=== PATIENT | male | born 1945 | race Caucasian/White ===

== ENCOUNTER → 2017-02-18 | Outpatient (CLI) | payer MEDICARE, OTHER ==
[~2017-02-18] MED LIST: ASPI-933 PO; CARV3.122 PO; ENLP2.5T PO; HYDR-2856 PO; MELO-195 PO; MULT-963 PO; OMEG1CAP51 PO; ROSU10TA12 PO
== END ==
LOC: CARD 09:35
PROVIDERS: ATTEND Internal Medicine Cardiovascular Disease
DX: I25.10 Atherosclerotic heart disease of native coronary artery without angina pectoris (principal); R01.1 Cardiac murmur, unspecified; I10 Essential (primary) hypertension; E78.2 Mixed hyperlipidemia; E66.9 Obesity, unspecified
CPT/HCPCS: 93306

== ENCOUNTER → 2017-09-08 | Outpatient (CLI) | payer MEDICARE, OTHER | LOC: CARD 13:37 | PROVIDERS: ATTEND Physician Assistant | DX: Q25.3 Supravalvular aortic stenosis (principal); I25.10 Atherosclerotic heart disease of native coronary artery without angina pectoris; I10 Essential (primary) hypertension; E78.2 Mixed hyperlipidemia | CPT/HCPCS: 93306 ==

== ENCOUNTER 2017-11-28 15:15 | Emergency (ER) | payer MEDICARE, OTHER ==
[~2017-11-28] VITALS: Ht 165.1 cm; Wt 102.1 kg
--- OUTSIDE RECORDS SUMMARY | 2017-11-28 15:21 | XMS REPORT | Clinical Summary ---
Author Author [facility] Organization [facility] Address Unknown Phone Unavailable Care Team Providers Care Houseman Name Role Phone Jose De Jesus Rocha MD PCP Dario Pandya MD 21 Source Comments Some departments are not documenting in the electronic medical record. If you do not see the information that you expected, contact Release of Information in the Health Information Management department at [phone] for further assistance in locating additional records.[facility] Allergies No Known Allergies Current Medications Prescription Sig. Disp. Refills Start End Date Status Date rosuvastatin (CRESTOR) 10 Take 10 mg by mouth at Active mg tablet bedtime daily. Fish Oil-DHA-EPA Take 1 capsule by mouth Active 1,200-144-216 mg cap twice daily. MULTIVIT-MINERALS/FERROUS Take 1 tablet by mouth Active FUM (MULTI VITAMIN PO) every morning. aspirin EC 81 mg tablet Take 81 mg by mouth at Active bedtime daily. Take with food. enalapril (VASOTEC) 2.5 Take 2.5 mg by mouth Active mg tablet twice daily. baclofen (LIORESAL) 10 mg Take 10 mg by mouth daily Active tablet as needed for Muscle Cramps. hydrOXYzine pamoate Take 25 mg by mouth daily Active (VISTARIL) 25 mg capsule as needed for Itching. loratadine (CLARITIN) 10 Take 10 mg by mouth daily Active mg tablet as needed (allergy symptoms). senna/docusate Take 2 tablets by mouth 60 tablet 0 03/10/20 Active (SENOKOT-S) 8.6/50 mg twice daily. 18 tablet oxyCODONE/acetaminophen Take 1 tablet by mouth 30 tablet 0 11/27/19 Active (ENDOCET) 5/325 mg tablet every 4 hours as needed 18 for Pain Earliest Fill Date: 11/26/17 carvedilol (COREG) 3.125 Take 3.125 mg by mouth 11/27/19 Discontin mg tablet twice daily. Take with 18 ued food. meloxicam (MOBIC) 15 mg Take 15 mg by mouth daily 11/27/19 Discontin tablet as needed for Pain. 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 Severe aortic stenosis 11/07/2017 Aortic stenosis 09/30/2017 NURIA (obstructive sleep apnea) Morbid obesity (HCC) NSTEMI (non-ST elevated myocardial infarction) (HCC) Mixed hyperlipidemia 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HCC) HTN (hypertension) Cardiac murmur CAD (coronary artery disease) Bruit of left carotid artery Encounters Date Type Specialty Care Team Description 11/28/2017 Telephone Cardiothoracic Surgery Jessica Vernon RN Post- hospital Follow Up 11/26/2017 Pharmacy Visit 11/25/2017 Pharmacy Visit 11/25/2017 Orders Only Cardiology Giovani Pratt APRN-[place] Nonrheumatic aortic valve stenosis (Primary Dx); Essential hypertension 11/24/2017 Hospital Galindo Cuenca MD S/P TAVR (transcatheter - Encounter Stephen Sewell MD aortic valve replacement) 11/26/2017 11/24/2017 Procedure Pass 11/24/2017 Surgery Galindo Cuenca MD REPLACEMENT TRANSCATHETER AORTIC VALVE-evolut, left common femoral artery approach, 29 pro valve 11/23/2017 PAC Office Anesthesiology Galindo Cuenca MD 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, Visit etiology of cardiac valve disease unspecified 11/23/2017 Anesthesia Sean Martínez MD Event 11/21/2017 Pre-Admit Cardiothoracic Surgery Galindo Cuenca MD 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, Orders Only etiology of cardiac valve disease unspecified (Primary Dx) 11/21/2017 Prep for Case Cardiothoracic Surgery Shani Madrid APRN 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, etiology of cardiac valve disease unspecified (Primary Dx) 11/18/2017 Documentation Cardiology Giovani Pratt APRN-C Provider Discussion About Patient (TAVR eval) 11/07/2017 Hospital Cardiology Ambrosio Nguyen MD Severe aortic stenosis - Encounter 11/08/2017 11/07/2017 Procedure Pass Cardiology 11/07/2017 Procedure Pass Cardiology 11/07/2017 Procedure Pass Cardiology 11/07/2017 Surgery Cardiology Ambrosio Nguyen MD ANGIOGRAPHY CORONARY ARTERY POSSIBLE WITH RIGHT AND LEFT HEART CATHETERIZATION WITH VENTRICULOGRAPHY 10/26/2017 Telephone Cardiothoracic Surgery Lulu Kamara RN General Question 10/26/2017 Documentation Cardiology Rakesh Patton RN Precertification (Medicare) 10/25/2017 [facility] Cardiology Chase Neri MD Encounter 10/25/2017 [facility] Giovani Pratt APRN-C Encounter 10/25/2017 Office Visit Cardiothoracic Surgery Galindo Cuenca MD Nonrheumatic aortic valve stenosis (Primary Dx) 10/25/2017 Office Visit Cardiology Chase Neri MD New Patient ( - TAVR ) 10/25/2017 [facility] Cardiology Giovani Pratt APRN-C Encounter 09/30/2017 Telephone Cardiology Marixa Acharya RN Navigation Assessment (/ AVR vs TAVR eval) from Last 3 Months Family History Medical History Relation Name Comments Cancer Brother Hypertension Father Cancer Paternal Aunt Heart Disease Paternal Uncle Relation Name Status Comments Brother Father Paternal Aunt Paternal Uncle Social History Tobacco Use Types Packs/Day Years Used Date Former Smoker Cigarettes 1 25 Quit: 2002 Smokeless Tobacco: Never Used Alcohol Use Drinks/Week oz/Week Comments Yes occasional Sex Assigned at Date Recorded Not on file Last Filed Vital Signs Vital Sign Reading Time Taken Blood Pressure 124/87 11/26/2017 8:00 AM SOCIOLOGY INSTRUCTOR Pulse 66 11/26/2017 8:00 AM SOCIOLOGY INSTRUCTOR Temperature 36.7 C (98.1 F) 11/26/2017 8:00 AM SOCIOLOGY INSTRUCTOR Respiratory Rate - - Oxygen Saturation 96% 11/26/2017 8:00 AM SOCIOLOGY INSTRUCTOR Inhaled Oxygen - - Concentration Weight 115.2 kg (254 lb) 11/26/2017 4:00 AM SOCIOLOGY INSTRUCTOR Height 167.6 cm (5' 5.98") 11/25/2017 9:01 AM SOCIOLOGY INSTRUCTOR Body Mass Index 41.02 11/26/2017 4:00 AM SOCIOLOGY INSTRUCTOR Plan of Treatment Health Maintenance Due Date Last Done Comments HEPATITIS C SCREENING 1945 PHYSICAL (COMPREHENSIVE) 1954 EXAM PERTUSSIS VACCINE 1958 TETANUS VACCINE 1964 COLORECTAL CANCER 1997 SCREENING SHINGLES VACCINE 2007 ABDOMINAL AORTIC ANEURYSM 2012 SCREENING PREVNAR/PNEUMOVAX (#1) 2012 INFLUENZA VACCINE 06/19/2018 Implants Implanted Type Area Plane Tender Device Expiration Model / Identifier Date Serial / Lot Evolutpro Core Valve 29mm - Heart N/A: Heart [employer] 01/10/2019 EVOLUTPRO- [id number] Valve 29-US / Implanted: Qty: 1 on 11/24/2017 by [id number] / Galindo Cuenca MD EVOLUTPRO- 29-US Procedures Procedure Name Priority Date/Time Associated Diagnosis Comments ANESTHESIA Routine 11/24/2017 TRANSEESOPHAGEAL 10:23 AM SOCIOLOGY INSTRUCTOR ECHOCARDIOGRAM Procedure Note - Flash Pino MD - 11/24/2017 10:23 AM SOCIOLOGY INSTRUCTOR Anesthesi a Procedure: Transesoph ageal Echocardio gram MONTSE Date/Time: 11/24/2017 9:24 AM Associate d procedure: Other Preprocedu re checklist performed: 2 patient identifier s, risks & benefits discussed, patient evaluated, timeout performed, consent obtained and patient being monitored Staff Anesthesio logist: FLASH PINO Performed personally (Cards fellow present.) Indicatio n for MONTSE: assessment of ascending aorta, defect repair evaluation and valvular assessment Physician requesting echo: GALINDO CUENCA CPT codes: 89822 - Guidance of a transcathe ter interventi on(s) Patient location: OR Intubated: yes Bite block: yes Heart visualized : yes Insertion: easy Probe type: multiplane Modalities : 2D, color flow mapping, continuous wave Doppler and 3D Echocardio graphic and Doppler Measuremen ts Ventricul ar Findings Right Ventricle RV cavity size: normal RV hypertroph y: no RV thrombus: no RV global function: normal Left Ventricle LV cavity size: normal LV hypertroph y: yes LV thrombus: no LV global function: normal LV ejection fraction: 55% Ventricula r Wall Motion Four Chamber View Basal anterolate ral: normal Basal inferosept al: normal Mid anterolate ral: normal Mid inferosept al: normal Apical lateral: normal Apical septal: normal Two Chamber View Basal anterior: normal Basal inferior: normal Mid anterior: normal Mid inferior: normal Apical anterior: normal Apical inferior: normal [place] View Basal anterosept al: normal Basal inferolate ral: normal Mid anterosept al: normal Mid inferolate ral: normal Apical lateral: normal Apical septal: normal [place]: normal Mid [place] View Mid anterosept al: normal Mid anterior: normal Mid anterolate ral: normal Mid inferolate ral: normal Mid inferior: normal Mid inferosept al: normal Valves Aortic Valve Annulus: calcified Stenosis: severe Regurgitat ion severity: mild Leaflet morphology : calcified, bicuspid and thickened Leaflet motion: restricted Mitral Valve Annulus: normal Stenosis: none Regurgitat ion severity: trace Leaflet morphology : normal Leaflet motion: normal Tricuspid Valve Annulus: normal Stenosis: none Regurgitat ion severity: trace Leaflet morphology : normal Leaflet motion: normal Aorta Ascending Aorta Size: normal Dissection : no Plaque thickness: 0-3 mm Plaque mobile: no Sinotubul ar Junction Size: normal Dissection : no Plaque thickness: >3 mm Plaque mobile: no Sinus of Valsalva Size: normal Dissection : no Plaque thickness: 0-3 mm Plaque mobile: no Descendin g Thoracic Aorta Size: normal Dissection : no Plaque thickness: 0-3 mm Plaque mobile: no Atria Right Atrium Size: normal SEC (smoke): no Thrombus: no Tumor: no Device: no Left Atrium Size: normal SEC (smoke): no Thrombus: no Tumor: no Device: no Left atrial appendage size: normal Septa Intra-atri al septal morphology : normal Intra-autumn tricular septal morphology : hypertroph y Other Findings Pericardiu m: normal Pleural effusion: none Pulmonary arteries: normal Pulmonary venous flow: normal Post Procedure Aortic valve replacemen t Perivalvul ar leak: no Mean gradient (mmHg): Post-proce dure comments: Successful TAVR. 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 No PVL. Performed by: FLASH PINO Authorized by: FLASH PINO ANESTHESIA CENTRAL LINE Routine 11/24/2017 Results for this INSERTION 8:42 AM SOCIOLOGY INSTRUCTOR procedure are in the results section. ANESTHESIA ARTERIAL LINE Routine 11/24/2017 Results for this INSERTION 8:31 AM SOCIOLOGY INSTRUCTOR procedure are in the results section. PROCEDURE RECORD-SCAN 11/14/2017 Results for this 11:52 AM SOCIOLOGY INSTRUCTOR procedure are in the results section. ECG-SCAN 11/14/2017 Results for this 11:28 AM SOCIOLOGY INSTRUCTOR procedure are in the results section. TELEMETRY STRIPS-SCAN 11/14/2017 Results for this 11:28 AM SOCIOLOGY INSTRUCTOR procedure are in the results section. from Last 3 Months Results * POC GLUCOSE (11/26/2017 8:06 AM) Only the most recent of 11 results within the time period is included. Component Value Ref Range Glucose, POC 126 (H) 70 - 100 MG/DL Specimen Performing Laboratory [facility] [address] [place] [address] * CHEST SINGLE VIEW (11/26/2017 6:23 AM) Only the most recent of 2 results within the time period is included. Specimen Performing Laboratory [facility] RESULTS Impressions Almost complete resolution of pulmonary vascular congestion Finalized by Indra Hernandez M.D. on 11/26/2017 12:55 PM. Dictated by Indra Hernandez M.D. on 11/26/2017 12:53 PM. Narrative Single view chest Clinical indications: Transcatheter aortic valve repair. FINDINGS: Perivascular congestion has almost completely resolved since the previous days examination. The heart remains mildly prominent. No pulmonary infiltrates are identified. There is no evidence of pneumothorax or pleural fluid. Procedure Note Interface, Radiant Results - 11/26/2017 12:58 PM SOCIOLOGY INSTRUCTOR Single view chest Clinical indications: Transcatheter aortic valve repair. FINDINGS: Perivascular congestion has almost completely resolved since the previous days examination. The heart remains mildly prominent. No pulmonary infiltrates are identified. There is no evidence of pneumothorax or pleural fluid. IMPRESSION Almost complete resolution of pulmonary vascular congestion Finalized by Indra Hernandez M.D. on 11/26/2017 12:55 PM. Dictated by Indra Hernandez M.D. on 11/26/2017 12:53 PM. * CBC (11/26/2017 3:46 AM) Only the most recent of 6 results within the time period is included. Component Value Ref Range White Blood Cells 11.2 (H) 4.5 - 11.0 K/UL RBC 4.05 (L) 4.4 - 5.5 M/UL Hemoglobin 12.8 (L) 13.5 - 16.5 GM/DL Hematocrit 39.7 (L) 40 - 50 % MCV 98.1 80 - 100 FL MCH 31.6 26 - 34 PG MCHC 32.3 32.0 - 36.0 G/DL RDW 14.8 11 - 15 % Platelet Count 152 150 - 400 K/UL MPV 9.2 7 - 11 FL Specimen Performing Laboratory [facility] [address] [place] [address] * BASIC METABOLIC PANEL (11/26/2017 3:46 AM) Only the most recent of 4 results within the time period is included. Component Value Ref Range Sodium 136 (L) 137 - 147 MMOL/L Potassium 4.3 3.5 - 5.1 MMOL/L Chloride 103 98 - 110 MMOL/L CO2 26 21 - 30 MMOL/L Anion Gap 7 3 - 12 Glucose 111 (H) 70 - 100 MG/DL Blood Urea Nitrogen 15 7 - 25 MG/DL Creatinine 0.85 0.4 - 1.24 MG/DL Calcium 9.6 8.5 - 10.6 MG/DL eGFR Non >60 >60 mL/min Comment: The eGFR is not validated for use in drug dosing adjustments. Continue to use estimated creatinine clearance per dosing reference text. Please contact the Clinical Pharmacist for questions. eGFR >60 >60 mL/min Comment: The eGFR is not validated for use in drug dosing adjustments. Continue to use estimated creatinine clearance per dosing reference text. Please contact the Clinical Pharmacist for questions. Specimen Performing Laboratory [facility] [address] [place] [address] * 2-D + DOPPLER ECHOCARDIOGRAM (11/25/2017 9:01 AM) Only the most recent of 2 results within the time period is included. Component Value Ref Range LVOT diameter 2.21 cm IVS 1.36 0.6 - 1.0 cm LVIDD 5.39 4.2 - 5.9 cm LVIDS 3.53 cm PW 1.36 0.6 - 1.0 cm LVOT peak jorge 1.06 m/s LVOT peak VTI 23.0 meter TDI e' 0.08 m/s LA size 4.72 3.0 - 4.0 cm LA volume 71.57 18 - 58 mL , with a mean gradient of 12.49 mmHg and a peak gradient of 23.82 mmHg AV peak velocity 2.44 m/s Ao VTI 47.0 meter MV Peak A Jorge 0.99 m/s MV Peak E Jorge PW 0.74 m/s Right Heart Systolic 2.65 cm Mmode TAPSE Sinus 4.12 2.1 - 3.5 cm BSA 2.31 m2 FS 34.51 28 - 44 % EF 58.67 % Left Atrium Index 30.98 10 - 32 AV index (hoopa) 0.43 LVOT area 3.83 cm2 LVOT stroke volume 88.09 cm3 E/A ratio 0.75 E/E' ratio 9.25 CV ECHO PV CEO ZIFF DAVIS B[facility] Ultrasound Siemens LC1371 Machine Aortic valve area= 1.87 cm2 TV rest pulmonary artery n/a mmHg pressure Right Atrial Major 6.6 <=5.3 cm Dimension ECHO EF 55 % Specimen Performing Laboratory OTHER OUTSIDE LAB Narrative Very poor image quality Mild right atrial dilation Mild left ventricular hypertrophy Left ventricular ejection fraction=55% Bioprosthetic aortic valve, appears well seated, leaflets not well visualized, appears new since the study of 10/25/17 Unable to calculate pulmonary artery pressure No significant pericardial effusion Vidal Javier MD, MSc * POTASSIUM (11/24/2017 6:46 PM) Component Value Ref Range Potassium 4.0 3.5 - 5.1 MMOL/L Specimen Performing Laboratory [facility] [address] [place] [id number] * MAGNESIUM (11/24/2017 6:46 PM) Only the most recent of 2 results within the time period is included. Component Value Ref Range Magnesium 1.9 1.6 - 2.6 mg/dL Specimen Performing Laboratory [facility] [address] [place] [id number] * PTT (APTT) (11/24/2017 10:39 AM) Only the most recent of 2 results within the time period is included. Component Value Ref Range APTT 28.7 21.0 - 39.0 SEC Specimen Performing Laboratory [facility] [address] [place] [id number] * PROTIME INR (PT) (11/24/2017 10:39 AM) Only the most recent of 2 results within the time period is included. Component Value Ref Range INR 1.0 0.8 - 1.2 Specimen Performing Laboratory [facility] [address] [place] [id number] * LINE PLCMT 1V CXR (11/24/2017 10:38 AM) Specimen Performing Laboratory [facility] RESULTS Impressions 1.Mild cardiomegaly with pulmonary vascular congestion which could reflect mild CHF/volume overload. 2.Prominence of the interstitium throughout the lungs which could be related to fibrosis. Approved by Hawk Moe M.D. on 11/24/2017 10:58 AM By my electronic signature, I attest that I have personally reviewed the images for this examination and formulated the interpretations and opinions expressed in this report Finalized by Kirk Garcia M.D. on 11/24/2017 12:33 PM. Dictated by Hawk Moe M.D. on 11/24/2017 10:46 AM. Narrative LINE PLCMT 1V CXR Clinical Indication: Male, 72 years old. Temporary pacer lead placement. Comparison: CTA chest November 08, 2017. Findings: Right IJ transvenous pacing lead overlies the right ventricle. Cardiac silhouette is mildly enlarged with pulmonary vascular congestion. There is prominence of the interstitium throughout the lungs. No lobar consolidation or pleural effusion. No pneumothorax. Procedure Note Interface, Radiant Results - 11/24/2017 12:37 PM SOCIOLOGY INSTRUCTOR LINE PLCMT 1V CXR Clinical Indication: Male, 72 years old. Temporary pacer lead placement. Comparison: CTA chest November 08, 2017. Findings: Right IJ transvenous pacing lead overlies the right ventricle. Cardiac silhouette is mildly enlarged with pulmonary vascular congestion. There is prominence of the interstitium throughout the lungs. No lobar consolidation or pleural effusion. No pneumothorax. IMPRESSION 1. Mild cardiomegaly with pulmonary vascular congestion which could reflect mild CHF/volume overload. 2. Prominence of the interstitium throughout the lungs which could be related to fibrosis. Approved by Hawk Moe M.D. on 11/24/2017 10:58 AM By my electronic signature, I attest that I have personally reviewed the images for this examination and formulated the interpretations and opinions expressed in this report Finalized by Kirk Garcia M.D. on 11/24/2017 12:33 PM. Dictated by Hawk Moe M.D. on 11/24/2017 10:46 AM. * POC BLOOD GAS ARTERIAL (11/24/2017 9:52 AM) Only the most recent of 2 results within the time period is included. Component Value Ref Range PH-ART-POC 7.30 (L) 7.35 - 7.45 LPC4-LXS-YFC 43 35 - 45 MMHG PO2-ART-POC 70 (L) 80 - 100 MMHG Base Def-ART-POC 6.0 MMOL/L O2 Sat-ART-POC 92.0 (L) 95 - 99 % Swiqukuxotd-LVC-OAP 20.7 (L) 21 - 28 MMOL/L Specimen Performing Laboratory [facility] [address] [place] [address] * POC SODIUM (11/24/2017 9:52 AM) Only the most recent of 2 results within the time period is included. Component Value Ref Range Sodium-POC 140 137 - 147 MMOL/L Specimen Performing Laboratory [facility] [address] [place] [address] * POC POTASSIUM (11/24/2017 9:52 AM) Only the most recent of 2 results within the time period is included. Component Value Ref Range Potassium-POC 3.5 3.5 - 5.1 MMOL/L Specimen Performing Laboratory [facility] [address] [place] [address] * POC IONIZED CALCIUM (11/24/2017 9:52 AM) Only the most recent of 2 results within the time period is included. Component Value Ref Range Ionized Calcium-POC 1.11 1.0 - 1.3 MMOL/L Specimen Performing Laboratory [facility] [address] [place], [place] [id number] * POC HEMATOCRIT (11/24/2017 9:52 AM) Only the most recent of 2 results within the time period is included. Component Value Ref Range Hemoglobin POC 12.6 (L) 13.5 - 16.5 GM/DL Hematocrit POC 37.0 (L) 40 - 50 % Specimen Performing Laboratory [facility] [address] [place], [place] [id number] * POC ACTIVATED CLOTTING TIME (11/24/2017 9:49 AM) Only the most recent of 2 results within the time period is included. Component Value Ref Range Activated Clotting Time 162 s Specimen Performing Laboratory [facility] [address] [place] [address] * ANESTHESIA CENTRAL LINE INSERTION (11/24/2017 8:42 AM) Flash Keenan MD 11/24/2017 10:23 AM Anesthesia Procedure: Central Venous Catheter Line CENTRAL LINE INSERTION Date/Time: 11/24/2017 8:07 AM Patient location: OR Indications: vascular access and medications requiring CV access (transvenous pacing wires) Preprocedure checklist performed: 2 patient identifiers, risks & benefits discussed, patient evaluated, timeout performed, consent obtained, patient being monitored and CVC bundle followed (proper hand washing, maximal sterile barrier technique with cap, sterile gown, sterile glove, sterile drape, and skin prep for antisepsis) CVC Line Insertion Procedure Skin prepped with chlorhexidine; skin prep agent completely dried prior to procedure. Patient Position: supine Location: internal jugular vein Laterality: right Vein identification: ultrasound guided Confirmation of venous placement prior to dilation of vein by: ultrasound Number of attempts: 1 Successful placement: yes Patient sedated: yes Sedation given: general Catheter: Catheter type: introducer placed using standard wire through needle technique Catheter size: 6 Fr. Procedure Outcome Post procedure: dressing applied, line sutured and securement device; Dressing: chlorhexidine impregnated sponge Placement verification: x-ray verification pending Events: none Observations: patient tolerated well Additional notes: I was physically present and participated in the placement. US guidance and confirmation. No complications. JTM Performed by: NIA MCCLAIN Authorized by: FLASH PINO Procedure Note Flash Pino MD - 11/24/2017 8:42 AM SOCIOLOGY INSTRUCTOR Anesthesia Procedure: Central Venous Catheter Line CENTRAL LINE INSERTION Date/Time: 11/24/2017 8:07 AM Patient location: OR Indications: vascular access and medications requiring CV access (transvenous pacing wires) Preprocedure checklist performed: 2 patient identifiers, risks & benefits discussed, patient evaluated, timeout performed, consent obtained, patient being monitored and CVC bundle followed (proper hand washing, maximal sterile barrier technique with cap, sterile gown, sterile glove, sterile drape, and skin prep for antisepsis) CVC Line Insertion Procedure Skin prepped with chlorhexidine; skin prep agent completely dried prior to procedure. Patient Position: supine Location: internal jugular vein Laterality: right Vein identification: ultrasound guided Confirmation of venous placement prior to dilation of vein by: ultrasound Number of attempts: 1 Successful placement: yes Patient sedated: yes Sedation given: general Catheter: Catheter type: introducer placed using standard wire through needle technique Catheter size: 6 Fr. Procedure Outcome Post procedure: dressing applied, line sutured and securement device; Dressing: chlorhexidine impregnated sponge Placement verification: x-ray verification pending Events: none Observations: patient tolerated well Additional notes: I was physically present and participated in the placement. US guidance and confirmation. No complications. JTM Performed by: NIA MCCLAIN Authorized by: FLASH PINO * ANESTHESIA ARTERIAL LINE INSERTION (11/24/2017 8:31 AM) Narrative Flash Pino MD 11/24/2017 10:22 AM Anesthesia Procedure: Arterial Line Placement A-LINE INSERTION Date/Time: 11/24/2017 8:08 AM Patient location: OR Indications: hemodynamic monitoring Preprocedure checklist performed: 2 patient identifiers, risks & benefits discussed, patient evaluated, timeout performed, consent obtained and patient being monitored Sterile technique: - Proper hand washing - Cap, mask - Sterile gloves - Skin prep for antisepsis Arterial Line Procedure Patient sedated: yes (see MAR) Sedation type: general; Artery prepped with chlorhexidine; skin prep agent completely dried prior to procedure. Location: radial artery Laterality: right Technique: palpation Needle gauge: 20 G Number of attempts: 3 and 2 (x1 resident) Procedure Outcome Catheter secured with adhesive dressing applied Events: no complications noted during insertion and skin intact, warm, and dry Observation: pt tolerated well Additional notes: This was a difficult arterial access. The first attempt the wire would not pass. Same with the second attempt. The third attempt I used US guidance to place. JTM Performed by: FLASH PINO Authorized by: FLASH PINO Procedure Note Flash Pino MD - 11/24/2017 8:31 AM SOCIOLOGY INSTRUCTOR Anesthesia Procedure: Arterial Line Placement A-LINE INSERTION Date/Time: 11/24/2017 8:08 AM Patient location: OR Indications: hemodynamic monitoring Preprocedure checklist performed: 2 patient identifiers, risks & benefits discussed, patient evaluated, timeout performed, consent obtained and patient being monitored Sterile technique: - Proper hand washing - Cap, mask - Sterile gloves - Skin prep for antisepsis Arterial Line Procedure Patient sedated: yes (see MAR) Sedation type: general; Artery prepped with chlorhexidine; skin prep agent completely dried prior to procedure. Location: radial artery Laterality: right Technique: palpation Needle gauge: 20 G Number of attempts: 3 and 2 (x1 resident) Procedure Outcome Catheter secured with adhesive dressing applied Events: no complications noted during insertion and skin intact, warm, and dry Observation: pt tolerated well Additional notes: This was a difficult arterial access. The first attempt the wire would not pass. Same with the second attempt. The third attempt I used US guidance to place. JTM Performed by: FLASH PINO Authorized by: FLASH PINO * BLOOD TYPE CONFIRMATION - ORDER ONLY IF REQUESTED BY LAB (11/24/2017 6:20 AM) Component Value Ref Range ABO/RH(D) O POS Specimen Performing Laboratory MAIN LAB [address] [place] [address] * URINALYSIS MICROSCOPIC REFLEX TO CULTURE (11/23/2017 1:23 PM) Component Value Ref Range WBCs,UA 0-2 0 - 2 /HPF RBCs,UA 0-2 0 - 3 /HPF Comment,UA Urine submitted for reflex culture if criteria are met:WBC>10, positive nitrite and/or >=1+ leukocyte esterase. If quantity is not sufficient, an addendum will follow. Specimen Performing Laboratory Urine MAIN LAB [address] [place] [address] * URINALYSIS DIPSTICK REFLEX TO CULTURE (11/23/2017 1:23 PM) Component Value Ref Range Color,UA STRAW Turbidity,UA CLEAR CLEAR-CLEAR Specific [place]-Urine 1.004 1.003 - 1.035 pH,UA 8.0 5.0 - 8.0 Protein,UA NEG NEG-NEG Glucose,UA NEG NEG-NEG Ketones,UA NEG NEG-NEG Bilirubin,UA NEG NEG-NEG Blood,UA NEG NEG-NEG Urobilinogen,UA NORMAL NORM-NORMAL Nitrite,UA NEG NEG-NEG Leukocytes,UA NEG NEG-NEG Urine Ascorbic Acid, UA NEG NEG-NEG Specimen Performing Laboratory Urine MAIN LAB [address] [place] [address] * TYPE & CROSSMATCH (11/23/2017 12:19 PM) Component Value Ref Range Units Ordered 2 Crossmatch Expires 11/26/2017 Record Check 2ND TYPE REQUIRED ABO/RH(D) O POS Antibody Screen NEG Electronic Crossmatch YES Unit Number [id number] Blood Component Type RBC,ADSOL,LEUKO REDUCED Unit Division 0 Status OF Unit REL FROM ALLOC Transfusion Status OK TO TRANSFUSE Crossmatch Result COMPATIBLE,ELECTRONIC Unit Number [id number] Blood Component Type RBC,ADSOL,LEUKO REDUCED Unit Division 0 Status OF Unit REL FROM ALLOC Transfusion Status OK TO TRANSFUSE Crossmatch Result COMPATIBLE,ELECTRONIC Specimen Performing Laboratory Blood MAIN LAB [address] [place] [address] * BNP (B-TYPE NATRIURETIC PEPTI) (11/23/2017 12:19 PM) Component Value Ref Range B Type Natriuretic 202.0 (H) 0 - 100 PG/ML Peptide Specimen Performing Laboratory Blood MAIN LAB [address] [place] [address] * HEMOGLOBIN A1C (11/23/2017 12:19 PM) Component Value Ref Range Hemoglobin A1C 5.9 4.0 - 6.0 % Comment: The ADA recommends that most patients with type 1 and type 2 diabetes maintain an A1c level <7%. Specimen Performing Laboratory Blood MAIN LAB [address] [place] [address] * COMPREHENSIVE METABOLIC PANEL (11/23/2017 12:19 PM) Only the most recent of 2 results within the time period is included. Component Value Ref Range Sodium 138 137 - 147 MMOL/L Potassium 3.8 3.5 - 5.1 MMOL/L Chloride 105 98 - 110 MMOL/L Glucose 114 (H) 70 - 100 MG/DL Blood Urea Nitrogen 13 7 - 25 MG/DL Creatinine 0.78 0.4 - 1.24 MG/DL Calcium 9.5 8.5 - 10.6 MG/DL Total Protein 7.6 6.0 - 8.0 G/DL Total Bilirubin 0.6 0.3 - 1.2 MG/DL Albumin 4.0 3.5 - 5.0 G/DL Alk Phosphatase 84 25 - 110 U/L AST (SGOT) 24 7 - 40 U/L CO2 26 21 - 30 MMOL/L ALT (SGPT) 19 7 - 56 U/L Anion Gap 7 3 - 12 eGFR Non >60 >60 mL/min Comment: The eGFR is not validated for use in drug dosing adjustments. Continue to use estimated creatinine clearance per dosing reference text. Please contact the Clinical Pharmacist for questions. eGFR >60 >60 mL/min Comment: The eGFR is not validated for use in drug dosing adjustments. Continue to use estimated creatinine clearance per dosing reference text. Please contact the Clinical Pharmacist for questions. Specimen Performing Laboratory Blood MAIN LAB [address] [place] [address] * PROCEDURE RECORD-SCAN (11/14/2017 11:52 AM) Narrative Ordered by an unspecified provider. * TELEMETRY STRIPS-SCAN (11/14/2017 11:28 AM) Narrative Ordered by an unspecified provider. * ECG-SCAN (11/14/2017 11:28 AM) Narrative Ordered by an unspecified provider. * CTA ABD/PELVIS (11/08/2017 5:58 AM) Specimen Performing Laboratory [facility] RAD RESULTS Impressions CTA Impression: Chest: 1.Moderate to severe aortic valve calcification consistent with degenerative aortic valve disease. 2.Normal caliber aortic root and ascending aorta with mild scattered aortic plaque. 3.Moderate pulmonary fibrosis without pneumonia or pleural effusion. Abdomen and pelvis: 1.Mild aortoiliac atherosclerosis without aortic aneurysm or obstructive iliac artery plaque. 2.No significant stenosis of the major visceral arteries. 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 Finalized by David Christianson M.D. on 11/08/2017 12:03 PM. Dictated by David Christianson M.D. on 11/08/2017 11:55 AM. Narrative CTA chest, CTA abdomen and pelvis Indication:72 year-old gentleman undergoing evaluation for aortic valve repair Technique: Thin dynamic IV contrast-enhanced images were obtained through the chest abdomen and pelvis. Delayed scans were obtained through the abdomen and pelvis. Post processing coronal and sagittal reconstruction images were made from the axial images.Image post-processing was obtained.Isovue-370 was administered intravenously. Comparison examination: None CTA Chest findings: 1. Heart, aorta, and great vessels: Heart size is upper limits of normal. Mild calcified coronary artery plaque is noted.There is no pericardial effusion. There is moderate to severe aortic valve calcification.The aortic root is normal in caliber measuring 3.9 cm on coronal reformations.The ascending aorta measures 3.6 cm.There is mild scattered aortic plaque without dissection or aneurysm. 2. Mediastinum and pulmonary tanya:Several normal size mediastinal lymph nodes.No adenopathy or mass. 3. Lungs and pleura:Moderate pulmonary fibrosis.Calcified granuloma left upper lobe.No pneumonia or pleural effusion. Mild thoracic spondylosis. CTA Abdomen findings: 1. Abdominal aorta:Normal caliber with mild scattered calcified plaque. No dissection. 2. Major abdominal visceral arteries:Mild plaque, but no significant stenosis of the major visceral arteries. 3. 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 4. Abdominal and pelvic viscera:Liver, spleen, adrenals, kidneys, and pancreas unremarkable.No abdominal or pelvic adenopathy.Bladder and prostate are unremarkable.Bowel loops normal caliber.Moderate colonic diverticulosis.No ascites.Moderate lumbar spondylosis. Procedure Note Interface, Radiant Results - 11/08/2017 12:07 PM SOCIOLOGY INSTRUCTOR CTA chest, CTA abdomen and pelvis Indication: 72 year-old gentleman undergoing evaluation for aortic valve repair Technique: Thin dynamic IV contrast-enhanced images were obtained through the chest abdomen and pelvis. Delayed scans were obtained through the abdomen and pelvis. Post processing coronal and sagittal reconstruction images were made from the axial images. Image post-processing was obtained. Isovue-370 was administered intravenously. Comparison examination: None CTA Chest findings: 1. Heart, aorta, and great vessels: Heart size is upper limits of normal. Mild calcified coronary artery plaque is noted. There is no pericardial effusion. There is moderate to severe aortic valve calcification. The aortic root is normal in caliber measuring 3.9 cm on coronal reformations. The ascending aorta measures 3.6 cm. There is mild scattered aortic plaque without dissection or aneurysm. 2. Mediastinum and pulmonary tanya: Several normal size mediastinal lymph nodes. No adenopathy or mass. 3. Lungs and pleura: Moderate pulmonary fibrosis. Calcified granuloma left upper lobe. No pneumonia or pleural effusion. Mild thoracic spondylosis. CTA Abdomen findings: 1. Abdominal aorta: Normal caliber with mild scattered calcified plaque. No dissection. 2. Major abdominal visceral arteries: Mild plaque, but no significant stenosis of the major visceral arteries. 3. Iliac and common femoral arteries: Mild eccentric calcified plaque without dissection or high-grade stenosis. 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 4. Abdominal and pelvic viscera: Liver, spleen, adrenals, kidneys, and pancreas unremarkable. No abdominal or pelvic adenopathy. Bladder and prostate are unremarkable. Bowel loops normal caliber. Moderate colonic diverticulosis. No ascites. Moderate lumbar spondylosis. IMPRESSION CTA Impression: Chest: 1. Moderate to severe aortic valve calcification consistent with degenerative aortic valve disease. 2. Normal caliber aortic root and ascending aorta with mild scattered aortic plaque. 3. Moderate pulmonary fibrosis without pneumonia or pleural effusion. Abdomen and pelvis: 1. Mild aortoiliac atherosclerosis without aortic aneurysm or obstructive iliac artery plaque. 2. No significant stenosis of the major visceral arteries. 3. 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 Finalized by David Christianson M.D. on 11/08/2017 12:03 PM. Dictated by David Christianson M.D. on 11/08/2017 11:55 AM. * CTA CHEST WO/W CONTRAST+POST IMPRESSION (11/08/2017 5:58 AM) Specimen Performing Laboratory [facility] RAD RESULTS Impressions CTA Impression: Chest: 1.Moderate to severe aortic valve calcification consistent with degenerative aortic valve disease. 2.Normal caliber aortic root and ascending aorta with mild scattered aortic plaque. 3.Moderate pulmonary fibrosis without pneumonia or pleural effusion. Abdomen and pelvis: 1.Mild aortoiliac atherosclerosis without aortic aneurysm or obstructive iliac artery plaque. 2.No significant stenosis of the major visceral arteries. 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 Finalized by David Christianson M.D. on 11/08/2017 12:03 PM. Dictated by David Christianson M.D. on 11/08/2017 11:55 AM. Narrative CTA chest, CTA abdomen and pelvis Indication:72 year-old gentleman undergoing evaluation for aortic valve repair Technique: Thin dynamic IV contrast-enhanced images were obtained through the chest abdomen and pelvis. Delayed scans were obtained through the abdomen and pelvis. Post processing coronal and sagittal reconstruction images were made from the axial images.Image post-processing was obtained.Isovue-370 was administered intravenously. Comparison examination: None CTA Chest findings: 1. Heart, aorta, and great vessels: Heart size is upper limits of normal. Mild calcified coronary artery plaque is noted.There is no pericardial effusion. There is moderate to severe aortic valve calcification.The aortic root is normal in caliber measuring 3.9 cm on coronal reformations.The ascending aorta measures 3.6 cm.There is mild scattered aortic plaque without dissection or aneurysm. 2. Mediastinum and pulmonary tanya:Several normal size mediastinal lymph nodes.No adenopathy or mass. 3. Lungs and pleura:Moderate pulmonary fibrosis.Calcified granuloma left upper lobe.No pneumonia or pleural effusion. Mild thoracic spondylosis. CTA Abdomen findings: 1. Abdominal aorta:Normal caliber with mild scattered calcified plaque. No dissection. 2. Major abdominal visceral arteries:Mild plaque, but no significant stenosis of the major visceral arteries. 3. 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 4. Abdominal and pelvic viscera:Liver, spleen, adrenals, kidneys, and pancreas unremarkable.No abdominal or pelvic adenopathy.Bladder and prostate are unremarkable.Bowel loops normal caliber.Moderate colonic diverticulosis.No ascites.Moderate lumbar spondylosis. Procedure Note Interface, Radiant Results - 11/08/2017 12:07 PM SOCIOLOGY INSTRUCTOR CTA chest, CTA abdomen and pelvis Indication: 72 year-old gentleman undergoing evaluation for aortic valve repair Technique: Thin dynamic IV contrast-enhanced images were obtained through the chest abdomen and pelvis. Delayed scans were obtained through the abdomen and pelvis. Post processing coronal and sagittal reconstruction images were made from the axial images. Image post-processing was obtained. Isovue-370 was administered intravenously. Comparison examination: None CTA Chest findings: 1. Heart, aorta, and great vessels: Heart size is upper limits of normal. Mild calcified coronary artery plaque is noted. There is no pericardial effusion. There is moderate to severe aortic valve calcification. The aortic root is normal in caliber measuring 3.9 cm on coronal reformations. The ascending aorta measures 3.6 cm. There is mild scattered aortic plaque without dissection or aneurysm. 2. Mediastinum and pulmonary tanya: Several normal size mediastinal lymph nodes. No adenopathy or mass. 3. Lungs and pleura: Moderate pulmonary fibrosis. Calcified granuloma left upper lobe. No pneumonia or pleural effusion. Mild thoracic spondylosis. CTA Abdomen findings: 1. Abdominal aorta: Normal caliber with mild scattered calcified plaque. No dissection. 2. Major abdominal visceral arteries: Mild plaque, but no significant stenosis of the major visceral arteries. 3. Iliac and common femoral arteries: Mild eccentric calcified plaque without dissection or high-grade stenosis. 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 4. Abdominal and pelvic viscera: Liver, spleen, adrenals, kidneys, and pancreas unremarkable. No abdominal or pelvic adenopathy. Bladder and prostate are unremarkable. Bowel loops normal caliber. Moderate colonic diverticulosis. No ascites. Moderate lumbar spondylosis. IMPRESSION CTA Impression: Chest: 1. Moderate to severe aortic valve calcification consistent with degenerative aortic valve disease. 2. Normal caliber aortic root and ascending aorta with mild scattered aortic plaque. 3. Moderate pulmonary fibrosis without pneumonia or pleural effusion. Abdomen and pelvis: 1. Mild aortoiliac atherosclerosis without aortic aneurysm or obstructive iliac artery plaque. 2. No significant stenosis of the major visceral arteries. 3. 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 Finalized by David Christianson M.D. on 11/08/2017 12:03 PM. Dictated by David Christianson M.D. on 11/08/2017 11:55 AM. * CARDIAC CATH REPORT (11/07/2017 11:18 AM) Specimen Performing Laboratory OTHER OUTSIDE LAB Procedure Note Ambrosio Nguyen MD - 11/07/2017 11:18 AM SOCIOLOGY INSTRUCTOR Formatting of this note may be different from the original. [facility] CARDIAC CATHETERIZATION REPORT Page 2 JADEN Rowland : 1945 KU#: [id number] MR #/Billing ID #: [id number] / [id number] DATE: 11/07/2017 ELECTRONIC WARFARE TECHNICIAN: Ambrosio Nguyen MD DICTATING PROVIDER: Ambrosio Nguyen MD REFERRING PHYSICIAN: GIOVANI PRATT PROCEDURE PERFORMED: Coronary angiography. INDICATION: Severe aortic valve stenosis. Plan for possible TAVR. CONSENT: The patient was consented in the holding area prior to being brought to the cardiac labor relations consultant. Risks of the procedure, including the potential risk of stroke, myocardial infarction and were discussed. He understood and agreed to proceed. PROCEDURE DETAILS: The patient was brought to the cardiac catheterization laboratory in a fasting, nonsedated state. After confirming a normal Barbeau test, the right wrist was prepped and draped in usual fashion. Access was obtained in the radial artery without difficulty. A 6-[place] Slender sheath was placed. The patient was given heparin intravenously along with nitroglycerin and verapamil through the sheath. A Antonio catheter was advanced in the aorta and then directed into the left main for coronary angiography in multiple views of the left coronary artery. It was then directed into the right coronary for multiple views of the right coronary artery. Then the JR4 was removed over a wire and a TR band was used hemostasis; 10 mL of air was used for the TR band for hemostasis. FINDINGS: HEMODYNAMICS: Aortic pressure 91/69, mean 73 mmHg. ANATOMY: 1. Left main arose from the left coronary cusp. It was normal. It bifurcated into the LAD and circumflex. 2. LAD: This is a type 3 LAD. It is normal supplying 1 significant diagonal which is also normal. 3. Circumflex is large but not dominant. There is a 30% stenosis just before the takeoff of the 1st bifurcating obtuse marginal. The obtuse marginal was normal. The rest of the circumflex was unremarkable terminating in a bifurcating large obtuse marginal, which was normal as well. 4. The right coronary is dominant arising from the right coronary cusp. It had 20% plaque in the midportion. It supplied the posterior descending and posterolateral arteries, which were normal. CONTRAST: Isovue 370 at 50 mL. RADIATION EXPOSURE: Fluoroscopy time 2-1/2 minutes with air kerma total of 622 mGy. MEDICATIONS: Lidocaine 2 mL, fentanyl 75 mcg in divided doses, heparin 4000 units intravenously, nitroglycerin 100 mcg through the sheath, verapamil 2.5 mg through the sheath, Versed 2.5 mg in divided doses. CONCLUSIONS: 1. Mild coronary plaque. 2. Severe aortic valve stenosis. Ambrosio Nguyen MD [facility]/MedQ //[id number] cc: - MD Galindo Sauceda MD Dr. Segli * LIPID PROFILE (11/07/2017 9:11 AM) Component Value Ref Range Cholesterol 171 <200 MG/DL Triglycerides 144 <150 MG/DL HDL 47 >40 MG/DL LDL 102 (H) <100 MG/DL VLDL 29 MG/DL Non HDL Cholesterol 124 MG/DL Comment: Calculated non-HDL Cholesterol (non-HDL-C) indirectly measures LDL-C, Lp(a), IDL-C, and VLDL-C. It is a surrogate marker for Apoprotein B. Goal should be less than 130 mg/dL. Specimen Performing Laboratory Blood MAIN LAB [address] [place] [address] * POC PT/INR (11/07/2017 9:10 AM) Component Value Ref Range INR POC 1.0 0.8 - 1.2 Specimen Performing Laboratory MAIN LAB [address] [place] [address] * PFT COMPLETE PULM FUNCTION (10/25/2017 11:35 AM) Component Value Ref Range FVC-Pre 3.08 L FVC-%Pred-pre 89 % FEV1-Pre 2.45 L FEV1-%Pred-Pre 97 % [id number]-Fbi 2.18 L/sec [id number]-%Pred-Pre 112 % VCSVC-Pre 3.09 L ICSVC-Pre 2.47 L ERVSVC-Pre 0.62 L PEF-Pre 456.7 L/min TGVPleth-Pre 2.64 L RVPleth-Pre 2.21 L RVPleth-%Pred-Pre 103 % TLCPleth-Pre 5.21 L TLCPleth-%Pred-Pre 89 % DLCOunc-Pred 23.58 ml/min/mmHg DLCOunc-Pre 16.15 ml/min/mmHg DLCOunc-%Pred-Pre 68 % DLCOunc-SD 6.04 ml/min/mmHg DLCOunc-LLN 11.50 ml/min/mmHg DLCOunc-ULN 35.66 ml/min/mmHg DLCOunc-#SD -1.231 ml/min/mmHg DLVA-Pred 4.27 ml/min/mmHg/L DLVA-Pre 4.03 ml/min/mmHg/L DLVA-%Pred-Pre 94 % DLVA-SD 0.73 ml/min/mmHg/L DLVA-LLN 2.81 ml/min/mmHg/L DLVA-ULN 5.73 ml/min/mmHg/L DLVA-#SD -0.327 ml/min/mmHg/L Specimen Performing Laboratory [facility] PFT MAIN [address] [place] [address] from Last 3 Months
--- OUTSIDE RECORDS SUMMARY | 2017-11-28 15:22 | XMS REPORT | Encounter Summary ---
Author Author [facility] Organization [facility] Address Unknown Phone Unavailable Care Team Providers Care Geochemical Manager Name Role Phone Jose De Jesus Rocha MD PCP Dario Pandya MD 21 Encounter Details Date Type Department Care Team Description 11/26/2017 Pharmacy Visit [facility] [address] [place] [address] [phone] Social History Tobacco Use Types Packs/Day Years Used Date Former Smoker Cigarettes 1 25 Quit: 2002 Smokeless Tobacco: Never Used Alcohol Use Drinks/Week oz/Week Comments Yes occasional Sex Assigned at Date Recorded Not on file as of this encounter Functional Status Functional Status Response Date of Assessment Does the patient have a hearing impairment: Yes 11/25/2017 as of this encounter Plan of Treatment Not on fileas of this encounter Visit Diagnoses Not on filein this encounter
--- OUTSIDE RECORDS SUMMARY | 2017-11-28 15:22 | XMS REPORT | Encounter Summary ---
Author Author [facility] Organization [facility] Address Unknown Phone Unavailable Care Team Providers Care Funeral Car Chauffeur Name Role Phone Jose De Jesus Rocha MD PCP Dario Pandya MD 21 Encounter Details Date Type Department Care Team Description 11/25/2017 Pharmacy Visit [facility] [address] [place] [address] [id number] Social History Tobacco Use Types Packs/Day Years [...]
--- OUTSIDE RECORDS SUMMARY | 2017-11-28 15:22 | XMS REPORT | Encounter Summary ---
Author Author [facility] Organization [facility] Address Unknown Phone Unavailable Care Team Providers Care Paper Coater Name Role Phone Jose De Jesus Rocha MD PCP Dario Pandya MD 21 Reason for Visit * Auth/Cert Status Reason Specialty Diagnoses / Referred By Referred To Procedures Contact Contact Diagnoses 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, etiology of cardiac valve disease unspecified 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, etiology of cardiac valve disease unspecified [I35.0] P rocedures REPLACEMENT TRANSCATHETER AORTIC VALVE-evolut, left common femoral artery approach, 29 pro valve Encounter Details Date Type Department Care Team Description 11/24/2017 [facility] Galindo Thakkar MD S/ P TAVR (transcatheter - Encounter [address] aortic valve replacement) 11/26/2017 [place] [address] [address] [place] [address] [phone] Stephen Ruiz MD [address] [place] [address] [phone] Social History Tobacco Use Types Packs/Day Years Used Date Former Smoker Cigarettes 10 13 Quit: 2002 Smokeless Tobacco: Never Used Alcohol Use Drinks/Week oz/Week Comments Yes occasional Sex Assigned at Date Recorded Not on file as of this encounter Last Filed Vital Signs Vital Sign Reading Time Taken Blood Pressure 124/87 11/26/2017 8:00 AM MEDICAL DERMATOLOGIST Pulse 66 11/26/2017 8:00 AM MEDICAL DERMATOLOGIST Temperature 36.7 C (98.1 F) 11/26/2017 8:00 AM MEDICAL DERMATOLOGIST Respiratory Rate - - Oxygen Saturation 96% 11/26/2017 8:00 AM MEDICAL DERMATOLOGIST Inhaled Oxygen - - Concentration Weight 115.2 kg (254 lb) 11/26/2017 4:00 AM MEDICAL DERMATOLOGIST Height 167.6 cm (5' 5.98") 11/25/2017 9:01 AM MEDICAL DERMATOLOGIST Body Mass Index 41.02 11/26/2017 4:00 AM MEDICAL DERMATOLOGIST in this encounter Functional Status Functional Status Response Date of Assessment Does the patient have a hearing impairment: Yes 11/25/2017 as of this encounter Discharge Summaries * Rosana Barakat PA-C - 11/26/2017 8:23 AM MEDICAL DERMATOLOGIST Formatting of this note may be different from the original. Physician Discharge Summary Name: Jaden Rios Date Of : 1945 Age: 72 years Admit date: 11/24/2017 Discharge date: 11/26/2017 Attending Physician: Dr. Cuenca Service: Cardiothor Surg Physician Summary completed by: Lucero Strange PA-C Reason for hospitalization: Aortic Stenosis Significant PMH: Past Medical History: Diagnosis Date Aortic stenosis Bruit of left carotid artery CAD (coronary artery disease) Cardiac murmur HTN (hypertension) on medication 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HCC) Mixed hyperlipidemia on medication NSTEMI (non-ST elevated myocardial infarction) (HCC) Obesity NURIA (obstructive sleep apnea) Seasonal allergies Allergies: Patient has no known allergies. Admission Physical Exam notable for: Aortic Stenosis Brief Hospital Course: The patient was admitted on 11/24/17 and underwent elective transcatheter aortic valve replacemen with Dr. Cuenca. The procedure was completed without complications and he was monitored on the cardiothoracic progressive care unit following surgery. He transferred to the telemetry floor on POD1. He was noted to have a new LBBB post-op and he was not restarted on his GLASS MELT OPERATOR beta-kitty. He increased his activity and oral intake. The patient had normal bowel and bladder function and was stable to be discharged home on POD#*2. Condition at Discharge: Stable Discharge Diagnoses: Hospital Problems Active Problems * (Principal)Aortic stenosis Morbid obesity (HCC) Mixed hyperlipidemia HTN (hypertension) S/P TAVR (transcatheter aortic valve replacement) Surgical Procedures: 1. Transvenous pacemaker through right IJ access. 2. Left heart cardiac catheterization with simultaneous pressure assessment of the LV and aorta both pre and post TAVR. 3. Ascending aortography. 4. Descending aortography/aortoiliac angiography 5. Transcatheter valve replacement utilizing a number 29 Medtronic Corevalve. 6. Pre-BAV with a 20 True 7. Post TAVR expansion with a 24 True balloon Consults: None Patient Disposition: Home Patient instructions/medications: Other Activity Restrictions -You should and need to walk daily. Your goal is to walk 30 minutes at at time without stopping for breaks. This is a daily exercise routine that you should start as soon as you arrive home. Your basic daily activities do not count toward your 30 minute minimum, e.g. housework, toileting, fixing meals. Do not exercise outside in extremely hot or cold temperatures. -Bathing: NO tub baths, hot tubs, or swimming for 6 weeks. You may shower at any time. -Driving: NO driving for 2 weeks or while taking narcotics -Lifting: NO lifting more than 10 pounds (gallon of milk) for 6 weeks. -Monitoring: If you have access to a home blood pressure cuff, record your blood pressure and heart rate daily. Please call if your systolic blood pressure is <90 or >160, OR if your heart rate is <50 or >120 at rest Report These Signs and Symptoms Please contact your doctor for the following symptoms: *Temperature over 100 degrees F *Uncontrolled pain *Drainage with a foul odor *Shortness of breath *Racing or skipping heart beats *Swelling or tenderness in your groin *Painful/Cold/Discolored legs or toes *Suture material sticking up through your incisions *Change in coordination of ability to talk *If you gain more than 2 pounds in 24 hours, or 5 pounds in one week. Questions About Your Stay For questions or concerns regarding your hospital stay. Call [phone] Discharging attending physician: GALINDO CUENCA [[id number]] Cardiac Diet Limiting unhealthy fats and cholesterol is the most important step you can take in reducing your risk for cardiovascular disease. Unhealthy fats include saturated and trans fats. Monitor your sodium and cholesterol intake. Restrict your sodium to 2g (grams) or 2000mg (milligrams) daily, and your cholesterol to 200mg daily. If you have questions regarding your diet at home, you may contact a dietitian at . Return Appointment Arrive at 10:30 for an echo, appt at 11:30 Provider JOBY GIOVANI [[id number]] Location Cardiology Clinic Appointment date: 12/30/2017 Appointment time: 10:30 AM Return Appointment Call to schedule an appointment with your primary care doctor in 1-2 weeks for a check up and medication review. Outside Provider Dr. Rocha Cardiac Rehab Your physician has referred you to outpatient cardiac rehab. Contact [facility] Cardiac Rehab Department at [phone] to schedule an appointment. Current Discharge Medication List START taking these medications Details oxyCODONE/acetaminophen (ENDOCET) 5/325 mg tablet Take 1 tablet by mouth every 4 hours as needed for Pain Earliest Fill Date: 11/26/17 Qty: 30 tablet, Refills: 0 PRESCRIPTION TYPE: Print senna/docusate (SENOKOT-S) 8.6/50 mg tablet Take 2 tablets by mouth twice daily. Qty: 60 tablet, Refills: 0 PRESCRIPTION TYPE: Normal CONTINUE these medications which have NOT CHANGED Details aspirin EC 81 mg tablet Take 81 mg by mouth at bedtime daily. Take with food. PRESCRIPTION TYPE: Historical Med baclofen (LIORESAL) 10 mg tablet Take 10 mg by mouth daily as needed for Muscle Cramps. PRESCRIPTION TYPE: Historical Med enalapril (VASOTEC) 2.5 mg tablet Take 2.5 mg by mouth twice daily. PRESCRIPTION TYPE: Historical Med Fish Oil-DHA-EPA 1,200-144-216 mg cap Take 1 capsule by mouth twice daily. PRESCRIPTION TYPE: Historical Med hydrOXYzine pamoate (VISTARIL) 25 mg capsule Take 25 mg by mouth daily as needed for Itching. PRESCRIPTION TYPE: Historical Med loratadine (CLARITIN) 10 mg tablet Take 10 mg by mouth daily as needed (allergy symptoms). PRESCRIPTION TYPE: Historical Med MULTIVIT-MINERALS/FERROUS FUM (MULTI VITAMIN PO) Take 1 tablet by mouth every morning. PRESCRIPTION TYPE: Historical Med rosuvastatin (CRESTOR) 10 mg tablet Take 10 mg by mouth at bedtime daily. PRESCRIPTION TYPE: Historical Med The following medications were removed from your list. This list includes medications discontinued this stay and those removed from your prior med list in our system carvedilol (COREG) 3.125 mg tablet meloxicam (MOBIC) 15 mg tablet Signed: Lucero Strange PA-C 11/24/2017 cc: Primary Care Physician: Jose De Jesus Rocha Verified Referring physicians: Giovani Pratt APRN-C Additional provider(s): in this encounter Medications at Time of Discharge Medication Sig. Disp. Refills Start Date End Date aspirin EC 81 mg tablet Take 81 mg by mouth at bedtime daily. Take with food. baclofen (LIORESAL) 10 mg Take 10 mg by mouth daily tablet as needed for Muscle Cramps. enalapril (VASOTEC) 2.5 Take 2.5 mg by mouth mg tablet twice daily. Fish Oil-DHA-EPA Take 1 capsule by mouth 1,200-144-216 mg cap twice daily. hydrOXYzine pamoate Take 25 mg by mouth daily (VISTARIL) 25 mg capsule as needed for Itching. loratadine (CLARITIN) 10 Take 10 mg by mouth daily mg tablet as needed (allergy symptoms). MULTIVIT-MINERALS/FERROUS Take 1 tablet by mouth FUM (MULTI VITAMIN PO) every morning. oxyCODONE/acetaminophen Take 1 tablet by mouth 30 tablet 0 11/26/2017 (ENDOCET) 5/325 mg tablet every 4 hours as needed for Pain Earliest Fill Date: 11/26/17 rosuvastatin (CRESTOR) 10 Take 10 mg by mouth at mg tablet bedtime daily. senna/docusate Take 2 tablets by mouth 60 tablet 0 11/26/2017 (SENOKOT-S) 8.6/50 mg twice daily. tablet as of this encounter Progress Notes * Shell Fields, CELIA - 11/26/2017 10:30 AM MEDICAL DERMATOLOGIST Assessments complete and documented per flowsheet, no acute changes noted. Tele on, SR c BBB. Pt denied pain. Groin incisions clean, dry, approximated, and open to air. Pt ambulating laps in hallways independently and without difficulty. UOA, last BM GLASS MELT OPERATOR on 11/24. No complaints voiced. Discharge instructions reviewed with pt and . Pt and asked appropriate questions, verbalized understanding of all instructions, and denied further questions/concerns. Pt declined oxycodone prescription, paper script placed in shred bin. IV and tele removed. Pt left unit via wheelchair with discharge instructions and all personal belongings. * Chuy Vega MD - 11/26/2017 5:44 AM MEDICAL DERMATOLOGIST Formatting of this note may be different from the original. CARDIOTHORACIC SURGERY DAILY PROGRESS NOTE PROCEDURE: 1. Temporary balloon-tipped pacemaker. 2. Ascending aortography. 3. Descending aortography. 4. Transcatheter aortic valve replacement with 29 Medtronic Evolut Pro POD #: 2 SUBJECTIVE: Overnight events: transferred from [facility] yesterday. No problems last night ASSESSMENT: Principal Problem: S/P TAVR (transcatheter aortic valve replacement) Active Problems: Morbid obesity (HCC) Mixed hyperlipidemia HTN (hypertension) Aortic stenosis PLAN: Neuro Pain controlled on APAP. Continue PRN oxycodone, Tylenol, GLASS MELT OPERATOR Baclofen. CV SR w/ new LBBB post-TAVR, rates 70. BP 100-120s. Cont ASA 81 mg and statin and enalapril. Hold BB due new BBB. Intra op MONTSE LVEF 60%. Resp SpO2 95% on RA this am, continue home CPAP while asleep. Cont IS, aggressive pulm toilet. CXR pending. Renal Monitor BMP, assess for PHILIP. Cr 0.73-->0.85.good uop GI - ADAT, continue post op bowel regimen. ID WBC 12.2-->11.2, afebrile. Heme Hgb 12.2-->12.8, continue to monitor acute blood loss anemia. Hold DVT prophylaxis until cleared by CTS, continue mechanical prophylaxis. FEN FSBS 122-155, A1c 5.9. No h/o DM, continue MDCF. Activity walked 720 feet yesterday Disp- home today No acute issues. Home today. JBK OBJECTIVE: Vitals: 11/26/17 0000 11/26/17 0051 11/26/17 0326 11/26/17 0400 BP: 113/58 104/55 Pulse: 65 69 65 Temp: 36.9 C (98.5 F) 37 C (98.6 F) SpO2: 96% 97% Weight: 115.2 kg (254 lb) Height: Physical Exam: General: A&O x 3 Cardiovascular: RRR no rub or murmur Respiratory: LS CTA justin GI: obese soft, NT, +BS Extremities: No Edema Incisions: clean, dry, intact Prophylaxis Review: Lines: No Antibiotic Usage: No VTE: Mechanical prophylaxis; CONNOR hose Urinary Catheter: No Pertinent Meds: Taking Reason for Not Taking 1. Aspirin yes 2. B-Kitty no Russel, BBB 3. Statin yes 4. JANES/ARB yes LABS: Lab Results Component Value Date/Time WBC 11.2 (H) 11/26/2017 03:46 AM HGB 12.8 (L) 11/26/2017 03:46 AM HCT 39.7 (L) 11/26/2017 03:46 AM PLTCT 152 11/26/2017 03:46 AM Lab Results Component Value Date/Time NA 136 (L) 11/26/2017 03:46 AM K 4.3 11/26/2017 03:46 AM CL 103 11/26/2017 03:46 AM CO2 26 11/26/2017 03:46 AM BUN 15 11/26/2017 03:46 AM CR 0.85 11/26/2017 03:46 AM GLU 111 (H) 11/26/2017 03:46 AM Lab Results Component Value Date MG 1.9 11/24/2017 No results found for: PO4 Lab Results Component Value Date GLUPOC 114 (H) 11/26/2017 GLUPOC 146 (H) 11/25/2017 GLUPOC 103 (H) 11/25/2017 GLUPOC 124 (H) 11/25/2017 GLUPOC 109 (H) 11/25/2017 GLUPOC 122 (H) 11/24/2017 GLUPOC 155 (H) 11/24/2017 GLUPOC 129 (H) 11/24/2017 Rosana Barakat PA-C * Shell Fields RN - 11/25/2017 7:00 PM MEDICAL DERMATOLOGIST Assessments complete and documented per flowsheet, no acute changes noted. Tele on, SR c BBB. Pt reported mild pain that was adequately managed with PRN tylenol. Groin dressings CDI with surrounding area soft to palpation. Pt ambulating in hallways independently and without difficulty. UOA, last BM GLASS MELT OPERATOR on 11/24. No complaints voiced. Call light within reach, will continue to monitor until transferring care to table games shift manager RN. * Randy Carr MD - 11/25/2017 2:40 PM MEDICAL DERMATOLOGIST Formatting of this note may be different from the original. Critical Care Progress Note Today's Date: 11/25/2017 Name: Jaden Rios Admission Date: 11/24/2017 LOS: 1 day Assessment/Plan: Principal Problem: S/P TAVR (transcatheter aortic valve replacement) Active Problems: Morbid obesity (HCC) Mixed hyperlipidemia HTN (hypertension) Aortic stenosis ATTESTATION This note is associated with the [facility] ICU team note dated today. Date of Service: 11/25/2017 I have seen, personally fully evaluated, and discussed patient with the [facility] ICU team. The patient is critically ill s/p TAVR. I spent 35 minutes (excluding time spent performing or supervising any procedures) providing and personally directing critical care services including respiratory care, pain mgt, hemodynamic monitoring and management, lab and radiology review, medication review and management, fluid and electrolyte management and coordination of care. Neurologically intact. Denies pain. Monitor. BP good. New LBBB remains. Hold AV selene blockers for now. Will restart home enalapril. Oxygenation much better today with aggressive diuresis yesterday. Cont home nocturnal CPAP. Creat near baseline. D/c correa. No lasix today as he continues to diurese after single dose yesterday. H/H good. No bleeding. ASA. Monitor. Insulin per SSI. Tolerating diet. GI prophylaxis. No infectious concerns. This patient is critically ill with dysfunction of multiple organ systems and is at risk for additional life threatening deterioration. Recovering well. Okay for telemetry. Staff name: Randy Carr MD Date: 11/25/2017 __ Subjective: Jaden Rios is a 72 y.o. male. Pt with symptomatic aortic dissection. Now s/p TAVR. Stable night. Objective: Medications: Scheduled Meds: aspirin EC tablet 81 mg 81 mg Oral QHS enalapril (VASOTEC) tablet 2.5 mg 2.5 mg Oral BID insulin aspart U-100 (NOVOLOG FLEXPEN) injection PEN 0-14 Units 0-14 Units Subcutaneous ACHS rosuvastatin (CRESTOR) tablet 10 mg 10 mg Oral QHS senna/docusate (SENOKOT-S) tablet 2 tablet 2 tablet Oral BID Continuous Infusions: PRN and Respiratory Meds:acetaminophen Q6H PRN, baclofen QDAY PRN, [START ON 06/2018] bisacodyl QDAY PRN, hydrALAZINE Q6H PRN, hydrOXYzine TID PRN, loratadine QDAY PRN, milk of magnesia (CONC) QDAY PRN, ondansetron (ZOFRAN) IV Q6H PRN, oxyCODONE Q4H PRN, potassium chloride SR PRN OR potassium chloride PRN, prochlorperazine Q6H PRN Vital Signs: Last Filed Vital Signs: 24 Hour Range BP: 129/64 (11/25 1145) ABP: 141/62 (11/25 899) Temp: 36.9 C (98.5 F) (11/25 1145) Pulse: 61 (11/25 1145) Respirations: 24 PER MINUTE (11/25 1145) SpO2: 95 % (11/25 1145) O2 Delivery: None (Room Air) (11/25 1145) Height: 167.6 cm (65.98") (11/25 900) Weight: 115 kg (253 lb 8.5 oz) (11/25 900) BP: (114-135)/(57-68) ABP: (124-172)/(49-83) Temp: [36.5 C (97.7 F)-37.6 C (99.7 F)] Pulse: [51-70] Respirations: [15 PER MINUTE-42 PER MINUTE] SpO2: [93 %-99 %] O2 Delivery: None (Room Air) Intensity Pain Scale 0-10 (Pain 1): (not recorded) Vitals: 11/24/1760611/25/17900 Weight: 115 kg (253 lb 8.5 oz) 115 kg (253 lb 8.5 oz) Critical Care Vitals: ICP Monitoring: PA Catheter: Hemodynamics/Oxycalcs: Intake/Output Summary: (Last 24 hours) Intake/Output Summary (Last 24 hours) at 11/25/17 1440 Last data filed at 11/25/17 1200 Gross per 24 hour Intake 2550.12 ml Output 3860 ml Net -1309.88 ml Physical Exam: General: Alert, cooperative, no distress, appears stated age Lungs: Clear to auscultation bilaterally Heart: Regular rate and rhythm, S1, S2 normal, no murmur, click rub or gallop Extremities: Extremities normal, atraumatic, no cyanosis or edema Peripheral pulses: 2+ and symmetric, all extremities Artificial airway: None Ventilator/ Respiratory Therapy: No Vent weaning trial: Not applicable Drains: None Prophylaxis Review: Lines: Yes; Arterial Line; Indication: Continuous BP monitoring; Location: Radial Central Line; Indication: Hemodynamic monitoring; Type: Internal jugular Urinary Catheter: Yes; Retain correa due to: Need for accurate Intake and Output Antibiotic Usage: Yes; Infection present or suspected: Lillie-op VTE: Mechanical prophylaxis; Sequential compression device Lab Review: Pertinent labs reviewed Point of Care Testing: (Last 24 hours): Glucose: (!) 125 (11/25/17 0352) POC Glucose (Download): (!) 124 (11/25/17 1146) Radiology and Other Diagnostic Procedures Review: Pertinent radiology reviewed. Randy Carr MD Pager [phone] * Awais Austin, RT - 11/25/2017 10:31 AM MEDICAL DERMATOLOGIST Formatting of this note may be different from the original. RESPIRATORY THERAPY ADULT PROTOCOL EVALUATION RESPIRATORY PROTOCOL PLAN Medications Note: If indicated by protocol, medication orders will be placed by therapist. Procedures PEP Therapy: Place a nursing order for "IS Q1h While Awake" for any of Lung Expansion indicators Oxygen/Humidity: O2 to keep SpO2 > 92% Monitoring: Pulse oximetry continuous (document SpO2 results Q4h) (NURIA) Comment: IS with nursing PATIENT EVALUATION RESULTS Chart Review * Pulmonary Hx: No pulmonary diagnosis OR no smoking hx * Surgical Hx: General surgery (cough & sigh not affected) * Chest X-Ray: Chronic, stable radiographic changes OR abnormal (Fibrosis) * PFT/Oxygenation: FEV1, PEFR > 80% predicted OR physically unable to perform OR Pa02 >80 RA OR Sp02 >95% RA Patient Assessment * Respiratory Pattern: Regular pattern and rate OR good chest excursion with deep breathing * Breath Sounds: Clear apically, but diminished in bases (LE) OR CHF related crackles (02) (oximetry) * Cough / Sputum: Strong, effective cough OR nonproductive * Mental Status: Alert, oriented, cooperative * Activity Level: Ambulatory with assistance Priority Index Total Points: 4 Points * Priority Index: 1 PRIORITY INDEX GUIDELINES* Priority Points 1 0-9 points 2 9-18 points 3 > 18 points + Pulm Dx or Home Rx *Higher points indicate higher acuity. Therapist: Awais Austin, RT Date: 11/25/2017 Zamorano AC=Airway clearance AM=Aerosolized medication BA=Jackson aerosol DB&C=Deep breathe & cough FEV1=Forced expiratory volume in first second) IC=Inspiratory capacity LE=Lung expansion MDI=Metered dose inhaler Neb=Nebulizer O2=Oxygen Oxim=Oximetry PEFR=Peak expiratory flow rate SALES PROMOTION OFFICER=Rapid Response Team * Anatoliy Alonso RN - 11/25/2017 9:36 AM MEDICAL DERMATOLOGIST Pt transferred to [facility] via wheelchair accompanied by staff in stable condition. Report given to Shell YANG, see transfer flowsheet for details. * Anatoliy Alonso RN - 11/25/2017 8:30 AM MEDICAL DERMATOLOGIST Pt assessment completed per flowsheet. Lines and drains reviewed. Pt is a/o x 4, denies pain and SOA at this time. TVP @ 40cm on backup of 40bpm. ABD is soft, non-tended w/ active BS. UOP is adequate. Wounds per flowsheet. Pt doing well this a.m plan to transfer to floor today. CTS team rounding at this time and ECHO is in progress. Call light in pt's reach, ICU care cont. * Yanira Marcano APRN - 11/25/2017 7:55 AM MEDICAL DERMATOLOGIST Formatting of this note may be different from the original. Cardiothoracic Surgery Critical Care Progress Note Jaden Rios Today's Date: 11/25/2017 Admission Date: 11/24/2017 LOS: 1 day Procedure: REPLACEMENT TRANSCATHETER AORTIC VALVE-evolut, left common femoral artery approach, 29 pro valve: POD#: 1 Principal Problem: S/P TAVR (transcatheter aortic valve replacement) Active Problems: Morbid obesity (HCC) Mixed hyperlipidemia HTN (hypertension) Aortic stenosis Assessment/Plan: Neuro Pain controlled on APAP. Continue PRN oxycodone, Tylenol, GLASS MELT OPERATOR Baclofen. CV SB/SR w/ new LBBB post-TAVR, rates 50s-60s. BP 120s-140s/50s-70s. Continue to monitor hemodynamic stability, rhythm changes. Cont ASA 81 mg (hold for plts <80k) and statin. Hold BB due to bradycardia, new BBB, hold ACEI in post op phase. Intra op MONTSE LVEF 60%. Resp Daily CXR bedside interpretation: lungs expanded, atelectasis, improvement in volume overload, will review radiology report. SpO2 95% on RA this am, continue home CPAP while asleep. Cont IS, aggressive pulm toilet. Renal Monitor BMP, assess for PHILIP. Cr 0.73. Voiding, UOP 5.4 L/24hr, net - 1.3 L/24hr. GI - ADAT, continue post op bowel regimen. ID Continue standard post op antibiotic for prophylaxis, per CTS protocol. WBC 12.2, afebrile. Heme Hgb 12.2, continue to monitor acute blood loss anemia. Hold DVT prophylaxis until cleared by CTS, continue mechanical prophylaxis. FEN FSBS 122-155, A1c 5.9. No h/o DM, continue MDCF. Activity OOBTC this am, has ambulated in halls, continue to ambulate in halls with nursing and cardiac rehab. Early cardiac PT/OT. Prophylaxis Review: Lines: Yes; Arterial Line; Indication: Continuous BP monitoring; Location: Radial Central Line; Indication: Hemodynamic monitoring; Type: Internal jugular d/c this am Antibiotic Usage: No VTE: Mechanical prophylaxis; Foot pump Urinary Catheter: No Disposition: Plan as above, This patient is post-cardiac surgery and at risk for life threatening deterioration. Recovering as expected. Anticipate transfer to the floor later today. I have seen, personally fully evaluated, and discussed patient with the critical care attending and cardiothoracic surgeon. The patient is critically ill s/p TAVR with new LBBB. I spent 60 minutes (excluding time spent performing or supervising any procedures) providing and personally directing critical care services including hemodynamic monitoring and management, lab and radiology review, medication review and management, fluid and electrolyte management and coordination of care. Yanira Marcano APRN CTS Intensive Care Pager [phone] 11/25/2017 Subjective: HPI: Jaden Rios is a 72 y.o. male with a pmhx of obesity, NURIA, non- obstructive CAD, and HTN who has been followed for several years for aortic stenosis. He has experienced symptoms of chest discomfort and RUSSO after walking a block. He denies near syncope, LE edema, or palpitations. He quit smoking 20 years ago but continues to consume approx 5 alcoholic drinks per day. He underwent TAVR (Evolut) on 11/24. Echo obtained POD1 [facility] REVIEW OF SYSTEMS: Constitutional: negative for fevers, chills and fatigue Respiratory: negative for cough, increased work of breathing or wheezing Cardiovascular: negative for chest pain, chest pressure/discomfort, palpitations Gastrointestinal: negative for nausea, vomiting and abdominal pain Genitourinary:negative for dysuria and hesitancy Apartment Rental Clerk Goal: Increased activity level & tolerance Objective: Medications: Scheduled Meds: aspirin EC tablet 81 mg 81 mg Oral QHS ceFAZolin (ANCEF) IVP 2 g 2 g Intravenous Q8H* insulin aspart U-100 (NOVOLOG FLEXPEN) injection PEN 0-14 Units 0-14 Units Subcutaneous ACHS perflutren lipid microspheres (DEFINITY) injection 1-20 Diluted mL 1-20 Diluted mL Intravenous ONCE rosuvastatin (CRESTOR) tablet 10 mg 10 mg Oral QHS senna/docusate (SENOKOT-S) tablet 2 tablet 2 tablet Oral BID Continuous Infusions: sodium chloride 0.9 % infusion 30 mL/hr at 11/24/17 1120 PRN and Respiratory Meds:acetaminophen Q6H PRN, baclofen QDAY PRN, [START ON 06/2018] bisacodyl QDAY PRN, fentaNYL citrate PF Q5 MIN PRN, fentaNYL citrate PF Q1H PRN, hydrALAZINE Q6H PRN, hydrOXYzine TID PRN, loratadine QDAY PRN, milk of magnesia (CONC) QDAY PRN, ondansetron (ZOFRAN) IV Q6H PRN, oxyCODONE Q4H PRN , potassium chloride SR PRN OR potassium chloride PRN, prochlorperazine Q6H PRN Vital Signs: Last Filed Vital Signs: 24 Hour Range BP: 110/62 (11/24 1200) Temp: 37.6 C (99.7 F) (11/25 0400) Pulse: 55 (11/25 599) Respirations: 21 PER MINUTE (11/25 599) SpO2: 94 % (11/25 599) O2 Delivery: CPAP/BiPAP (Pt Owned) (11/25 599) SpO2 Pulse: 55 (11/25 599) BP: (104-131)/(62-78) ABP: (116-164)/(56-75) Temp: [36.5 C (97.7 F)-37.6 C (99.7 F)] Pulse: [51-70] Respirations: [13 PER MINUTE-42 PER MINUTE] SpO2: [93 %-100 %] O2 Delivery: CPAP/BiPAP (Pt Owned) Intensity Pain Scale 0-10 (Pain 1): Asleep (11/25/17 06) Vitals: 11/24/17 0607 Weight: 115 kg (253 lb 8.5 oz) Intake/Output Summary: (Last 24 hours) Intake/Output Summary (Last 24 hours) at 11/25/17 0755 Last data filed at 11/25/17 0600 Gross per 24 hour Intake 4090.12 ml Output 5435 ml Net -1344.88 ml Physical Exam: Neuro: A&O x 4, YOUNG= Cardiovascular: RRR no rub or murmur Respiratory: LS CTA justin - diminished in the bases GI: soft, NT, hypoactive BS Extremities: No Edema Incisions: groin incision dressings C/D/I, without hematomas Pertinent Meds: Taking Reason for Not Taking 1. Aspirin yes 2. B-Kitty no bradycardia 3. Statin yes 4. JANES/ARB Beta kitty held due to bradycardia, new BBB. Artificial airway: None Vent weaning trial: Not applicable Laboratory: LABS: Recent Labs 11/23/17 1219 11/24/17 1039 11/24/17 1846 11/25/17 0352 NA 138 136* -- 135* K 3.8 3.8 4.0 3.9 CL 105 106 -- 106 CO2 26 22 -- 24 GAP 7 8 -- 5 BUN 13 12 -- 10 CR 0.78 0.80 -- 0.73 GLU 114* 157* -- 125* CA 9.5 8.6 -- 9.0 ALBUMIN 4.0 -- -- -- MG -- -- 1.9 -- HGBA1C 5.9 -- -- -- Recent Labs 11/23/17 1219 11/24/17 1039 11/25/17 0352 WBC 9.6 11.6* 12.2* HGB 13.7 13.6 12.4* HCT 41.0 41.1 36.9* PLTCT 179 152 155 INR 1.0 1.0 -- PTT 31.4 28.7 -- AST 24 -- -- ALT 19 -- -- ALKPHOS 84 -- -- Estimated Creatinine Clearance: 112.3 mL/min (based on SCr of 0.73 mg/dL). Vitals: 11/24/17 0607 Weight: 115 kg (253 lb 8.5 oz) No results for input(s): PHART, PO2ART in the last 72 hours. Invalid input(s): PC02A Radiology and Other Diagnostic Procedures Review: Reviewed * Galindo Cuenca MD - 11/25/2017 7:43 AM MEDICAL DERMATOLOGIST Doing well, SR, good valve tones, incisions ok, to floor, home in another day. 20 minutes spent reviewing labs, echo and seeing pt. DEE DEE * Marisa Hester, PT - 11/25/2017 2:38 AM MEDICAL DERMATOLOGIST PHYSICAL THERAPY ASSESSMENT/DISCHARGE MOBILITY: Mobility Progressive Mobility Level: Walk laps Distance Walked (feet): 730 ft Level of Assistance: Independent Assistive Device: None Time Tolerated: 0-10 minutes Activity Limited By: No limitations SUBJECTIVE: Subjective Mental / Cognitive Status: Alert;Oriented;Cooperative Persons Present: Family Pain: Patient has no complaint of pain Ambulation Assist: Independent Mobility in Community without Device Home Situation: Lives with Family Type of Home: House Entry Stairs: 1-2 Stairs In-Home Stairs: 1-2 Flights of Stairs (to bedroom) ROM: ROM LE ROM WFL: Yes STRENGTH: Strength R LE WNL: Yes L LE WNL: Yes BED MOBILITY/TRANSFERS: Bed Mobility/Transfers Comments: Patient up in chair upon arrival Transfer Type: Sit to Stand Transfer: Assistance Level: To/From;Bed Side Chair;Independent Transfer: Assistive Device: None End Of Activity Status: Up in Chair;Nursing Notified GAIT: Gait Gait Distance: 730 feet Gait: Assistance Level: Independent Gait: Assistive Device: None Gait: Descriptors: Pace: Normal;Swing-Through Gait;No balance loss Stairs: Number Climbed: 3 Stairs: Descriptors: Ascend;Reciprocal;Descend;Non-Reciprocal Stairs: Assistance Level: Independent Stairs: Assistive Device: One Rail EDUCATION: Education Persons Educated: Patient Patient Barriers To Learning: None Noted Teaching Methods: Verbal Instruction Patient Response: Verbalized Understanding Topics: Continue Ambulation on Own ASSESSMENT/PROGRESS: Assessment/Progress Assessment/Progress: Patient level of independence and safety is consistent with prior level of function and does not require physical therapy intervention AM-PAC 6 Clicks Basic Mobility Inpatient Turning from your back to your side while in a flat bed without using bed rails : None Moving from lying on your back to sitting on the side of a flatbed without using bedrails : None Moving to and from a bed to a chair (including a wheelchair): None Standing up from a chair using your arms (e.g. wheelchair, or bedside chair): None To walk in hospital room: None Climbing 3-5 steps with a railing: None Raw Score: 24 Standardized (T-scale) Score: 57.68 Basic Mobility [facility] 0-100%: 0 CMS G Code Modifier for Basic Mobility: CH G-Codes: Mobility G8978 Current Status: 0% Impairment G8979 Goal Status: 0% Impairment G8980 Discharge Status: 0% Impairment Based on above evaluation and clinical judgment. PLAN: Plan Plan Frequency: No Further Treatment RECOMMENDATIONS: PT Discharge Recommendations PT Discharge Recommendations: Home Equipment Recommendations: None Therapist: Marisa Hester, PT Date: 11/25/2017 * Laura Howell, RN - 11/25/2017 12:05 AM MEDICAL DERMATOLOGIST Assessment completed/ Pt resting quietly with eyes closed/ No new needs, complaints or request expressed/ Will cont to monitor. * Laura Howell RN - 11/24/2017 8:00 PM MEDICAL DERMATOLOGIST Assessment completed/ POC reviewed and updated after discussion with pt/ Pt calm and cooperative/ Voiced no needs, complaints, or request at this time/ Enc pt to call for assistance with needs/ Pt able to demonstrate use of call system without difficultly/ Will cont to monitor pt for needs or changes overnight. * Andrew Celis, RN - 11/24/2017 7:13 PM MEDICAL DERMATOLOGIST I have reviewed the notes, assessment, and/or procedures performed by Kitty ALMARAZ and concur with her documentation unless otherwise noted. * Kitty Farris - 11/24/2017 4:36 PM MEDICAL DERMATOLOGIST Pt up to chair, no hematoma or new bleeding present at incision sites. * Kitty Farris - 11/24/2017 2:34 PM MEDICAL DERMATOLOGIST Pt has no new hematoma development, no new drainage at bilateral groin sites. Pt HOB raised to 30 degrees. Pt is tolerating change well. Pt is on RA stating at 98% * Kitty Farris - 11/24/2017 1:30 PM MEDICAL DERMATOLOGIST Pt arrived to unit at 1245. Pt is A&Ox4, PERRLA, normal sensation in all extremities, afebrile. Pt moves all extremities equally and spontaneously. Pt is HR 60s SR with L BBB and systolic BP in 120s. Patient has transvenous ventricular wires set at a backup rate of 40, ventricular output of 5, ventricular sensitivity of 2, sensitivity threashold of 4, and stimulation threshold of 3. Pt skin is warm and pulses are present in all extremities. Pt on BiPap with PEEP of 14 and O2 @ 2L stating 98%, C?D bilaterally with NPC. 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 Pt has a correa with light yellow clear output ~450/hr after diuresis. Pt has R groin site with Mynx, soft, no drainage, no hematoma. L groin cutdown site with dermabond, no drainage, no hematoma. Pt hemostasis time 0954. Pt has R cortis IJ at 40 with NS @30mL/hr. R radial art. Line. 16guage in R hand saline locked. Pt has chronic back pain, and has fentanyl and tylenol PRN for pain control. * Awais Austin, - 11/24/2017 1:07 PM MEDICAL DERMATOLOGIST Formatting of this note may be different from the original. RESPIRATORY THERAPY ADULT PROTOCOL EVALUATION RESPIRATORY PROTOCOL PLAN Medications Note: If indicated by protocol, medication orders will be placed by therapist. Procedures PEP Therapy: Q4h PEP While Awake Oxygen/Humidity: O2 to keep SpO2 > 92% Monitoring: Pulse oximetry continuous (document SpO2 results Q4h) (NURIA) Comment: IS with nursing PATIENT EVALUATION RESULTS Chart Review * Pulmonary Hx: No pulmonary diagnosis OR no smoking hx * Surgical Hx: General surgery (cough & sigh not affected) * Chest X-Ray: Clear OR not available (NO cxr available) * PFT/Oxygenation: FEV1, PEFR < 70% OR Pa02 < 70 RA OR Sp02 <92% RA OR Fi02 > 0.21 to keep Sp02 > 92% OR < 24 hours post-op (02 & oxim) OR chronic C02 retention (C02) Patient Assessment * Respiratory Pattern: Regular pattern and rate OR good chest excursion with deep breathing * Breath Sounds: Clear apically, but diminished in bases (LE) OR CHF related crackles (02) (oximetry) * Cough / Sputum: Strong, effective cough OR nonproductive * Mental Status: Alert, oriented, cooperative * Activity Level: Ambulatory with assistance Priority Index Total Points: 5 Points * Priority Index: 1 PRIORITY INDEX GUIDELINES* Priority Points 1 0-9 points 2 9-18 points 3 > 18 points + Pulm Dx or Home Rx *Higher points indicate higher acuity. Therapist: Awais Austin, RT Date: 11/24/2017 [place] AC=Airway clearance AM=Aerosolized medication BA=Jackson aerosol DB&C=Deep breathe & cough FEV1=Forced expiratory volume in first second) IC=Inspiratory capacity LE=Lung expansion MDI=Metered dose inhaler Neb=Nebulizer O2=Oxygen Oxim=Oximetry PEFR=Peak expiratory flow rate SALES PROMOTION OFFICER=Rapid Response Team * Karlene Joiner PA-C - 11/24/2017 12:50 PM MEDICAL DERMATOLOGIST Formatting of this note may be different from the original. Cardiothoracic Surgery Critical Care Progress Note Jaden Rios Today's Date: 11/24/2017 Admission Date: 11/24/2017 LOS: 0 days POD: 0 Procedure: REPLACEMENT TRANSCATHETER AORTIC VALVE-evolut, left common femoral artery approach, 29 pro valve: Principal Problem: S/P TAVR (transcatheter aortic valve replacement) Active Problems: Morbid obesity (HCC) Mixed hyperlipidemia HTN (hypertension) Aortic stenosis Assessment/Plan: Neuro Pt denies groin pain. Has not required pain medication. CV SR with new L BBB. BP 110/62. Cont ASA 81 mg and statin. Holding BB d/t new BBB and labile BP. LVEF 60%. Resp Daily CXR bedside interpretation: pulm congection with slight atelectasis. IV lasix given, pt's home CPAP in place. Will await radiology report. ABG 7.3/43/70/20.7 prior to intervention.Initiate IS and aggressive pulm toilet once extubated. . Renal Baseline Scr 0.80. Monitor BMP, assess for PHILIP. Correa placed, 1675cc output with IV lasix. GI - ADAT, GI prophylaxis while intubated, start post op bowel regimen on POD 1. ID Continue standard post op antibiotic for prophylaxis, per CTS protocol. Heme Check post op CBC/coags, assess for coagulopathy. Hold DVT prophylaxis until cleared by CTS, continue mechanical prophylaxis. FEN If creatinine < 2.0, replace Mg and K per CTS post op protocol. Hgb A1c 5.9 %. SSI prn. Activity up to chair after bedrest complete for hemostasis, pt to ambulate in halls today. Early cardiac PT/OT. Prophylaxis Review: Lines: Yes; Arterial Line; Indication: Frequent blood draws and Continuous BP monitoring; Location: Radial Central Line; Indication: Frequent blood draws and Hemodynamic monitoring; Type : Internal jugular Antibiotic Usage: No VTE: Mechanical prophylaxis; Sequential compression device and Foot pump Urinary Catheter: Yes; Retain correa due to: Patient on diuretics and Need for accurate Intake and Output Disposition: The patient is post-cardiac surgery at at risk for life threatening deterioration. Patient is critically ill s/p TAVR with labile blood pressure and a new left bundle branch block. I have seen, personally fully evaluated, and discussed patient with the critical care attending and cardiothoracic surgeon. The patient is critically ill s/p TAVR. I spent 30 minutes (excluding time spent performing procedures) providing and personally directing critical care services including direct OR recovery, ventilator management, hemodynamic monitoring and management, lab and radiology review, medication review and management, fluid and electrolyte management and coordination of care. Karlene Joiner PA-C CTS Intensive Care Pager [phone] 11/24/2017 Subjective: HPI: Jaden Rios is a 72 y.o. male with a pmhx of obesity, NURIA, non- obstructive CAD, and HTN who has been followed for several years for aortic stenosis. Pt presented today for TAVR. He has experienced symptoms of chest discomfort and RUSSO after walking a block. He denies near syncope, LE edema, or palpitations. He quit smoking 20 years ago but continues to consume approx 5 alcoholic drinks per day. Objective: Medications: Scheduled Meds: aspirin EC tablet 81 mg 81 mg Oral QHS ceFAZolin (ANCEF) IVP 2 g 2 g Intravenous Q8H* insulin aspart U-100 (NOVOLOG FLEXPEN) injection PEN 0-14 Units 0-14 Units Subcutaneous ACHS rosuvastatin (CRESTOR) tablet 10 mg 10 mg Oral QHS senna/docusate (SENOKOT-S) tablet 2 tablet 2 tablet Oral BID Continuous Infusions: nitroGLYCERIN 50 mg/D5W 250 mL infusion Stopped (11/24/17 1233) sodium chloride 0.9 % infusion 30 mL/hr at 11/24/17 1120 PRN and Respiratory Meds:acetaminophen Q6H PRN, [START ON 11/25/2017] baclofen QDAY PRN, [START ON 11/26/2017] bisacodyl QDAY PRN, fentaNYL citrate PF Q5 MIN PRN, fentaNYL citrate PF Q1H PRN, hydrALAZINE Q6H PRN, [START ON 11/25/2017] hydrOXYzine TID PRN, [START ON 11/25/2017] loratadine QDAY PRN, [START ON 11/25/2017 ] meloxicam QDAY PRN, metoclopramide (REGLAN) IV Once PRN, milk of magnesia ( CONC) QDAY PRN, ondansetron (ZOFRAN) IV Q6H PRN, ondansetron (ZOFRAN) IV Once PRN, oxyCODONE Q4H PRN, potassium chloride SR PRN OR potassium chloride PRN , prochlorperazine Q6H PRN, promethazine Q10 MIN PRN Vital Signs: Last Filed Vital Signs: 24 Hour Range BP: 110/62 (11/24 1200) Temp: 36.7 C (98.1 F) (11/24 1204) Pulse: 63 (11/24 1200) Respirations: 16 PER MINUTE (11/25 1199) SpO2: 96 % (11/25 1199) O2 Delivery: CPAP/BiPAP (Pt Owned) (11/24 120) SpO2 Pulse: 61 (11/24 1200) Height: 167.6 cm (65.98") (11/24 06) BP: (104-131)/(62-81) ABP: (116-150)/(60-70) Temp: [36.6 C (97.9 F)-36.8 C (98.2 F)] Pulse: [62-68] Respirations: [13 PER MINUTE-20 PER MINUTE] SpO2: [94 %-100 %] O2 Delivery: CPAP/BiPAP (Pt Owned) Intensity Pain Scale 0-10 (Pain 1): 4 (11/24/17 120) Vitals: 11/24/17 0607 Weight: 115 kg (253 lb 8.5 oz) Intake/Output Summary: (Last 24 hours) Intake/Output Summary (Last 24 hours) at 11/24/17 1251 Last data filed at 11/24/17 1145 Gross per 24 hour Intake 1550 ml Output 1875 ml Net -325 ml Physical Exam: Neuro: AAO x 4, YOUNG= Cardiovascular: RRR no rub or murmur Respiratory: LS CTA justin GI: soft, NT, active BS Extremities: trace pedal edema Incisions: clean and dry, no hematoma Artificial airway: Endotracheal Tube Vent weaning trial: Per protocol Laboratory: LABS: Recent Labs 11/23/17 1219 11/24/17 1039 NA 138 136* K 3.8 3.8 CL 105 106 CO2 26 22 GAP 7 8 BUN 13 12 CR 0.78 0.80 GLU 114* 157* CA 9.5 8.6 ALBUMIN 4.0 -- HGBA1C 5.9 -- Recent Labs 11/23/17 1219 11/24/17 1039 WBC 9.6 11.6* HGB 13.7 13.6 HCT 41.0 41.1 PLTCT 179 152 INR 1.0 1.0 PTT 31.4 28.7 AST 24 -- ALT 19 -- ALKPHOS 84 -- Estimated Creatinine Clearance: 102.4 mL/min (based on SCr of 0.8 mg/dL). Vitals: 11/24/17 0607 Weight: 115 kg (253 lb 8.5 oz) No results for input(s): PHART, PO2ART in the last 72 hours. Invalid input(s): PC02A Radiology and Other Diagnostic Procedures Review: Reviewed * Deana Floyd, RN - 11/24/2017 11:40 AM MEDICAL DERMATOLOGIST Portable chest x-ray done. Read by Dr. Carr. No orders at this time. * Esthela Lulu - 11/24/2017 10:37 AM MEDICAL DERMATOLOGIST Formatting of this note may be different from the original. 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 Labs Cholesterol Date Value Ref Range Status 11/07/2017 171 <200 MG/DL Final Triglycerides Date Value Ref Range Status 11/07/2017 144 <150 MG/DL Final HDL Date Value Ref Range Status 11/07/2017 47 >40 MG/DL Final LDL Date Value Ref Range Status 11/07/2017 102 (H) <100 MG/DL Final Hemoglobin A1C Date Value Ref Range Status 11/23/2017 5.9 4.0 - 6.0 % Final Comment: The ADA recommends that most patients with type 1 and type 2 diabetes maintain an A1c level <7%. Heart Resource Manual Given: Teaching Completed: Outpatient Cardiopulmonary Rehabilitation OPCR: Referral Faxed to: Date Faxed: Location: If [facility], Sent to Staff: 11/24/2017 * Mariama Carrillo RN - 11/23/2017 4:06 PM MEDICAL DERMATOLOGIST Patient aware he is first case tomorrow now 11/24 with an arrival time 0545 and NPO at 2300. in this encounter H&P Notes * Barbara Hickey PA-C - 11/24/2017 7:01 AM MEDICAL DERMATOLOGIST Formatting of this note may be different from the original. Admission History and Physical Examination Name: Jaden Rios Admission Date: 11/24/2017 Assessment/Plan: Principal Problem: Aortic stenosis The patient has been NPO since midnight. He took coreg this morning and ASA last night. His consent for TAVR with Dr. Cuenca is signed and on the chart. He has no further questions and is eager to proceed with surgery today. __ Primary Care Physician: Jose De Jesus Rocha Verified Chief Complaint: Severe Aortic Stenosis History of Present Illness: Jaden Rios is a 72 y.o. male with a pmhx of obesity, NURIA, non-obstructive CAD, and HTN who has been followed for several years for aortic stenosis. This has progressed to severe on his most recent echo. His NEHEMIAH was 0.71cm2, mean gradient 29 mmHg. His cardiac cath was negative for obstructive coronary disease. He does report some chest discomfort /RUSSO after walking a block. He denies near syncope, LE edema, or palpitations. He quit smoking 20 years ago but continues to consume approx 5 alcoholic drinks per day. Past Medical History: Diagnosis Date Aortic stenosis Bruit of left carotid artery CAD (coronary artery disease) Cardiac murmur HTN (hypertension) on medication 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HCC) Mixed hyperlipidemia on medication NSTEMI (non-ST elevated myocardial infarction) (HCC) Obesity NURIA (obstructive sleep apnea) Seasonal allergies Past Surgical History: Procedure Laterality Date COLONOSCOPY 3 years ago HEART CATHETERIZATION 2011, 11/07/2017 PULMONARY FUNCTION REPORT TONSILLECTOMY as a child TRANSTHORACIC ECHOCARDIOGRAM Family history reviewed; non-contributory Social History Social History Marital status: Spouse name: N/A Number of children: N/A Years of education: N/A Social History Main Topics Smoking status: Former Smoker Packs/day: 1.00 Years: 25.00 Types: Cigarettes Quit date: 2002 Smokeless tobacco: Never Used Alcohol use Yes Comment: occasional Drug use: No Sexual activity: Not on file Other Topics Concern Not on file Social History Narrative No narrative on file Immunizations (includes history and patient reported): There is no immunization history on file for this patient. Allergies: Patient has no known allergies. Medications: Current Facility-Administered Medications Medication lidocaine PF 1% (10 mg/mL) injection 0.1-2 mL sodium chloride 0.9 % infusion Review of Systems: Constitutional: negative Ears, nose, mouth, throat, and face: negative Respiratory: negative Cardiovascular: positive for chest pressure/discomfort, murmur Gastrointestinal: negative Integument/breast: negative Musculoskeletal:positive for back pain Neurological: negative Behavioral/Psych: negative Physical Exam: Vital Signs: Last Filed In 24 Hours Vital Signs: 24 Hour Range BP: 131/81 (11/24 612) Temp: 36.8 C (98.2 F) (11/24 606) Pulse: 63 (11/24 644) Respirations: 17 PER MINUTE (11/24 644) SpO2: 96 % (11/24 644) O2 Delivery: None (Room Air) (11/24 609) SpO2 Pulse: 64 (11/24 644) Height: 167.6 cm (65.98") (11/24 606) BP: (104-131)/(49-81) Temp: [36.8 C (98.2 F)-37 C (98.6 F)] Pulse: [63-68] Respirations: [16 PER MINUTE-20 PER MINUTE] SpO2: [95 %-97 %] O2 Delivery: None (Room Air) Intensity Pain Scale 0-10 (Pain 1): 2 (11/24/17 0632) General appearance: alert, cooperative, no distress and moderately obese Neck: supple, symmetrical, trachea midline and no JVD Lungs: clear to auscultation bilaterally Heart: regular rate and rhythm, systolic murmur: systolic ejection 3/6, crescendo throughout the precordium Abdomen: soft, non-tender. Bowel sounds normal. No masses, no organomegaly Extremities: extremities normal, atraumatic, no cyanosis or edema Neurologic: Grossly normal Peripheral pulses: 2+ and symmetric Skin: Skin color, texture, turgor normal. No rashes or lesions Musculoskeletal: Normal / Negative Psych: Normal Lab/Radiology/Other Diagnostic Tests: Hematology: Lab Results Component Value Date HGB 13.7 11/23/2017 HCT 41.0 11/23/2017 PLTCT 179 11/23/2017 WBC 9.6 11/23/2017 MCV 95.8 11/23/2017 MCHC 33.3 11/23/2017 MPV 8.6 11/23/2017 RDW 14.3 11/23/2017 , Coagulation: Lab Results Component Value Date PTT 31.4 11/23/2017 INR 1.0 11/23/2017 , General Chemistry: Lab Results Component Value Date NA 138 11/23/2017 K 3.8 11/23/2017 CL 105 11/23/2017 GAP 7 11/23/2017 BUN 13 11/23/2017 CR 0.78 11/23/2017 GLU 114 11/23/2017 CA 9.5 11/23/2017 ALBUMIN 4.0 11/23/2017 MG 2.2 11/08/2017 TOTBILI 0.6 11/23/2017 , Enzymes: Lab Results Component Value Date AST 24 11/23/2017 ALT 19 11/23/2017 ALKPHOS 84 11/23/2017 , Mg and PO4: Lab Results Component Value Date MG 2.2 11/08/2017 , HgbA1C: Lab Results Component Value Date HGBA1C 5.9 11/23/2017 , Lipid Profile: Lab Results Component Value Date CHOL 171 11/07/2017 TRIG 144 11/07/2017 HDL 47 11/07/2017 LDL 102 11/07/2017 VLDL 29 11/07/2017 and UA Results for JADEN RIOS ( ) as of 11/24/2017 07:14 Ref. Range 11/23/2017 13:23 Color,UA Unknown STRAW Turbidity,UA Latest Ref Range: CLEAR-CLEAR CLEAR Specific [place]-Urine Latest Ref Range: 1.003 - 1.035 1.004 pH,UA Latest Ref Range: 5.0 - 8.0 8.0 Glucose,UA Latest Ref Range: NEG-NEG NEG Ketones,UA Latest Ref Range: NEG-NEG NEG Bilirubin,UA Latest Ref Range: NEG-NEG NEG Protein,UA Latest Ref Range: NEG-NEG NEG Urobilinogen,UA Latest Ref Range: NORM-NORMAL NORMAL Blood,UA Latest Ref Range: NEG-NEG NEG Nitrite,UA Latest Ref Range: NEG-NEG NEG Leukocytes,UA Latest Ref Range: NEG-NEG NEG Urine Ascorbic Acid, UA Latest Ref Range: NEG-NEG NEG WBCs,UA Latest Ref Range: 0 - 2 /HPF 0-2 RBCs,UA Latest Ref Range: 0 - 3 /HPF 0-2 Comment,UA Unknown Urine submitted f... Blood Bank Results for JADEN RIOS ( ) as of 11/24/2017 07:14 Ref. Range 11/23/2017 12:19 Record Check Unknown 2ND TYPE REQUIRED ABO/RH(D) Unknown O POS Antibody Screen Unknown NEG Crossmatch Expires Unknown 11/26/2017 Units Ordered Unknown 2 Pertinent radiology reviewed. Barbara Hickey PA-C Pager [phone] in this encounter Consult Notes * Randy Carr MD - 11/24/2017 9:55 PM MEDICAL DERMATOLOGIST Associated Order(s): CONSULT ANESTHESIOLOGY CRITICAL CARE PHYSICIAN Formatting of this note may be different from the original. Critical Care Progress Note Today's Date: 11/24/2017 Name: Jaden Rios Admission Date: 11/24/2017 LOS: 0 days Assessment/Plan: Principal Problem: S/P TAVR (transcatheter aortic valve replacement) Active Problems: Morbid obesity (HCC) Mixed hyperlipidemia HTN (hypertension) Aortic stenosis ATTESTATION This note is associated with the [facility] ICU team note dated today. Date of Service: 11/24/2017 I have seen, personally fully evaluated, and discussed patient with the [facility] ICU team. The patient is critically ill s/p TAVR. I spent 35 minutes (excluding time spent performing or supervising any procedures) providing and personally directing critical care services including respiratory care, pain mgt, hemodynamic monitoring and management, lab and radiology review, medication review and management, fluid and electrolyte management and coordination of care. Neurologically intact. Denies pain. Monitor. BP good. New LBBB. Hold AV selene blockers for now. High LVEDP intra-op. Received lasix in PACU. Monitor. Oxygenation worse after rapid-pacing in procedure. Somewhat improved. On home CPAP in PACU. Lasix for pulm edema. Pulm hygiene. Creat near baseline. Lasix in favor of lungs. Watch electrolytes. H/H good. No bleeding. ASA. Monitor. Insulin per SSI. NPO until able to sit upright. Then can advance quickly. GI prophylaxis. Lillie-op abx. No other infectious concerns. This patient is critically ill with dysfunction of multiple organ systems and is at risk for additional life threatening deterioration. Cont ICU care. Staff name: Randy Carr MD Date: 11/24/2017 __ Subjective: Jaden Rios is a 72 y.o. male. Pt with symptomatic aortic dissection. Now s/p TAVR. Objective: Medications: Scheduled Meds: aspirin EC tablet 81 mg 81 mg Oral QHS ceFAZolin (ANCEF) IVP 2 g 2 g Intravenous Q8H* insulin aspart U-100 (NOVOLOG FLEXPEN) injection PEN 0-14 Units 0-14 Units Subcutaneous ACHS rosuvastatin (CRESTOR) tablet 10 mg 10 mg Oral QHS senna/docusate (SENOKOT-S) tablet 2 tablet 2 tablet Oral BID Continuous Infusions: nitroGLYCERIN 50 mg/D5W 250 mL infusion Stopped (11/24/17 1233) sodium chloride 0.9 % infusion 30 mL/hr at 11/24/17 1120 PRN and Respiratory Meds:acetaminophen Q6H PRN, [START ON 11/25/2017] baclofen QDAY PRN, [START ON 11/26/2017] bisacodyl QDAY PRN, fentaNYL citrate PF Q5 MIN PRN, fentaNYL citrate PF Q1H PRN, hydrALAZINE Q6H PRN, [START ON 11/25/2017] hydrOXYzine TID PRN, [START ON 11/25/2017] loratadine QDAY PRN, metoclopramide ( REGLAN) IV Once PRN, milk of magnesia (CONC) QDAY PRN, ondansetron (ZOFRAN) IV Q6H PRN, ondansetron (ZOFRAN) IV Once PRN, oxyCODONE Q4H PRN, potassium chloride SR PRN OR potassium chloride PRN, prochlorperazine Q6H PRN, promethazine Q10 MIN PRN Vital Signs: Last Filed Vital Signs: 24 Hour Range BP: 110/62 (11/24 1200) ABP: 134/65 (11/240) Temp: 36.5 C (97.7 F) (11/24 1600) Pulse: 66 (11/24 1899) Respirations: 31 PER MINUTE (11/24 1899) SpO2: 95 % (11/24 1899) O2 Delivery: Nasal Cannula (11/24 1899) Height: 167.6 cm (65.98") (11/24 606) Weight: 115 kg (253 lb 8.5 oz) (11/24 606) Dosing / Dry Weight: 115 kg (253 lb 8.5 oz) (11/24 606) BP: (104-131)/(62-81) ABP: (116-150)/(60-74) Temp: [36.5 C (97.7 F)-36.8 C (98.2 F)] Pulse: [57-68] Respirations: [13 PER MINUTE-34 PER MINUTE] SpO2: [94 %-100 %] O2 Delivery: Nasal Cannula Intensity Pain Scale 0-10 (Pain 1): (not recorded) Vitals: 11/24/17606 Weight: 115 kg (253 lb 8.5 oz) Critical Care Vitals: ICP Monitoring: PA Catheter: Hemodynamics/Oxycalcs: Intake/Output Summary: (Last 24 hours) Intake/Output Summary (Last 24 hours) at 11/24/17 2155 Last data filed at 11/24/17 1900 Gross per 24 hour Intake 1960 ml Output 3590 ml Net -1630 ml Physical Exam: General: Alert, cooperative, no distress, appears stated age Lungs: Clear to auscultation bilaterally Heart: Regular rate and rhythm, S1, S2 normal, no murmur, click rub or gallop Extremities: Extremities normal, atraumatic, no cyanosis or edema Peripheral pulses: 2+ and symmetric, all extremities Artificial airway: None Ventilator/ Respiratory Therapy: No Vent weaning trial: Not applicable Drains: None Prophylaxis Review: Lines: Yes; Arterial Line; Indication: Continuous BP monitoring; Location: Radial Central Line; Indication: Hemodynamic monitoring; Type: Internal jugular Urinary Catheter: Yes; Retain correa due to: Need for accurate Intake and Output Antibiotic Usage: Yes; Infection present or suspected: Lillie-op VTE: Mechanical prophylaxis; Sequential compression device Lab Review: Pertinent labs reviewed Point of Care Testing: (Last 24 hours): Glucose: (!) 157 (11/24/17 1039) POC Glucose (Download): (!) 122 (11/24/17 2114) Radiology and Other Diagnostic Procedures Review: Pertinent radiology reviewed. Randy Carr MD Pager [phone] in this encounter Miscellaneous Notes * Care Plan - Shell Fields RN - 11/26/2017 9:44 AM MEDICAL DERMATOLOGIST Problem: Infection, Risk of, Central Venous Catheter-Associated Bloodstream Infection Goal: Absence of CVC Associated Bloodstream infection Outcome: Goal Achieved Date Met: 11/26/[address] Problem: Discharge Planning Goal: Participation in plan of care Outcome: Goal Achieved Date Met: 11/26/17 Pt asks appropriate questions and participates in plan of care. Goal: Knowledge regarding plan of care Outcome: Goal Achieved Date Met: 11/26/17 Pt asks appropriate questions and verbalizes understanding of plan of care. Goal: Prepared for discharge Outcome: Goal Achieved Date Met: 11/26/17 Pt asks appropriate questions and participates in discharge planning. * Case Mgmt DC Plan - Shell Salgado - 11/25/2017 3:42 PM MEDICAL DERMATOLOGIST Case Management Admission Assessment NAME:Jaden Rios : 1945 AGE: 72 y.o. ADMISSION DATE: 11/24/2017 DAYS ADMITTED: LOS: 1 day Todays Date: 11/25/2017 Source of Information: [place] Plan Plan: CM Assessment, Assist PRN with SW/NCM Services, Discharge Planning for Home Anticipated NCM met with pt in continuation of care and dc planning. NCM introduced self and NCM/SW roles. Provided contact information and encouraged pt to reach out to CM team with questions or concerns. Pt admitted for TAVR and is now POD 1- anticipate pt will dc home tomorrow w family assistance. Retail Visual Merchandiser is Dr. Dario Pandya No current CM needs identified at this time. Patient Address/Phone [address] [place] [address] (home) Emergency Contact Extended Emergency Contact Information Primary Emergency Contact: Jay[facility]ohanna[facility]erkley [facility] Relation: Spouse Secondary Emergency Contact: Domenico Rios [facility] Relation: Son Healthcare Directive Healthcare Directive: Yes, patient has a healthcare directive Type of Healthcare Directive: Durable power of collections attorney for healthcare, Healthcare directive Location of Healthcare Directive: Current and verified in document scanning system Would patient like to fill out a (a new) Healthcare Directive?: No, patient declined Psych Advance Directive (Psych unit only): No, patient does not have a Psych Advance Directive Transportation Does the patient need discharge transport arranged?: No Transportation Name, Phone and Availability #1: Spouse and Dgt Does the patient use Medicaid Transportation?: No Expected Discharge Date Expected Discharge Date: 11/26/17 Living Situation Prior to Admission ? Living Arrangements Type of Residence: Home, independent Bathroom Shower / Tub: Tub/Shower Unit How many levels in the residence?: 1 Can patient live on one level if needed?: Yes Does residence have entry and/or side stairs?: Yes (2) Assistance needed prior to admit or anticipated on discharge: No Can support system provide 24/7 care if needed?: No ? Level of Function Prior level of function: Independent ? Cognitive Abilities Cognitive Abilities: Alert and Oriented, Engages in problem solving and planning , Participates in decision making Financial Resources ? Coverage Primary Insurance: Medicare (A/B) Secondary Insurance: Commercial insurance ([employer]) Additional Coverage: RX ([employer] ) ? Source of Income Source Of Income: Other [place] [facility] income ? Financial Assistance Needed? NA Psychosocial Needs ? Mental Health Mental Health History: No ? Substance Use History Substance Use History Screen: No ? Other NA Current/Previous Services ? PCP Jose De Jesus Rocha, , ? Pharmacy [facility] - [place], [place] - [address] [place] [id number] ? Durable Medical Equipment Durable Medical Equipment at home: Roller Walker, Single Point Cane (Pt states that he uses his cane at times due to his back pain. ) ? Home Health Receiving home health: No ? Hemodialysis or Peritoneal Dialysis Undergoing hemodialysis or peritoneal dialysis: No ? Tube/Enteral Feeds Receive tube/enteral feeds: No ? Infusion Receive infusions: No ? Private Duty Private duty help used: No ? Home and Community Based Services Home and community based services: No ? Chase Zhao: N/A ? Hospice Hospice: No ? Outpatient Therapy PT: In the past When did patient receive care?: 2009 Name of rehab location/group: [facility] Would patient return for future services?: Yes OT: No CHIP TESTER: No ? Fdc Facility/Correction SNF: No NH: No ? Inpatient Rehab IPR: No ? Long-Term Acute Care Hospital LTACH: No ? Acute Hospital Stay Acute Hospital Stay: Yes Was patient's stay within the last 30 days?: Yes When did patient receive care?: 11/07/17 Name of hospital: [facility] Readmission Code Group: 8. Scheduled Readmission 8. Scheduled Readmission: 8b. Cardiac Related or Unrelated?: Unrelated Shell ESCAMILLAN, provisioning specialist Registered Nurse Tipple Boss Inpatient Cardiothoracic Surgery O: [phone] P: [phone] C: [phone] * Operative Report (DICTATED ONLY) - Galindo Cuenca MD - 11/25/2017 7: 58 AM MEDICAL DERMATOLOGIST THE [address] [address] PATIENT NAME: JADEN RISO MR#/PT#: [id number] OPERATIVE REPORT : 1945 DATE OF OPERATION: 11/25/2017 ROOM #: HC303 OPERATIVE REPORT SURGEON: Galindo Cuenca MD TRAY ROOM WORKER SURGEON(S): Stephen Sewell MD DICTATING PROVIDER: Galindo Cuenca MD PREOPERATIVE DIAGNOSIS: Aortic stenosis. POSTOPERATIVE DIAGNOSIS: Aortic stenosis. OPERATIVE PROCEDURE: 1. Temporary balloon-tipped pacemaker. 2. Ascending aortography. 3. Descending aortography. 4. Transcatheter aortic valve replacement with 29 Medtronic Evolut Pro, serial number [id number]. DESCRIPTION AND FINDINGS OF OPERATIVE PROCEDURE: Patient presents with severe symptomatic aortic stenosis. He is deemed a moderate surgical risk by 2 surgeons. Intraoperatively, he is noted to have a bicuspid valve. After deployment of the valve, it did require balloon valvuloplasty. He tolerated the procedure well. After informed consent was obtained from the patient, the patient was taken to the operating room and placed in supine position. Chest, legs, and arms were prepped with DuraPrep, sterile drapes applied. Cut down access was obtained in the left femoral artery. Percutaneous access was obtained in the right femoral artery. The patient was heparinized, and a needle was placed in the left femoral artery, and a wire guide was passed. This was exchanged for a 20- Indonesian [place] DrySeal sheath. Wire access was obtained across the aortic valve, and a stiff wire was placed into the ventricle. Hemodynamics were measured. Because of the severity of stenosis, we elected to do pre placement balloon valvuloplasty. A 22 True balloon was placed over the stiff wire, and under rapid ventricular pacing valvuloplasty was performed. Next, the in-line sheath valve was then placed over the stiff wire across the aortic valve. The valve was deployed under fluoro guidance. After deployment of the valve, it was apparent there was constraint of the valve. A 24 True balloon was then brought to the field, and this was placed across the aortic valve. Again, under rapid ventricular pacing, balloon valvuloplasty was performed. He tolerated the procedure well and had excellent valve function. The sheaths were removed from the left groin, and this was repaired primarily. Ascending and descending aortography was performed. The right groin was closed with a closure device. Dressings were placed. Patient tolerated the procedure well, returned to the ICU in stable condition. MD DEE DEE Rubio/MedCarmen Cuenca MD / RichardQ [id number] cc: - Galindo Cuenca MD * Care Plan - Laura Howell RN - 11/25/2017 6:06 AM MEDICAL DERMATOLOGIST Problem: Infection, Risk of, Central Venous Catheter-Associated Bloodstream Infection Goal: Absence of CVC Associated Bloodstream infection Outcome: Goal Ongoing Implement measures to prevent device associated and surgical site infections per standard of practice Problem: Discharge Planning Goal: Participation in plan of care Outcome: Goal Ongoing Patient continues to ask questions and provide input for expectations for the plan of care Goal: Knowledge regarding plan of care Outcome: Goal Ongoing Pt able to discuss previous, home, and current POC with commercial insurance underwriter Goal: Prepared for discharge Outcome: Goal Ongoing Cardiac Rehab upon discharge Possible some PT/OT - pt with weakness and some SOB at this time Will cont to evaluate up to discharge for new needs and changes Problem: Infection, Risk of Goal: Absence of infection Outcome: Goal Ongoing Implement measures to prevent device associated and surgical site infections per standard of practice Problem: Glucose Management Goal: Absence of hyperglycemia Outcome: Goal Ongoing FSBS Goal 100 -140 mg/dl Continue to do FSBS 5 times a day and cover FSBS > 140 mg/dl during day time and meal time hours Will only treat FSBS > 180 mg/dl between 2200- 0600 Use of sliding scale SQ insulin Goal: Glucose level within specified parameters Outcome: Goal Ongoing FSBS Goal 100 -140 mg/dl * Operative Report (Direct Entry) - Stephen Sewell MD - 11/24/2017 10:28 AM MEDICAL DERMATOLOGIST TAVR (Transcatheter Aortic Valve Replacement) Date of procedure: 11/24/2017 Jaden Rios, : 1945 INDICATIONS FOR PROCEDURE: Jaden Rios is a 72 y.o. who has severe symptomatic aortic valve stenosis. In view of significant co-morbidities, He is felt to be at high risk to undergo standard open surgical AVR as evaluated by the combined heart team. After a discussion with the combined heart team of the risks and benefits and alternative of proceeding with surgical versus transcatheter AVR, Jaden Rios has elected to proceed with TAVR. OPERATORS: 1. Stephen Sewell MD, Interventional Cardiology. 2. Kevin Cuenca MD, Cardiothoracic Surgery. PROCEDURES PERFORMED: 1. Transvenous pacemaker through right IJ access. 2. Left heart cardiac catheterization with simultaneous pressure assessment of the LV and aorta both pre and post TAVR. 3. Ascending aortography. 4. Descending aortography/aortoiliac angiography 5. Transcatheter valve replacement utilizing a number 29 Medtronic Corevalve. 6. Pre-BAV with a 20 True 7. Post TAVR expansion with a 24 True balloon PROCEDURE: 1. Patient was informed and consented to risks, benefits, and alternatives. Patient verbalized understanding and wished to proceed. 2. General ansesthesia was performed under the care cardiac anesthesia service. The anesthesia team monitored the patient's hemodynamics, airway, and sedation throughout the case. 3. Access was obtained in the right common femoral artery with placement of 5- Indonesian sheath. Surgical cutdown ccess also obtained in the left common femoral artery with 20F [place] Dryseal. 4. Utilizing an JR4 catheter and Glidewire, access was obtained into the left ventricle. 5. Initial hemodynamics were performed utilizing simultaneous pigtail catheter assessments in both the aortic root and left ventricle. Hemodynamics revealed an LV pressure of 185/16 LVEDP and a mean aortic gradient of 72 mmHg. 6. Utilizing an amplatz superstiff wire in the left ventricle, the valve was deployed under fluoroscopic guidance. The valve was well seated and had an average annular depth of 3mm. 7. Predilatation BAV 20 True balloon 8. Postdilatation was then performed under rapid ventricular pacing under 180 beats per minute with a 24 True balloon. 9. MONTSE revealed a well seated TAVR valve with no significant paravalvular regurgitation and no evidence of central valve regurgitation. 10. Ascending aortography revealed no significant aortic valve regurgitation. Excellent flow was noted within the coronary arteries as well as in the ascending aorta. There was no evidence of dissection, perforation, intramural hematoma, plaque disruption or thrombus. 11. Post hemodynamic measurements had been obtained which revealed an LV pressure 115/24 LVEDP with a mean gradient of 8.5 mmHg. 12. The left common femoral sheath was removed and surgical closure was completed. A descending aortography was performed with no evidence of dissection, perforation, intramural hematoma, and there was excellent brisk flow in the iliofemoral system. The right common femoral artery sheath was removed and the arteriotomy was closed with a 5F Mynx device. 13. Patient was extubated in the hybrid room at the conclusion of the case and transported to CTI in stable condition. 14. The patient's transvenous pacemaker which had been placed in the right IJ access was sutured in place. This had a threshold of 0.4 milliamps. It was left in a VVI mode with a rate of 40 beats per minute and an output of 10 milliamps. 15. A total of 140 mL of Visipaque 320 was utilized for the procedure. 16. Air Kerma was 1963 mGy. IMPRESSION: 1. Severe symptomatic aortic valve stenosis. 2. Successful transcatheter valve replacement utilizing a number 29 Medtronic Corevalve. -Postdilatation had been performed utilizing a 24 True balloon. -Residual transaortic mean gradient of 8.5 mmHg. -no significant paravalvular regurgitation. No central valve regurgitation was noted. RECOMMENDATIONS: 1. SBE prophylaxis indefinitely. 2. Aspirin 81 mg indefinitely 3. Echo Doppler in the morning. 4. Early ambulation. Stephen Sewell MD * Procedures (Immed Post or Bedside) - Galindo Cuenca MD - 11/24/2017 9 :59 AM MEDICAL DERMATOLOGIST Brief Operative Note Name: Jaden Rios is a 72 y.o. male : 1945 MRN# : [id number] DATE OF OPERATION: 11/24/2017 Date: 11/24/2017 Preoperative Dx: 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, etiology of cardiac valve disease unspecified [I35.0] Post-op Diagnosis * 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, etiology of cardiac valve disease unspecified [I35.0 ] Procedure(s): REPLACEMENT TRANSCATHETER AORTIC VALVE-evolut, left common femoral artery approach, 29 pro valve Anesthesia Type: Defer to Anesthesia Surgeon(s) and Role: * Galindo Cuenca MD - Primary * Stephen Sewell MD - Co-Surgeon Findings: Gradient 72 mmHg Antibiotics: Ancef 2 gms @ 0816 Estimated Blood Loss: No blood loss documented. Specimen(s) Removed/Disposition: * No specimens in log * Complications: None Implants: 29 Evolut Pro Drains: None Disposition: ICU - stable Galindo Cuenca MD Pager [phone] in this encounter Plan of Treatment Not on fileas of this encounter Results * POC GLUCOSE (11/26/2017 8:06 AM) Component Value Ref Range Glucose, POC 126 (H) 70 - 100 MG/DL Specimen Performing Laboratory [facility] [address] [place] [address] * CHEST SINGLE VIEW (11/26/2017 6:23 AM) Specimen Performing Laboratory [facility] RESULTS [...] Interface, Radiant Results - 11/26/2017 12:58 PM MEDICAL DERMATOLOGIST Single view chest Clinical indications: Transcatheter aortic [...] Hernandez M.D. on 11/26/2017 12:53 PM. * BASIC METABOLIC PANEL (11/26/2017 3:46 AM) Component Value Ref Range Sodium 136 (L) [...] Pharmacist for questions. Specimen Performing Laboratory Blood [facility] [address] [place] [address] * CBC (11/26/2017 3:46 AM) Component Value Ref Range White Blood Cells [...] - 11 FL Specimen Performing Laboratory Blood [facility] [address] [place], [place] [id number] * POC GLUCOSE (11/26/2017 3:26 AM) Component Value Ref Range Glucose, POC 114 (H) 70 - 100 MG/DL Specimen Performing Laboratory [facility] [address] [place] [address] * POC GLUCOSE (11/25/2017 8:39 PM) Component Value Ref Range Glucose, POC 146 (H) 70 - 100 MG/DL Specimen Performing Laboratory [facility] [address] [place], [place] [id number] * POC GLUCOSE (11/25/2017 5:23 PM) Component Value Ref Range Glucose, POC 103 (H) 70 - 100 MG/DL Specimen Performing Laboratory [facility] [address] [place], [place] [id number] * POC GLUCOSE (11/25/2017 11:46 AM) Component Value Ref Range Glucose, POC 124 (H) 70 - 100 MG/DL Specimen Performing Laboratory [facility] [address] [place] [address] * 2-D + DOPPLER ECHOCARDIOGRAM (11/25/2017 9:01 AM) Component Value Ref Range LVOT diameter 2.21 [...] Index 30.98 10 - 32 AV index (seminole) 0.43 LVOT area 3.83 cm2 LVOT stroke volume 88.09 cm3 E/A ratio 0.75 E/E' ratio 9.25 CV ECHO PV LIVESTOCK YARD SUPERVISOR BIBIANA Jeffers Cardiology Ultrasound Siemens [id number] Machine Aortic valve area= 1.87 cm2 TV [...] pericardial effusion Vidal Javier MD, MSc * POC GLUCOSE (11/25/2017 7:57 AM) Component Value Ref Range Glucose, POC 109 (H) 70 - 100 MG/DL Specimen Performing Laboratory [facility] [address] [place] [address] * CHEST SINGLE VIEW (11/25/2017 4:18 AM) Specimen Performing Laboratory [facility] RESULTS Impressions 1.Mild cardiomegaly with improved pulmonary vascular congestion. 2.Prominence of the interstitium throughout the lungs which could be related to fibrosis. Approved by Hawk Moe M.D. on 11/25/2017 9:24 AM By my electronic signature, I attest that I have personally reviewed the images for this examination and formulated the interpretations and opinions expressed in this report Finalized by Mitzi Lopez M.D. on 11/25/2017 10:54 AM. Dictated by Hawk Moe M.D. on 11/25/2017 7:59 AM. Narrative CHEST SINGLE VIEW Clinical Indication: Male, 72 years old. Status post TAVR. Comparison: Chest x-ray November 24, 2017. Findings: Right IJ transvenous pacing lead in similar position. Cardiac silhouette is mildly enlarged with slightly improved pulmonary vascular congestion. Unchanged prominence of the interstitium throughout the lungs. No lobar consolidation, pleural effusion, or pneumothorax. Procedure Note Interface, Radiant Results - 11/25/2017 10:57 AM MEDICAL DERMATOLOGIST CHEST SINGLE VIEW Clinical Indication: Male, 72 years old. Status post TAVR. Comparison: Chest x-ray November 24, 2017. Findings: Right IJ transvenous pacing lead in similar position. Cardiac silhouette is mildly enlarged with slightly improved pulmonary vascular congestion. Unchanged prominence of the interstitium throughout the lungs. No lobar consolidation, pleural effusion, or pneumothorax. IMPRESSION 1. Mild cardiomegaly with improved pulmonary vascular congestion. 2. Prominence of the interstitium throughout the lungs which could be related to fibrosis. Approved by Hawk Moe M.D. on 11/25/2017 9:24 AM By my electronic signature, I attest that I have personally reviewed the images for this examination and formulated the interpretations and opinions expressed in this report Finalized by Mitzi Lopez M.D. on 11/25/2017 10:54 AM. Dictated by Hawk Moe M.D. on 11/25/2017 7:59 AM. * BASIC METABOLIC PANEL (11/25/2017 3:52 AM) Component Value Ref Range Sodium 135 (L) 137 - 147 MMOL/L Potassium 3.9 3.5 - 5.1 MMOL/L Chloride 106 98 - 110 MMOL/L CO2 24 21 - 30 MMOL/L Anion Gap 5 3 - 12 Glucose 125 (H) 70 - 100 MG/DL Blood Urea Nitrogen 10 7 - 25 MG/DL Creatinine 0.73 0.4 - 1.24 MG/DL Calcium 9.0 8.5 - 10.6 MG/DL eGFR Non >60 [...] Pharmacist for questions. Specimen Performing Laboratory Blood [facility] [address] [place] [address] * CBC (11/25/2017 3:52 AM) Component Value Ref Range White Blood Cells 12.2 (H) 4.5 - 11.0 K/UL RBC 3.86 (L) 4.4 - 5.5 M/UL Hemoglobin 12.4 (L) 13.5 - 16.5 GM/DL Hematocrit 36.9 (L) 40 - 50 % MCV 95.5 80 - 100 FL MCH 32.0 26 - 34 PG MCHC 33.5 32.0 - 36.0 G/DL RDW 14.7 11 - 15 % Platelet Count 155 150 - 400 K/UL MPV 8.8 7 - 11 FL Specimen Performing Laboratory Blood [facility] [address] [place] [id number] * POC GLUCOSE (11/24/2017 9:14 PM) Component Value Ref Range Glucose, POC 122 (H) 70 - 100 MG/DL Specimen Performing Laboratory [facility] [address] [place], [place] [id number] * POTASSIUM (11/24/2017 6:46 PM) Component Value Ref Range Potassium 4.0 3.5 - 5.1 MMOL/L Specimen Performing Laboratory Blood [place] [id number] * MAGNESIUM (11/24/2017 6:46 PM) Component Value Ref Range Magnesium 1.9 1.6 - 2.6 mg/dL Specimen Performing Laboratory Blood [address] [address] * POC GLUCOSE (11/24/2017 5:01 PM) Component Value Ref Range Glucose, POC 155 (H) 70 - 100 MG/DL Specimen Performing Laboratory [address] [address] * POC GLUCOSE (11/24/2017 12:36 PM) Component Value Ref Range Glucose, POC 129 (H) 70 - 100 MG/DL Specimen Performing Laboratory [facility] [address] [place] [address] * PTT (APTT) (11/24/2017 10:39 AM) Component Value Ref Range APTT 28.7 21.0 - 39.0 SEC Specimen Performing Laboratory Blood [place] [id number] * PROTIME INR (PT) (11/24/2017 10:39 AM) Component Value Ref Range INR 1.0 0.8 - 1.2 Specimen Performing Laboratory Blood [facility] [address] [place] [address] [place] [address] * BASIC METABOLIC PANEL (11/24/2017 10:39 AM) Component Value Ref Range Sodium 136 (L) 137 - 147 MMOL/L Potassium 3.8 3.5 - 5.1 MMOL/L Chloride 106 98 - 110 MMOL/L CO2 22 21 - 30 MMOL/L Anion Gap 8 3 - 12 Glucose 157 (H) 70 - 100 MG/DL Blood Urea Nitrogen 12 7 - 25 MG/DL Creatinine 0.80 0.4 - 1.24 MG/DL Calcium 8.6 8.5 - 10.6 MG/DL eGFR Non >60 [...] Pharmacist for questions. Specimen Performing Laboratory Blood [facility] [address] [place] [address] * CBC (11/24/2017 10:39 AM) Component Value Ref Range White Blood Cells 11.6 (H) 4.5 - 11.0 K/UL RBC 4.27 (L) 4.4 - 5.5 M/UL Hemoglobin 13.6 13.5 - 16.5 GM/DL Hematocrit 41.1 40 - 50 % MCV 96.2 80 - 100 FL MCH 31.9 26 - 34 PG MCHC 33.2 32.0 - 36.0 G/DL RDW 14.5 11 - 15 % Platelet Count 152 150 - 400 K/UL MPV 8.4 7 - 11 FL Specimen Performing Laboratory Blood [facility] [address] [place] [address] * LINE PLCMT 1V CXR (11/24/2017 10:38 [...] Interface, Radiant Results - 11/24/2017 12:37 PM MEDICAL DERMATOLOGIST LINE PLCMT 1V CXR Clinical Indication: Male, [...] M.D. on 11/24/2017 10:46 AM. * POC IONIZED CALCIUM (11/24/2017 9:52 AM) Component Value Ref Range Ionized Calcium-POC 1.11 1.0 - 1.3 MMOL/L Specimen Performing Laboratory [facility] [address] [place] [address] * POC SODIUM (11/24/2017 9:52 AM) Component Value Ref Range Sodium-POC 140 137 - 147 MMOL/L Specimen Performing Laboratory [facility] [address] [place] [address] * POC POTASSIUM (11/24/2017 9:52 AM) Component Value Ref Range Potassium-POC 3.5 3.5 - 5.1 MMOL/L Specimen Performing Laboratory [facility] [address] [place] [address] * POC HEMATOCRIT (11/24/2017 9:52 AM) Component Value Ref Range Hemoglobin POC 12.6 (L) 13.5 - 16.5 GM/DL Hematocrit POC 37.0 (L) 40 - 50 % Specimen Performing Laboratory [facility] [address] [place] [address] * POC BLOOD GAS ARTERIAL (11/24/2017 9:52 AM) Component Value Ref Range PH-ART-POC 7.30 (L) 7.35 - 7.45 [id number] 43 35 - 45 MMHG PO2-ART-POC 70 (L) 80 - 100 MMHG Base Def-ART-POC 6.0 MMOL/L O2 Sat-ART-POC 92.0 (L) 95 - 99 % [id number] 20.7 (L) 21 - 28 MMOL/L Specimen Performing Laboratory [facility] [address] [place] [address] * POC GLUCOSE (11/24/2017 9:50 AM) Component Value Ref Range Glucose, POC 138 (H) 70 - 100 MG/DL Specimen Performing Laboratory [facility] [address] [place], [place] [id number] * POC ACTIVATED CLOTTING TIME (11/24/2017 9:49 AM) Component Value Ref Range Activated Clotting Time 162 s Specimen Performing Laboratory [facility] [address] [place], [place] [id number] * POC IONIZED CALCIUM (11/24/2017 8:51 AM) Component Value Ref Range Ionized Calcium-POC 1.14 1.0 - 1.3 MMOL/L Specimen Performing Laboratory [facility] [address] [place] [address] * POC SODIUM (11/24/2017 8:51 AM) Component Value Ref Range Sodium-POC 140 137 - 147 MMOL/L Specimen Performing Laboratory [facility] [address] [place] [address] * POC POTASSIUM (11/24/2017 8:51 AM) Component Value Ref Range Potassium-POC 3.7 3.5 - 5.1 MMOL/L Specimen Performing Laboratory [facility] [address] [place] [address] * POC HEMATOCRIT (11/24/2017 8:51 AM) Component Value Ref Range Hemoglobin POC 13.3 (L) 13.5 - 16.5 GM/DL Hematocrit POC 39.0 (L) 40 - 50 % Specimen Performing Laboratory [facility] [address] [place] [address] * POC BLOOD GAS ARTERIAL (11/24/2017 8:51 AM) Component Value Ref Range PH-ART-POC 7.27 (L) 7.35 - 7.45 [id number]-[id number]-AFS 50 (H) 35 - 45 MMHG PO2-ART-POC 157 (H) 80 - 100 MMHG Base Def-ART-POC 4.0 MMOL/L O2 Sat-ART-POC 99.0 95 - 99 % Cubbwxdazdc-ZNF-WQG 22.9 21 - 28 MMOL/L Specimen Performing Laboratory [facility] [address] [place] [address] * POC ACTIVATED CLOTTING TIME (11/24/2017 8:49 AM) Component Value Ref Range Activated Clotting Time 292 s Specimen Performing Laboratory [facility] [address] [place] [address] * POC GLUCOSE (11/24/2017 8:49 AM) Component Value Ref Range Glucose, POC 108 (H) 70 - 100 MG/DL Specimen Performing Laboratory [facility] [address] [place] [address] * BLOOD TYPE CONFIRMATION - ORDER ONLY IF REQUESTED BY LAB (11/24/2017 6:20 AM) Component Value Ref Range ABO/RH(D) O POS Specimen Performing Laboratory [facility] [address] [place] [address] in this encounter Visit Diagnoses Diagnosis S/P TAVR (transcatheter aortic valve replacement) - Primary Heart valve replaced by other means 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, etiology of cardiac valve disease unspecified Nonrheumatic aortic valve stenosis Aortic valve disorders Essential hypertension Unspecified essential hypertension Mixed hyperlipidemia Morbid obesity (HCC) Morbid obesity NURIA (obstructive sleep apnea) Obstructive sleep apnea (adult) (pediatric) Left bundle branch block Other left bundle branch block HTN (hypertension) Unspecified essential hypertension Admitting Diagnoses Diagnosis 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, etiology of cardiac valve disease unspecified - 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, etiology of cardiac valve disease unspecified [I35.0] Aortic stenosis Administered Medications Medication Order MAR Action Action Date Dose Rate Site acetaminophen (TYLENOL) tablet 650 mg Given 11/24/2017 650 mg 650 mg, Oral, EVERY 6 HOURS PRN, 14:19 MEDICAL DERMATOLOGIST Starting Kalie 11/24/17 at 1231, Until 11/26/17 at 1239, Pain non-opioid: may be used alone or in combination with opioid analgesia, Temp > 38.5 C, TOTAL ACETAMINOPHEN DOSE NOT TO EXCEED 4GM DAILY. Given 11/25/2017 325 mg 17:43 MEDICAL DERMATOLOGIST aspirin EC tablet 81 mg Given 11/24/2017 81 mg 81 mg, Oral, AT BEDTIME DAILY, First 21:11 MEDICAL DERMATOLOGIST dose on Kalie 11/24/17 at 2100, Until Discontinued Given 11/25/2017 81 mg 21:03 MEDICAL DERMATOLOGIST ceFAZolin (ANCEF) IVP 2 g Given 11/24/2017 2 g 2 g, Intravenous, EVERY 8 HOURS, 3 16:22 MEDICAL DERMATOLOGIST doses, First dose on Kalie 11/24/17 at 1600, Last dose on Tue11/25/17 at 0800, IV PUSH -- RECONSTITUTE each 1 g vial by adding 10 mL 0.9% NACL Given 11/25/2017 2 g 01:11 MEDICAL DERMATOLOGIST Given 11/25/2017 2 g 09:17 MEDICAL DERMATOLOGIST enalapril (VASOTEC) tablet 2.5 mg Given 11/25/2017 2.5 mg 2.5 mg, Oral, TWICE DAILY, First dose on 09:18 MEDICAL DERMATOLOGIST 11/25/17 at 0945, Until Discontinued Given 11/25/2017 2.5 mg 21:03 MEDICAL DERMATOLOGIST Given 11/26/2017 2.5 mg 08:12 MEDICAL DERMATOLOGIST FENTANYL CITRATE (PF) 50 MCG/ML IJ SOLN (Cabinet Override) NOW, 1 dose, Kalie 11/24/17 at 1130, Created by cabinet override fentaNYL citrate PF (SUBLIMAZE) Given 11/24/2017 50 mcg injection 25-50 mcg 11:20 MEDICAL DERMATOLOGIST 25-50 mcg, Intravenous, EVERY 1 HOUR PRN, Starting Kalie 11/24/17 at 1159, Until 11/25/17 at 0810, Pain Injectable, Give if not tolerating PO, NPO, or vomiting Given 11/24/2017 50 mcg 12:01 MEDICAL DERMATOLOGIST furosemide (LASIX) tablet 40 mg Given 11/26/2017 40 mg 40 mg, Oral, ONCE, 1 dose, 11/26/17 08:11 MEDICAL DERMATOLOGIST at 0745 insulin aspart U-100 (NOVOLOG FLEXPEN) Given 11/24/2017 2 Units Arm, Left injection PEN 0-14 Units 17:03 MEDICAL DERMATOLOGIST 0-14 Units, Subcutaneous, BEFORE MEALS AND AT BEDTIME, First dose on Kalie 11/24/17 at 1245, Until Discontinued, -POC glucose 140-180mg/dL at , , administer 2 units insulin, at , 03* administer 0 units. -POC glucose 181-220mg/dL at , , administer 4 units insulin, at , * administer 2 units. -POC glucose 221-260mg/dL at , , administer 6 units insulin, at , * administer 4 units. -POC glucose 261-300mg/dL at , , administer 8 units insulin, at , * administer 6 units. -POC glucose 301-350mg/dL at , , administer 10 units insulin, at , * administer 8 units. -POC glucose 351-400mg/dL at , , administer 12 units insulin, at , * administer 10 units. -POC glucose >400mg/dL at , , administer 14 units insulin, at , * administer 12 units. *only if ordered 5x's daily For POCT glucose >350mg/dL give correction bolus and recheck POCT glucose in 2 hours. If POCT glucose at 2 hours >300mg/dL call physician for further orders. For patients who are not eating meals, continue to administer the appropriate correction factor. NOTE: This is a HIGH ALERT Medication. LIDOCAINE (PF) 10 MG/ML (1 %) IJ SOLBashir (Cabinet Override) NOW, 1 dose, Kalie 11/24/17 at 0600, Created by cabinet override lidocaine PF 1% (10 mg/mL) injection Given 11/24/2017 2 mL 0.1-2 mL 06:16 MEDICAL DERMATOLOGIST 0.1-2 mL, Injection, NEEDED, Starting Kalie 11/24/17 at 0603, Until Kalie 11/24/17 at 1223, Other..., for IV insertion, Pre-Op perflutren lipid microspheres (DEFINITY) Given 11/25/2017 3 Diluted mL injection 1-20 Diluted mL 09:07 MEDICAL DERMATOLOGIST 1-20 Diluted mL, Intravenous, ONCE, 1 dose, Tue11/25/17 at 0745, NOTE: This is a HIGH ALERT Medication. potassium chloride SR (K-DUR) tablet 20 Given 11/26/2017 20 mEq mEq 08:11 MEDICAL DERMATOLOGIST 20 mEq, Oral, ONCE, 1 dose, 11/26/17 at 0745, Do NOT break or crush tablet potassium chloride SR (K-DUR) tablet Given 11/24/2017 40 mEq 20-40 mEq 15:10 MEDICAL DERMATOLOGIST 20-40 mEq, Oral, NEEDED, Starting Kalie 11/24/17 at 1231, Until 11/26/17 at 1239, Other..., See admin instructions, If urine output <30 mL/hr or SCr >2 mg/dL, check with physician prior to giving K+ replacement. - For K+ 4.0-4.3, give potassium chloride 20 mEq PO/NG x 1 dose - For K+ 3.5-3.9, give potassium chloride 40 mEq PO/NG x 1 dose - For K+ <3.5, give potassium chloride 40 mEq PO/NG every 4 hours x 2 doses - Check K+ in the AM if potassium >=3.5 and replacement given - Check K+ 4 hours after last replacement dose given if K+ <3.5, then repeat replacement orders if needed. Given 11/25/2017 40 mEq 09:17 MEDICAL DERMATOLOGIST Given 11/26/2017 20 mEq 06:47 MEDICAL DERMATOLOGIST rosuvastatin (CRESTOR) tablet 10 mg Given 11/24/2017 10 mg 10 mg, Oral, AT BEDTIME DAILY, First 21:11 MEDICAL DERMATOLOGIST dose on Kalie 11/24/17 at 2100, Until Discontinued Given 11/25/2017 10 mg 21:03 MEDICAL DERMATOLOGIST senna/docusate (SENOKOT-S) tablet 2 Given 11/25/2017 2 tablets tablet 09:17 MEDICAL DERMATOLOGIST 2 tablet, Oral, TWICE DAILY, First dose on Kalie 11/24/17 at 1245, Until Discontinued, Hold for loose stools Given 11/25/2017 2 tablets 21:03 MEDICAL DERMATOLOGIST Given 11/26/2017 2 tablets 08:12 MEDICAL DERMATOLOGIST sodium chloride 0.9 % infusion Given - New 11/24/2017 20 mL/hr 1,000 mL, Intravenous, at 20 mL/hr, Bag 06:16 MEDICAL DERMATOLOGIST CONTINUOUS, Starting Kalie 11/24/17 at 0615, Until Kalie 11/24/17 at 1231, Pre-Op Given - New Bag 11/24/2017 09:21 MEDICAL DERMATOLOGIST sodium chloride 0.9 % infusion Given - New 11/24/2017 30 mL/hr 1,000 mL, Intravenous, at 30 mL/hr, Bag 11:20 MEDICAL DERMATOLOGIST CONTINUOUS, Starting Kalie 11/24/17 at 1015, Until Tue11/25/17 at 0810 SODIUM CHLORIDE 0.9 % IV SOLP (Cabinet Override) NOW, 1 dose, Kalie 11/24/17 at 0600, Created by cabinet override
--- OUTSIDE RECORDS SUMMARY | 2017-11-28 15:22 | XMS REPORT | Encounter Summary ---
Author Author [facility] Organization [facility] Address Unknown Phone Unavailable Care Team Providers Care English Teacher Name Role Phone Jose De Jesus Rocha MD PCP Dario Pandya MD 21 Reason for Referral * Test Status Reason Specialty Diagnoses / Referred By Referred To Procedures Contact Contact New Request Diagnoses Janneth Pratt, Nonrheumatic [employer] MEMBER-C aortic valve [address] [place] [address] rocedures Phone: 2-D + DOPPLER [phone] ECHOCARDIOGRAM Encounter Details Date Type Department Care Team Description 11/25/2017 Orders Only [facility] Cardiology Janneth Pratt APRN-[place] Nonrheumatic aortic valve [address] [place] [address] stenosis (Primary Dx); Eduardo [address] [place] [address] [place] [address] [phone] Social History Tobacco Use Types Packs/Day Years Used Date Former Smoker Cigarettes 10 13 Quit: 2002 Smokeless Tobacco: Never Used Alcohol Use Drinks/Week oz/Week Comments Yes occasional Sex Assigned at Date Recorded Not on file as of this encounter Functional Status Functional Status Response Date of Assessment Does the patient have a hearing impairment: Yes 11/25/2017 as of this encounter Plan of Treatment Name Priority Associated Diagnoses Order Schedule 2-D + DOPPLER ECHOCARDIOGRAM Routine Nonrheumatic aortic valve Expected : 12/30/2017 stenosis (Approximate), Expires: Essential hypertension 11/25/2018 CBC Routine Nonrheumatic aortic valve Expected: 11/25/2017 stenosis (Approximate), Expires: Essential hypertension 11/25/2018 BASIC METABOLIC PANEL Routine Nonrheumatic aortic valve Expected: 2017 stenosis (Approximate), Expires: Essential hypertension 11/25/2018 BNP (B-TYPE NATRIURETIC PEPTI) Routine Nonrheumatic aortic valve Expected: 12/30/2017 stenosis (Approximate), Expires: Essential hypertension 11/25/2018 as of this encounter Visit Diagnoses Diagnosis Nonrheumatic aortic valve stenosis - Primary Aortic valve disorders Essential hypertension Unspecified essential hypertension
--- OUTSIDE RECORDS SUMMARY | 2017-11-28 15:22 | XMS REPORT | Encounter Summary ---
Author Author [facility] Organization [facility] Address Unknown Phone Unavailable Care Team Providers Care Nurse Technician Name Role Phone Jose De Jesus Rocha MD PCP Dario Pandya MD 21 Reason for Visit * Reason Comments Post-hospital Follow Up Encounter Details Date Type Department Care Team Description 11/28/2017 Telephone [facility] Thoracic & Jessica Vernon RN Post- hospital Follow Up Cardiovascular Surgeons [address] [place] [address] Social History Tobacco Use Types Packs/Day Years Used Date Former Smoker Cigarettes 10 13 Quit: 2002 Smokeless Tobacco: Never Used Alcohol Use Drinks/Week oz/Week Comments Yes occasional Sex Assigned at Date Recorded Not on file as of this encounter Functional Status Functional Status Response Date of Assessment Does the patient have a hearing impairment: Yes 11/25/2017 as of this encounter Miscellaneous Notes * Telephone Encounter - Jessica Vernon, CELIA - 11/28/2017 1:21 PM CDT Called Mr. Rios to follow up on recent surgery/hospitalization. States he is doing great and notes much improvement in breathing since surgery. States mild positional discomfort in bilateral groins, but not a concern. Has not been weighing - explained importance of daily weights to monitor for fluid retention. BP this am 103/56, pulse 64. Only c/o is "a rodriguez, football-shaped shadow in right eye." Pt is seeing PCP today at 1545, instructed pt to be sure to discuss with PCP. Also states that he did not get valve card. Informed pt I would check on this for him. Pt verbalizes understanding of all. in this encounter Plan of Treatment Not on fileas of this encounter Visit Diagnoses Not on filein this encounter
--- OUTSIDE RECORDS SUMMARY | 2017-11-28 15:23 | XMS REPORT | Encounter Summary ---
Author Author [facility] Organization [facility] Address Unknown Phone Unavailable Care Team Providers Care Clay Processing Labourer Name Role Phone Jose De Jesus Rocha [...] Date Type Department Care Team Description 11/24/2017 Surgery Cardiovascular Operating Galindo Cuenca MD REPLACEMENT TRANSCATHETER Room [address] AORTIC VALVE-evolut, left [address] [place] [address] [place] [address] [place] [address] approach, 29 pro valve [phone] Social History Tobacco Use Types Packs/Day Years Used Date Former Smoker Cigarettes 1 25 Quit: 2002 Smokeless Tobacco: Never Used Alcohol Use Drinks/Week oz/Week Comments Yes occasional Sex Assigned at Date Recorded Not on file as of this encounter Last Filed Vital Signs Vital Sign Reading Time Taken Blood Pressure 124/87 11/26/2017 8:00 AM TEACHING MANAGER Pulse 66 11/26/2017 8:00 AM TEACHING MANAGER Temperature 36.7 C (98.1 F) 11/26/2017 8:00 AM TEACHING MANAGER Respiratory Rate - - Oxygen Saturation 96% 11/26/2017 8:00 AM TEACHING MANAGER Inhaled Oxygen - - Concentration Weight 115.2 kg (254 lb) 11/26/2017 4:00 AM TEACHING MANAGER Height 167.6 cm (5' 5.98") 11/25/2017 9:01 AM TEACHING MANAGER Body Mass Index 41.02 11/26/2017 4:00 AM TEACHING MANAGER in this encounter Functional Status Functional Status Response Date of Assessment Does the patient have a hearing impairment: Yes 11/25/2017 as of this encounter Discharge Summaries * Rosana Barakat PA-C - 11/26/2017 8:23 AM TEACHING MANAGER Formatting of this note may be different [...] and he was not restarted on his AQUATICS LIFEGUARD beta-kitty. He increased his activity and oral [...] or concerns regarding your hospital stay. Call [phone] Discharging attending physician: GALINDO CUENCA [[id number]] Cardiac Diet Limiting unhealthy fats and cholesterol [...] for an echo, appt at 11:30 Provider GIOVANI PRATT [[id number]] Location Cardiology Clinic Appointment date: 12/30/2017 Appointment time: 10:30 AM Return Appointment Call to schedule an appointment with your primary care doctor in 1-2 weeks for a check up and medication review. Outside Provider Dr. Rocha Cardiac Rehab Your physician has referred you to outpatient cardiac rehab. Contact [facility] Cardiac Rehab Department at [phone] to schedule an appointment. Current Discharge Medication [...] of this encounter Progress Notes * Shell Fields RN - 11/26/2017 10:30 AM TEACHING MANAGER Assessments complete and documented per flowsheet, no acute changes noted. Tele on, SR c BBB. Pt denied pain. Groin incisions clean, dry, approximated, and open to air. Pt ambulating laps in hallways independently and without difficulty. UOA, last BM AQUATICS LIFEGUARD on 11/24. No complaints voiced. Discharge instructions reviewed with pt and . Pt and asked appropriate questions, verbalized understanding of all instructions, and denied further questions/concerns. Pt declined oxycodone prescription, paper script placed in shred bin. IV and tele removed. Pt left unit via wheelchair with discharge instructions and all personal belongings. * Chuy Vega MD - 11/26/2017 5:44 AM TEACHING MANAGER Formatting of this note may be different from the original. CARDIOTHORACIC SURGERY DAILY PROGRESS NOTE PROCEDURE: 1. Temporary balloon-tipped pacemaker. 2. Ascending aortography. 3. Descending aortography. 4. Transcatheter aortic valve replacement with 29 Medtronic Evolut Pro POD #: 2 SUBJECTIVE: Overnight events: transferred from [facility] yesterday. No problems last night ASSESSMENT: Principal Problem: S/P TAVR (transcatheter aortic valve replacement) Active Problems: Morbid obesity (HCC) Mixed hyperlipidemia HTN (hypertension) Aortic stenosis PLAN: Neuro Pain controlled on APAP. Continue PRN oxycodone, Tylenol, AQUATICS LIFEGUARD Baclofen. CV SR w/ new LBBB post-TAVR, [...] home today No acute issues. Home today. [facility] OBJECTIVE: Vitals: 11/26/17 0000 11/26/17 0051 11/26/17 [...] Shell Fields RN - 11/25/2017 7:00 PM TEACHING MANAGER Assessments complete and documented per flowsheet, no acute changes noted. Tele on, SR c BBB. Pt reported mild pain that was adequately managed with PRN tylenol. Groin dressings CDI with surrounding area soft to palpation. Pt ambulating in hallways independently and without difficulty. UOA, last BM AQUATICS LIFEGUARD on 11/24. No complaints voiced. Call light within reach, will continue to monitor until transferring care to shift supervisor RN. * Randy Carr MD - 11/25/2017 2:40 PM TEACHING MANAGER Formatting of this note may be different from the original. Critical Care Progress Note Today's Date: 11/25/2017 Name: Jaden Rios Admission Date: 11/24/2017 LOS: 1 day Assessment/Plan: Principal Problem: S/P TAVR (transcatheter aortic valve replacement) Active Problems: Morbid obesity (HCC) Mixed hyperlipidemia HTN (hypertension) Aortic stenosis ATTESTATION This note is associated with the [facility] ICU team note dated today. Date of Service: 11/25/2017 I have seen, personally fully evaluated, and discussed patient with the [facility] ICU team. The patient is critically [...] Scale 0-10 (Pain 1): (not recorded) Vitals: 11/24/17 0607 11/25/17 0901 Weight: 115 kg (253 lb 8.5 oz) [...] Pertinent radiology reviewed. Randy Carr MD Pager [phone] * Awais Austin, RT - 11/25/2017 10:31 AM TEACHING MANAGER Formatting of this note may be different [...] Date: 11/25/2017 Zamorano AC=Airway clearance AM=Aerosolized medication BA=[place] aerosol DB&C=Deep breathe & cough FEV1=Forced expiratory volume in first second) IC=Inspiratory capacity LE=Lung expansion MDI=Metered dose inhaler Neb=Nebulizer O2=Oxygen Oxim=Oximetry PEFR=Peak expiratory flow rate TICKET DISPATCHER=Rapid Response Team * Anatoliy Alonso RN - 11/25/2017 9:36 AM TEACHING MANAGER Pt transferred to [facility] via wheelchair accompanied by staff in stable condition. Report given to Shell YANG, see transfer flowsheet for details. * Anatoliy Alonso RN - 11/25/2017 8:30 AM TEACHING MANAGER Pt assessment completed per flowsheet. Lines and [...] Yanira Marcano APRN - 11/25/2017 7:55 AM TEACHING MANAGER Formatting of this note may be different [...] controlled on APAP. Continue PRN oxycodone, Tylenol, AQUATICS LIFEGUARD Baclofen. CV SB/SR w/ new LBBB post-TAVR, [...] Yanira Marcano APRN CTS Intensive Care Pager [phone] 11/25/2017 Subjective: HPI: Jaden Rios is a [...] obtained POD1 with plans to transfer to [facility]. REVIEW OF SYSTEMS: Constitutional: negative for fevers, chills and fatigue Respiratory: negative for cough, increased work of breathing or wheezing Cardiovascular: negative for chest pain, chest pressure/discomfort, palpitations Gastrointestinal: negative for nausea, vomiting and abdominal pain Genitourinary:negative for dysuria and hesitancy [facility] Goal: Increased activity level & tolerance Objective: [...] Intensity Pain Scale 0-10 (Pain 1): Asleep (11/25/17599) Vitals: 11/24/17606 Weight: 115 kg (253 lb 8.5 oz) Intake/Output Summary: (Last 24 hours) Intake/Output Summary (Last 24 hours) at 11/25/17 0755 Last data filed at 11/25/17 06 Gross per 24 hour Intake 4090.12 ml Output 5435 ml Net -1344.88 ml Physical Exam: Neuro: A&O x 4, OYUNG= Cardiovascular: RRR no rub or murmur Respiratory: [...] Galindo Cuenca MD - 11/25/2017 7:43 AM TEACHING MANAGER Doing well, SR, good valve tones, incisions ok, to floor, home in another day. 20 minutes spent reviewing labs, echo and seeing pt. BERNARDOM * Marisa Hester, PT - 11/25/2017 2:38 AM TEACHING MANAGER PHYSICAL THERAPY ASSESSMENT/DISCHARGE MOBILITY: Mobility Progressive Mobility [...] 24 Standardized (T-scale) Score: 57.68 Basic Mobility CMS 0-100%: 0 CMS G Code Modifier for Basic Mobility: CH G-Codes: Mobility G8978 Current Status: 0% Impairment G8979 Goal Status: 0% Impairment G8980 Discharge Status: 0% Impairment Based on above evaluation and clinical judgment. PLAN: Plan Plan Frequency: No Further Treatment RECOMMENDATIONS: PT Discharge Recommendations PT Discharge Recommendations: Home Equipment Recommendations: None Therapist: Marisa Hester, PT Date: 11/25/2017 * Laura Howell RN - 11/25/2017 12:05 AM TEACHING MANAGER Assessment completed/ Pt resting quietly with eyes closed/ No new needs, complaints or request expressed/ Will cont to monitor. * Laura Howell RN - 11/24/2017 8:00 PM TEACHING MANAGER Assessment completed/ POC reviewed and updated after discussion with pt/ Pt calm and cooperative/ Voiced no needs, complaints, or request at this time/ Enc pt to call for assistance with needs/ Pt able to demonstrate use of call system without difficultly/ Will cont to monitor pt for needs or changes overnight. * Andrew Celis RN - 11/24/2017 7:13 PM TEACHING MANAGER I have reviewed the notes, assessment, and/or procedures performed by Kitty Farris NS and concur with her documentation unless otherwise noted. * Sav Farrisn - 11/24/2017 4:36 PM TEACHING MANAGER Pt up to chair, no hematoma or new bleeding present at incision sites. * Sav Farrisn - 11/24/2017 2:34 PM TEACHING MANAGER Pt has no new hematoma development, no new drainage at bilateral groin sites. Pt HOB raised to 30 degrees. Pt is tolerating change well. Pt is on RA stating at 98% * Brenton Kitty - 11/24/2017 1:30 PM TEACHING MANAGER Pt arrived to unit at 1245. Pt [...] sounds, abdomen is soft, non-distended, non-tender, BM AQU[employer]ICS LIFEGUARD. Pt has a correa with light yellow [...] PRN for pain control. * Awais Austin, RT - 11/24/2017 1:07 PM TEACHING MANAGER Formatting of this note may be different [...] Date: 11/24/2017 Zamorano AC=Airway clearance AM=Aerosolized medication BA=[place] aerosol DB&C=Deep breathe & cough FEV1=Forced expiratory volume in first second) IC=Inspiratory capacity LE=Lung expansion MDI=Metered dose inhaler Neb=Nebulizer O2=Oxygen Oxim=Oximetry PEFR=Peak expiratory flow rate TICKET DISPATCHER=Rapid Response Team * Karlene Joiner PA-C - 11/24/2017 12:50 PM TEACHING MANAGER Formatting of this note may be different [...] and coordination of care. Karlene Joiner PA-C [facility] Intensive Care Pager [phone] 11/24/2017 Subjective: HPI: Jaden Rios is a [...] Vital Signs: 24 Hour Range BP: 110/62 (11/25 1199) Temp: 36.7 C (98.1 F) (11/24 1204) Pulse: 63 (11/24 1200) Respirations: 16 PER MINUTE (11/24 1200) SpO2: 96 % (11/24 1200) O2 Delivery: CPAP/BiPAP (Pt Owned) (11/24 1201) SpO2 Pulse: 61 (11/24 1200) Height: 167.6 cm (65.98") (11/24 606) BP: (104-131)/(62-81) ABP: (116-150)/(60-70) Temp: [36.6 C (97.9 F)-36.8 C (98.2 F)] Pulse: [62-68] Respirations: [13 PER MINUTE-20 PER MINUTE] SpO2: [94 %-100 %] O2 Delivery: CPAP/BiPAP (Pt Owned) Intensity Pain Scale 0-10 (Pain 1): 4 (11/24/17 1204) Vitals: 11/24/17 06 Weight: 115 kg (253 lb 8.5 oz) [...] on SCr of 0.8 mg/dL). Vitals: 11/24/17 06 Weight: 115 kg (253 lb 8.5 oz) No results for input(s): PHART, PO2ART in the last 72 hours. Invalid input(s): PC02A Radiology and Other Diagnostic Procedures Review: Reviewed * Deana Floyd, RN - 11/24/2017 11:40 AM TEACHING MANAGER Portable chest x-ray done. Read by Dr. Carr. No orders at this time. * Lulu Proctor - 11/24/2017 10:37 AM TEACHING MANAGER Formatting of this note may be different from the original. CARDIOPULMONARY REHABILITATION INPATIENT ASSESSMENT Cardiac Rehabilitation Staff: Lulu Proctor Discharge Date: Demographics Pre-admit Dx: Aortic Stenosis Date of Admission: 11/24/2017 Room: HC3 CV OR RM/HC3 CV OR BD : 1945 Insurance: Primary: Medicare Secondary: Unknown Address: [address] [place] [address] [place] [address] Patient (home) Marital Status: Occupation: Unknown ED Contact: Berkley Dialjonjohanna (spouse) ED Phone #: [phone] CTS: [place] Certified Wellness Program Coordinator: Halle Cardiac Procedures and Events Valve: 11/24/17 [...] Mariama Carrillo RN - 11/23/2017 4:06 PM TEACHING MANAGER Patient aware he is first case tomorrow now 11/24 with an arrival time 0545 and NPO at 2300. in this encounter H&P Notes * Barbara Hickey PA-C - 11/24/2017 7:01 AM TEACHING MANAGER Formatting of this note may be different [...] Turbidity,UA Latest Ref Range: CLEAR-CLEAR CLEAR Specific [place]-Urine Latest Ref Range: 1.003 - 1.035 1.004 [...] Pertinent radiology reviewed. Barbara Hickey PA-C Pager [phone] in this encounter Consult Notes * Randy Carr MD - 11/24/2017 9:55 PM TEACHING MANAGER Associated Order(s): CONSULT ANESTHESIOLOGY CRITICAL CARE PHYSICIAN Formatting of this note may be different from the original. Critical Care Progress Note Today's Date: 11/24/2017 Name: Jaden Rios Admission Date: 11/24/2017 LOS: 0 days Assessment/Plan: Principal Problem: S/P TAVR (transcatheter aortic valve replacement) Active Problems: Morbid obesity (HCC) Mixed hyperlipidemia HTN (hypertension) Aortic stenosis ATTESTATION This note is associated with the [facility] ICU team note dated today. Date of Service: 11/24/2017 I have seen, personally fully evaluated, and discussed patient with the [facility] ICU team. The patient is critically [...] Range BP: 110/62 (11/24 1200) ABP: 134/65 (11/24 1899) Temp: 36.5 C (97.7 F) (11/24 1600) [...] hours) Intake/Output Summary (Last 24 hours) at 11/24/172154 Last data filed at 11/24/17 190 Gross per 24 hour Intake 1960 ml [...] (11/24/17 1039) POC Glucose (Download): (!) 122 (11/24/174) Radiology and Other Diagnostic Procedures Review: Pertinent radiology reviewed. Randy Carr MD Pager [phone] in this encounter Miscellaneous Notes * Care Plan - Shell Fields RN - 11/26/2017 9:44 AM TEACHING MANAGER Problem: Infection, Risk of, Central Venous Catheter-Associated [...] - Shell Salgado - 11/25/2017 3:42 PM TEACHING MANAGER Case Management Admission Assessment NAME:Jaden Rios : [...] will dc home tomorrow w family assistance. Certified Wellness Program Coordinator is Dr. Dario Pandya No current CM needs identified at this time. Patient Address/Phone [address] [place] [address] (home) Emergency Contact Extended Emergency Contact Information Primary Emergency Contact: Berkley Rios [facility] Relation: Spouse Secondary Emergency Contact: Domenico Rios [facility] Relation: Son Healthcare Directive Healthcare Directive: Yes, patient has a healthcare directive Type of Healthcare Directive: Durable power of insurance attorney for healthcare, Healthcare directive Location of [...] Insurance: Medicare (A/B) Secondary Insurance: Commercial insurance ([place]) Additional Coverage: RX ([employer] ) ? Source of Income Source Of Income: Other snf income ? Financial Assistance Needed? NA Psychosocial Needs ? Mental Health Mental Health History: No ? Substance Use History Substance Use History Screen: No ? Other NA Current/Previous Services ? PCP Jose De Jesus Rocha, , ? Pharmacy [facility], [place] - [address] [place] [place] [id number] ? Durable Medical Equipment Durable Medical Equipment [...] and community based services: No ? Chase White Chase White: N/A ? Hospice Hospice: No ? Outpatient Therapy PT: In the past When did patient receive care?: 2009 Name of rehab location/group: [facility] Would patient return for future services?: Yes OT: No HYDROTECHNICAL SPECIALIST: No ? Senior Care Facility/[facility] SNF: No NH: No ? Inpatient Rehab IPR: No ? [facility] LTACH: No ? Acute Hospital Stay Acute Hospital Stay: Yes Was patient's stay within the last 30 days?: Yes When did patient receive care?: 11/07/17 Name of hospital: [facility] Readmission Code Group: 8. Scheduled Readmission 8. Scheduled Readmission: 8b. Cardiac Related or Unrelated?: Unrelated Shell COPELAND, emu farmer Registered Nurse Radiopharmacist Inpatient Cardiothoracic Surgery O: [phone] P: [phone] C: [phone] * Operative Report (DICTATED ONLY) - Galindo Cuenca MD - 11/25/2017 7: 58 AM TEACHING MANAGER THE [address] [address] PATIENT NAME: JADEN RIOS MR#/PT#: [id number] OPERATIVE REPORT : 1945 DATE OF OPERATION: 11/25/2017 ROOM #: HC303 OPERATIVE REPORT SURGEON: Galindo Cuenca MD CHIEF DEPUTY CLERK/BAILIFF SURGEON(S): Stephen Sewell MD DICTATING PROVIDER: Galindo Cuenca MD PREOPERATIVE DIAGNOSIS: Aortic stenosis. POSTOPERATIVE DIAGNOSIS: Aortic stenosis. OPERATIVE PROCEDURE: 1. Temporary balloon-tipped pacemaker. 2. Ascending aortography. 3. Descending aortography. 4. Transcatheter aortic valve replacement with 29 Medtronic Evolut Pro, serial number [id number]. DESCRIPTION AND FINDINGS OF OPERATIVE PROCEDURE: Patient [...] passed. This was exchanged for a 20- British [place] DrySeal sheath. Wire access was obtained across [...] ICU in stable condition. MD DEE DEE Rubio/Rolando Cuenca MD / Rolando [id number] cc: - Galindo Cuenca MD * Care Plan - Laura Howell RN - 11/25/2017 6:06 AM TEACHING MANAGER Problem: Infection, Risk of, Central Venous Catheter-Associated [...] discuss previous, home, and current POC with science writer Goal: Prepared for discharge Outcome: Goal Ongoing [...] Stephen Sewell MD - 11/24/2017 10:28 AM TEACHING MANAGER TAVR (Transcatheter Aortic Valve Replacement) Date of [...] common femoral artery with placement of 5- British sheath. Surgical cutdown ccess also obtained in the left common femoral artery with 20F [place] Dryseal. 4. Utilizing an JR4 catheter and [...] conclusion of the case and transported to [facility] in stable condition. 14. The patient's transvenous [...] Cuenca MD - 11/24/2017 9 :59 AM TEACHING MANAGER Brief Operative Note Name: Jaden Rios is a 72 y.o. male : 1945 MRN# : [id number] DATE OF OPERATION: 11/24/2017 Date: 11/24/2017 Preoperative [...] ICU - stable Galindo Cuenca MD Pager [phone] in this encounter Plan of Treatment Not on fileas of this encounter Results * POC GLUCOSE (11/26/2017 8:06 AM) Component Value Ref Range Glucose, POC 126 (H) 70 - 100 MG/DL Specimen Performing Laboratory [facility] [address] [place] [address] * CHEST SINGLE VIEW (11/26/2017 6:23 AM) [...] Interface, Radiant Results - 11/26/2017 12:58 PM TEACHING MANAGER Single view chest Clinical indications: Transcatheter aortic [...] Performing Laboratory Blood [facility] [address] [place] [address] * CBC (11/26/2017 3:46 AM) Component Value [...] - 11 FL Specimen Performing Laboratory Blood [facility] [address] [place], [place] [id number] * POC GLUCOSE (11/26/2017 3:26 AM) Component Value Ref Range Glucose, POC 114 (H) 70 - 100 MG/DL Specimen Performing Laboratory [facility] [address] [place] [address] * POC GLUCOSE (11/25/2017 8:39 PM) Component Value Ref Range Glucose, POC 146 (H) 70 - 100 MG/DL Specimen Performing Laboratory [facility] [address] [place], [place] [id number] * POC GLUCOSE (11/25/2017 5:23 PM) Component Value Ref Range Glucose, POC 103 (H) 70 - 100 MG/DL Specimen Performing Laboratory [facility] [address] [place], [place] [id number] * POC GLUCOSE (11/25/2017 11:46 AM) Component Value Ref Range Glucose, POC 124 (H) 70 - 100 MG/DL Specimen Performing Laboratory [facility] [address] [place], [place] [id number] * 2-D + DOPPLER ECHOCARDIOGRAM (11/25/2017 9:01 [...] Index 30.98 10 - 32 AV index (tunica-biloxi) 0.43 LVOT area 3.83 cm2 LVOT stroke volume 88.09 cm3 E/A ratio 0.75 E/E' ratio 9.25 CV ECHO PV NURSE ANESTHESIA PROGRAM DIRECTOR BIBIANA Jeffers Cardiology Ultrasound Siemens [id number] Machine Aortic valve area= 1.87 cm2 TV [...] Specimen Performing Laboratory [facility] [address] [place] [address] * CHEST SINGLE VIEW (11/25/2017 4:18 AM) [...] Interface, Radiant Results - 11/25/2017 10:57 AM TEACHING MANAGER CHEST SINGLE VIEW Clinical Indication: Male, 72 [...] Performing Laboratory Blood [facility] [address] [place] [address] * CBC (11/25/2017 3:52 AM) Component Value [...] - 11 FL Specimen Performing Laboratory Blood [facility] [address] [place], [place] [id number] * POC GLUCOSE (11/24/2017 9:14 PM) Component Value Ref Range Glucose, POC 122 (H) 70 - 100 MG/DL Specimen Performing Laboratory [facility] [address] [place], [place] [id number] * POTASSIUM (11/24/2017 6:46 PM) Component Value Ref Range Potassium 4.0 3.5 - 5.1 MMOL/L Specimen Performing Laboratory Blood [facility] [address] [place], [place] [id number] * MAGNESIUM (11/24/2017 6:46 PM) Component Value Ref Range Magnesium 1.9 1.6 - 2.6 mg/dL Specimen Performing Laboratory Blood [facility] [address] [place], [place] [id number] * POC GLUCOSE (11/24/2017 5:01 PM) Component Value Ref Range Glucose, POC 155 (H) 70 - 100 MG/DL Specimen Performing Laboratory [facility] [address] [place], [place] [id number] * POC GLUCOSE (11/24/2017 12:36 PM) Component Value Ref Range Glucose, POC 129 (H) 70 - 100 MG/DL Specimen Performing Laboratory [facility] [address] [place], [place] [id number] * PTT (APTT) (11/24/2017 10:39 AM) Component Value Ref Range APTT 28.7 21.0 - 39.0 SEC Specimen Performing Laboratory Blood [facility] [address] [place], [place] [id number] * PROTIME INR (PT) (11/24/2017 10:39 AM) Component Value Ref Range INR 1.0 0.8 - 1.2 Specimen Performing Laboratory Blood [facility] [address] [place], [place] [id number] * BASIC METABOLIC PANEL (11/24/2017 10:39 AM) [...] Performing Laboratory [facility] [address] [place] [address] * CBC (11/24/2017 10:39 AM) Component Value [...] Performing Laboratory [facility] [address] [place] [address] * LINE PLCMT 1V CXR (11/24/2017 10:38 [...] Interface, Radiant Results - 11/24/2017 12:37 PM TEACHING MANAGER LINE PLCMT 1V CXR Clinical Indication: Male, [...] 1.3 MMOL/L Specimen Performing Laboratory [facility] [address] [place] [address] * POC SODIUM (11/24/2017 9:52 AM) Component Value Ref Range Sodium-POC 140 137 - 147 MMOL/L Specimen Performing Laboratory [facility] [address] [place] [address] * POC POTASSIUM (11/24/2017 9:52 AM) Component Value Ref Range Potassium-POC 3.5 3.5 - 5.1 MMOL/L Specimen Performing Laboratory [facility] [address] [place] [address] * POC HEMATOCRIT (11/24/2017 9:52 AM) Component Value Ref Range Hemoglobin POC 12.6 (L) 13.5 - 16.5 GM/DL Hematocrit POC 37.0 (L) 40 - 50 % Specimen Performing Laboratory [facility] [address] [place] [address] * POC BLOOD GAS ARTERIAL (11/24/2017 9:52 AM) Component Value Ref Range PH-ART-POC 7.30 (L) 7.35 - 7.45 OMF1-RON-EAI 43 35 - 45 MMHG PO2-ART-POC 70 (L) 80 - 100 MMHG Base Def-ART-POC 6.0 MMOL/L O2 Sat-ART-POC 92.0 (L) 95 - 99 % Ajpnwmzrmxq-TQZ-ATY 20.7 (L) 21 - 28 MMOL/L Specimen Performing Laboratory [facility] [address] [place] [address] * POC GLUCOSE (11/24/2017 9:50 AM) Component Value Ref Range Glucose, POC 138 (H) 70 - 100 MG/DL Specimen Performing Laboratory [facility] [address] [place] [address] * POC ACTIVATED CLOTTING TIME (11/24/2017 9:49 AM) Component Value Ref Range Activated Clotting Time 162 s Specimen Performing Laboratory [facility] [address] [place] [address] * POC IONIZED CALCIUM (11/24/2017 8:51 AM) Component Value Ref Range Ionized Calcium-POC 1.14 1.0 - 1.3 MMOL/L Specimen Performing Laboratory [facility] [address] [place] [address] * POC SODIUM (11/24/2017 8:51 AM) Component Value Ref Range Sodium-POC 140 137 - 147 MMOL/L Specimen Performing Laboratory [facility] [address] [place] [address] * POC POTASSIUM (11/24/2017 8:51 AM) Component Value Ref Range Potassium-POC 3.7 3.5 - 5.1 MMOL/L Specimen Performing Laboratory [facility] [address] [place] [address] * POC HEMATOCRIT (11/24/2017 8:51 AM) Component Value Ref Range Hemoglobin POC 13.3 (L) 13.5 - 16.5 GM/DL Hematocrit POC 39.0 (L) 40 - 50 % Specimen Performing Laboratory MAIN LAB [address] [place] [id number] * POC BLOOD GAS ARTERIAL (11/24/2017 8:51 AM) Component Value Ref Range PH-ART-POC 7.27 (L) 7.35 - 7.45 BIC6-OSY-GPE 50 (H) 35 - 45 MMHG PO2-ART-POC 157 (H) 80 - 100 MMHG Base Def-ART-POC 4.0 MMOL/L O2 Sat-ART-POC 99.0 95 - 99 % Itvppcrkwji-OPT-ZFX 22.9 21 - 28 MMOL/L Specimen Performing Laboratory MAIN LAB [address] [place] [id number] * POC ACTIVATED CLOTTING TIME (11/24/2017 8:49 AM) Component Value Ref Range Activated Clotting Time 292 s Specimen Performing Laboratory MAIN LAB [address] [place] [address] * POC GLUCOSE (11/24/2017 8:49 AM) Component Value Ref Range Glucose, POC 108 (H) 70 - 100 MG/DL Specimen Performing Laboratory MAIN LAB [address] [place] [address] * BLOOD TYPE CONFIRMATION - ORDER ONLY IF REQUESTED BY LAB (11/24/2017 6:20 AM) Component Value Ref Range ABO/RH(D) O POS Specimen Performing Laboratory MAIN LAB [address] [place] [address] in this encounter Visit Diagnoses Diagnosis 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, etiology of cardiac valve disease unspecified Admitting Diagnoses Diagnosis 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, etiology of cardiac valve disease unspecified - 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, etiology of cardiac valve disease unspecified [I35.0] Aortic stenosis Administered Medications Medication Order MAR Action Action Date Dose Rate Site sodium chloride 0.9 % infusion Given - New 11/24/2017 3,000 mL INTRA-PROCEDURE MED(CONT), Starting Kalie Bag 08:00 TEACHING MANAGER 11/24/17 at 0800, Until Kalie 11/24/17 at 1223, Intra-op in this encounter
--- OUTSIDE RECORDS SUMMARY | 2017-11-28 15:23 | XMS REPORT | Encounter Summary ---
Author Author [facility] Organization [facility] Address Unknown Phone Unavailable Care Team Providers Care Veneer Measurer Name Role Phone Jose De Jesus Rocha [...] Date Type Department Care Team Description 11/24/2017 Anesthesia Cardiovascular Operating Angela Sales MD [facility] [address] [facility] [address] [facility] [address] [place] [address] [place] [address] [phone] Anesthesia Record Procedure Name Responsible Anesthesia Start Time Anesthesia Stop Time Anesthesiologist REPLACEMENT TRANSCATHETER Flash Pino MD 11/24/17 0722 11/24/17 1023 AORTIC VALVE-evolut, left common femoral artery approach, 29 pro valve (N/A ) Date Time Event Comment 547 AN Equip Check 2017 721 Anes Start 0727 An Start Data 0741 An Induction The patient was reevaluated immediately before moderate or deep sedation use and before anesthesia induction. 0749 An Intubation 0807 CVC 0808 Art Line 0815 Anesthesia Ready 0816 AN MONTSE 0816 Antibiotic Given 0915 Quick Note BP difficult to resuscitate related to frequent non- perfusing PVCs, and device stenting across [place] valve. Discussed with interventionalist and agreed to proceed in deployment. 0920 Valve Deployed 0931 Quick Note Balloon with rapid pacing 1009 An Extubation 1015 Transport 1015 an stop data 1023 Handoff to RN I completed my SBAR handoff to the receiving nurse. 1023 An Stop 1030 Quick Note SpO2 falling after rapid pacing; LVEDP climbing. Likely pulmonary edema/congestion developing. Meds Name Total midazolam (VERSED) 1 mg/mL injection 2 mg fentaNYL PF (SUBLIMAZE) injection 100 mcg lidocaine (2%) 200 mg/10mL Injection 80 mg syringe propofol (DIPRIVAN) 200 mg/ 20 mL 200 mg injection (VIAL) rocuronium (ZEMURON) injection 70 mg heparin (porcine) 1,000 units/mL 8,000 Units injection protamine injection 50 mg phenylephrine (MONICA-SYNEPHRINE) 10 mg in 4.31 mg sodium chloride 0.9% (NS) 250 mL IV drip (std conc) norepinephrine (LEVOPHED) 4 mg in 0.2 mg dextrose 5% (D5W) 250 mL IV drip (std conc) ceFAZolin (ANCEF) injection 2 g furosemide (LASIX) injection 20 mg sugammadex (BRIDION) 100 mg/mL iv soln 230 mg sodium chloride 0.9 % infusion 1,200 mL sodium chloride 0.9 % infusion (1000 350 mL mL bag) * Name O2 N2O Inspired N2O Air Sevoflurane Desflurane Inspired Desflurane Inspired Sevoflurane * No blood administrations on file. Type Details Placement Removal Puncture 11/24/17; Right; Femoral 11/24/17 0000 by Everett, Wound CELIA Leblanc (Sheath) Wounds 11/24/17; 1016; Left; Groin; Surgical 11/24/17 1016 by Everett, (NOT for Incision; (cut down site for TAVR.) CELIA Leblanc Pressure Injuries) Transvenou 11/24/17; (in OR.); OR; Internal 11/24/17 0000 by Everett, 06/06 0915 by lisbeth Alonso Jugular, Right; 6 FR; Sutured; X-ray; CELIA Leblanc RN Pacemaker 11/25/17; 0915 Peripheral 11/24/17; 0620; RN; R; Anterior; Hand; 11/24/17 0620 by Everett, 11/26/17 1000 by IV 16 G; 1; 11/26/17; 1000 CELIA Leblanc Brianna, RN Indwelling 11/24/17; 0744; 16 FR; Regular 11/24/17 0744 by Willie, 06/06 0210 by Carmel Howell (Two-way); 11/25/17; 0210 (patient c/o CELIA Lawson, CELIA Catheter unrelieved pain in groin) ETT 11/24/17; 0748; Ventilated by mask (1) 11/24/17 0748 by 11/24/17 1009 by (Two hand); Video laryngoscopy, Stylet; Nia Mancia MD Harrison, Sean, MD Single-Lumen, Cuffed; 7.5mm; GlideScope; 3; Oral; 1-Full view of the glottis; 1 insertion attempt; Auscultation, ETCO2 Detector; 23 centimeters; 11/24/17; 1009 Introducer 11/24/17; 0807 (created via procedure 11/24/17 0807 by 09 by Wattier, / Cordis documentation); OR; Yes; (6 Fr); Nia Mancia MD Clinton, RN Chlorhexadine (CHG) impregnated sponge; 11/25/17; 0915 Arterial 11/24/17; 0808 (created via procedure 11/24/17807 by Mens, 11/25/17919 by Watcharley, Line documentation); R; Radial; 20 G; MD Anatoliy Vidales, CELIA 11/25/17; 09 in this encounter Social History Tobacco Use Types Packs/Day Years Used Date Former Smoker Cigarettes 10 13 Quit: 2002 Smokeless Tobacco: Never Used Alcohol Use Drinks/Week oz/Week Comments Yes occasional Sex Assigned at Date Recorded Not on file as of this encounter OR Notes * Anesthesia Postprocedure Evaluation - Flash Pino MD - 11/24/2017 11:42 AM POLISHER HAND Post-Anesthesia Evaluation Name: Jaden Rios : 1945 Age: 72 y.o. Sex: male Procedure Date: 11/24/2017 Procedure: Procedure(s) with comments: REPLACEMENT TRANSCATHETER AORTIC VALVE-evolut, left common femoral artery approach, 29 pro valve - Stepdown Surgeon: Surgeon(s): Galindo Cuenca MD Wiley, Mark A, MD Post-Anesthesia Vitals BP: 119/69 (11/24 1130) Temp: 36.6 C (97.9 F) (11/24 1030) Pulse: 64 (11/24 1130) Respirations: 17 PER MINUTE (11/24 113) SpO2: 97 % (11/24 1130) O2 Delivery: CPAP/BiPAP (Pt Owned) (11/24 1120) SpO2 Pulse: 63 (11/24 1130) Height: 167.6 cm (65.98") (11/24 06) Post Anesthesia Evaluation Note Evaluation location: Pre/Post Patient participation: recovered; patient participated in evaluation Level of consciousness: alert Pain management: adequate Hydration: normovolemia Temperature: 36.0C - 38.4C Airway patency: adequate Perioperative Events Perioperative events: no Post-op nausea and vomiting: no PONV Postoperative Status Cardiovascular status: hemodynamically stable Respiratory status: spontaneous ventilation Additional comments: Likely mild pulmonary edema related to rapid ventricular pacing as part of the procedure as evidenced by intra-procedural oxygenation values and LVEDPs. Effectively remedied with CPAP and lasix. Perioperative Events Perioperative Event: No Emergency Case Activation: No * Anesthesia Procedure Notes - Flash Pino MD - 11/24/2017 10:23 AM POLISHER HAND Associated Order(s): ANESTHESIA TRANSEESOPHAGEAL ECHOCARDIOGRAM Anesthesia Procedure: Transesophageal Echocardiogram MONTSE Date/Time: 11/24/2017 9:24 AM Associated procedure: Other Preprocedure checklist performed: 2 patient identifiers, risks & benefits discussed, patient evaluated, timeout performed, consent obtained and patient being monitored Staff Anesthesiologist: FLASH PINO Performed personally (Cards fellow present.) Indication for MONTSE: assessment of ascending aorta, defect repair evaluation and valvular assessment Physician requesting echo: GALINDO CUENCA CPT codes: 00246 - Guidance of a transcatheter intervention(s) Patient location: OR Intubated: yes Bite block: yes Heart visualized: yes Insertion: easy Probe type: multiplane Modalities: 2D, color flow mapping, continuous wave Doppler and 3D Echocardiographic and Doppler Measurements Ventricular Findings Right Ventricle RV cavity size: normal RV hypertrophy: no RV thrombus: no RV global function: normal Left Ventricle LV cavity size: normal LV hypertrophy: yes LV thrombus: no LV global function: normal LV ejection fraction: 55% Ventricular Wall Motion Four Chamber View Basal anterolateral: normal Basal inferoseptal: normal Mid anterolateral: normal Mid inferoseptal: normal Apical lateral: normal Apical septal: normal Two Chamber View Basal anterior: normal Basal inferior: normal Mid anterior: normal Mid inferior: normal Apical anterior: normal Apical inferior: normal Long Brady View Basal anteroseptal: normal Basal inferolateral: normal Mid anteroseptal: normal Mid inferolateral: normal Apical lateral: normal Apical septal: normal Catarina: normal Mid Short Brady View Mid anteroseptal: normal Mid anterior: normal Mid anterolateral: normal Mid inferolateral: normal Mid inferior: normal Mid inferoseptal: normal Valves Aortic Valve Annulus: calcified Stenosis: severe Regurgitation severity: mild Leaflet morphology: calcified, bicuspid and thickened Leaflet motion: restricted Mitral Valve Annulus: normal Stenosis: none Regurgitation severity: trace Leaflet morphology: normal Leaflet motion: normal Tricuspid Valve Annulus: normal Stenosis: none Regurgitation severity: trace Leaflet morphology: normal Leaflet motion: normal Aorta Ascending Aorta Size: normal Dissection: no Plaque thickness: 0-3 mm Plaque mobile: no Sinotubular Junction Size: normal Dissection: no Plaque thickness: >3 mm Plaque mobile: no Sinus of Valsalva Size: normal Dissection: no Plaque thickness: 0-3 mm Plaque mobile: no Descending Thoracic Aorta Size: normal Dissection: no Plaque thickness: 0-3 mm Plaque mobile: no Atria Right Atrium Size: normal SEC (smoke): no Thrombus: no Tumor: no Device: no Left Atrium Size: normal SEC (smoke): no Thrombus: no Tumor: no Device: no Left atrial appendage size: normal Septa Intra-atrial septal morphology: normal Intra-ventricular septal morphology: hypertrophy Other Findings Pericardium: normal Pleural effusion: none Pulmonary arteries: normal Pulmonary venous flow: normal Post Procedure Aortic valve replacement Perivalvular leak: no Mean gradient (mmHg): Post-procedure comments: Successful TAVR. Initially constrained deployment related to RCC; this was treated with balloon valvuloplasty x 1 with resultant good expansion. No PVL. Performed by: FLASH PINO Authorized by: FLASH PINO * Anesthesia Procedure Notes - Flash Pino MD - 11/24/2017 8:42 AM POLISHER HAND Associated Order(s): ANESTHESIA CENTRAL LINE INSERTION Anesthesia Procedure: Central Venous Catheter Line CENTRAL [...] confirmation. No complications. JTM Performed by: NIA MANCIA Authorized by: FLASH PINO * Anesthesia Procedure Notes - Flash Pino MD - 11/24/2017 8:31 AM POLISHER HAND Associated Order(s): ANESTHESIA ARTERIAL LINE INSERTION Anesthesia Procedure: Arterial Line Placement A-LINE INSERTION [...] FLASH PINO Authorized by: FLASH PINO * Anesthesia Preprocedure Evaluation - Sean Martínez MD - 11/23/2017 10:18 AM POLISHER HAND Formatting of this note may be different from the original. Anesthesia Pre-Procedure Evaluation Name: Jaden Rios : 1945 Age: 72 y.o. Sex: male Procedure Date: 11/24/2017 Procedure: Procedure(s) with comments: REPLACEMENT TRANSCATHETER AORTIC VALVE-evolut, left common femoral artery approach, 29 pro valve - Stepdown Physical Assessment Vital Signs (last filed in past 24 hours): BP: 104/49 (11/23 1214) Temp: 37 C (98.6 F) (11/23 1210) Pulse: 68 (11/23 1210) Respirations: 16 PER MINUTE (11/23 1210) SpO2: 95 % (11/23 1210) O2 Delivery: None (Room Air) (11/23 1210) Height: 167.6 cm (66") (11/23 1210) Weight: 113.4 kg (250 lb) (11/23 1210) Dosing / Dry Weight: 113.4 kg (250 lb) (11/23 1210) Patient History No Known Allergies Current Medications Medication Directions aspirin EC 81 mg tablet Take 81 mg by mouth daily. Take with food. carvedilol (COREG) 3.125 mg tablet Take 3.125 mg by mouth twice daily. Take with food. enalapril (VASOTEC) 2.5 mg tablet Take 2.5 mg by mouth twice daily. Fish Oil-DHA-EPA 1,200-144-216 mg cap Take 1 capsule by mouth twice daily. MULTIVIT-MINERALS/FERROUS FUM (MULTI VITAMIN PO) Take 1 tablet by mouth daily. rosuvastatin (CRESTOR) 10 mg tablet Take 10 mg by mouth at bedtime daily. Review of Systems/Medical History Patient summary reviewed Nursing notes reviewed Pertinent labs reviewed Pulmonary Sleep apnea Interventions: BiPAP Cardiovascular Recent diagnostic studies: ECG, echocardiogram and stress test See results below Exercise tolerance: <4 METS Beta Kitty therapy: Yes Hypertension, Valvular problems/murmurs (EKG: Normal sinus rhythm with a nonspecific intraventricular conduction delay and nonspecific T-wave flattening in leads V4 through V6.): Past NC (NSTEMI - Elevated troponin; negative cath), > 6 months Coronary artery disease No dysrhythmias No indications/hx of CHF Hyperlipidemia No orthopnea No indications/hx of PND No syncope Musculoskeletal Scoliosis Endocrine/Other Obesity Physical Exam Airway Findings Mallampati: III TM distance: >3 FB Neck ROM: full Mouth opening: good Airway patency: adequate Dental Findings: Negative Cardiovascular Findings: Negative Rhythm: regular Rate: normal Other findings: murmur Pulmonary Findings: Negative Breath sounds clear to auscultation. Abdominal Findings: Obese Neurological Findings: Negative Diagnostic Tests Hematology: Lab Results Component Value Date HGB 13.7 11/23/2017 HCT 41.0 11/23/2017 PLTCT 179 11/23/2017 WBC 9.6 11/23/2017 MCV 95.8 11/23/2017 MCH 31.9 11/23/2017 MCHC 33.3 11/23/2017 MPV 8.6 11/23/2017 RDW 14.3 11/23/2017 General Chemistry: Lab Results Component Value Date NA 138 11/23/2017 K 3.8 11/23/2017 CL 105 11/23/2017 CO2 26 11/23/2017 GAP 7 11/23/2017 BUN 13 11/23/2017 CR 0.78 11/23/2017 GLU 114 11/23/2017 CA 9.5 11/23/2017 ALBUMIN 4.0 11/23/2017 MG 2.2 11/08/2017 TOTBILI 0.6 11/23/2017 Coagulation: Lab Results Component Value Date PTT 31.4 11/23/2017 INR 1.0 11/23/2017 EKG: Normal sinus rhythm with a nonspecific intraventricular conduction delay and nonspecific T-wave flattening in leads V4 through V6. Echo: Normal left ventricular systolic function, estimated ejection fraction is 60%. Grade I (mild) left ventricular diastolic dysfunction. Severely sclerotic aortic valve, severe stenosis (MG=53 mmHg, peak velocity=5.1 m/sec, MT=101 , NEHEMIAH=0.61 cm), no regurgitation. The pulmonary artery pressure could not be obtained. Cath (11/07): Left main arose from the left coronary cusp. It was normal. It bifurcated into the LAD and circumflex. *LAD: This is a type 3 LAD. It is normal supplying 1 significant diagonal which is also normal. *Circumflex is large but not dominant. There is a 30% stenosis just before the takeoff of the 1st bifurcating obtuse marginal. The obtuse marginal was normal. The rest of the circumflex was unremarkable terminating in a bifurcating large obtuse marginal, which was normal as well. The right coronary is dominant arising from the right coronary cusp. It had 20 % plaque in the midportion. It supplied the posterior descending and posterolateral arteries, which were normal. Carotid duplex: Bilateral carotid arteries: mild-nonobstrutive disease PFTs: Normal ventilatory studies with a mild defect in diffusion. FEV1:2.45 (97%) DLCO: 16.15 (68%) CTA report (11/08): Chest: 1. Moderate to severe aortic valve calcification consistent with degenerative aortic valve disease. 2. Normal caliber aortic root and ascending aorta with mild scattered aortic plaque. 3. Moderate pulmonary fibrosis without pneumonia or pleural effusion. Anesthesia Plan ASA score: 4 Plan: general and invasive monitoring Special equipment/procedures: MONTSE Induction method: intravenous Informed Consent Anesthetic plan and risks discussed with patient. Use of blood products discussed with patient; consented to blood products. Plan discussed with: anesthesiologist. in this encounter Plan of Treatment Name Priority Associated Diagnoses Date/Time ANESTHESIA TRANSEESOPHAGEAL Routine 11/24/2017 10:23 AM POLISHER HAND ECHOCARDIOGRAM as of this encounter Results * ANESTHESIA CENTRAL LINE INSERTION (11/24/2017 8:42 [...] confirmation. No complications. JTM Performed by: NIA MANCIA Authorized by: FLASH PINO * ANESTHESIA ARTERIAL [...] by: FLASH PINO Authorized by: FLASH PINO in this encounter Visit Diagnoses Not on filein this encounter Administered Medications Medication Order MAR Action Action Date Dose Rate Site ceFAZolin (ANCEF) injection Given 11/24/2017 2 g INTRA-PROCEDURE MED, Starting Kalie 11/24/17 08:16 POLISHER HAND at 0816, Until Kalie 11/24/17 at 1041, Anesthesia Intra-op fentaNYL citrate PF (SUBLIMAZE) Given 11/24/2017 100 mcg injection 07:41 POLISHER HAND INTRA-PROCEDURE MED, Starting Kalie 11/24/17 at 0741, Until Kalie 11/24/17 at 1041, Pain Injectable, Anesthesia Intra-op furosemide (LASIX) injection Given 11/24/2017 20 mg INTRA-PROCEDURE MED, Starting Kalie 11/24/17 10:01 POLISHER HAND at 1001, Until Kalie 11/24/17 at 1041, Fluid Retention, Anesthesia Intra-op heparin (porcine) injection Given 11/24/2017 7,000 Units Intravenous, INTRA-PROCEDURE MED, 08:44 POLISHER HAND Starting Kalie 11/24/17 at 0844, Until Kalie 11/24/17 at 1041, Anesthesia Intra-op Given 11/24/2017 1,000 Units 08:51 POLISHER HAND lidocaine (PF) injection Given 11/24/2017 80 mg INTRA-PROCEDURE MED, Starting Kalie 11/24/17 07:42 POLISHER HAND at 0742, Until Kalie 11/24/17 at 1041, Anesthesia Intra-op midazolam (VERSED) injection Given 11/24/2017 1 mg Intravenous, INTRA-PROCEDURE MED, 07:21 POLISHER HAND Starting Kalie 11/24/17 at 0721, Until Kalie 11/24/17 at 1041, Agitation Injectable, Anxiety Injectable, Anesthesia Intra-op Given 11/24/2017 1 mg 07:27 POLISHER HAND norepinephrine (LEVOPHED) 4 mg in Bolus 11/24/2017 12 mcg dextrose 5% (D5W) 250 mL IV drip (std 09:11 POLISHER HAND conc) 250 mL, Intravenous, INTRA-PROCEDURE MED(CONT), Starting Kalie 11/24/17 at 0845, Until Discontinued, Anesthesia Intra-op Dose/Rate Change 11/24/2017 0.08 34.5 mL/hr 09:18 POLISHER HAND mcg/kg/min Infusion Restarted 11/24/2017 0.08 34.5 mL/hr 09:30 POLISHER HAND mcg/kg/min phenylephrine (MONICA-SYNEPHRINE) 10 mg in Given - New 11/24/2017 0.5 86.3 mL/hr sodium chloride 0.9% (NS) 250 mL IV drip Bag 07:28 POLISHER HAND mcg/kg/min (std conc) 250 mL, Intravenous, INTRA-PROCEDURE MED(CONT), Starting Kalie 11/24/17 at 0728, Until Discontinued, Anesthesia Intra-op Dose/Rate Change 11/24/2017 0.4 69 mL/hr 08:35 POLISHER HAND mcg/kg/min propofol (DIPRIVAN) injection Given 11/24/2017 120 mg INTRA-PROCEDURE MED, Starting Kalie 11/24/17 07:42 POLISHER HAND at 0742, Until Kalie 11/24/17 at 1041, Anesthesia Intra-op Given 11/24/2017 80 mg 09:54 POLISHER HAND protamine injection Given 11/24/2017 20 mg INTRA-PROCEDURE MED, Starting Kalie 11/24/17 09:44 POLISHER HAND at 0944, Until Kalie 11/24/17 at 1041, Anesthesia Intra-op Given 11/24/2017 30 mg 09:46 POLISHER HAND rocuronium (ZEMURON) injection Given 11/24/2017 50 mg Intravenous, INTRA-PROCEDURE MED, 07:45 POLISHER HAND Starting Kalie 11/24/17 at 0827, Until Kalie 11/24/17 at 1041, Anesthesia Intra-op Given 11/24/2017 20 mg 08:27 POLISHER HAND sodium chloride 0.9 % infusion Given - New 11/24/2017 20 mL/hr 1,000 mL, Intravenous, at 20 mL/hr, Bag 06:16 POLISHER HAND CONTINUOUS, Starting Kalie 11/24/17 at 0615, Until Kalie 11/24/17 at 1231, Pre-Op Given - New Bag 11/24/2017 09:21 POLISHER HAND sodium chloride 0.9 % infusion Given - New 11/24/2017 INTRA-PROCEDURE MED(CONT), Starting Kalie Bag 08:37 POLISHER HAND 11/24/17 at 0837, Until Discontinued, Anesthesia Intra-op sugammadex (BRIDION) injection Given 11/24/2017 230 mg INTRA-PROCEDURE MED, Starting Kalie 11/24/17 09:59 POLISHER HAND at 0959, Until Kalie 11/24/17 at 1041, Anesthesia Intra-op in this encounter
--- OUTSIDE RECORDS SUMMARY | 2017-11-28 15:23 | XMS REPORT | Encounter Summary ---
Author Author [facility] Organization [facility] Address Unknown Phone Unavailable Care Team Providers Care Experimental Machinist Name Role Phone Jose De Jesus Rocha MD PCP Dario Pandya MD 21 Encounter Details Date Type Department Care Team Description 11/24/2017 Procedure Pass Cardiovascular Operating Room [address] [place], [place] [id number] Social History Tobacco Use Types Packs/Day Years Used Date Former Smoker Cigarettes 1 25 Quit: 2002 Smokeless Tobacco: Never Used Alcohol Use Drinks/Week oz/Week Comments Yes occasional Sex Assigned at Date Recorded Not on file as of this encounter Plan of Treatment Not on fileas of this encounter Visit Diagnoses Not on filein this encounter
--- OUTSIDE RECORDS SUMMARY | 2017-11-28 15:24 | XMS REPORT | Encounter Summary ---
Author Author [facility] Organization [facility] Address Unknown Phone Unavailable Care Team Providers Care Court Administrator Name Role Phone Jose De Jesus Rocha MD PCP Dario Pandya MD 21 Encounter Details Date Type Department Care Team Description 11/07/2017 Procedure Pass Cardiac Catheterization Laboratory [address] [place] [address] Social History Tobacco Use Types Packs/Day Years Used Date Former Smoker Cigarettes Quit: 2002 Alcohol Use Drinks/Week oz/Week Comments Yes occasional Sex Assigned at Date Recorded Not on file as of this encounter Plan of Treatment Not on fileas of this encounter Visit Diagnoses Not on filein this encounter
--- OUTSIDE RECORDS SUMMARY | 2017-11-28 15:24 | XMS REPORT | Encounter Summary ---
Author Author [facility] Organization [facility] Address Unknown Phone Unavailable Care Team Providers Care Scoreboard Operator Name Role Phone Jose De Jesus Rocha MD PCP Dario Pandya MD 21 Encounter Details Date Type Department Care Team Description 11/21/2017 Prep for Case [facility] APRN 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, [facility] [address] etiology of cardiac valve [address] [place] [address] [place] [address] [place] [address] (Primary Dx) [phone] Social History Tobacco Use Types Packs/Day Years Used Date Former Smoker Cigarettes Quit: 2002 Alcohol Use Drinks/Week oz/Week Comments Yes occasional Sex Assigned at Date Recorded Not on file as of this encounter Plan of Treatment Not on fileas of this encounter Visit Diagnoses Diagnosis 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, etiology of cardiac valve disease unspecified - Primary
--- OUTSIDE RECORDS SUMMARY | 2017-11-28 15:24 | XMS REPORT | Encounter Summary ---
Author Author [facility] Organization [facility] Address Unknown Phone Unavailable Care Team Providers Care Supervisor Beater Room Name Role Phone Jose De Jesus Rocha MD PCP Dario Pandya MD 21 Encounter Details Date Type Department Care Team Description 11/21/2017 Pre-Admit [facility] Galindo Cuenca MD 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, Orders Only [facility] [address] etiology of cardiac valve [address] [place] [address] [place] [address] (Primary Dx) [phone] Social History Tobacco Use Types Packs/Day Years Used Date Former Smoker Cigarettes Quit: 2002 Alcohol Use Drinks/Week oz/Week Comments Yes occasional Sex Assigned at Date Recorded Not on file as of this encounter Plan of Treatment Name Priority Associated Diagnoses Date/Time UA REFLEX CULTURE LABEL STAT 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, 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 Name Priority Associated Diagnoses Order Schedule HOLD RBC'S FOR SURGERY/PROCEDURE STAT 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, Expected: 11/23/2017, etiology of cardiac valve Expires: 11/21/2018 disease unspecified ECG 12-LEAD Routine 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, Expected: 11/23/2017, etiology of cardiac valve Expires: 11/21/2018 disease unspecified UA REFLEX CULTURE LABEL STAT 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, Expected: 11/23/2017 etiology of cardiac valve (Approximate), Expires: disease unspecified 11/21/2018 as of this encounter Results * URINALYSIS MICROSCOPIC REFLEX TO CULTURE (11/23/2017 1:23 PM) Component Value Ref Range WBCs,UA 0-2 0 - 2 /HPF RBCs,UA 0-2 0 - 3 /HPF Comment,UA Urine submitted for reflex culture if criteria are met:WBC>10, positive nitrite and/or >=1+ leukocyte esterase. If quantity is not sufficient, an addendum will follow. Specimen Performing Laboratory Urine MAIN LAB [address] [place] [id number] * URINALYSIS DIPSTICK REFLEX TO CULTURE (11/23/2017 1:23 PM) Component Value Ref Range Color,UA STRAW Turbidity,UA CLEAR CLEAR-CLEAR Specific [place]-Urine 1.004 1.003 - 1.035 pH,UA 8.0 5.0 - 8.0 Protein,UA NEG NEG-NEG Glucose,UA NEG NEG-NEG Ketones,UA NEG NEG-NEG Bilirubin,UA NEG NEG-NEG Blood,UA NEG NEG-NEG Urobilinogen,UA NORMAL NORM-NORMAL Nitrite,UA NEG NEG-NEG Leukocytes,UA NEG NEG-NEG Urine Ascorbic Acid, UA NEG NEG-NEG Specimen Performing Laboratory [facility] [address] [place] [id number] * TYPE & CROSSMATCH (11/23/2017 12:19 PM) Component Value Ref Range Units Ordered 2 Crossmatch Expires 11/26/2017 Record Check 2ND TYPE REQUIRED ABO/RH(D) O POS Antibody Screen NEG Electronic Crossmatch YES Unit Number [id number] Blood Component Type RBC,ADSOL,LEUKO REDUCED Unit Division 0 Status OF Unit REL FROM ALLOC Transfusion Status OK TO TRANSFUSE Crossmatch Result COMPATIBLE,ELECTRONIC Unit Number [id number] Blood Component Type RBC,ADSOL,LEUKO REDUCED Unit Division 0 Status OF Unit REL FROM ALLOC Transfusion Status OK TO TRANSFUSE Crossmatch Result COMPATIBLE,ELECTRONIC Specimen Performing Laboratory Blood MAIN LAB [address] [place] [id number] * BNP (B-TYPE NATRIURETIC PEPTI) (11/23/2017 12:19 PM) Component Value Ref Range B Type Natriuretic 202.0 (H) 0 - 100 PG/ML Peptide Specimen Performing Laboratory Blood MAIN LAB [address] [place] [id number] * HEMOGLOBIN A1C (11/23/2017 12:19 PM) Component Value Ref Range Hemoglobin A1C 5.9 4.0 - 6.0 % Comment: The ADA recommends that most patients with type 1 and type 2 diabetes maintain an A1c level <7%. Specimen Performing Laboratory Blood MAIN LAB [address] [place] [address] * PTT (APTT) (11/23/2017 12:19 PM) Component Value Ref Range APTT 31.4 21.0 - 39.0 SEC Specimen Performing Laboratory Blood MAIN [facility] [address] [place] [id number] * PROTIME INR (PT) (11/23/2017 12:19 PM) Component Value Ref Range INR 1.0 0.8 - 1.2 Specimen Performing Laboratory Blood MAIN LAB [address] [place] [phone] * COMPREHENSIVE METABOLIC PANEL (11/23/2017 12:19 PM) Component Value Ref Range Sodium 138 137 [...] questions. Specimen Performing Laboratory Blood MAIN [facility] [address] [place] [id number] * CBC (11/23/2017 12:19 PM) Component Value Ref Range White Blood Cells 9.6 4.5 - 11.0 K/UL RBC 4.28 (L) 4.4 - 5.5 M/UL Hemoglobin 13.7 13.5 - 16.5 GM/DL Hematocrit 41.0 40 - 50 % MCV 95.8 80 - 100 FL MCH 31.9 26 - 34 PG MCHC 33.3 32.0 - 36.0 G/DL RDW 14.3 11 - 15 % Platelet Count 179 150 - 400 K/UL MPV 8.6 7 - 11 FL Specimen Performing Laboratory Blood [facility] [address] [place] [address] in this encounter Visit Diagnoses Diagnosis 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, etiology of cardiac valve disease unspecified - Primary
--- OUTSIDE RECORDS SUMMARY | 2017-11-28 15:24 | XMS REPORT | Encounter Summary ---
Author Author [facility] Organization [facility] Address Unknown Phone Unavailable Care Team Providers Care Security Compliance Engineer Name Role Phone Jose De Jesus Rocha MD PCP Dario Pandya MD 21 Reason for Visit * Reason Comments Provider Discussion About TAVR eval Patient Encounter Details Date Type Department Care Team Description 11/18/2017 Documentation [facility] Janneth Pratt APRN-C Provider Discussion About [address] [place] [address] Patient (TAVR eval) [address] [place] [address] [place] [address] [phone] Social History Tobacco Use Types Packs/Day Years Used Date Former Smoker Cigarettes Quit: 2002 Alcohol Use Drinks/Week oz/Week Comments Yes occasional Sex Assigned at Date Recorded Not on file as of this encounter Progress Notes * Janneth Pratt APRN-C - 11/18/2017 2:50 PM INFORMATION SECURITY ANALYST Formatting of this note may be different from the original. TAVR Evaluation Date of initial eval: 10/25/17 Name: Jaden Rios : 1945 Primary provider: Jose De Jesus Rocha Referring lard maker: Dario Pandya MD Initial TAVR eval by: CHENG/REINIER Second surgeon: JK-11/23 Assessment & Plan: Severe symptomatic aortic stenosis. Due to obesity and scoliosis, his rehab ability is limited therefore, TAVR is preferred. TAVR w/u complete and results reviewed. TAVR scheduled 11/[address] Cuenca and Dr. Sewell. Patient to go to Stepdown? Yes Step-down Exclusion criteria Frail/limited mobility No LVEF < 40% No PASP > 50 mm Hg No Mitral Valve Regurgitation > 2+ No Severe Lung Disease No Creatinine clearance <20mL/min No Uncontrolled Hypertension No BMI <20 or >50 No STS risk score > 10 No Pertinent Medical History: obesity, NURIA, non-obstructive CAD, and HTN BMI: 42.27 kg/m Allergies: No Known Allergies STS: 1.001% Frailty: Guest Services Representative Strength Right (kg) 33.1 kg Guest Services Representative Strength Left (kg) 34.6 kg Gait test 1st trail (seconds) 5.45 seconds Gait test 2nd trial (seconds) 5.08 seconds Gait test 3rd trial (seconds) 5.58 seconds Wheelchair dependence No Varela ADL Scale Total Score 6 MMSE-2 Composite Score 28 Creat cl: 141.142 EKG: Normal sinus rhythm with a nonspecific intraventricular conduction delay and nonspecific T-wave flattening in leads V4 through V6. Echo: Technically difficult study; i.v. transpulmonary contrast was used to define the endocardial borders. Normal left ventricular systolic function, estimated ejection fraction is 60% . Grade I (mild) left ventricular diastolic dysfunction. Severely sclerotic aortic valve, severe stenosis (MG=53 mmHg, peak velocity= 5.1 m/sec, ZV=768 , NEHEMIAH=0.61 cm), no regurgitation. The pulmonary artery pressure could not be obtained. The sinuses of Valsalva are mildly dilated. Cath: 1. Left main arose from the left [...] diffusion. FEV1:2.45 (97%) DLCO: 16.15 (68%) CTA report: Chest: 1. Moderate to severe aortic valve [...] of the right internal iliac artery origin. 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
--- OUTSIDE RECORDS SUMMARY | 2017-11-28 15:24 | XMS REPORT | Encounter Summary ---
Author Author [facility] Organization [facility] Address Unknown Phone Unavailable Care Team Providers Care Soda Column Operator Name Role Phone Jose De Jesus Rocha MD PCP Dario Pandya MD 21 Reason for Visit * Auth/Cert Status Reason Specialty Diagnoses / Referred By Referred To Procedures Contact Contact Diagnoses AORTIC STENOSIS P rocedures DE R & L HRT CATH WINJX HRT ART& L VENTR IMG ANGIOGRAPHY CORONARY ARTERY WITH RIGHT AND LEFT HEART CATHETERIZATION WITH VENTRICULOGRAPHY Encounter Details Date Type Department Care Team Description 11/07/2017 Hospital Cardiac Catheterization Eugene Nguyen MD Severe aortic stenosis - Encounter Laboratory [address] 11/08/[address] [place] [address] [place] [address] [phone] Social History Tobacco Use Types Packs/Day Years Used Date Former Smoker Cigarettes Quit: 2002 Alcohol Use Drinks/Week oz/Week Comments Yes occasional Sex Assigned at Date Recorded Not on file as of this encounter Last Filed Vital Signs Vital Sign Reading Time Taken Blood Pressure 98/53 11/08/2017 7:00 AM REFERENCE ASSISTANT Pulse 60 11/08/2017 7:00 AM REFERENCE ASSISTANT Temperature 36.7 C (98 F) 11/08/2017 7:00 AM REFERENCE ASSISTANT Respiratory Rate - - Oxygen Saturation 98% 11/08/2017 7:00 AM REFERENCE ASSISTANT Inhaled Oxygen - - Concentration Weight 113 kg (249 lb 1.9 oz) 11/07/2017 9:04 AM REFERENCE ASSISTANT Height 165.1 cm (5' 5") 11/07/2017 9:04 AM REFERENCE ASSISTANT Body Mass Index 41.46 11/07/2017 9:04 AM REFERENCE ASSISTANT in this encounter Discharge Summaries * Megan Stallings PA-C - 11/07/2017 3:59 PM REFERENCE ASSISTANT Formatting of this note may be different from the original. Physician Discharge Summary Name: Jaden Rios Date Of : 1945 Age: 72 years Admit date: 11/07/2017 Discharge date: 11/08/2017 Attending Physician: Dr. Nguyen Service: Cardiology- Interventional Physician Summary completed by: Megan Stallings PA-C Reason for hospitalization: severe aortic stenosis, cardiac catheterization, TAVR workup Significant PMH: Past Medical History: Diagnosis Date Aortic stenosis Bruit of left carotid artery CAD (coronary artery disease) Cardiac murmur HTN (hypertension) 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HCC) Mixed hyperlipidemia NSTEMI (non-ST elevated myocardial infarction) (HCC) Obesity NURIA (obstructive sleep apnea) Allergies: Patient has no known allergies. Admission Lab/Radiology studies notable for: Hematology: Lab Results Component Value Date HGB 13.8 11/08/2017 HCT 41.5 11/08/2017 PLTCT 160 11/08/2017 WBC 7.0 11/08/2017 MCV 95.9 11/08/2017 MCHC 33.1 11/08/2017 MPV 8.8 11/08/2017 RDW 14.0 11/08/2017 , Coagulation: Lab Results Component Value Date INR 1.0 11/07/2017 , General Chemistry: Lab Results Component Value Date NA 136 11/08/2017 K 4.1 11/08/2017 CL 104 11/08/2017 GAP 5 11/08/2017 BUN 13 11/08/2017 CR 0.79 11/08/2017 GLU 119 11/08/2017 CA 9.3 11/08/2017 ALBUMIN 4.3 10/25/2017 MG 2.2 11/08/2017 TOTBILI 0.6 10/25/2017 and Lipid Profile: Lab Results Component Value Date CHOL 171 11/07/2017 TRIG 144 11/07/2017 HDL 47 11/07/2017 LDL 102 11/07/2017 VLDL 29 11/07/2017 Brief Hospital Course: Mr. Jaden Rios is a 72 year old male with history of severe aortic stenosis, nonobstructive CAD status post a left heart catheterization 2011 which was notable for a 40% left circumflex stenoses with elevated LVEDP of 26 mmHg, dyslipidemia, hypertension, remote smoking history, morbid obesity, lymphoid papulosis, and obstructive sleep apnea on BiPAP therapy. Patient presents 11/07/2017 for cardiac catheterization for TAVR workup. This was performed by Dr. Nguyen which revealed mild coronary plaque, severe aortic valve stenosis with findings listed in detail below. Patient already completed PFTs which appear to be WNL, and carotid artery duplex which was negative for significant vascular disease. Patient had TAVR work up including and CTA of chest/abdomen and pelvis prior to discharge. The patient was monitored overnight with stable radial site, vital signs and telemetry. Upon discharge the patient and family were given post procedure instructions/ restrictions as well as written instructions ( see Discharge instructions). Follow up with the Heart Valve clinic for further instructions. Condition at Discharge: Stable Discharge Diagnoses: Hospital Problems Active Problems * (Principal)Severe aortic stenosis NURIA (obstructive sleep apnea) Morbid obesity (HCC) NSTEMI (non-ST elevated myocardial infarction) (HCC) Mixed hyperlipidemia 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HCC) HTN (hypertension) Cardiac murmur CAD (coronary artery disease) Bruit of left carotid artery Surgical Procedures: None Significant Diagnostic Studies and Procedures: 11/07/2017 Coronary angiography CONCLUSIONS: 1. Mild coronary plaque, including 30% Circumflex stenosis before the takeoff of the 1st bifurcating obtuse marginal, 20% mid RCA plaque. 2. Severe aortic valve stenosis. 11/08/2017 CTA of chest/abdomen and pelvis: final results pending Consults: CTS Patient Disposition: Home Patient instructions/medications: Procedure Specific Activity *May return to work/school in 2 days. *May shower after discharge. *NO lifting, pushing or pulling more than 5 pounds for one week to affected hand. You may use your wrist splint for a reminder! *NO strenuous activity for 1 week. *NO driving for 2 days. *NO baths or swimming for 1 week. *NO sexual activity for 1 week. Report These Signs and Symptoms Please contact your doctor if you have any of the following symptoms: Chest pain , shortness of breath, lightheadedness, dizziness, near fainting, palpitations, abd pain, back pain, or bleeding. Questions About Your Stay For questions or concerns regarding your hospital stay: - DURING BUSINESS HOURS (8:00 AM - 4:30 PM): Call [phone] and asked to be transferred to your discharge attending physician. - AFTER BUSINESS HOURS (4:30 PM - 8:00 AM, on weekends, or holidays): Call [phone] and ask the chain hoist operator to page the on-call doctor for the discharge attending physician. Discharging attending physician: EUGENE NGUYEN [[id number]] Low Fat / Low Cholesterol Diet Your goal is to limit the amount of saturated and trans fats in your diet. Keep track of how much cholesterol you eat and limit the total amount to 200mg ( milligrams) a day. If you have questions about your diet after you go home, you can call a dietitian at [phone]. Incision Care *Call if there is an increase in pain, swelling, or redness. *DO NOT soak incision in water. *NO tub baths, hot tubs, or swimming. *You may shower after discharge. Return Appointment Heart Valve clinic staff will contact the patient for further instructions. [facility] Provider GIOVANI PRATT [[id number]] Current Discharge Medication List CONTINUE these medications which have NOT CHANGED Details aspirin EC 81 mg tablet Take 81 mg by mouth daily. Take with food. PRESCRIPTION TYPE: Historical Med carvedilol (COREG) 3.125 mg tablet Take 3.125 mg by mouth twice daily. Take with food. PRESCRIPTION TYPE: Historical Med enalapril (VASOTEC) 2.5 mg tablet Take 2.5 mg by mouth twice daily. PRESCRIPTION TYPE: Historical Med Fish Oil-DHA-EPA 1,200-144-216 mg cap Take 1 capsule by mouth twice daily. PRESCRIPTION TYPE: Historical Med MULTIVIT-MINERALS/FERROUS FUM (MULTI VITAMIN PO) Take 1 tablet by mouth daily. PRESCRIPTION TYPE: Historical Med rosuvastatin (CRESTOR) 10 mg tablet Take 10 mg by mouth at bedtime daily. PRESCRIPTION TYPE: Historical Med Pending items needing follow up: as above Signed: Megan Stallings PA-C 11/08/2017 cc: Primary Care Physician: Jose De Jesus Rocha Referring physicians: Giovani Pratt APRN-C Additional provider(s): in this encounter Discharge Instructions * Patient Instructions - Shell Ramos RN - 11/07/2017 12:39 PM REFERENCE ASSISTANT Manual Sheath Removal From A Large Vein Or Artery-RODRIGO When you go home: You may shower 24 hours after your procedure. Do not sit in water for one week. (No bath tub, swimming pool/hot tub, etc.) Keep the area clean and dry for one week (except for daily showers). Be sure your hands are clean when touching near the site. If a band-aid or dressing is still in place remove it before showering. Wash and dry thoroughly but gently. If needed, for your comfort, you may place a clean band-aid over the puncture site after you are clean and dry. It is best to leave it open to air as soon as it is comfortable to do so. Do not use ointments, creams, or powders on puncture site. Inspect site daily. Activity: (Unless otherwise instructed or unable to perform) Avoid any exertion for one week. Exertion is lifting over 15 lbs or pushing, pulling or straining. Avoid excessive bending, stooping, or stair climbing for 2 days. It is ok to go up stairs or bend over but take it slowly and keep it to a minimum. You may be up and about while relaxing at home as you recover. You may resume sexual activity in one week. You may begin driving 2 days after your procedure if you are otherwise able to drive. ---It is common to have mild soreness and/or a small, soft bruise around the site that can take up to two weeks to go away. A small (dime to quarter sized) lump is also normal. A small amount of blood (not more than a teaspoon) from the site is also common. WHEN TO CALL THE DOCTOR: Complications are rare but can happen. If you have significant bleeding (more than a teaspoon) or a lump underneath the skin (bigger than a golf ball) at the site lie down, apply firm pressure at the site and call 911. Bleeding from a large vessel needs professional help. If you have signs of infection at the site such as: redness, warm to touch, drainage, increasing soreness, a fever (100 degrees or more) and/or chills. Soreness that continues more than a week or unusual pain at the puncture site. Numbness, tingling, weakness in the affected leg. If your leg becomes cold and pale. If you have changes of vision, slurred speech or one-sided weakness. Who do I contact if I need to speak with someone? During Business Hours: [facility] Office at the [facility]: [phone] (Tuesday-Tuesday) [place]: [phone] (Tuesday-Tuesday) [place]: [phone] (Tuesday-Tuesday) [place]: [phone] (Tuesday and ) [place]: [phone] (Tuesday-Tuesday) [place]: [phone] (Tuesday-Tuesday) [place]: [phone] (Tuesday-) [facility]: [phone] (Tuesday, Tuesday and Tuesday) [place]: [phone] (Tuesday, Tuesday and Tuesday) [facility]): [phone] (Tuesday, Tuesday and Tuesday) Nights and Weekends [facility] Office at the [facility]: [phone] This education is meant to serve as a resource to you and your family. It is not meant to be all inclusive. The members of the [facility] at [facility], , will be glad to answer any questions you may have about this booklet or your procedure. in this encounter Medications at Time of Discharge Medication Sig. Disp. Refills Start Date End Date aspirin EC 81 mg tablet Take 81 mg by mouth at bedtime daily. Take with food. enalapril (VASOTEC) 2.5 Take 2.5 mg by mouth mg tablet twice daily. Fish Oil-DHA-EPA Take 1 capsule by mouth 1,200-144-216 mg cap twice daily. MULTIVIT-MINERALS/FERROUS Take 1 tablet by mouth FUM (MULTI VITAMIN PO) every morning. rosuvastatin (CRESTOR) 10 Take 10 mg by mouth at mg tablet bedtime daily. carvedilol (COREG) 3.125 Take 3.125 mg by mouth 11/26/2017 mg tablet twice daily. Take with food. as of this encounter Progress Notes * Jenny Nguyễn RN - 11/08/2017 8:50 AM REFERENCE ASSISTANT Patient discharged to home with all belongings. Discharge instructions, med reconciliation and home wound care instructions given and explained to patient and family both verbally and written. Accompanied by transport. No complaints of pain or discomfort. Right radial puncture site remains clean, dry, and intact with no evidence of a hematoma after ambulation. Patient [facility] via Transport. Patient to follow up with [facility] ([facility]) or on-call physician with any additional questions or concerns. All contact numbers provided. Patient and family acceptant of DC instuctions and report understanding to all information. in this encounter H&P Notes * Shani Palafox PA-C - 11/03/2017 2:45 PM REFERENCE ASSISTANT Formatting of this note may be different from the original. Patient presents for TAVR workup. Please see History and Physical copied below from date of service 10/25/17. Shani Palafox, MATILDE ([id number]) Progress Notes Chase Neri MD (Physician) Cardiology 10/25/17 1300 Signed Date of Service: 10/25/2017 Jaden Rios is a 72 y.o. male. HPI We had the pleasure of seeing Mr. Jaden Rios who is a pleasant 72-year- old male who has been referred to [facility] Valve clinic for evaluation of his severe aortic stenosis. The gentleman has a past medical history significant for nonobstructive coronary artery disease status post a left heart catheterization 2011 which was notable for a 40% left circumflex stenoses with elevated LVEDP of 26 mmHg, remote smoking history, history of dyslipidemia, history of hypertension, history of lymphoid papulosis, and history of obstructive sleep apnea on BiPAP therapy. The patient is joined by his and son at this particular clinic appointment. When discussing 's presence or absence of symptoms regarding his underlying valvular disease, the patient actively denies chest pressure, chest discomfort, orthopnea, paroxysmal nocturnal dyspnea, lower extremity edema, sense of tachypalpitations, syncope/presyncope, and dyspnea on exertion. However, this absence of symptoms with exertion is markedly limited by the patient's limitations from a respiratory standpoint. The patient does have a moderate to severe degree of scoliosis with both arthritic/ neuropathic pain that limits his ability to fully exert himself. When discussing with the patient's and son, they report that they have noticed a serial decline in the patient's ability to "keep up" but this was not readily perceived by the patient. On further discussion, when asked that the patient could walk several flights of stairs or walk up an incline he reports full confidence that he can do so however there would be a limitation at the level of exertion he could exert to perform the task. When asking further regarding the patient's symptoms, he denies having symptoms and that the observation for a severely stenotic aortic valve came from plan serial echocardiograms surveillance by his primary federal air marshal given knowledge of a mildly stenotic valve per invasive hemodynamics years prior on his [facility]. With regards to his previous valvular evaluations, the patient has been receipt of a transthoracic echocardiogram on September 08, 2017 by his primary federal air marshal Dr. Pinon where it was observed the patient had a preserved ejection fraction of 55-65% with no marked abnormalities of the chambers save for moderate dilatated left atrium. Of importance, the aortic valve appeared trileaflet however severely calcified. Per Doppler interrogation there was severe stenosis per calculated aortic valve area of 0.71 cm (not indexed the body surface area close (with aortic valve peak velocity of 3.9 m/s and a aortic valve mean gradient of 29 mmHg. The aortic root was measured at 4.1 cm additionally, there was mild mitral regurgitation noted on the study. Regarding the patient's previous ischemic evaluation, the patient underwent a left heart catheterization and 2012 wherein as mentioned previously he was found to have a 40% proximal left circumflex artery stenosis, elevated left ventricular end-diastolic pressure of 26 mmHg as well as mild aortic valve stenosis per gradient evaluation. Vitals: 10/25/17 1227 BP: 128/78 Pulse: 67 Weight: 115.2 kg (254 lb) Height: 1.651 m (5' 5") Body mass index is 42.27 kg/m. Past Medical History Patient Active Problem List Diagnosis Date Noted Aortic stenosis 09/30/2017 Past Surgical History: Procedure Laterality Date COLONOSCOPY TONSILLECTOMY Social History Social History Marital status: Spouse name: N/A Number of children: N/A Years of education: N/A Occupational History Not on file. Social History Main Topics Smoking status: Former Smoker Types: Cigarettes Quit date: 2002 Smokeless tobacco: Not on file Alcohol use Yes Comment: occasional Drug use: Unknown Sexual activity: Not on file Other Topics Concern Not on file Social History Narrative No narrative on file Family History Problem Relation Age of Onset Hypertension Father Cancer Brother Cancer Paternal Aunt Heart Disease Paternal Uncle Review of Systems Constitution: Negative. HENT: Positive for hearing loss and tinnitus. Eyes: Negative. Cardiovascular: Negative. Respiratory: Positive for cough. Endocrine: Negative. Hematologic/Lymphatic: Negative. Skin: Negative. Musculoskeletal: Positive for arthritis, back pain and joint pain. Gastrointestinal: Negative. Genitourinary: Negative. Neurological: Negative. Psychiatric/Behavioral: Negative. Allergic/Immunologic: Negative. Physical Exam GENERAL: The patient is moderately obese male. Resting comfortably and in no distress. HEENT: No abnormalities of the visible terrance-nasopharynx, conjunctiva or sclera are noted. + glasses NECK: There is no jugular venous distension the patient Is limits for evaluation. Carotids are palpable. There is positive bilateral referred aortic valve murmur appreciated. There is no thyroid enlargement. Chest: Lung guo are clear to auscultation. There are no wheezes or crackles. CV: There is a regular rhythm. The first and second heart sounds are normal. There is a 5 out of 6 systolic ejection murmur over the aortic position. There is concomitant radiation of this murmur to the subclavian and bilateral carotid arteries. There is no appreciation for any diastolic murmur. ABD: The abdomen is soft and supple with normal bowel sounds. There is no hepatosplenomegaly, ascites, tenderness, masses or bruits. Neuro: There are no focal motor defects. Ambulation is normal. Cognitive function appears normal. Ext: There is no edema or evidence of deep vein thrombosis. Peripheral pulses are satisfactory. SKIN: There are no rashes and no cellulitis PSYCH: The patient is calm, rationale and oriented. Cardiovascular Studies ECG October 25, 2017 Normal sinus rhythm with a nonspecific intraventricular conduction delay and nonspecific T-wave flattening in leads V4 through V6. Problems Addressed Today 1. very severe aortic stenosis, stage C 1 2. Nonobstructive CAD 3. Hyperlipidemia 4. Hypertension Assessment and Plan #1 Very Severe , STAGE C1 -Preliminary review of the patient's surface echocardiogram performed today as confirmatory of severe calcification with suspicion for a congenital bicuspid valve. The peak velocity observed is in excess of 5 m/s squared with a mean gradient in excess of 40 mmHg. Per the continuity equation, the patient's not indexed aortic valve area is 0.6. -patient denies symptoms that would be consistent with heart failure or classic anginal symptoms on exertion, the patient's degree of exertion is limited by his baseline moderate to severe scoliosis with neuropathic and osteoporotic pain. Nevertheless, the patient has a markedly calcified aortic valve that appears to possibly be congenital bicuspid on review of the surface echocardiograms in conjunction with the patient's premature onset of severe aortic disease that may rapidly accelerated over the last 5 years. -We will look to pursue transcatheter aortic valve replacement for the patient' s stage C 1 severe aortic stenosis -Historically, the patient has no history of CAD on a left heart catheterization 5 years prior. Will look to proceed with left heart catheterization to assess coronary disease status. -Patient is completed pulmonary function tests which appear to be within normal limits - Carotid artery ultrasound unrevealing for significant vascular disease - CTA post left heart catheterization to complete evaluation for proposed TAVR - We will continue patient's RESTORATIVE CARE TECHNICIAN baby aspirin 81, Coreg 3.25, enalapril 2.5, and Coreg 10 mg Enoch Dent II MD Fellow, Division of Cardiovascular Medicine [facility] Pager # [phone] Cardiology Staff Attestation I have personally seen, examined, and evaluated this patient. I concur with the above medical documentation including alves parts of the history & physical examination as outlined by the computer service technician and jointly formulated the treatment plan. Worsening dyspnea on exertion likely from aortic stenosis. Volume status currently stable. Updated echocardiogram from today with very severe aortic stenosis: Aortic valve area=0.61 cm2 Aortic valve mean gradient=53 mmHg Aortic valve peak [id number]=768 mmHg Aortic valve peak velocity=: 5.1 m/s Aortic valve velocity ratio=: 0.16 Will need updated cardiac catheterization and coronary angiography and dedicated CTA chest/abd/pelvis. Will be good candidate for Transcatheter Aortic Valve Replacement (TAVR). Chase Neri MD, FACC, FACP in this encounter Procedure Notes * Eugene Nguyen MD - 11/07/2017 11:18 AM REFERENCE ASSISTANT Associated Order(s): CARDIAC CATH REPORT Formatting of this note may be different from the original. [facility] at [facility] CARDIAC CATHETERIZATION REPORT Page 2 JADEN Rowland : 1945 #: [id number] MR #/Billing ID #: [id number] / [id number] DATE: 11/07/2017 ELECTRICAL CONTINUITY INSPECTOR: Eugene Nguyen MD DICTATING PROVIDER: Eugene Nguyen MD REFERRING PHYSICIAN: GIOVANI PRATT PROCEDURE PERFORMED: Coronary angiography. INDICATION: Severe aortic valve stenosis. Plan for possible TAVR. CONSENT: The patient was consented in the holding area prior to being brought to the cardiac labor relations teacher. Risks of the procedure, including the potential risk of stroke, myocardial infarction and were discussed. He understood and agreed to proceed. PROCEDURE DETAILS: The patient was brought to the cardiac catheterization laboratory in a fasting, nonsedated state. After confirming a normal Barbeau test, the right wrist was prepped and draped in usual fashion. Access was obtained in the radial artery without difficulty. A 6-Syrian Slender sheath was placed. The patient was [...] coronary plaque. 2. Severe aortic valve stenosis. MD JEREMI Ag/MedCarmen //[id number] cc: - MD Galindo Sauceda MD Dr. Segli in this encounter Consult Notes * Chase Gruber PA-C - 11/07/2017 8:54 AM REFERENCE ASSISTANT Formatting of this note may be different from the original. The original H&P below was performed and dictated by Dr. Oumar Hernandez and Dr. Cuenca. Patient presents for TAVR workup and second surgeon opinion. Chase Gruber PA-C Pager [phone] Date of Service: 10/25/2017 Subjective: Jaden Rios is a 72 y.o. male. History of Present Illness Jaden Rios is a 72 y.o. male with a pmhx of obesity, NURIA, non- obstructive CAD, and HTN who has been followed for several years for aortic stenosis. This has progressed to severe on his most recent echo from outside. Per Doppler interrogation there was severe stenosis per calculated aortic valve area of 0.71 cm aortic valve peak velocity of 3.9 m/s and a aortic valve mean gradient of 29 mmHg. He is relatively asymptomatic from this, and has noticed no functional limitation. He is primarily limited by back pain, which keeps him from being too active. He has no orthopnea or RUSSO. No TIA symptoms. He states he can walk about a block before having to stop. He drinks 5 drinks per day, former smoker quit 20 years ago. He had a cath in 2011 which was non-obstructive. He has no complaints today. Review of Systems Constitution: Negative. HENT: Positive for hearing loss and tinnitus. Eyes: Negative. Cardiovascular: Negative. Respiratory: Positive for cough. Endocrine: Negative. Hematologic/Lymphatic: Negative. Skin: Negative. Musculoskeletal: Positive for arthritis, back pain and joint pain. Gastrointestinal: Negative. Genitourinary: Negative. Neurological: Negative. Psychiatric/Behavioral: Negative. Allergic/Immunologic: Negative. Past Medical History: Diagnosis Date Aortic stenosis Bruit of left carotid artery CAD (coronary artery disease) Cardiac murmur HTN (hypertension) 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HCC) Mixed hyperlipidemia NSTEMI (non-ST elevated myocardial infarction) (HCC) Obesity NURIA (obstructive sleep apnea) Past Surgical History: Procedure Laterality Date COLONOSCOPY TONSILLECTOMY Social History Social History Marital status: Spouse name: N/A Number of children: N/A Years of education: N/A Occupational History Not on file. Social History Main Topics Smoking status: Former Smoker Types: Cigarettes Quit date: 2002 Smokeless tobacco: Not on file Alcohol use Yes Comment: occasional Drug use: Unknown Sexual activity: Not on file Other Topics Concern Not on file Social History Narrative No narrative on file Objective: aspirin EC 81 mg tablet Take 81 [...] 10 mg by mouth at bedtime daily. Vitals: 10/25/17 1309 BP: 128/78 Pulse: 67 SpO2: 92% Weight: 115.2 kg (254 lb) Height: 1.651 m (5' 5") Body mass index is 42.27 kg/m. Physical Exam Physical Exam BP 128/78 (BP Source: Arm, Left) | Pulse 67 | Ht 1.651 m (5' 5") | Wt 115.2 kg (254 lb) | SpO2 92% | BMI 42.27 kg/m General: No acute distress, awake alert and oriented HEENT: no obvious scalp lesions, eyes convergent, conjunctiva pink Resp: Clear to auscultation bilaterally, no wheezes or ronchi CV: regular rate and rhythm, harsh systolic murmur Abd: Soft, Non-tender, non-distended. Obese Normoactive bowel sounds Ext: Warm and well perfused, good capillary refill Neuro: No focal deficits, CN II-XII grossly intact Assessment and Plan: Jaden Rios is a 72 y.o. male with obesity, NURIA, and HTN with severe -On imaging today, the valve appears at least functionally bicuspid, excluding him from the low-risk TAVR trial -Will proceed with TAVR workup including CTA and repeat cath Oumar Hernandez MD Fellow, Cardiothoracic Surgery Pager [phone] I had the pleasure of seeing Mr. Jaden Rios with his and son in the office today concerning his aortic stenosis. As you know, this 72-year-old gentleman has been followed for several years with echoes because of his aortic stenosis. This has progressed, and on his most recent echoes was noted to be severe. I have reviewed the images. This demonstrates a valve area of 0.7. His mean gradient is only 30 mmHg. However, his peak velocity is almost 4 m/ sec. He states he remains relatively asymptomatic. His family thinks this is because of his limitations related to his back pain. He has scoliosis and has chronic back problems from this. He denies orthopnea, PND, or other heart failure symptoms. He has not undergone a cardiac cath, but had undergone one several years ago that had nonobstructive coronary disease. Given these findings, I agree that it would be reasonable to consider him for aortic valve replacement. Although he states he is asymptomatic, his family clearly thinks that he has had a decrease in his activity tolerance. We will complete his evaluation, including a CT scan of the chest. We will keep you apprised of the ongoing evaluation. If you have any further questions, please feel free to call. Associated attestation - Chuy Vega MD - 11/07/2017 10:59 AM REFERENCE ASSISTANT I reviewed clinical data and examined Mr. Chen. He is a 72 y/o gentleman with severe aortic stenosis (NEHEMIAH=0.7cm2). It is difficult to say if he is symptomatic, but the valve is heavily calcified and restricted. He is obese and has scoliosis. He has a distant h/o tobacco abuse. On exam, he has good peripheral pulses. There are no surgical scars in the chest, and the remainder of his examination is fairly unremarkable. I concur that AVR is advisable. He is at least at moderately high risk for open , surgical AVR and he in fact prefers the TAVR alternative. I believe this is appropriate. I answered questions posed by him and his family. We will proceed with cardiac catheterization and CTA to determine his candidacy for TAVR. Thank you. I personally performed the alves portions of the E/M visit, discussed case with the physician assistant kitchen manager and concur with the PA documentation of history, physical exam, assessment, and treatment plan unless otherwise noted. MARICRUZ Vega in this encounter Plan of Treatment Not on fileas of this encounter Procedures Procedure Name Priority Date/Time Associated Diagnosis Comments PROCEDURE RECORD-SCAN 11/14/2017 Results for this 11:52 AM REFERENCE ASSISTANT procedure are in the results section. TELEMETRY STRIPS-SCAN 11/14/2017 Results for this 11:28 AM REFERENCE ASSISTANT procedure are in the results section. ECG-SCAN 11/14/2017 Results for this 11:28 AM REFERENCE ASSISTANT procedure are in the results section. in this encounter Results * PROCEDURE RECORD-SCAN (11/14/2017 11:52 AM) Narrative Ordered by an unspecified provider. * ECG-SCAN (11/14/2017 11:28 AM) Narrative Ordered by an unspecified provider. * TELEMETRY STRIPS-SCAN (11/14/2017 11:28 AM) Narrative Ordered by an unspecified provider. * CTA CHEST WO/W CONTRAST+POST IMPRESSION (11/08/2017 [...] M.D. on 11/08/2017 12:03 PM. Dictated by Dvaid Christianson M.D. on 11/08/2017 11:55 AM. Narrative [...] Interface, Radiant Results - 11/08/2017 12:07 PM REFERENCE ASSISTANT CTA chest, CTA abdomen and pelvis Indication: [...] M.D. on 11/08/2017 11:55 AM. * CTA ABD/PELVIS (11/08/2017 5:58 AM) Specimen [...] Interface, Radiant Results - 11/08/2017 12:07 PM REFERENCE ASSISTANT CTA chest, CTA abdomen and pelvis Indication: [...] Christianson M.D. on 11/08/2017 11:55 AM. * MAGNESIUM (11/08/2017 5:20 AM) Component Value Ref Range Magnesium 2.2 1.6 - 2.6 mg/dL Specimen Performing Laboratory [facility] [address] [place] [id number] * CBC (11/08/2017 5:20 AM) Component Value Ref Range White Blood Cells 7.0 4.5 - 11.0 K/UL RBC 4.32 (L) 4.4 - 5.5 M/UL Hemoglobin 13.8 13.5 - 16.5 GM/DL Hematocrit 41.5 40 - 50 % MCV 95.9 80 - 100 FL MCH 31.8 26 - 34 PG MCHC 33.1 32.0 - 36.0 G/DL RDW 14.0 11 - 15 % Platelet Count 160 150 - 400 K/UL MPV 8.8 7 - 11 FL Specimen Performing Laboratory [facility] [address] [place] [address] * BASIC METABOLIC PANEL (11/08/2017 5:20 AM) Component Value Ref Range Sodium 136 (L) 137 - 147 MMOL/L Potassium 4.1 3.5 - 5.1 MMOL/L Chloride 104 98 - 110 MMOL/L CO2 27 21 - 30 MMOL/L Anion Gap 5 3 - 12 Glucose 119 (H) 70 - 100 MG/DL Blood Urea Nitrogen 13 7 - 25 MG/DL Creatinine 0.79 0.4 - 1.24 MG/DL Calcium 9.3 8.5 - 10.6 MG/DL eGFR Non >60 [...] Specimen Performing Laboratory [facility] [address] [place] [address] * CARDIAC CATH REPORT (11/07/2017 11:18 AM) Specimen Performing Laboratory OTHER OUTSIDE LAB Procedure Note Eugene Nguyen MD - 11/07/2017 11:18 AM REFERENCE ASSISTANT Formatting of this note may be different from the original. [facility] CARDIAC CATHETERIZATION REPORT Page 2 JADEN Rowland : 1945 #: [id number] MR #/Billing ID #: [id number] / [id number] DATE: 11/07/2017 ELECTRICAL CONTINUITY INSPECTOR: Eugene Nguyen MD DICTATING PROVIDER: Eugene Nguyen MD REFERRING PHYSICIAN: GIOVANI PRATT PROCEDURE PERFORMED: Coronary angiography. INDICATION: Severe aortic valve stenosis. Plan for possible TAVR. CONSENT: The patient was consented in the holding area prior to being brought to the cardiac labor relations teacher. Risks of the procedure, including the potential risk of stroke, myocardial infarction and were discussed. He understood and agreed to proceed. PROCEDURE DETAILS: The patient was brought to the cardiac catheterization laboratory in a fasting, nonsedated state. After confirming a normal Barbeau test, the right wrist was prepped and draped in usual fashion. Access was obtained in the radial artery without difficulty. A 6-Syrian Slender sheath was placed. The patient was [...] coronary plaque. 2. Severe aortic valve stenosis. Eugene Nguyen MD [facility]/MedQ //[id number] cc: - MD Galindo Sauceda MD Dr. [...] than 130 mg/dL. Specimen Performing Laboratory [facility] [address] [place] [address] * POC PT/INR (11/07/2017 9:10 AM) Component Value Ref Range INR POC 1.0 0.8 - 1.2 Specimen Performing Laboratory [facility] [address] [place] [address] in this encounter Visit Diagnoses Diagnosis Nonrheumatic aortic valve stenosis - Primary Aortic valve disorders Severe aortic stenosis Aortic valve disorders Cardiac murmur Undiagnosed cardiac murmurs Mixed hyperlipidemia Admitting Diagnoses Diagnosis AORTIC STENOSIS Severe aortic stenosis Administered Medications Medication Order MAR Action Action Date Dose Rate Site aspirin EC tablet 81 mg Given 11/08/2017 81 mg 81 mg, Oral, DAILY, First dose on Tue 07:24 REFERENCE ASSISTANT 11/08/17 at 0900, Until Discontinued, Admission/Obs/Extended Recovery carvedilol (COREG) tablet 3.125 mg Given 11/07/2017 3.125 mg 3.125 mg, Oral, TWICE DAILY, First dose 20:07 REFERENCE ASSISTANT on Tue11/07/17 at 2100, Until Discontinued, Hold for heart rate < 60 bpm or systolic BP < 90 Given 11/08/2017 3.125 mg 07:24 REFERENCE ASSISTANT enalapril (VASOTEC) tablet 2.5 mg Given 11/07/2017 2.5 mg 2.5 mg, Oral, TWICE DAILY, First dose on 20:06 REFERENCE ASSISTANT Tue11/07/17 at 2100, Until Discontinued, Admission/Obs/Extended Recovery iopamidol 370 (ISOVUE-370) injection 100 Given 11/08/2017 100 mL mL 06:00 REFERENCE ASSISTANT 100 mL, Intravenous, ONCE, 1 dose, Tue11/08/17 at 0600, NOTE: This is a HIGH ALERT Medication. rosuvastatin (CRESTOR) tablet 10 mg Given 11/07/2017 10 mg 10 mg, Oral, AT BEDTIME DAILY, First 20:07 REFERENCE ASSISTANT dose on Tue11/07/17 at 2100, Until Discontinued, Admission/Obs/Extended Recovery sodium chloride 0.9 % infusion Given - New 11/07/2017 100 mL/hr 1,000 mL, Intravenous, at 100 mL/hr, Bag 09:10 REFERENCE ASSISTANT CONTINUOUS, Starting 11/07/17 at 0900, Until 11/08/17 at 1050, If EF is <40%, contact CCL Charge Nurse [phone] before initiating fluid. sodium chloride PF 0.9% injection 50 mL Given 11/08/2017 50 mL 50 mL, Intravenous, ONCE, 1 dose, Tue 06:00 REFERENCE ASSISTANT 11/08/17 at 0600, Intra-procedure (IR) in this encounter
--- OUTSIDE RECORDS SUMMARY | 2017-11-28 15:24 | XMS REPORT | Encounter Summary ---
Author Author [facility] Organization [facility] Address Unknown Phone Unavailable Care Team Providers Care Management Analyst Name Role Phone Jose De Jesus Rocha MD PCP Dario Pandya MD 21 Encounter Details Date Type Department Care Team Description 11/07/2017 Procedure Pass Cardiac Catheterization Laboratory [address] [place] [address] Social History Tobacco Use Types Packs/Day Years Used Date Former Smoker Cigarettes Quit: 2002 Alcohol Use Drinks/Week oz/Week Comments Yes occasional Sex Assigned at Date Recorded Not on file as of this encounter Plan of Treatment Not on fileas of this encounter Visit Diagnoses Not on filein this encounter
--- OUTSIDE RECORDS SUMMARY | 2017-11-28 15:24 | XMS REPORT | Encounter Summary ---
Author Author [facility] Organization [facility] Address Unknown Phone Unavailable Care Team Providers Care Manhole Builder Name Role Phone Jose De Jesus Rocha MD PCP Dario Pandya MD 21 Encounter Details Date Type Department Care Team Description 11/07/2017 Procedure Pass Cardiac Catheterization Laboratory [address] [place] [address] Social History Tobacco Use Types Packs/Day Years Used Date Former Smoker Cigarettes Quit: 2002 Alcohol Use Drinks/Week oz/Week Comments Yes occasional Sex Assigned at Date Recorded Not on file as of this encounter Plan of Treatment Not on fileas of this encounter Visit Diagnoses Not on filein this encounter
--- OUTSIDE RECORDS SUMMARY | 2017-11-28 15:24 | XMS REPORT | Encounter Summary ---
Author Author [facility] Organization [facility] Address Unknown Phone Unavailable Care Team Providers Care Associate Trainer Name Role Phone Jose De Jesus Rocha [...] Details Date Type Department Care Team Description 11/23/2017 PAC Office Preoperative Assessment Galindo Cuenca MD 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, Visit Clinic [address] etiology of cardiac valve [address] [place] [address] [place] [address] [phone] Anesthesia Record Procedure Name Responsible Anesthesia Start Time Anesthesia Stop Time Anesthesiologist REPLACEMENT TRANSCATHETER Flash Pino MD 11/24/17 0722 11/24/17 1023 AORTIC VALVE-evolut, left common femoral artery approach, 29 pro valve (N/A ) Date Time Event Comment 547 AN Equip Check 2017 0722 Anes Start 0727 An Start Data 0741 An Induction The patient was reevaluated immediately before moderate or deep sedation use and before anesthesia induction. 0749 An Intubation 0807 CVC 0808 Art Line 0815 Anesthesia Ready 0816 AN MONTSE 0816 Antibiotic Given 0915 Quick Note BP difficult to resuscitate related to frequent non- perfusing PVCs, and device stenting across [place] valve. Discussed with interventionalist and agreed to proceed in deployment. 0920 Valve Deployed 0931 Quick Note Balloon with rapid pacing 1009 An Extubation 1015 Transport 1015 an stop data 1023 Handoff to RN I completed my SBAR handoff to the receiving nurse. 1023 An Stop 1030 Quick Note SpO2 falling after rapid pacing; LVEDP climbing. Likely pulmonary edema/congestion developing. Meds * No agents on file. * No blood administrations on file. Type Details Placement Removal Puncture 11/24/17; Right; Femoral 11/24/17 0000 by Everett Wound CELIA Leblanc (Sheath) Wounds 11/24/17; 1016; [...] 11/24/17 0744 by Willie, 06/06 0210 by Dante, Urinary (Two-way); 11/25/17; 0210 (patient c/o CELIA Lawson, CELIA Catheter unrelieved pain in groin) ETT 11/24/17; 0748; Ventilated by mask (1) 11/24/17 0748 by 11/24/17 1009 by (Two hand); Video laryngoscopy, Stylet; Abel Mancia MD Harrison, Sean, MD Single-Lumen, Cuffed; 7.5mm; GlideScope; 3; Oral; 1-Full view of the glottis; 1 insertion attempt; Auscultation, ETCO2 Detector; 23 centimeters; 11/24/17; 1009 Introducer 11/24/17; 0807 (created via procedure 11/24/17 08 by 914 by Wattier, / Cordis documentation); OR; Yes; (6 Fr); Abel Mancia MD Clinton, RN Chlorhexadine (CHG) impregnated sponge; 11/25/17; 0915 Arterial 11/24/17; 0808 (created via procedure 11/24/17 08 by Mensch, 11/25/17919 by Watcharley, Line documentation); R; Radial; 20 G; MD Anatoliy Vidales, RN 11/25/17; 919 in this encounter Social History Tobacco Use Types Packs/Day Years Used Date Former Smoker Cigarettes 10 13 Quit: 2002 Smokeless Tobacco: Never Used Alcohol Use Drinks/Week oz/Week Comments Yes occasional Sex Assigned at Date Recorded Not on file as of this encounter Last Filed Vital Signs Vital Sign Reading Time Taken Blood Pressure 104/49 11/23/2017 12:15 PM DEPUTY REGISTER OF DEEDS Pulse 68 11/23/2017 12:11 PM DEPUTY REGISTER OF DEEDS Temperature 37 C (98.6 F) 11/23/2017 12:11 PM DEPUTY REGISTER OF DEEDS Respiratory Rate - - Oxygen Saturation 95% 11/23/2017 12:11 PM DEPUTY REGISTER OF DEEDS Inhaled Oxygen - - Concentration Weight 113.4 kg (250 lb) 11/23/2017 12:11 PM DEPUTY REGISTER OF DEEDS Height 167.6 cm (5' 6") 11/23/2017 12:11 PM DEPUTY REGISTER OF DEEDS Body Mass Index 40.35 11/23/2017 12:11 PM DEPUTY REGISTER OF DEEDS in this encounter Instructions * Pre-Anesthesia Medication Instructions - Cole Angelo, PHARMD - 11/23/2017 12 :03 PM DEPUTY REGISTER OF DEEDS Formatting of this note may be different from the original. YOUR MEDICATIONS: aspirin EC 81 mg tablet Take 81 mg by mouth at bedtime daily. Take with food. baclofen (LIORESAL) 10 mg tablet Take 10 mg by mouth daily as needed for Muscle Cramps. carvedilol (COREG) 3.125 mg tablet Take 3.125 mg by mouth twice daily. Take with food. enalapril (VASOTEC) 2.5 mg tablet Take 2.5 mg by mouth twice daily. Fish Oil-DHA-EPA 1,200-144-216 mg cap Take 1 capsule by mouth twice daily. hydrOXYzine pamoate (VISTARIL) 25 mg capsule Take 25 mg by mouth daily as needed for Itching. loratadine (CLARITIN) 10 mg tablet Take 10 mg by mouth daily as needed ( allergy symptoms). meloxicam (MOBIC) 15 mg tablet Take 15 mg by mouth daily as needed for Pain. MULTIVIT-MINERALS/FERROUS FUM (MULTI VITAMIN PO) Take 1 tablet by mouth every morning. rosuvastatin (CRESTOR) 10 mg tablet Take 10 mg by mouth at bedtime daily. YOUR MEDICATION INSTRUCTIONS FOR SURGERY: Before surgery Stop the following medications NOW: Vitamins, supplements and herbal and natural products including: Fish Oil Multivitamin Stop the following medications NOW: Anti-inflammatory medications such as ibuprofen (Advil, Motrin), naproxen ( Aleve) and meloxicam (Mobic) You may use acetaminophen (Tylenol) Please follow these instructions regarding your blood thinner medications: Aspirin - continue as usual. Morning of surgery On the morning of surgery, do NOT take these medications: Remaining vitamins/supplements Ointments/creams/lotions Enalapril On the morning of surgery, take ONLY these medications with a sip (1-2 ounces) of water: Carvedilol Other information Before surgery, please contact the clinic pharmacist with any medicine updates or questions. E-mail: [email or web address] Before going home from the hospital, please ask your doctor when you should re- start your medicines that were stopped before surgery. in this encounter Progress Notes * Thi Skinner RN - 11/23/2017 12:00 PM DEPUTY REGISTER OF DEEDS Patient seen in PAC for preop evaluation. Denies rashes, wounds/skin breakdown and dental caries. Patient seen by Dr. Barbara Martínez. Medication reviewed and instructions given by pharmD. Labs and EKG obtained as ordered. Profile updated. Preop instructions given by CTS liaison. * Cole Angelo PHARMD - 11/23/2017 12:00 PM DEPUTY REGISTER OF DEEDS PAC Beta Kitty Instructions Note: Jaden Rios was seen in the PAC on 11/23/2017. As part of the visit, an accurate medication list was obtained and the patient was given pre-op medication instructions for upcoming surgery on 11/24/17. Jaden Rios is currently taking a beta kitty/carvedilol. The patient was instructed to continue their beta kitty as prescribed and to take it on the day of surgery. The patient verbalized understanding. MARTHA LiangD in this encounter Plan of Treatment Name Priority Associated Diagnoses Date/Time UA REFLEX CULTURE LABEL STAT 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, 11/23/2017 1:23 PM DEPUTY REGISTER OF DEEDS etiology of cardiac valve disease unspecified as of this encounter Results * URINALYSIS MICROSCOPIC REFLEX TO CULTURE (11/23/2017 1:23 PM) Component Value Ref Range WBCs,UA 0-2 0 - 2 /HPF RBCs,UA 0-2 0 - 3 /HPF Comment,UA Urine submitted for reflex culture if criteria are met:WBC>10, positive nitrite and/or >=1+ leukocyte esterase. If quantity is not sufficient, an addendum will follow. Specimen Performing Laboratory [facility] [address] [place] [address] * URINALYSIS DIPSTICK REFLEX TO CULTURE (11/23/2017 1:23 PM) Component Value Ref Range Color,UA STRAW Turbidity,UA CLEAR CLEAR-CLEAR Specific Dana-Urine 1.004 1.003 - 1.035 pH,UA 8.0 5.0 - 8.0 Protein,UA NEG NEG-NEG Glucose,UA NEG NEG-NEG Ketones,UA NEG NEG-NEG Bilirubin,UA NEG NEG-NEG Blood,UA NEG NEG-NEG Urobilinogen,UA NORMAL NORM-NORMAL Nitrite,UA NEG NEG-NEG Leukocytes,UA NEG NEG-NEG Urine Ascorbic Acid, UA NEG NEG-NEG Specimen Performing Laboratory [facility] [address] [place] [address] * TYPE & CROSSMATCH (11/23/2017 12:19 PM) Component Value Ref Range Units Ordered 2 Crossmatch Expires 11/26/2017 Record Check 2ND TYPE REQUIRED ABO/RH(D) O POS Antibody Screen NEG Electronic Crossmatch YES Unit Number [id number] Blood Component Type RBC,ADSOL,LEUKO REDUCED Unit Division 0 Status OF Unit REL FROM ALLOC Transfusion Status OK TO TRANSFUSE Crossmatch Result COMPATIBLE,ELECTRONIC Unit Number [id number] Blood Component Type RBC,ADSOL,LEUKO REDUCED Unit Division 0 Status OF Unit REL FROM ALLOC Transfusion Status OK TO TRANSFUSE Crossmatch Result COMPATIBLE,ELECTRONIC Specimen Performing Laboratory [facility] [address] [place] [address] * PTT (APTT) (11/23/2017 12:19 PM) Component Value Ref Range APTT 31.4 21.0 - 39.0 SEC Specimen Performing Laboratory [facility] [address] [place] [address] * PROTIME INR (PT) (11/23/2017 12:19 PM) Component Value Ref Range INR 1.0 0.8 - 1.2 Specimen Performing Laboratory [facility] [address] [place] [address] * HEMOGLOBIN A1C (11/23/2017 12:19 PM) Component Value Ref Range Hemoglobin A1C 5.9 4.0 - 6.0 % Comment: The ADA recommends that most patients with type 1 and type 2 diabetes maintain an A1c level <7%. Specimen Performing Laboratory [facility] [address] [place], [place] [id number] * COMPREHENSIVE METABOLIC PANEL (11/23/2017 12:19 PM) [...] Specimen Performing Laboratory [facility] [address] [place] [id number] * CBC (11/23/2017 12:19 PM) Component Value [...] Performing Laboratory [facility] [address] [place] [address] * BNP (B-TYPE NATRIURETIC PEPTI) (11/23/2017 12:19 PM) Component Value Ref Range B Type Natriuretic 202.0 (H) 0 - 100 PG/ML Peptide Specimen Performing Laboratory [facility] [address] [place] [address] in this encounter Visit Diagnoses Diagnosis 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, etiology of cardiac valve disease unspecified
--- OUTSIDE RECORDS SUMMARY | 2017-11-28 15:25 | XMS REPORT | Encounter Summary ---
Author Author [facility] Organization [facility] Address Unknown Phone Unavailable Care Team Providers Care Drafting Instructor Name Role Phone Jose De Jesus Rocha MD PCP Dario Pandya MD 21 Reason for Visit * Reason Comments General Question Encounter Details Date Type Department Care Team Description 10/26/2017 Telephone [facility] Thoracic & Lulu Kamara RN General Question Cardiovascular Surgeons [address] [place] [address] Social History Tobacco Use Types Packs/Day Years Used Date Former Smoker Cigarettes Quit: 2002 Alcohol Use Drinks/Week oz/Week Comments Yes occasional Sex Assigned at Date Recorded Not on file as of this encounter Miscellaneous Notes * Telephone Encounter - Lulu Kamara RN - 10/26/2017 11:30 AM PAPER MILL SUPERVISOR Pt was able to get in and see PCP. Was diagnosed with Bilateral Hydrocele. Instructed to continue with TAVR work up and get valve fixed before following up with hydrocele. Will put in notation. * Telephone Encounter - Lulu Kamara RN - 10/26/2017 9:47 AM PAPER MILL SUPERVISOR Pt seen yesterday, did not mention to Dr. De Jesus or Dr. Cuenca that he has a swollen scrotum and might have an inguinal hernia. Pt is afraid that it might interfere with groin access. Pt will get appt at PCP to have it evaluated and let us know if any further testing is planned prior to having Cath done on . Verified that pt has our # to report back any changes in status or plan. in this encounter Plan of Treatment Not on fileas of this encounter Visit Diagnoses Not on filein this encounter
--- OUTSIDE RECORDS SUMMARY | 2017-11-28 15:25 | XMS REPORT | Encounter Summary ---
Author Author [facility] Organization [facility] Address Unknown Phone Unavailable Care Team Providers Care Television Engineer Name Role Phone Jose De Jesus Rocha MD PCP Dario Pandya MD 21 Reason for Referral * Test Status Reason Specialty Diagnoses / Referred By Referred To Procedures Contact Contact No Auth Needed Cardiology Diagnoses Janneth Pratt Bhg Card Echopv Aortic valve FOUNTAIN DISPENSER-C [address] stenosis, [address] [place] etiology of [address] [place], [place] cardiac valve [place] [address] [address] disease [place], [place] Phone: unspecified [phone] P Phone: rocedures [phone] 2-D + DOPPLER Fax: ECHOCARDIOGRAM [phone] [place] ECHO TTHRC R-T 2D W/WOM-MODE COMPL SPEC&COLR D * Test Status Reason Specialty Diagnoses / Referred By Referred To Procedures Contact Contact No Auth Needed Cardiology Diagnoses Janneth Pratt Bhg Card Echopv Aortic valve FOUNTAIN DISPENSER-C [address] stenosis, [address] [place] etiology of [address] [place], [place] cardiac valve [place] [address] [address] disease [place], [place] Phone: unspecified [phone] P Phone: rocedures [phone] 2-D + DOPPLER Fax: ECHOCARDIOGRAM [phone] [place] ECHO TTHRC R-T 2D W/WOM-MODE COMPL SPEC&COLR D Reason for Visit * Test Status Reason Specialty Diagnoses / Referred By Referred To Procedures Contact Contact No Auth Needed Cardiology Diagnoses Janneth Pratt, [facility] Card Echopv Aortic valve FOUNTAIN DISPENSER-C [address] stenosis, [address] [place] etiology of [address] [place], [place] cardiac valve [place] [address] [address] disease [place], [place] Phone: unspecified [phone] P Phone: rocedures [phone] 2-D + DOPPLER Fax: ECHOCARDIOGRAM [phone] [place] ECHO TTHRC R-T 2D W/WOM-MODE COMPL SPEC&COLR D Encounter Details Date Type Department Care Team Description 10/25/[address] [facility] Cardiology Janneth Pratt, FOUNTAIN DISPENSER-C Encounter [address] [place] [address] [place] [address] [address] [place] [address] [phone] Social History Tobacco Use Types Packs/Day Years Used Date Former Smoker Cigarettes Quit: 2002 Alcohol Use Drinks/Week oz/Week Comments Yes occasional Sex Assigned at Date Recorded Not on file as of this encounter Medications at Time of Discharge [...] as of this encounter Progress Notes * Niall Alegre RN - 10/25/2017 12:51 PM SHEET ROCK LAYER Peripheral IV Insertion Note: Patient Side: left Line Orientation:Forearm IV Catheter Size: 22G Number of Attempts:1. IV capped and flushed with Normal Saline. IV site without redness, swelling, or pain. New dressing placed. IV will be removed after Definity is given by vacation planner. in this encounter Plan of Treatment Not on fileas of this encounter Results * 2-D + DOPPLER ECHOCARDIOGRAM (10/25/2017 1:09 PM) Component Value Ref Range LA volume 44.0 18 - 58 cm3 LA size 4.1 3.0 - 4.0 cm Sinus 4.1 2.1 - 3.5 cm IVS 1.0 0.6 - 1.0 cm LVIDD 5.4 4.2 - 5.9 cm LVIDS 3.6 cm PW 1.1 0.6 - 1.0 cm TDI e' 0.05 m/s MV Peak A Fabiano 1.100 m/s MV Peak E Fabiano PW 0.800 m/s Right Ventricular Mid 2.7 1.9 - 3.5 cm Diameter Right Ventricular Basal 3.7 2.5 - 4.1 cm Diameter Right Atrial Major 5.9 <=5.3 cm Dimension Right Atrial Area 17.3 <=18 cm2 Right Ventricular Long 7.2 5.9 - 8.3 cm Diameter FS 33.33 28 - 44 % EF 56.66 % E/A ratio 0.73 E/E' ratio 16.00 BSA 2.3 m2 Left Atrium Index 19.13 10 - 32 Referring Provider Bob Rocha ECHO PV BLASTING HELPER CELIA Tierney Ao root annulus 2.0 1.4 - 2.6 cm STJ 3.3 1.7 - 3.4 cm Ascending aorta 3.4 2.0 - 3.6 cm , with a mean gradient of 53 mmHg AV peak velocity 5.1 m/s LVOT diameter 2.2 cm LVOT peak fabiano 0.8 m/s LVOT peak VTI 20.0 cm Ao VTI 124.0 cm and a peak gradient of 105 mmHg AV index ([place]) 0.16 LVOT area 3.80 cm2 LVOT stroke volume 76.00 cm3 Aortic valve area= 0.61 cm2 TV rest pulmonary artery n/a mmHg pressure ECHO EF 60 % Specimen Performing Laboratory OTHER OUTSIDE LAB Narrative Technically difficult study; i.v. transpulmonary contrast was used to define the endocardial borders. Normal left ventricular systolic function, estimated ejection fraction is 60%. Grade I (mild) left ventricular diastolic dysfunction. Severely sclerotic aortic valve, severe stenosis (MG=53 mmHg, peak velocity=5.1 m/sec, HR=349 , NEHEMIAH=0.61 cm), no regurgitation. The pulmonary artery pressure could not be obtained. The sinuses of Valsalva are mildly dilated. in this encounter Visit Diagnoses Diagnosis 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, etiology of cardiac valve disease unspecified Administered Medications Medication Order MAR Action Action Date Dose Rate Site perflutren lipid microspheres (DEFINITY) Given 10/25/2017 2 Diluted mL injection 1-20 Diluted mL 13:09 SHEET ROCK LAYER 1-20 Diluted mL, Intravenous, ONCE, 1 dose, 10/25/17 at 1300, NOTE: This is a HIGH ALERT Medication. in this encounter
--- OUTSIDE RECORDS SUMMARY | 2017-11-28 15:25 | XMS REPORT | Encounter Summary ---
Author Author [facility] Organization [facility] Address Unknown Phone Unavailable Care Team Providers Care Cattle Manager Name Role Phone Jose De Jesus Rocha MD PCP Dario Pandya MD 21 Reason for Visit * Reason Comments Cardiac Eval /AVR vs TAVR, echo today New Patient ref Dr Pandya * Consult, Test & Treat Status Reason Specialty Diagnoses / Referred By Referred To Procedures Contact Contact New Request Specialty Cardiology Diagnoses Dario Pandya, Services Aortic valve Required stenosis, [address] [facility] [address] cardiac valve [place], [place] disease [address] unspecified Encounter Details Date Type Department Care Team Description 10/25/2017 Office Visit [facility] Galindo Cuenca MD Nonrheumatic aortic valve [facility] [address] stenosis (Primary Dx) [address] [place] [address] [place] [address] [phone] Social History Tobacco Use Types Packs/Day Years Used Date Former Smoker Cigarettes Quit: 2002 Alcohol Use Drinks/Week oz/Week Comments Yes occasional Sex Assigned at Date Recorded Not on file as of this encounter Last Filed Vital Signs Vital Sign Reading Time Taken Blood Pressure 128/78 10/25/2017 1:09 PM OWNER/PHOTOGRAPHER Pulse 67 10/25/2017 1:09 PM OWNER/PHOTOGRAPHER Temperature - - Respiratory Rate - - Oxygen Saturation 92% 10/25/2017 1:09 PM OWNER/PHOTOGRAPHER Inhaled Oxygen - - Concentration Weight 115.2 kg (254 lb) 10/25/2017 1:09 PM OWNER/PHOTOGRAPHER Height 165.1 cm (5' 5") 10/25/2017 1:09 PM OWNER/PHOTOGRAPHER Body Mass Index 42.27 10/25/2017 1:09 PM OWNER/PHOTOGRAPHER in this encounter Progress Notes * Galindo Cuenca MD - 10/25/2017 1:00 PM OWNER/PHOTOGRAPHER Formatting of this note may be different from the original. Date of Service: 10/25/2017 Subjective: Jaden Rios [...] Oumar Hernandez MD Fellow, Cardiothoracic Surgery Pager [phone] I had the pleasure of seeing Mr. [...] further questions, please feel free to call. (DOC:[id number]) in this encounter Plan of Treatment Not on fileas of this encounter Visit Diagnoses Diagnosis Nonrheumatic aortic valve stenosis - Primary Aortic valve disorders
--- OUTSIDE RECORDS SUMMARY | 2017-11-28 15:25 | XMS REPORT | Encounter Summary ---
Author Author [facility] Organization [facility] Address Unknown Phone Unavailable Care Team Providers Care Photovoltaic Subcontractor Name Role Phone Jose De Jesus Rocha MD PCP Dario Pandya MD 21 Reason for Visit * Auth/Cert Status Reason Specialty Diagnoses / Referred By Referred To Procedures Contact Contact Diagnoses AORTIC STENOSIS P rocedures VA R & L HRT CATH WINJX HRT ART& L VENTR IMG ANGIOGRAPHY CORONARY ARTERY WITH RIGHT AND LEFT HEART CATHETERIZATION WITH VENTRICULOGRAPHY Encounter Details Date Type Department Care Team Description 11/07/2017 Surgery Cardiac Catheterization Eugene Nguyen MD ANGIOGRAPHY CORONARY Laboratory [address] ARTERY POSSIBLE WITH [address] [place] [address] [place] [address] CATHETERIZATION WITH [phone] VENTRICULOGRAPHY Social History Tobacco Use Types Packs/Day Years Used Date Former Smoker Cigarettes Quit: 2002 Alcohol Use Drinks/Week oz/Week Comments Yes occasional Sex Assigned at Date Recorded Not on file as of this encounter Last Filed Vital Signs Vital Sign Reading Time Taken Blood Pressure 98/53 11/08/2017 7:00 AM APPLICATION DEFENSE MANAGER Pulse 60 11/08/2017 7:00 AM APPLICATION DEFENSE MANAGER Temperature 36.7 C (98 F) 11/08/2017 7:00 AM APPLICATION DEFENSE MANAGER Respiratory Rate - - Oxygen Saturation 98% 11/08/2017 7:00 AM APPLICATION DEFENSE MANAGER Inhaled Oxygen - - Concentration Weight 113 kg (249 lb 1.9 oz) 11/07/2017 9:04 AM APPLICATION DEFENSE MANAGER Height 165.1 cm (5' 5") 11/07/2017 9:04 AM APPLICATION DEFENSE MANAGER Body Mass Index 41.46 11/07/2017 9:04 AM APPLICATION DEFENSE MANAGER in this encounter Discharge Summaries * Megan Stallings PA-C - 11/07/2017 3:59 PM APPLICATION DEFENSE MANAGER Formatting of this note may be [...] HOURS (8:00 AM - 4:30 PM): Call [phone] and asked to be transferred to your discharge attending physician. - AFTER BUSINESS HOURS (4:30 PM - 8:00 AM, on weekends, or holidays): Call [phone] and ask the bus operator to page the on-call doctor for the discharge attending physician. Discharging attending physician: EUGENE NGUYEN [[id number]] Low Fat / Low Cholesterol Diet Your goal is to limit the amount of saturated and trans fats in your diet. Keep track of how much cholesterol you eat and limit the total amount to 200mg ( milligrams) a day. If you have questions about your diet after you go home, you can call a dietitian at [phone]. Incision Care *Call if there is an increase in pain, swelling, or redness. *DO NOT soak incision in water. *NO tub baths, hot tubs, or swimming. *You may shower after discharge. Return Appointment Heart Valve clinic staff will contact the patient for further instructions. [facility] Provider GIOVANI PRATT [[id number]] Current Discharge Medication List CONTINUE these medications [...] Shell Ramos RN - 11/07/2017 12:39 PM APPLICATION DEFENSE MANAGER Manual Sheath Removal From A Large Vein [...] to speak with someone? During Business Hours: [facility] Office at the [facility]: (Tuesday-Tuesday) [place]: [phone] (Tuesday-Tuesday) [place]: [phone] (Tuesday-Tuesday) [place]: [phone] (Tuesday and ) [place]: [phone] (Tuesday-Tuesday) [place]: [phone] (Tuesday-Tuesday) [place]: [phone] (Tuesday-) [facility]: [phone] (Tuesday, Tuesday and Tuesday) [place]: [phone] (Tuesday, Tuesday and Tuesday) [facility]): [phone] (Tuesday, Tuesday and Tuesday) Nights and Weekends [facility]iology Office at the [facility]: [phone] This education is meant to serve as a resource to you and your family. It is not meant to be all inclusive. The members of the [facility] at [facility], , will be glad to [...] Jenny Nguyễn RN - 11/08/2017 8:50 AM APPLICATION DEFENSE MANAGER Patient discharged to home with all belongings. Discharge instructions, med reconciliation and home wound care instructions given and explained to patient and family both verbally and written. Accompanied by transport. No complaints of pain or discomfort. Right radial puncture site remains clean, dry, and intact with no evidence of a hematoma after ambulation. Patient escorted to [facility] via Transport. Patient to follow up with [facility] ([facility]) or on-call physician with any additional questions or concerns. All contact numbers provided. Patient and family acceptant of DC instuctions and report understanding to all information. in this encounter H&P Notes * Shani Palafox PA-C - 11/03/2017 2:45 PM APPLICATION DEFENSE MANAGER Formatting of this note may be different from the original. Patient presents for TAVR workup. Please see History and Physical copied below from date of service 10/25/17. Shani Palafox, MATILDE ([id number]) Progress Notes Chase Neri MD (Physician) Cardiology 10/25/17 1300 Signed Date of Service: 10/25/2017 Jaden Rios is a 72 y.o. male. HPI We had the pleasure of seeing Mr. Jaden Rios who is a pleasant 72-year- old male who has been referred to [facility] Cardiology Valve clinic for evaluation of his [...] plan serial echocardiograms surveillance by his primary registered dental hygienist given knowledge of a mildly stenotic valve per invasive hemodynamics years prior on his [facility]. With regards to his previous valvular evaluations, the patient has been receipt of a transthoracic echocardiogram on September 08, 2017 by his primary registered dental hygienist Dr. Pinon where it was observed the [...] proposed TAVR - We will continue patient's MATTRESS FILLER baby aspirin 81, Coreg 3.25, enalapril 2.5, and Coreg 10 mg Enoch Dent II MD Fellow, Division of Cardiovascular Medicine [facility] Pager # [phone] Cardiology Staff Attestation I have personally seen, examined, and evaluated this patient. I concur with the above medical documentation including alves parts of the history & physical examination as outlined by the enrollment processor and jointly formulated the treatment plan. Worsening dyspnea on exertion likely from aortic stenosis. Volume status currently stable. Updated echocardiogram from today with very severe aortic stenosis: Aortic valve area=0.61 cm2 Aortic valve mean gradient=53 mmHg Aortic valve peak rseztjbm=436 mmHg Aortic valve peak velocity=: 5.1 m/s Aortic valve velocity ratio=: 0.16 Will need updated cardiac catheterization and coronary angiography and dedicated CTA chest/abd/pelvis. Will be good candidate for Transcatheter Aortic Valve Replacement (TAVR). Chase Neri MD, FACC, FACP in this encounter Procedure Notes * Eugene Nguyen MD - 11/07/2017 11:18 AM APPLICATION DEFENSE MANAGER Associated Order(s): CARDIAC CATH REPORT Formatting of this note may be different from the original. [facility]iology at [facility] CARDIAC CATHETERIZATION REPORT Page 2 JADEN Rowland : 1945 #: [id number] JOSE MR #/Billing ID #: [id number] / [id number] DATE: 11/07/2017 TRACTOR DRILL OPERATOR: Eugene Nguyen MD DICTATING PROVIDER: Eugene Nguyen MD REFERRING PHYSICIAN: GIOVANI PRATT PROCEDURE PERFORMED: Coronary angiography. INDICATION: Severe aortic valve stenosis. Plan for possible TAVR. CONSENT: The patient was consented in the holding area prior to being brought to the cardiac laboratory equipment cleaner. Risks of the procedure, including the potential risk of stroke, myocardial infarction and were discussed. He understood and agreed to proceed. PROCEDURE DETAILS: The patient was brought to the cardiac catheterization laboratory in a fasting, nonsedated state. After confirming a normal Barbeau test, the right wrist was prepped and draped in usual fashion. Access was obtained in the radial artery without difficulty. A 6-Salvadorean Slender sheath was placed. The patient was [...] Severe aortic valve stenosis. Eugene Nguyen MD ES/MedCarmen //[id number] cc: - MD Galindo Sauceda MD Dr. Segli in this encounter Consult Notes * Chase Gruber PA-C - 11/07/2017 8:54 AM APPLICATION DEFENSE MANAGER Formatting of this note may be different from the original. The original H&P below was performed and dictated by Dr. Oumar Hernandez and Dr. Cuenca. Patient presents for TAVR workup and second surgeon opinion. Chase Gruber PA-C Pager [phone] Date of Service: 10/25/2017 Subjective: Jaden Rios [...] Oumar Hernandez MD Fellow, Cardiothoracic Surgery Pager [phone] I had the pleasure of seeing Mr. [...] Chuy Vega MD - 11/07/2017 10:59 AM APPLICATION DEFENSE MANAGER I reviewed clinical data and examined Mr. [...] E/M visit, discussed case with the physician marketing administrative assistant and concur with the PA documentation of history, physical exam, assessment, and treatment plan unless otherwise noted. MARICRUZ Vega in this encounter Plan of Treatment Not on fileas of this encounter Procedures Procedure Name Priority Date/Time Associated Diagnosis Comments PROCEDURE RECORD-SCAN 11/14/2017 Results for this 11:52 AM APPLICATION DEFENSE MANAGER procedure are in the results section. TELEMETRY STRIPS-SCAN 11/14/2017 Results for this 11:28 AM APPLICATION DEFENSE MANAGER procedure are in the results section. ECG-SCAN 11/14/2017 Results for this 11:28 AM APPLICATION DEFENSE MANAGER procedure are in the results section. in [...] Interface, Radiant Results - 11/08/2017 12:07 PM APPLICATION DEFENSE MANAGER CTA chest, CTA abdomen and pelvis Indication: [...] Interface, Radiant Results - 11/08/2017 12:07 PM APPLICATION DEFENSE MANAGER CTA chest, CTA abdomen and pelvis Indication: [...] - 2.6 mg/dL Specimen Performing Laboratory Blood MAIN LAB [address] [place] [id number] * CBC (11/08/2017 5:20 AM) Component Value [...] Specimen Performing Laboratory Blood MAIN LAB [address] [place] [address] * BASIC METABOLIC PANEL (11/08/2017 5:20 AM) [...] Specimen Performing Laboratory Blood MAIN LAB [address] [place] [address] * CARDIAC CATH REPORT (11/07/2017 11:18 AM) Specimen Performing Laboratory OTHER OUTSIDE LAB Procedure Note Eugene Nguyen MD - 11/07/2017 11:18 AM APPLICATION DEFENSE MANAGER Formatting of this note may be different from the original. [facility] at [facility] CARDIAC CATHETERIZATION REPORT Page 2 JADEN Rowland : 1945 #: [id number] MR #/Billing ID #: [id number] / [id number] DATE: 11/07/2017 TRACTOR DRILL OPERATOR: Eugene Nguyen MD DICTATING PROVIDER: Eugene Nguyen MD REFERRING PHYSICIAN: GIOVANI PRATT PROCEDURE PERFORMED: Coronary angiography. INDICATION: Severe aortic valve stenosis. Plan for possible TAVR. CONSENT: The patient was consented in the holding area prior to being brought to the cardiac laboratory equipment cleaner. Risks of the procedure, including the potential risk of stroke, myocardial infarction and were discussed. He understood and agreed to proceed. PROCEDURE DETAILS: The patient was brought to the cardiac catheterization laboratory in a fasting, nonsedated state. After confirming a normal Barbeau test, the right wrist was prepped and draped in usual fashion. Access was obtained in the radial artery without difficulty. A 6-Salvadorean Slender sheath was placed. The patient was [...] plaque. 2. Severe aortic valve stenosis. MD GIANNI Ag/Rolando //[id number] cc: - MD Galindo Sauceda MD Dr. [...] Performing Laboratory Blood [facility] MAIN LAB [address] [place] [address] * POC PT/INR (11/07/2017 9:10 AM) Component Value Ref Range INR POC 1.0 0.8 - 1.2 Specimen Performing Laboratory MAIN LAB [address] [place] [address] in this encounter Visit Diagnoses Not on filein this encounter Admitting Diagnoses Diagnosis AORTIC STENOSIS Severe aortic stenosis Administered Medications Medication Order MAR Action Action Date Dose Rate Site aspirin EC tablet 81 mg Given 11/08/2017 81 mg 81 mg, Oral, DAILY, First dose on Tue 07:24 APPLICATION DEFENSE MANAGER 11/08/17 at 0900, Until Discontinued, Admission/Obs/Extended Recovery carvedilol (COREG) tablet 3.125 mg Given 11/07/2017 3.125 mg 3.125 mg, Oral, TWICE DAILY, First dose 20:07 APPLICATION DEFENSE MANAGER on Tue11/07/17 at 2100, Until Discontinued, Hold for heart rate < 60 bpm or systolic BP < 90 Given 11/08/2017 3.125 mg 07:24 APPLICATION DEFENSE MANAGER enalapril (VASOTEC) tablet 2.5 mg Given 11/07/2017 2.5 mg 2.5 mg, Oral, TWICE DAILY, First dose on 20:06 APPLICATION DEFENSE MANAGER Tue11/07/17 at 2100, Until Discontinued, Admission/Obs/Extended Recovery iopamidol 370 (ISOVUE-370) injection 100 Given 11/08/2017 100 mL mL 06:00 APPLICATION DEFENSE MANAGER 100 mL, Intravenous, ONCE, 1 dose, Tue11/08/17 at 0600, NOTE: This is a HIGH ALERT Medication. rosuvastatin (CRESTOR) tablet 10 mg Given 11/07/2017 10 mg 10 mg, Oral, AT BEDTIME DAILY, First 20:07 APPLICATION DEFENSE MANAGER dose on Tue11/07/17 at 2100, Until Discontinued, Admission/Obs/Extended Recovery sodium chloride 0.9 % infusion Given - New 11/07/2017 100 mL/hr 1,000 mL, Intravenous, at 100 mL/hr, Bag 09:10 APPLICATION DEFENSE MANAGER CONTINUOUS, Starting 11/07/17 at 0900, Until 11/08/17 at 1050, If EF is <40%, contact CCL Charge Nurse [phone] before initiating fluid. sodium chloride PF 0.9% injection 50 mL Given 11/08/2017 50 mL 50 mL, Intravenous, ONCE, 1 dose, Tue 06:00 APPLICATION DEFENSE MANAGER 11/08/17 at 0600, Intra-procedure (IR) in this encounter
--- OUTSIDE RECORDS SUMMARY | 2017-11-28 15:25 | XMS REPORT | Encounter Summary ---
Author Author [facility] Organization [facility] Address Unknown Phone Unavailable Care Team Providers Care Application Security Consultant Name Role Phone Jose De Jesus Rocha MD PCP Dario Pandya MD 21 Encounter Details Date Type Department Care Team Description 10/25/2017 Hospital [facility] Janneth Pratt APRN-C Encounter Hospital Pulmonary [address] [place] [address] [place] [address] [phone] Social History Tobacco Use Types Packs/Day Years [...] Take with food. as of this encounter Plan of Treatment Not on fileas of this encounter Results * PFT COMPLETE PULM FUNCTION (10/25/2017 11:35 AM) Component Value Ref Range FVC-Pre 3.08 L FVC-%Pred-pre 89 % FEV1-Pre 2.45 L FEV1-%Pred-Pre 97 % UNM3841-Das 2.18 L/sec DRL7555-%Pred-Pre 112 % VCSVC-Pre 3.09 L ICSVC-Pre 2.47 [...] Specimen Performing Laboratory [facility] PFT MAIN [address] [place] [address] in this encounter Visit Diagnoses Diagnosis 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, etiology of cardiac valve disease unspecified - Primary
--- OUTSIDE RECORDS SUMMARY | 2017-11-28 15:25 | XMS REPORT | Encounter Summary ---
Author Author [facility] Organization [facility] Address Unknown Phone Unavailable Care Team Providers Care Weigh Boss Name Role Phone Jose De Jesus Rocha MD PCP Dario Pandya MD 21 Reason for Visit * Reason Comments Precertification Medicare Encounter Details Date Type Department Care Team Description 10/26/2017 Documentation [facility] Rakesh Patton RN Precertification [address] [place] (Medicare) [facility] [address] [place] [address] Social History Tobacco Use Types Packs/Day Years Used Date Former Smoker Cigarettes Quit: 2002 Alcohol Use Drinks/Week oz/Week Comments Yes occasional Sex Assigned at Date Recorded Not on file as of this encounter Progress Notes * Rakesh Patton RN - 10/26/2017 9:35 AM SPEAR FISHER Medicare is listed as patient's primary insurance coverage. Pre-certification is not required for hospitalizations. in this encounter Plan of Treatment Not on fileas of this encounter Visit Diagnoses Not on filein this encounter
--- OUTSIDE RECORDS SUMMARY | 2017-11-28 15:25 | XMS REPORT | Encounter Summary ---
Author Author [facility] Organization [facility] Address Unknown Phone Unavailable Care Team Providers Care Broadcast Transmitter Operator Name Role Phone Jose De Jesus Rocha MD PCP Dario Pandya MD 21 Encounter Details Date Type Department Care Team Description 10/25/[address] [facility] Cardiology Chase Neri MD Encounter [address] [place] [place] [address] [address] [place] [address] [phone] Social History Tobacco Use Types Packs/Day Years [...] on fileas of this encounter Results * COMPREHENSIVE METABOLIC PANEL (10/25/2017 2:29 PM) Component Value Ref Range Sodium 136 (L) 137 - 147 MMOL/L Potassium 4.4 3.5 - 5.1 MMOL/L Chloride 102 98 - 110 MMOL/L Glucose 99 70 - 100 MG/DL Blood Urea Nitrogen 12 7 - 25 MG/DL Creatinine 0.83 0.4 - 1.24 MG/DL Calcium 9.6 8.5 - 10.6 MG/DL Total Protein 8.0 6.0 - 8.0 G/DL Total Bilirubin 0.6 0.3 - 1.2 MG/DL Albumin 4.3 3.5 - 5.0 G/DL Alk Phosphatase 104 25 - 110 U/L AST (SGOT) 39 7 - 40 U/L CO2 27 21 - 30 MMOL/L ALT (SGPT) 34 7 - 56 U/L Anion Gap 7 [...] Performing Laboratory [facility] [address] [place] [address] * CBC (10/25/2017 2:29 PM) Component Value Ref Range White Blood Cells 8.7 4.5 - 11.0 K/UL RBC 4.54 4.4 - 5.5 M/UL Hemoglobin 14.0 13.5 - 16.5 GM/DL Hematocrit 41.8 40 - 50 % MCV 92.1 80 - 100 FL MCH 30.8 26 - 34 PG MCHC 33.5 32.0 - 36.0 G/DL RDW 13.7 11 - 15 % Platelet Count 238 150 - 400 K/UL MPV 8.9 7 - 11 FL Specimen Performing Laboratory [facility] [address] [place] [address] in this encounter Visit Diagnoses Diagnosis 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, etiology of cardiac valve disease unspecified Pre-procedure lab exam Pre-procedural laboratory examination
--- OUTSIDE RECORDS SUMMARY | 2017-11-28 15:25 | XMS REPORT | Encounter Summary ---
Author Author [facility] Organization [facility] Address Unknown Phone Unavailable Care Team Providers Care Cotton Breeder Name Role Phone Jose De Jesus Rocha MD PCP Dario Pandya MD 21 Reason for Visit * Reason Comments New Patient - TAVR Encounter Details Date Type Department Care Team Description 10/25/2017 Office Visit [facility] Chase Neri MD New Patient (- TAVR ) [address] [place] [address] [place] [address] [place] [address] [phone] Social History Tobacco Use Types Packs/Day Years Used Date Former Smoker Cigarettes Quit: 2002 Alcohol Use Drinks/Week oz/Week Comments Yes occasional Sex Assigned at Date Recorded Not on file as of this encounter Last Filed Vital Signs Vital Sign Reading Time Taken Blood Pressure 128/78 10/25/2017 12:27 PM GAMING MANAGER Pulse 67 10/25/2017 12:27 PM GAMING MANAGER Temperature - - Respiratory Rate - - Oxygen Saturation - - Inhaled Oxygen - - Concentration Weight 115.2 kg (254 lb) 10/25/2017 12:27 PM GAMING MANAGER Height 165.1 cm (5' 5") 10/25/2017 12:27 PM GAMING MANAGER Body Mass Index 42.27 10/25/2017 12:27 PM GAMING MANAGER in this encounter Progress Notes * Chase Neri MD - 10/25/2017 1:00 PM GAMING MANAGER Formatting of this note may be different from the original. Date of Service: 10/25/2017 Jaden Rios is a 72 y.o. male. HPI We had the pleasure of seeing Mr. Jaden Rios who is a pleasant 72-year- old male who has been referred to [facility] Cardiology Valve clinic for evaluation [...] plan serial echocardiograms surveillance by his primary wood room supervisor given knowledge of a mildly stenotic valve per invasive hemodynamics years prior on his [facility]. With regards to his previous valvular evaluations, the patient has been receipt of a transthoracic echocardiogram on September 08, 2017 by his primary wood room supervisor Dr. Pinon where it was observed the [...] List Diagnosis Date Noted Aortic stenosis 09/30/2017 Review of Systems Constitution: Negative. 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 I concur with the above medical documentation including alves parts of the history & physical examination as outlined by the manager licensing and jointly formulated the treatment plan. Worsening dyspnea on exertion likely from aortic stenosis. Volume status currently stable. Updated echocardiogram from today with very severe aortic stenosis: Aortic valve area=0.61 cm2 Aortic valve mean gradient=53 mmHg Aortic valve peak hizrkxzh=105 mmHg Aortic valve peak velocity=: 5.1 m/s Aortic valve velocity ratio=: 0.16 Will need updated cardiac catheterization and coronary angiography and dedicated CTA chest/abd/pelvis. Will be good candidate for Transcatheter Aortic Valve Replacement (TAVR). Chase Neri MD, FACC, FACP Current Medications (including today's revisions) aspirin EC 81 mg tablet Take 81 [...] 10 mg by mouth at bedtime daily. in this encounter Plan of Treatment Name Priority Associated Diagnoses Order Schedule ECG 12-LEAD Routine 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, Ordered: 10/25/2017 etiology of cardiac valve disease unspecified Pre-procedure lab exam as of this encounter Results * CBC (10/25/2017 2:29 PM) Component Value [...] Performing Laboratory [facility] [address] [place] [address] * COMPREHENSIVE METABOLIC PANEL (10/25/2017 2:29 PM) [...] Performing Laboratory [facility] [address] [place] [address] in this encounter Visit Diagnoses Diagnosis 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, etiology of cardiac valve disease unspecified - Primary Pre-procedure lab exam Pre-procedural laboratory examination Class 2 obesity with alveolar hypoventilation, serious comorbidity, and body mass index (BMI) of 37.0 to 37.9 in adult (HCC) Dyslipidemia Other and unspecified hyperlipidemia Chronic respiratory failure with hypoxia and hypercapnia (HCC) Stage 3 chronic kidney disease Essential hypertension Unspecified essential hypertension Coronary artery disease due to calcified coronary lesion
--- OUTSIDE RECORDS SUMMARY | 2017-11-28 15:26 | XMS REPORT | Encounter Summary ---
Author Author [facility] Organization [facility] Address Unknown Phone Unavailable Care Team Providers Care Pipe Stripper Name Role Phone Jose De Jesus Rocha MD PCP Dario Pandya MD 21 Reason for Referral * Test Status Reason Specialty Diagnoses / Referred By Referred To Procedures Contact Contact No Auth Needed Cardiology Diagnoses Janneth Pratt, Marcy Card Echopv Aortic valve CAT HOOKER-C [address] stenosis, [address] [place] etiology of [address] [place], [place] cardiac valve [address] [address] disease [place], [place] Phone: unspecified [phone] P Phone: rocedures [phone] 2-D + DOPPLER Fax: ECHOCARDIOGRAM [phone] CT ECHO TTHRC R-T 2D W/WOM-MODE COMPL SPEC&COLR D * Consult, Test & Treat Status Reason Specialty Diagnoses / Referred By Referred To Procedures Contact Contact New Request Specialty Cardiology Diagnoses Dario Pandya, Services Aortic valve Required stenosis, [address] [place] disease [address] unspecified Reason for Visit * Reason Comments Navigation Assessment / AVR vs TAVR eval Encounter Details Date Type Department Care Team Description 09/30/2017 Telephone [facility] Cardiology Marixa Acharya, CELIA Navigation Assessment [address] [place] (/ AVR vs TAVR eval) [address] [place] [address] Social History Tobacco Use Types Packs/Day Years Used Date Former Smoker Cigarettes Quit: 2002 Alcohol Use Drinks/Week oz/Week Comments Yes occasional Sex Assigned at Date Recorded Not on file as of this encounter Miscellaneous Notes * Telephone Encounter - Marixa Acharya RN - 10/18/2017 1:37 PM SALESFORCE ADMINISTRATOR Formatting of this note may be different from the original. Cardiac Navigation Intake Assessment Document Patient Name: Jadiel Rios : 1945 Insurance: Payor: MEDICARE / Plan: MEDICARE PART A AND B / Product Type: Medicare / Appointment Info:Future Appointments Date Time Provider Department Center 10/25/2017 11:30 AM [facility] 10/25/2017 1:00 PM MD PETRE Rubio [facility] 10/25/2017 1:00 PM Chase Neri MD [facility] 10/25/2017 3:00 PM CTS/TAVR [id number] None Diagnosis & Reason for Visit: /TAVR eval Physician Info: Referring Physician(Washing Machine Loader And Puller): Dario Pandya MD Contact Name & Number: [phone] PCP: Jose De Jesus Rocha History of Present Illness: 09/08/17 Echo Aortic valve: Mean Gradiant: 29 mmHg Valve Area: 0.71 cm2 Peak Velocity: 3.9 m/s Mitral Valve: Mild calcified Tricuspid valve: Mild regurgitation EF: 55-65% Add'l results per report 09/29/[address] Pandya Plan: Referral to valve clinic Medical history(Pertinent to valve workup) : CAD, Carotid artery stenosis, NURIA (wears Bipap), Lymphometoid papulosis Surgery/Procedure history (Pertinent to valve workup) : Echo (results above), Carotid US (08/09/17) Reported heart failure symptoms: Dyspnea with exertion NEEDS Assessment: Social Work/Financial: No need identified Physical: Independent Communication: No needs identified Reviewed records with Janneth Pratt APRN Plan: Echo, Office visit, PFT Comments: Spoke to Mr. Piña. Updated with plan. Updated with all appointment information. in this encounter Plan of Treatment Name Priority Associated Diagnoses Order Schedule AMB REFERRAL TO CARDIOVASCULAR SURGERY Routine 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, Ordered: 09/30/2017 etiology of cardiac valve disease unspecified as of this encounter Results * 2-D + [...] TDI e' 0.05 m/s MV Peak A Jorge 1.100 m/s MV Peak E Jorge PW 0.800 m/s Right Ventricular Mid 2.7 [...] Index 19.13 10 - 32 [facility] ECHO PV SUPERVISING LAW ENFORCEMENT ANALYST CELIA Tierney Ao root annulus 2.0 1.4 - 2.6 cm STJ 3.3 1.7 - 3.4 cm Ascending aorta 3.4 2.0 - 3.6 cm , with a mean gradient of 53 mmHg AV peak velocity 5.1 m/s LVOT diameter 2.2 cm LVOT peak jorge 0.8 m/s LVOT peak VTI 20.0 cm Ao VTI 124.0 cm and a peak gradient of 105 mmHg AV index ([place]) 0.16 LVOT area 3.80 cm2 LVOT stroke [...] severe stenosis (MG=53 mmHg, peak velocity=5.1 m/sec, ZP=803 , NEHEMIAH=0.61 cm), no regurgitation. The pulmonary artery pressure could not be obtained. The sinuses of Valsalva are mildly dilated. in this encounter Visit Diagnoses Diagnosis 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, etiology of cardiac valve disease unspecified
[2017-11-28 15:35] LABS: BASOPHILS % (AUTO) 0 % (0-10); EOSINOPHILS # (AUTO) 0.3 10^3/uL (0.0-0.3); EOSINOPHILS % (AUTO) 3 % (0-10); HEMATOCRIT 41 % (40-54); HEMOGLOBIN 13.9 G/DL (13.3-17.7); LYMPHOCYTES # (AUTO) 1.8 X 10^3 (1.0-4.0); LYMPHOCYTES % (AUTO) 20 % (12-44); MEAN CORPUSCULAR HEMOGLOBIN 32 PG (25-34); MEAN CORPUSCULAR HGB CONC 34 G/DL (32-36); MEAN CORPUSCULAR VOLUME 96 FL (80-99); MEAN PLATELET VOLUME 10.9 FL (7.4-10.4); MONOCYTES # (AUTO) 0.8 X 10^3 (0.0-1.0); MONOCYTES % (AUTO) 9 % (0-12); NEUTROPHILS # (AUTO) 6.1 X 10^3 (1.8-7.8); NEUTROPHILS % (AUTO) 68 % (42-75); PLATELET COUNT 191 10^3/uL (130-400); RED BLOOD COUNT 4.31 10^6/uL (4.35-5.85); RED CELL DISTRIBUTION WIDTH 13.3 % (10.0-14.5)
[2017-11-28 15:49] LABS: INR 1.1 (0.8-1.4); PROTHROMBIN TIME PATIENT 13.8 SEC (12.2-14.7)
[2017-11-28 15:52] LABS: FIBRIN DEGRADATION PRODUCTS 1.21 UG/ML (0.00-0.49)
--- NOTE | 2017-11-28 15:56 | Diagnostic Imaging Report ---
EXAMINATION: CT of the head without contrast. INDICATION: Left visual field disturbance. TECHNIQUE: Contiguous axial sections were taken through the skull. COMPARISON: There are no prior studies available for comparison. FINDINGS: There is no mass, shift of the midline, or hemorrhage to suggest an acute intracranial abnormality. There is no sign of an asymmetric hyperdense vessel either. There is a vague area of slightly diminished density in the left occipital lobe. This finding is questionable for encephalomalacia from a prior infarct. The possibility that this is related to brain edema from acute or subacute non-hemorrhagic infarct should also be considered. There are other areas of low density in the periventricular white matter bilaterally. Those findings are nonspecific but may be related to encephalomalacia from microvascular ischemia. The ventricles are not abnormally dilated. There is cortical atrophy present. The degree of atrophy is consistent with the patient's age. The bone windows show no evidence for a fracture or for a destructive lesion. The orbits are symmetrical and within normal limits. There are retention cysts in the floor of each maxillary antrum. These measure approximately 1.5 cm in size. IMPRESSION: 1. The area of slightly diminished density in the left occipital lobe is of uncertain etiology. If further imaging is desired, then MRI would be recommended. 2. There is no acute intracranial abnormality noted otherwise. 3. These results will be discussed with Dr. To in the ER. Dictated by: Dictated on workstation # [id number]
[2017-11-28 15:57] LABS: ALANINE AMINOTRANSFERASE 29 U/L (0-55); ALBUMIN 4.2 GM/DL (3.2-4.5); ALKALINE PHOSPHATASE 126 U/L (40-136); BILIRUBIN,TOTAL 0.7 MG/DL (0.1-1.0); BUN/CREATININE RATIO 19; CALCIUM 9.8 MG/DL (8.5-10.1); CARBON DIOXIDE 26 MMOL/L (21-32); CHLORIDE 99 MMOL/L (98-107); GFR ESTIMATED > 60; GLUCOSE 95 MG/DL (70-105); POTASSIUM 4.7 MMOL/L (3.6-5.0); SODIUM 134 MMOL/L (135-145); TOTAL PROTEIN 8.4 GM/DL (6.4-8.2)
--- NOTE | 2017-11-28 15:57 | Diagnostic Imaging Report ---
INDICATION: Visual disturbance. COMPARISON: 06/04/2015. FINDINGS: Single upright portable view of the chest is obtained. Heart size is enlarged but unchanged. There is no central venous congestion. There is no pneumothorax, mediastinal widening or pleural fluid. The lungs are clear. IMPRESSION: No acute abnormality is seen. Cardiomegaly without evidence of failure is stable. Dictated by: Dictated on workstation # [id number]
--- NOTE | 2017-11-28 16:26 | ED Neurological Problem ---
General Chief Complaint: Neuro-Stroke Like Symptoms Stated Complaint: POSS STROKE Nursing Triage Note: AMBULATED TO ROOM 08 WITHOUT DIFFICULTY. STATES HE WOKE UP THIS AM WITH A SHADOW IN HIS RIGHT EYE ET LEFT LOWER CORNER. LAST WELL KNOWN TIME WAS 11/27. DENIES ANY OTHER SX. PT STATES HE WENT TO HIS EYE DR BEFORE COMING TO THE ER. PT HAD A VALVE REPLACEMENT WITH STENTS LAST TUESDAY. Nursing Sepsis Screen: No Definite Risk Source: patient, family, old records Exam Limitations: no limitations History of Present Illness Date Seen by Provider: Nov 28, 2017 Time Seen by Provider: 15:17 Initial Comments This 72-year-old gentleman presents to the emergency room with a visual field deficit in the left lower quadrant of the right eye. Symptoms were noticed this morning upon waking at approximately 06:30. Last known well time was 22: 30 yesterday. Patient has a history of recent TAVR aortic valve replacement performed intravascularly on November 24. He denies any other neurologic deficits or symptoms. He presents directly from Dr. Lebron's (senior electronics technician) office for further evaluation. Stroke activation was paged. NIH score was zero. Allergies and Home Medications Allergies Coded Allergies: No Known Drug Allergies (Unverified , 02/02/12) Home Medications Carvedilol 3.125 Mg Tablet, 1 EACH PO BID, (Reported) Clopidogrel Bisulfate 75 Mg Tablet, 75 MG PO DAILY Prescribed by: NIC LR on 11/28/171952 Enalapril Maleate 2.5 Mg Tablet, 1 TAB PO DAILY, (Reported) Hydroxyzine Hcl 25 Mg Tablet, 25 MG PO PRN, (Reported) Meloxicam 15 Mg Tablet, 15 MG PO DAILY, (Reported) Thompson-3 Fatty Acids/Fish Oil 1 Each Capsule, 1,000 MG PO DAILY, (Reported) Rosuvastatin Calcium 10 Mg Tablet, 10 MG PO DAILY, (Reported) Patient Home Medication List Home Medication List Reviewed: Yes Constitutional: no symptoms reported Eyes: See HPI Ears, Nose, Mouth, Throat: no symptoms reported Respiratory: no symptoms reported Cardiovascular: see HPI Gastrointestinal: no symptoms reported Genitourinary: no symptoms reported Musculoskeletal: no symptoms reported Skin: no symptoms reported Psychiatric/Neurological: No Symptoms Reported Endocrine: No Symptoms Reported Past Dzuhzfp-Kmrkxn-Gpxgbf Hx Patient Social History Smoking Status: Never a Smoker Recent Foreign Travel: No Contact w/Someone Who Travel: No Recent Infectious Disease Expo: No Immunizations Up To Date Date of Pneumonia Vaccine: May 20, 2012 Surgeries History of Surgeries: Yes Surgeries: Cardiac (cardiac catheter), Valve Replacement (TAVR [employer] Evolute Pro 22 mm valve, SN [id number]) Respiratory History of Respiratory Disorde: No Cardiovascular History of Cardiac Disorders: Yes Cardiac Disorders: Hypertension, Valvular Heart Disease Neurological History of Neurological Disord: Yes (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) Reproductive System Hx Reproductive Disorders: No Gastrointestinal History of Gastrointestinal Di: No Musculoskeletal History of Musculoskeletal Dis: Yes Musculoskeletal Disorders: Arthritis, Scoliosis Endocrine History of Endocrine Disorders: No HEENT History of HEENT Disorders: No Cancer History of Cancer: No Psychosocial History of Psychiatric Problem: No Integumentary History of Skin or Integumenta: No Physical Exam Vital Signs Vital Signs - First Documented 11/28/17 15:20 Temp 98.0 Pulse 78 Resp 16 B/P (MAP) 140/78 (98) Pulse Ox 98 Capillary Refill : Less Than 3 Seconds General Appearance: WD/WN, no apparent distress HEENT: pharynx normal, other (pupils dilated from eye exam) Neck: normal inspection Respiratory: lungs clear, normal breath sounds, no respiratory distress, no accessory muscle use Cardiovascular: regular rate, rhythm, no edema, systolic murmur Gastrointestinal: normal bowel sounds, non tender, soft Extremities: normal inspection, no pedal edema, other (bruising around the catheter site on right wrist) Neurologic/Psychiatric: no motor/sensory deficits, alert, normal mood/affect, oriented x 3, abnormal waybill clerk II-XII (right lower quadrant visual field deficit in the right eye) Crainal Nerves: normal hearing, normal speech, PERRL Coordination/Gait: normal gait Motor/Sensory: no motor deficit, no sensory deficit Skin: normal color, warm/dry Stroke NIH Stroke Scale Assessment Level of Consciousness: 0=Alert (0), Level of Consciousness-Questions: 0= Answers both month/age (0), LOC Commands: 0=Performs both tasks (0), Visual Olivo: 0=No visual loss (0), Facial Movement (Facial Paresis): 0=Normal symmetrical mnt (0), Motor Function-Arms Right: 0=No drift (0), Motor Function- Arms Left: 0=No drift (0), Motor Function-Legs Right: 0=No drift (0), Motor Function-Legs Left: 0=No drift (0), Limb Ataxia: 0=Absent (0), Sensory: 0=Normal :no loss (0), Best Language: 0=No aphasia (0), Dysarthria: 0=Normal (0), Extinction & Inattention: 0=No abnormality (0), Total: 0 Progress/Results/Core Measures Results/Orders Lab Results Laboratory Tests Test 11/28/17 15:25 11/28/17 15:54 11/28/17 16:20 Range/Units White Blood Count 9.0 4.3-11.0 10^3/uL Red Blood Count 4.31 L 4.35-5.85 10^6/uL Hemoglobin 13.9 13.3-17.7 G/DL Hematocrit 41 40-54 % Mean Corpuscular Volume 96 80-99 FL Mean Corpuscular Hemoglobin 32 25-34 PG Mean Corpuscular Hemoglobin Concent 34 32-36 G/DL Red Cell Distribution Width 13.3 10.0-14.5 % Platelet Count 191 130-400 10^3/uL Mean Platelet Volume 10.9 H 7.4-10.4 FL Neutrophils (%) (Auto) 68 42-75 % Lymphocytes (%) (Auto) 20 12-44 % Monocytes (%) (Auto) 9 0-12 % Eosinophils (%) (Auto) 3 0-10 % Basophils (%) (Auto) 0 0-10 % Neutrophils # (Auto) 6.1 1.8-7.8 X 10^3 Lymphocytes # (Auto) 1.8 1.0-4.0 X 10^3 Monocytes # (Auto) 0.8 0.0-1.0 X 10^3 Eosinophils # (Auto) 0.3 0.0-0.3 10^3/uL Basophils # (Auto) 0.0 0.0-0.1 10^3/uL Erythrocyte Sedimentation Rate 68 H 0-30 MM/HR Prothrombin Time 13.8 12.2-14.7 SEC INR Comment 1.1 0.8-1.4 Activated Partial Thromboplast Time 32 24-35 SEC D-Dimer 1.21 H 0.00-0.49 UG/ML Sodium Level 134 L 135-145 MMOL/L Potassium Level 4.7 3.6-5.0 MMOL/L Chloride Level 99 98-107 MMOL/L Carbon Dioxide Level 26 21-32 MMOL/L Anion Gap 9 5-14 MMOL/L Blood Urea Nitrogen 15 7-18 MG/DL Creatinine 0.80 0.60-1.30 MG/DL Estimat Glomerular Filtration Rate > 60 BUN/Creatinine Ratio 19 Glucose Level 95 70-105 MG/DL Calcium Level 9.8 8.5-10.1 MG/DL Total Bilirubin 0.7 0.1-1.0 MG/DL Aspartate Amino Transf (AST/SGOT) 37 H 5-34 U/L Alanine Aminotransferase (ALT/SGPT) 29 0-55 U/L Alkaline Phosphatase 126 40-136 U/L Troponin I < 0.30 <0.30 NG/ML C-Reactive Protein High Sensitivity 4.27 H 0.00-0.50 MG/DL Total Protein 8.4 H 6.4-8.2 GM/DL Albumin 4.2 3.2-4.5 GM/DL Glucometer 98 70-110 MG/DL Urine Color YELLOW Urine Clarity CLEAR Urine pH 5 5-9 Urine Specific [place] 1.015 L 1.016-1.022 Urine Protein NEGATIVE NEGATIVE Urine Glucose (UA) NEGATIVE NEGATIVE Urine Ketones NEGATIVE NEGATIVE Urine Nitrite NEGATIVE NEGATIVE Urine Bilirubin NEGATIVE NEGATIVE Urine Urobilinogen NORMAL NORMAL MG/DL Urine Leukocyte Esterase NEGATIVE NEGATIVE Urine RBC (Auto) 3+ H NEGATIVE Urine RBC 10-25 H /HPF Urine WBC NONE /HPF Urine Squamous Epithelial Cells NONE /HPF Urine Crystals NONE /LPF Urine Bacteria NEGATIVE /HPF Urine Casts NONE /LPF Urine Mucus NEGATIVE /LPF Urine Culture Indicated NO My Orders Orders - NIC TO MD Cbc With Automated Diff (11/28/17 15:17) Protime With Inr (11/28/17 15:17) Partial Thromboplastin Time (11/28/17 15:17) Comprehensive Metabolic Panel (11/28/17 15:17) Fibrin Degradation Products (11/28/17 15:17) Troponin I (11/28/17 15:17) Ua Culture If Indicated (11/28/17 15:17) Chest 1 View, Ap/Pa Only (11/28/17 15:17) Ekg Tracing (11/28/17 15:17) Nothing By Mouth (11/28/17 Dinner) Accucheck Stat ONCE (11/28/17 15:17) Saline Lock/Iv-Start (11/28/17 15:17) Saline Lock/Iv-Start (11/28/17 15:17) Vital Signs Stroke Patient Q15M (11/28/17 15:17) Ct Head Wo-R/O Stroke (11/28/17 15:17) O2 (11/28/17 15:17) Intake & Output 06,14,22 (11/28/17 15:17) Monitor-Rhythm Ecg Trace Only (11/28/17 15:17) Dysphagia Screening Tool (11/28/17 15:17) Us Carotid Dereck Complete 81009 (11/28/17 15:54) Erythrocyte Sedimentation Rate (11/28/17 16:32) Clopidogrel Tablet (Plavix Tablet) (11/28/17 18:00) Hs C Reactive Protein (11/28/17 19:06) Echo W Doppler/Color Flow (11/28/17 19:06) Medications Given in ED Vital Signs/I&O Vital Sign - Last 12Hours 11/28/17 11/28/17 15:20 20:30 Temp 98.0 98.0 Pulse 78 80 Resp 16 20 B/P (MAP) 140/78 (98) 121/77 Pulse Ox 98 95 Blood Pressure Mean: 98 Point of Care Testing Finger Stick Blood Glucose: 98 Progress Note #1: Time: 16:16 Progress Note Patient seen and examined. Stroke activation was paged and patient was taken to CT. CT scan was discussed with Dr. Potts and found to be negative for mass or hemorrhage. There was a subtle area of low density in the left occipital lobe. Case was reviewed with Dr. Pandya. He had discussed the case with Dr. Watkins at [facility]. Case was discussed with Dr. Bean, stroke neurologist at [facility], at 15:45. 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 He is not a candidate for thrombolytics due to extended last known well time and his lesions are not amenable to intravascular therapies. Dr. Bean did suggest further evaluation with MRI and carotid ultrasound. Adding Plavix to his antiplatelet therapy was also suggested. He also did not believe the possible left occipital lobe lesion would correlate with patient's visual deficits. Case was discussed with Dr. Lebron, local senior electronics technician who performed a dilated eye exam, at 16:00. He confirms that plaquing and thrombus was seen in a nasal branch of the right retinal artery. He agrees with assessment by Dr. Bean and recommends that the patient be evaluated by ophthalmology at [facility] within one week. Case was also discussed with Gagan of Dr. Cuenca's staff at 16:00 agreed with the addition of aspirin and Plavix. Progress Note #2: Time: 17:14 Progress Note Case was discussed with Dr. Pandya again at 16:29. He suggests Plavix 150 mg by mouth 1 now followed by 75 mg daily. He recommends keeping aspirin 81 mg. I also spoke with Gagan again at Dr. Cuenca's office at 16:35 to determine if MRI is safe with patient's valve as it has a wire cage. She provided the specks of the valve. MRI staff screened the valve and determined it was safe to perform MRI. Patient went to MRI and carotid ultrasound. Dr. Pandya presented to the emergency room at 16:46 and visited with family. Dr. Lebron also called back and recommended an ESR be checked as temporal arteritis may also be a cause of retinal artery thrombosis. Progress Note #3: Time: 18:00 Progress Note Carotid ultrasound demonstrated no high-grade stenosis. Patient could not tolerate the MRI. He was offered medications for anxiolysis but declined. Since MRI is not critical to treatment at this point, it was abandoned. Patient did not wish to proceed further. ESR was obtained as recommended by . ESR was elevated at 68 but patient has no other signs or symptoms of temporal arteritis. A consult with ophthalmology at is pending. Plavix 150 mg is being given as recommended by Dr. Pandya. Progress Note #4: Time: 20:15 Progress Note Ophthalmologic consultation was pursued via the [facility] transfer line. Received a call back from the pulp mixer on-call and was further referred to the retinal specialist. I spoke with Dr. Tyler Kilgore who specifically requested echocardiogram be performed prior to dismissal from the ER. A stat echocardiogram was performed and read by Dr. Pandya who again presented to the emergency room. There were no critical findings that required further treatment at this time. Dr. Kilgore also suggested adding a CRP which was not significantly elevated. He did not recommend treating for temporal arteritis as patient has no other signs or symptoms of temporal arteritis in CRP is not significantly elevated. A thrombus was also seen on exam at the senior electronics technician office and onset seems to be consistent with thrombosis as a cause of his vision change. Patient was instructed to see Dr. Kilgore at 13:00 tomorrow. Address and phone number were given. Care of this patient was complicated due to his cardiac history. This required an extended length of stay because of the communication required amongst all of the specialists involved. At least 60 minutes of time was spent on communication with consults. ECG Initial ECG Impression Date: Nov 28, 2017 Initial ECG Impression Time: 15:46 Initial ECG Rate: 69 Initial ECG Rhythm: Normal Sinus Comment Sinus rhythm with no ischemic changes. Left ventricular hypertrophy noted. Diagnostic Imaging Diagonstic Imaging: CT Plain Films/CT/US/NM/MRI: head Comments CT head viewed by me and report reviewed. Discussed with Dr. Potts. See report below: NAME: OREN TOLEDO [facility] REC#: [id number] PT STATUS: REG ER : 1945 PHYSICIAN: NIC TO MD ADMIT DATE: 11/28/17/ER Draft Date of Exam:11/28/17 CT HEAD WO-R/O STROKE EXAMINATION: CT of the head without contrast. INDICATION: Left visual field disturbance. TECHNIQUE: Contiguous axial sections were taken through the skull. COMPARISON: There are no prior studies available for comparison. FINDINGS: There is no mass, shift of the midline, or hemorrhage to suggest an acute intracranial abnormality. There is no sign of an asymmetric hyperdense vessel either. There is a vague area of slightly diminished density in the left occipital lobe. This finding is questionable for encephalomalacia from a prior infarct. The possibility that this is related to brain edema from acute or subacute non-hemorrhagic infarct should also be considered. There are other areas of low density in the periventricular white matter bilaterally. Those findings are nonspecific but may be related to encephalomalacia from microvascular ischemia. The ventricles are not abnormally dilated. There is cortical atrophy present. The degree of atrophy is consistent with the patient's age. The bone windows show no evidence for a fracture or for a destructive lesion. The orbits are symmetrical and within normal limits. There are retention cysts in the floor of each maxillary antrum. These measure approximately 1.5 cm in size. IMPRESSION: 1. The area of slightly diminished density in the left occipital lobe is of uncertain etiology. If further imaging is desired, then MRI would be recommended. 2. There is no acute intracranial abnormality noted otherwise. 3. These results will be discussed with Dr. To in the ER. Dictated on workstation # [id number] Dict: 11/28/17 1543 Trans: 11/28/17 1556 [id number] Interpreted by: CORINNE POTTS MD Diagonstic Imaging: Xray Plain Films/CT/US/NM/MRI: chest Comments Chest x-ray report reviewed. See report below: NAME: OREN TOLEDO [facility] REC#: [id number] PT STATUS: REG ER : 1945 PHYSICIAN: NIC TO MD ADMIT DATE: 11/28/17/ER Draft Date of Exam:11/28/17 CHEST 1 VIEW, AP/PA ONLY INDICATION: Visual disturbance. COMPARISON: 06/04/2015. FINDINGS: Single upright portable view of the chest is obtained. Heart size is enlarged but unchanged. There is no central venous congestion. There is no pneumothorax, mediastinal widening or pleural fluid. The lungs are clear. IMPRESSION: No acute abnormality is seen. Cardiomegaly without evidence of failure is stable. Dictated on workstation # [id number] Dict: 11/28/17 1551 Trans: 11/28/17 1557 [facility] [id number] Interpreted by: NILO WALLACE DO Departure Impression Impression: Primary Impression: Retinal artery thrombosis, right Disposition: 01 HOME, SELF-CARE Condition: Stable Departure-Patient Inst. Decision time for Depature: 20:15 Referrals: MAVIS POWER MD (PCP/Family) Primary Care Physician Patient Instructions: NO INSTRUCTIONS GIVEN Add. Discharge Instructions: Continue taking baby aspirin daily. Add Plavix as prescribed. Follow-up with your Dr. Pandya as soon as possible. Contact his office for an appointment Please see Dr [facility] at 1:00 pm. He is a retinal pulp mixer. [address] [place], [place] [address] Return to the ER if symptoms worsen or if you develop new neurologic symptoms such as facial drooping, difficulty speaking, confusion, numbness or weakness of the arms or legs, etc. With the addition of Plavix, please be careful to avoid things that irritate your stomach such as excessive caffeine, alcohol, spicy foods, etc. All discharge instructions reviewed with patient and/or family. Voiced understanding. Scripts Clopidogrel Bisulfate (Plavix) 75 Mg Tablet 75 MG PO DAILY, #30 TAB Prov: NIC TO MD 11/28/17 Copy Copies To 1: NAOMIE PANDYA MD Copies To 2: MAVIS POWER MD, JOSHUA T MD Nov 28, 2017 16:26
[2017-11-28 16:52] LABS: BILIRUBIN,URINE NEGATIVE (NEGATIVE); CLARITY,URINE CLEAR; COLOR,URINE YELLOW; GLUCOSE, URINE (UA) NEGATIVE (NEGATIVE); KETONES,URINE NEGATIVE (NEGATIVE); LEUKOCYTE ESTERASE ,URINE NEGATIVE (NEGATIVE); NITRITE,URINE NEGATIVE (NEGATIVE); PH,URINE 5 (5-9); PROTEIN,URINE NEGATIVE (NEGATIVE); UROBILINOGEN,URINE NORMAL (NORMAL)
[2017-11-28 16:58] LABS: BACTERIA,URINE NEGATIVE /HPF
--- NOTE | 2017-11-28 17:28 | Diagnostic Imaging Report ---
PROCEDURE: US carotid duplex, bilateral. TECHNIQUE: Multiple real-time grayscale images were obtained over the carotid arteries in various projections, bilaterally. Additional duplex Doppler and color Doppler images were also obtained. INDICATION: Parameters based on the consensus panel Caldera-Scale and Doppler ultrasound criteria published July 2003, Radiology, Volume 229. DOPPLER (peak systolic velocity M/S Right Left CCA .6 .78 ICA Proximal .47 .55 ICA Mid .5 .45 ICA Distal NOT VISUALIZED NOT VISUALIZED RATIO .8 .7 ECA .89 .87 VERT NOT VISUALIZED .45 INDICATION: Visual disturbance. COMPARISON: None. FINDINGS: Please note the examination is limited due to patient body habitus. There is some mild irregular plaque in the carotid bulbs bilaterally. Peak systolic velocities are within normal limits. There is no stenosis or occlusion. Please note the distal internal carotid arteries are not evaluated. The right vertebral artery could not be located. IMPRESSION: 1. Limited examination due to patient body habitus. 2. Mild bilateral carotid atherosclerosis without stenosis or occlusion. Dictated by: Dictated on workstation # [id number]
[2017-11-28] MEDS ORDERED: CLOPIDOGREL 75 MG (PLAVIX) TABLET PO ONE (18:00)
[2017-11-28] MEDS ORDERED: CLOP75TA69 PO (19:53)
[2017-11-28 20:30] VITALS: BP 121/77
== END 2017-11-28 20:30 | disposition home or self-care (01) ==
LOC: EDUNIT# 15:15 → ER 15:16
DX: H34.231 Retinal artery branch occlusion, right eye (principal); I10 Essential (primary) hypertension; Z95.4 Presence of other heart-valve replacement; Z86.79 Personal history of other diseases of the circulatory system
CPT/HCPCS: 36415; 70450; 71045; 80053; 81000; 82962; 84484; 85025; 85379; 85610; 85652; 85730; 86141; 93005; 93041; 93306; 93880

== ENCOUNTER 2017-12-07 21:05 | Observation (INO) | payer MEDICARE, OTHER ==
[~2017-12-07] VITALS: Ht 165.1 cm; Wt 113.6 kg
[~2017-12-07 21:05] MED LIST changes: +CLOP75TA69 PO
[2017-12-07] MEDS ORDERED: NS IV 500 ML 500 ML ONE (21:28)
--- NOTE | 2017-12-07 21:30 | ED Cardiac General ---
History of Present Illness General Chief Complaint: Cardiac/General Problems Stated Complaint: BP LOW Source: patient Exam Limitations: no limitations History of Present Illness Date Seen by Provider: Dec 07, 2017 Time Seen by Provider: 21:24 Initial Comments To ER per private vehicle from home with reports of low pulse. He had a transcatheter aortic valve replacement at the [facility] on . He was restarted on his carvedilol 3.125 mg tonight and has been on Plavix. He checked his pulse this evening and found it to be in the 30s though he was not having any symptoms. They called Dr. Burt who is a friend of theirs who came to their house to evaluate him and agree that the pulse was in the 30s. He denies chest pain or shortness of breath or fatigue. 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 Timing/Duration: 1-3 hours Severity: moderate Activities at Onset: none NTG SL MOBILE UI DEVELOPER: No ASA po MOBILE UI DEVELOPER: No Allergies and Home Medications Allergies Coded Allergies: No Known Drug Allergies (Unverified , 02/02/12) Home Medications Aspirin 81 Mg Tablet.dr, 81 MG PO HS, (Reported) Baclofen 10 Mg Tablet, 10 MG PO TID PRN for MUSCLE SPASMS, (Reported) Carvedilol 3.125 Mg Tablet, 3.125 MG PO BID, (Reported) Clopidogrel Bisulfate 75 Mg Tablet, 75 MG PO 1200, (Reported) Enalapril Maleate 2.5 Mg Tablet, 2.5 MG PO BID, (Reported) Fish Oil/Dha/Epa 1 Each Capsule, 1,200 MG PO BID, (Reported) Hydroxyzine HCl 25 Mg Tablet, 25 MG PO TID PRN for ITCHING, (Reported) Ketoconazole 15 Gm Cream..g., TOP BID, (Reported) APPLY TO GROIN RASH Meloxicam 15 Mg Tablet, 15 MG PO DAILY PRN for BACK PAIN, (Reported) Multivitamin 1 Each Tablet, 1 TAB PO DAILY, (Reported) Nitroglycerin 0.4 Mg Tab.subl, 0.4 MG SL UD PRN for CHEST PAIN, (Reported) Rosuvastatin Calcium 10 Mg Tablet, 10 MG PO HS, (Reported) Sennosides/Docusate Sodium 1 Each Tablet, 1 TAB PO DAILY, (Reported) Patient Home Medication List Home Medication List Reviewed: Yes Review of Systems Constitutional: see HPI EENTM: No Symptoms Reported, Other (loss of vision to the inferior medial aspect right eye field of vision) Respiratory: No Symptoms Reported Cardiovascular: No Symptoms Reported Gastrointestinal: No Symptoms Reported Genitourinary: No Symptoms Reported Musculoskeletal: no symptoms reported Skin: no symptoms reported Psychiatric/Neurological: No Symptoms Reported Endocrine: No Symptoms Reported Hematologic/Lymphatic: No Symptoms Reported Past Aievbxg-Vloxpf-Vyjetc Hx Immunizations Up To Date Date of Pneumonia Vaccine: May 20, 2012 Surgeries History of Surgeries: Yes Surgeries: Cardiac, Valve Replacement Respiratory History of Respiratory Disorde: No Cardiovascular History of Cardiac Disorders: Yes Cardiac Disorders: Hypertension, Valvular Heart Disease Neurological History of Neurological Disord: Yes Reproductive System Hx Reproductive Disorders: No Gastrointestinal History of Gastrointestinal Di: No Musculoskeletal History of Musculoskeletal Dis: Yes Musculoskeletal Disorders: Arthritis, Scoliosis Endocrine History of Endocrine Disorders: No HEENT History of HEENT Disorders: No Cancer History of Cancer: No Psychosocial History of Psychiatric Problem: No Integumentary History of Skin or Integumenta: No Physical Exam Vital Signs Vital Signs - First Documented 12/07/17 21:11 Temp 96.4 Pulse 151 Resp 18 B/P (MAP) 126/60 (82) Pulse Ox 97 O2 Delivery Room Air Capillary Refill : General Appearance: No Apparent Distress, WD/WN HEENT: PERRL/EOMI, TMs Normal Neck: Full Range of Motion, Normal Inspection Respiratory: Normal Breath Sounds, No Accessory Muscle Use, No Respiratory Distress Cardiovascular: No Edema, Irregularly Irregular (pulse in the 50s, heart rate on EKG 140 sinus with frequent PVCs) Extremity: Normal Capillary Refill, Normal Inspection Neurologic/Psychiatric: Alert, Oriented x3, No Motor/Sensory Deficits Skin: Normal Color, Warm/Dry Progress/Results/Core Measures Results/Orders Lab Results Laboratory Tests Test 12/07/17 21:20 Range/Units White Blood Count 8.9 4.3-11.0 10^3/uL Red Blood Count 4.32 L 4.35-5.85 10^6/uL Hemoglobin 14.1 13.3-17.7 G/DL Hematocrit 42 40-54 % Mean Corpuscular Volume 97 80-99 FL Mean Corpuscular Hemoglobin 33 25-34 PG Mean Corpuscular Hemoglobin Concent 34 32-36 G/DL Red Cell Distribution Width 13.2 10.0-14.5 % Platelet Count 237 130-400 10^3/uL Mean Platelet Volume 10.9 H 7.4-10.4 FL Neutrophils (%) (Auto) 67 42-75 % Lymphocytes (%) (Auto) 21 12-44 % Monocytes (%) (Auto) 10 0-12 % Eosinophils (%) (Auto) 3 0-10 % Basophils (%) (Auto) 0 0-10 % Neutrophils # (Auto) 5.9 1.8-7.8 X 10^3 Lymphocytes # (Auto) 1.9 1.0-4.0 X 10^3 Monocytes # (Auto) 0.8 0.0-1.0 X 10^3 Eosinophils # (Auto) 0.3 0.0-0.3 10^3/uL Basophils # (Auto) 0.0 0.0-0.1 10^3/uL Prothrombin Time 13.1 12.2-14.7 SEC INR Comment 1.0 0.8-1.4 Activated Partial Thromboplast Time 31 24-35 SEC Sodium Level 137 135-145 MMOL/L Potassium Level 4.4 3.6-5.0 MMOL/L Chloride Level 104 98-107 MMOL/L Carbon Dioxide Level 23 21-32 MMOL/L Anion Gap 10 5-14 MMOL/L Blood Urea Nitrogen 19 H 7-18 MG/DL Creatinine 1.09 0.60-1.30 MG/DL Estimat Glomerular Filtration Rate > 60 BUN/Creatinine Ratio 17 Glucose Level 123 H 70-105 MG/DL Calcium Level 9.5 8.5-10.1 MG/DL Magnesium Level 2.3 1.8-2.4 MG/DL Total Bilirubin 0.2 0.1-1.0 MG/DL Aspartate Amino Transf (AST/SGOT) 39 H 5-34 U/L Alanine Aminotransferase (ALT/SGPT) 33 0-55 U/L Alkaline Phosphatase 107 40-136 U/L Myoglobin 34.3 10.0-92.0 NG/ML Troponin I < 0.30 <0.30 NG/ML B-Type Natriuretic Peptide 216.0 H <100.0 PG/ML Total Protein 7.9 6.4-8.2 GM/DL Albumin 4.1 3.2-4.5 GM/DL My Orders Orders - EHSAN HUNT APRN Cbc With Automated Diff (12/07/17 21:20) Magnesium (12/07/17 21:20) Chest 1 View, Ap/Pa Only (12/07/17 21:20) Ekg Tracing (12/07/17:20) Cardiac Profile 1 (12/07/17:20) Comprehensive Metabolic Panel (12/07/17:20) Myoglobin Serum (12/07/17:20) Protime With Inr (12/07/17:20) Partial Thromboplastin Time (12/07/17:20) O2 (12/07/17:20) Monitor-Rhythm Ecg Trace Only (12/07/17:20) Saline Lock/Iv-Start (12/07/17:20) BNP (12/07/17:20) Ns Iv 500 Ml (Sodium Chloride 0.9%) (12/07/17 21:30) Ns Iv 500 Ml (Sodium Chloride 0.9%) (12/07/17 21:28) Vital Signs/I&O Vital Sign - Last 12Hours 12/07/17 21:11 Temp 96.4 Pulse 151 Resp 18 B/P (MAP) 126/60 (82) Pulse Ox 97 O2 Delivery Room Air Intake and Output 12/08/17 00:00 Intake Total 500 ml Balance 500 ml ECG Initial ECG Impression Date: Dec 07, 2017 Initial ECG Impression Time: 21:12 Initial ECG Rate: 141 Initial ECG Rhythm: Normal Sinus, PVC Initial ECG Intervals: QRS Initial ECG Intervals LBBB Comment Sinus with PVCs frequently. On 6 second EKG strip there are 6 sinus beats with 14 PVCs Diagnostic Imaging Comments NAME: OREN T[facility]EDO [facility] REC#: [id number] PT STATUS: REG ER : 1945 PHYSICIAN: EHSAN HUNT APRN ADMIT DATE: 12/07/17/ER Draft Date of Exam:12/07/17 CHEST 1 VIEW, AP/PA ONLY INDICATION: Chest pain. TECHNIQUE: Single frontal view of the chest. COMPARISON: 11/28/2017 FINDINGS: Lung volumes are normal. There is minimal atelectasis in right lung base. The cardiac silhouette is mildly large, but stable. No pneumothorax or pleural effusion is seen. IMPRESSION: 1. Stable mild cardiomegaly. Minimal right basilar atelectasis. Dictated on workstation # [id number] Dict: 12/07/172205 Trans: 12/07/172208 [id number] Interpreted by: ELIZABETH CABALLERO MD Electronically signed by: Departure Communication (Admissions) Time/Spoke to Admitting Phy: 23:[address] Rogers. He agrees to admit observation. We will consult cardiology. I also notified Dr. Garcia of consult. Recommends to hold the carvedilol for the time being Progress Notes 2127- I have reviewed the EKG with Dr. Garcia. He agrees that this is an underlying sinus rhythm with some of the wide-complex beats not being transmitted. Since the patient is asymptomatic there is no value in dysrhythmic or any treatment at this time. Blood pressure is 121/58 2317- discussed the case with the on-call insurance sales representative at Dr. Alvarez who feels the patient can be kept here on observation telemetry with the expectation that this ectopy will improve without intervention since the patient is asymptomatic. EKG and telemetry monitoring continues to show a pair of PVCs after each sinus beat. Impression Impression: Primary Impression: Status post transcatheter aortic valve replacement Additional Impression: Arrhythmia Disposition: ADMITTED INPATIENT Condition: Stable Admissions Decision to Admit Reason: Admit from ER (General) Decision to Admit/Date: Dec 07, 2017 Time/Decision to Admit Time: 23:22 Departure-Patient Inst. Referrals: MAVIS POWER MD (PCP/Family) Primary Care Physician EHSAN HUNT APRN Dec 07, 2017 21:29
[2017-12-07] MEDS: NS IV 500 ML 500 ML IV SCH (21:33)
[2017-12-07 21:34] LABS: BASOPHILS % (AUTO) 0 % (0-10); EOSINOPHILS # (AUTO) 0.3 10^3/uL (0.0-0.3); EOSINOPHILS % (AUTO) 3 % (0-10); HEMATOCRIT 42 % (40-54); HEMOGLOBIN 14.1 G/DL (13.3-17.7); LYMPHOCYTES # (AUTO) 1.9 X 10^3 (1.0-4.0); LYMPHOCYTES % (AUTO) 21 % (12-44); MEAN CORPUSCULAR HEMOGLOBIN 33 PG (25-34); MEAN CORPUSCULAR HGB CONC 34 G/DL (32-36); MEAN CORPUSCULAR VOLUME 97 FL (80-99); MEAN PLATELET VOLUME 10.9 FL (7.4-10.4); MONOCYTES # (AUTO) 0.8 X 10^3 (0.0-1.0); MONOCYTES % (AUTO) 10 % (0-12); NEUTROPHILS # (AUTO) 5.9 X 10^3 (1.8-7.8); NEUTROPHILS % (AUTO) 67 % (42-75); PLATELET COUNT 237 10^3/uL (130-400); RED BLOOD COUNT 4.32 10^6/uL (4.35-5.85); RED CELL DISTRIBUTION WIDTH 13.2 % (10.0-14.5); WHITE BLOOD COUNT 8.9 10^3/uL (4.3-11.0)
[2017-12-07 21:45] LABS: PROTHROMBIN TIME PATIENT 13.1 SEC (12.2-14.7)
[2017-12-07 21:55] LABS: ALANINE AMINOTRANSFERASE 33 U/L (0-55); ALBUMIN 4.1 GM/DL (3.2-4.5); ALKALINE PHOSPHATASE 107 U/L (40-136); BILIRUBIN,TOTAL 0.2 MG/DL (0.1-1.0); BUN/CREATININE RATIO 17; CALCIUM 9.5 MG/DL (8.5-10.1); CARBON DIOXIDE 23 MMOL/L (21-32); CHLORIDE 104 MMOL/L (98-107); CREATININE SERUM 1.09 MG/DL (0.60-1.30); GFR ESTIMATED > 60; GLUCOSE 123 MG/DL (70-105); MAGNESIUM 2.3 MG/DL (1.8-2.4); POTASSIUM 4.4 MMOL/L (3.6-5.0); SODIUM 137 MMOL/L (135-145); TOTAL PROTEIN 7.9 GM/DL (6.4-8.2)
[2017-12-07 22:02] LABS: MYOGLOBIN SERUM 34.3 NG/ML (10.0-92.0)
--- NOTE | 2017-12-07 22:09 | Diagnostic Imaging Report ---
INDICATION: Chest pain. TECHNIQUE: Single frontal view of the chest. COMPARISON: 11/28/2017 FINDINGS: Lung volumes are normal. There is minimal atelectasis in right lung base. The cardiac silhouette is mildly large, but stable. No pneumothorax or pleural effusion is seen. IMPRESSION: 1. Stable mild cardiomegaly. Minimal right basilar atelectasis. Dictated by: Dictated on workstation # [id number]
--- OUTSIDE RECORDS SUMMARY | 2017-12-07 23:48 | XMS REPORT | Clinical Summary ---
Author Author [facility] Organization [facility] Address Unknown Phone Unavailable Care Team Providers Care Drawing Operator Name Role Phone Jose De Jesus Rocha MD PCP Dario Pandya MD 21 Source Comments Some departments are not documenting in the electronic medical record. If you do not see the information that you expected, contact Release of Information in the Health Information Management department at [phone] for further assistance in locating additional records.[facility] Allergies No Known Allergies Current Medications Prescription [...] 18 for Pain Earliest Fill Date: 11/26/17 clopiDOGrel (PLAVIX) 75 Take 75 mg by mouth Active mg tablet daily. carvedilol (COREG) 3.125 Take 1 tablet by mouth 180 tablet 3 12/08/19 Active mg tablet twice daily with meals. 18 Take with food. ketoconazole (NIZORAL) 2 Apply to groin rash twice 60 g 0 12/08/19 Active % topical cream daily. 18 carvedilol (COREG) 3.125 Take 3.125 mg by mouth 11/27/19 Discontin mg tablet twice daily. Take with 18 ued food. meloxicam (MOBIC) 15 mg Take 15 mg by mouth daily 11/27/19 Discontin tablet as needed for Pain. 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 Discussed findings with patient No ocular treatment at this time Rec close follow up with cardiology Follow up 1 month repeat DFE, monitor for NV Nuclear sclerosis of both eyes 11/29/2017 Last Assessment & Plan: Not visually significant Monitor Aortic stenosis 11/24/2017 S/P TAVR (transcatheter aortic valve replacement) 11/24/2017 Severe aortic stenosis 11/07/2017 Aortic stenosis 09/30/2017 NURIA (obstructive sleep apnea) Morbid obesity ([facility]) NSTEMI (non-ST elevated myocardial infarction) ([facility]) Mixed hyperlipidemia 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[facility]) HTN (hypertension) Cardiac murmur CAD (coronary artery disease) Bruit of left carotid artery Encounters Date Type Specialty Care Team Description 12/07/2017 Hospital Cardiology Giovani Pratt APRN-C Arrived Encounter 12/07/2017 Office Visit Cardiology Giovani Pratt APRN-C Cardiac Eval (Post TAVR, New bradycardia episodes) 12/06/2017 Telephone Cardiothoracic Surgery Gagan Thompson RN General Question 12/01/2017 Telephone Cardiothoracic Surgery Lulu Kamara RN General Question 11/29/2017 Office Visit Ophthalmology Vikash Kilgore MD Branch retinal artery occlusion of right eye (Primary Dx); Nuclear sclerosis of both eyes 11/28/2017 Telephone Cardiothoracic Surgery Gagan Thompson RN Follow- up Phone Call 11/28/2017 Telephone Cardiothoracic Surgery Jessica Vernon RN Post Procedure 11/28/2017 Telephone Cardiothoracic Surgery Jessica Vernon RN Post- hospital Follow Up 11/26/2017 Pharmacy Visit 11/25/2017 Pharmacy Visit 11/25/2017 Orders Only Cardiology Giovani Pratt APRN-C Nonrheumatic aortic valve stenosis (Primary Dx); Essential hypertension 11/24/2017 [facility] Galindo Cuenca MD S/P TAVR (transcatheter - [...] Provider Discussion About Patient (TAVR eval) 11/07/2017 [facility] Cardiology Ambrosio Nguyen MD Severe aortic stenosis - Encounter 11/08/2017 11/07/2017 Procedure Pass Cardiology 11/07/2017 Procedure Pass Cardiology 11/07/2017 Procedure Pass Cardiology 11/07/2017 Surgery Cardiology Ambrosio Nguyen MD ANGIOGRAPHY CORONARY ARTERY POSSIBLE WITH RIGHT AND LEFT HEART CATHETERIZATION WITH VENTRICULOGRAPHY 10/26/2017 Telephone Cardiothoracic Surgery Lulu Kamara RN General Question 10/26/2017 Documentation Cardiology Rakesh Patton RN Precertification (Medicare) 10/25/2017 [facility] Cardiology Chase Neri MD Encounter 10/25/2017 [facility] Giovani Pratt APRN-C Encounter 10/25/2017 Office Visit Cardiothoracic Surgery Galindo Cuenca MD Nonrheumatic aortic valve stenosis (Primary Dx) 10/25/2017 Office Visit Cardiology Chase Neri MD New Patient ( - TAVR ) 10/25/2017 [facility] Cardiology Giovani Pratt APRN-C Encounter 09/30/2017 Telephone [...] Vital Sign Reading Time Taken Blood Pressure 106/76 12/07/2017 10:23 AM CDT Pulse 150 12/07/2017 10:23 AM CDT Temperature 36.7 C (98.1 F) 11/26/2017 8:00 AM CAMPAIGN ANALYST Respiratory Rate - - Oxygen Saturation 96% 11/26/2017 8:00 AM CAMPAIGN ANALYST Inhaled Oxygen - - Concentration Weight 112.4 kg (247 lb 12.8 oz) 12/07/2017 10:23 AM CDT Height 165.1 cm (5' 5") 12/07/2017 10:23 AM CDT Body Mass Index 41.24 12/07/2017 10:23 AM CDT Plan of Treatment Health Maintenance Due Date Last Done Comments HEPATITIS C SCREENING 1945 PHYSICAL (COMPREHENSIVE) 1954 EXAM PERTUSSIS VACCINE 1958 TETANUS VACCINE 1964 COLORECTAL CANCER 1997 SCREENING SHINGLES VACCINE 2007 ABDOMINAL AORTIC ANEURYSM 2012 SCREENING PREVNAR/PNEUMOVAX (#1) 2012 INFLUENZA VACCINE 06/19/2018 Implants Implanted Type Area Felt Checker Device Expiration Model / Identifier Date Serial / Lot Evolutpro Core Valve 29mm - Heart N/A: Heart [employer] 01/10/2019 EVOLUTPRO- [id number] Valve 29-US / Implanted: Qty: 1 on 11/24/2017 by [id number] / Galindo Cuenca MD EVOLUTPRO- 29-US Procedures Procedure Name Priority Date/Time Associated Diagnosis Comments PROCEDURE RECORD-SCAN 11/29/2017 Results for this 9:02 AM CDT procedure are in the results section. ECG-SCAN 11/28/2017 Results for this 11:55 AM CDT procedure are in the results section. TELEMETRY STRIPS-SCAN 11/28/2017 Results for this 11:54 AM CDT procedure are in the results section. ECG-SCAN 11/27/2017 Results for this 1:50 PM CDT procedure are in the results section. ECG-SCAN 11/27/2017 Results for this 1:50 PM CDT procedure are in the results section. ANESTHESIA Routine 11/24/2017 TRANSEESOPHAGEAL 10:23 AM CAMPAIGN ANALYST ECHOCARDIOGRAM Procedure Note - Flash Pino MD - 11/24/2017 10:23 AM CAMPAIGN ANALYST Anesthesi a Procedure: Transesoph ageal Echocardio gram [...] Physician requesting echo: GALINDO CUENCA CPT codes: 07387 - Guidance of a transcathe ter interventi [...] Apical anterior: normal Apical inferior: normal [place] Basal anterosept al: normal Basal inferolate ral: normal Mid anterosept al: normal Mid inferolate ral: normal Apical lateral: normal Apical septal: normal [place]: normal Mid [place] Mid anterosept al: normal Mid anterior: [...] 11/24/2017 Results for this INSERTION 8:42 AM CAMPAIGN ANALYST procedure are in the results section. ANESTHESIA ARTERIAL LINE Routine 11/24/2017 Results for this INSERTION 8:31 AM CAMPAIGN ANALYST procedure are in the results section. PROCEDURE RECORD-SCAN 11/14/2017 Results for this 11:52 AM CAMPAIGN ANALYST procedure are in the results section. ECG-SCAN 11/14/2017 Results for this 11:28 AM CAMPAIGN ANALYST procedure are in the results section. TELEMETRY STRIPS-SCAN 11/14/2017 Results for this 11:28 AM CAMPAIGN ANALYST procedure are in the results section. from Last 3 Months Results * MAGNESIUM (12/07/2017 12:33 PM) Only the most recent of 3 results within the time period is included. Component Value Ref Range Magnesium 2.3 1.6 - 2.6 mg/dL Specimen Performing Laboratory Blood MAIN LAB [address] [place] [address] * BASIC METABOLIC PANEL (12/07/2017 12:33 PM) Only the most recent of 5 results within the time period is included. Component Value Ref Range Sodium 135 (L) 137 - 147 MMOL/L Potassium 4.6 3.5 - 5.1 MMOL/L Chloride 101 98 - 110 MMOL/L CO2 29 21 - 30 MMOL/L Anion Gap 5 3 - 12 Glucose 131 (H) 70 - 100 MG/DL Blood Urea Nitrogen 14 7 - 25 MG/DL Creatinine 0.98 0.4 - 1.24 MG/DL Calcium 10.0 8.5 - 10.6 MG/DL eGFR Non >60 [...] Specimen Performing Laboratory Blood MAIN LAB [address] [place] [address] * PROCEDURE RECORD-SCAN (11/29/2017 9:02 AM) Narrative Ordered by an unspecified provider. * ECG-SCAN (11/28/2017 11:55 AM) Narrative Ordered by an unspecified provider. * TELEMETRY STRIPS-SCAN (11/28/2017 11:54 AM) Narrative Ordered by an unspecified provider. * ECG-SCAN (11/27/2017 1:50 PM) Narrative Ordered by an unspecified provider. * ECG-SCAN (11/27/2017 1:50 PM) Narrative Ordered by an unspecified provider. * POC GLUCOSE (11/26/2017 8:06 AM) Only the most recent of 11 results within the time period is included. Component Value Ref Range Glucose, POC 126 (H) 70 - 100 MG/DL Specimen Performing Laboratory MAIN LAB [address] [place] [address] * CHEST SINGLE VIEW (11/26/2017 6:23 AM) [...] Interface, Radiant Results - 11/26/2017 12:58 PM CAMPAIGN ANALYST Single view chest Clinical indications: Transcatheter aortic [...] Specimen Performing Laboratory Blood MAIN LAB [address] [place] [address] * 2-D + DOPPLER ECHOCARDIOGRAM (11/25/2017 9:01 [...] Index 30.98 10 - 32 AV index ([place]) 0.43 LVOT area 3.83 cm2 LVOT stroke volume 88.09 cm3 E/A ratio 0.75 E/E' ratio 9.25 CV ECHO PV APPLIED BEHAVIOR SPECIALIST BIBIANA Jeffers Cardiology Ultrasound Siemens [id number] Machine Aortic valve area= 1.87 cm2 TV [...] - 5.1 MMOL/L Specimen Performing Laboratory Blood MAIN LAB [address] [place] [address] * PTT (APTT) (11/24/2017 10:39 AM) Only the most recent of 2 results within the time period is included. Component Value Ref Range APTT 28.7 21.0 - 39.0 SEC Specimen Performing Laboratory Blood [employer] MAIN LAB [address] [place] [address] * PROTIME INR (PT) (11/24/2017 10:39 AM) Only the most recent of 2 results within the time period is included. Component Value Ref Range INR 1.0 0.8 - 1.2 Specimen Performing Laboratory Blood [facility] MAIN [facility] [address] [place] [address] * LINE PLCMT 1V CXR (11/24/2017 10:38 [...] Interface, Radiant Results - 11/24/2017 12:37 PM CAMPAIGN ANALYST LINE PLCMT 1V CXR Clinical Indication: Male, [...] Range PH-ART-POC 7.30 (L) 7.35 - 7.45 GSY6-UKC-QBP 43 35 - 45 MMHG PO2-ART-POC 70 (L) 80 - 100 MMHG Base Def-ART-POC 6.0 MMOL/L O2 Sat-ART-POC 92.0 (L) 95 - 99 % Elnvbyuyaey-AXQ-CRV 20.7 (L) 21 - 28 MMOL/L Specimen Performing Laboratory [facility] [address] [place] [address] * POC SODIUM (11/24/2017 9:52 AM) Only the most recent of 2 results within the time period is included. Component Value Ref Range Sodium-POC 140 137 - 147 MMOL/L Specimen Performing Laboratory [facility] [address] [place], [place] [id number] * POC POTASSIUM (11/24/2017 9:52 AM) Only the most recent of 2 results within the time period is included. Component Value Ref Range Potassium-POC 3.5 3.5 - 5.1 MMOL/L Specimen Performing Laboratory [facility] [address] [place], [place] [id number] * POC IONIZED CALCIUM (11/24/2017 9:52 AM) Only the most recent of 2 results within the time period is included. Component Value Ref Range Ionized Calcium-POC 1.11 1.0 - 1.3 MMOL/L Specimen Performing Laboratory [facility] [address] [place], [place] [id number] * POC HEMATOCRIT (11/24/2017 9:52 AM) Only the most recent of 2 results within the time period is included. Component Value Ref Range Hemoglobin POC 12.6 (L) 13.5 - 16.5 GM/DL Hematocrit POC 37.0 (L) 40 - 50 % Specimen Performing Laboratory [facility] [address] [place] [address] * POC ACTIVATED CLOTTING TIME (11/24/2017 9:49 AM) Only the most recent of 2 results within the time period is included. Component Value Ref Range Activated Clotting Time 162 s Specimen Performing Laboratory [facility] [address] [place] [address] * ANESTHESIA CENTRAL LINE INSERTION (11/24/2017 8:42 AM) Narrative Flash Pino MD 11/24/2017 10:23 AM Anesthesia Procedure: Central [...] Flash Pino MD - 11/24/2017 8:42 AM CAMPAIGN ANALYST Anesthesia Procedure: Central Venous Catheter Line CENTRAL [...] Flash Pino MD - 11/24/2017 8:31 AM [facility] Anesthesia Procedure: Arterial Line Placement A-LINE INSERTION [...] O POS Specimen Performing Laboratory MAIN LAB [address] [place] [address] * UA REFLEX CULTURE LABEL (11/23/2017 1:23 PM) Component Value Ref Range UA Reflex Culture LAB LABEL Specimen Performing Laboratory Urine MAIN LAB [address] [place] [address] * URINALYSIS MICROSCOPIC REFLEX TO CULTURE (11/23/2017 1:23 PM) Component Value Ref Range WBCs,UA 0-2 0 - 2 /HPF RBCs,UA 0-2 0 - 3 /HPF Comment,UA Urine submitted for reflex culture if criteria are met:WBC>10, positive nitrite and/or >=1+ leukocyte esterase. If quantity is not sufficient, an addendum will follow. Specimen Performing Laboratory Urine MAIN LAB [address] [place] [address] * URINALYSIS DIPSTICK REFLEX TO CULTURE (11/23/2017 1:23 PM) Component Value Ref Range Color,UA STRAW Turbidity,UA CLEAR CLEAR-CLEAR Specific [place]-Urine 1.004 1.003 - 1.035 pH,UA 8.0 5.0 - 8.0 Protein,UA NEG NEG-NEG Glucose,UA NEG NEG-NEG Ketones,UA NEG NEG-NEG Bilirubin,UA NEG NEG-NEG Blood,UA NEG NEG-NEG Urobilinogen,UA NORMAL NORM-NORMAL Nitrite,UA NEG NEG-NEG Leukocytes,UA NEG NEG-NEG Urine Ascorbic Acid, UA NEG NEG-NEG Specimen Performing Laboratory Urine [facility] [address] [place] [address] * TYPE & CROSSMATCH (11/23/2017 12:19 PM) Component Value Ref Range Units Ordered 2 Crossmatch Expires 11/26/2017 Record Check 2ND TYPE REQUIRED ABO/RH(D) O POS Antibody Screen NEG Electronic Crossmatch YES Unit Number [id number] Blood Component Type RBC,ADSOL,LEUKO REDUCED Unit Division 0 Status OF Unit REL FROM ALLOC Transfusion Status OK TO TRANSFUSE Crossmatch Result COMPATIBLE,ELECTRONIC Unit Number [id number] Blood Component Type RBC,ADSOL,LEUKO REDUCED Unit Division 0 Status OF Unit REL FROM ALLOC Transfusion Status OK TO TRANSFUSE Crossmatch Result COMPATIBLE,ELECTRONIC Specimen Performing Laboratory Blood MAIN LAB [address] [place] [address] * BNP (B-TYPE NATRIURETIC PEPTI) (11/23/2017 12:19 PM) Component Value Ref Range B Type Natriuretic 202.0 (H) 0 - 100 PG/ML Peptide Specimen Performing Laboratory Blood MAIN LAB [address] [place] [address] * HEMOGLOBIN A1C (11/23/2017 12:19 PM) Component Value Ref Range Hemoglobin A1C 5.9 4.0 - 6.0 % Comment: The ADA recommends that most patients with type 1 and type 2 diabetes maintain an A1c level <7%. Specimen Performing Laboratory Blood MAIN LAB [address] [place] [address] * COMPREHENSIVE METABOLIC PANEL (11/23/2017 12:19 PM) [...] Performing Laboratory Blood [facility] MAIN [facility] [address] [place] [address] * PROCEDURE RECORD-SCAN (11/14/2017 11:52 AM) Narrative [...] Interface, Radiant Results - 11/08/2017 12:07 PM CAMPAIGN ANALYST CTA chest, CTA abdomen and pelvis Indication: [...] Interface, Radiant Results - 11/08/2017 12:07 PM CAMPAIGN ANALYST CTA chest, CTA abdomen and pelvis Indication: [...] Ambrosio Nguyen MD - 11/07/2017 11:18 AM CAMPAIGN ANALYST Formatting of this note may be different from the original. [facility] CARDIAC CATHETERIZATION REPORT Page 2 JADEN Rowland : 1945 #: [id number] MR #/Billing ID #: [id number] / [id number] DATE: 11/07/2017 HAND ETCHER: Ambrosio Nguyen MD DICTATING PROVIDER: Ambrosio Nguyen MD REFERRING PHYSICIAN: GIOVANI PRATT PROCEDURE PERFORMED: Coronary angiography. INDICATION: Severe aortic valve stenosis. Plan for possible TAVR. CONSENT: The patient was consented in the holding area prior to being brought to the cardiac greenhouse laborer. Risks of the procedure, including the potential risk of stroke, myocardial infarction and were discussed. He understood and agreed to proceed. PROCEDURE DETAILS: The patient was brought to the cardiac catheterization laboratory in a fasting, nonsedated state. After confirming a normal Barbeau test, the right wrist was prepped and draped in usual fashion. Access was obtained in the radial artery without difficulty. A 6-Malaysian Slender sheath was placed. The patient was [...] Severe aortic valve stenosis. Ambrosio Nguyen MD [facility] /[id number] cc: - MD Galindo Sauceda MD Dr. [...] Performing Laboratory Blood [facility] MAIN [facility] [address] [place] [address] * POC PT/INR (11/07/2017 9:10 AM) Component Value Ref Range INR POC 1.0 0.8 - 1.2 Specimen Performing Laboratory [facility] MAIN [facility] [address] [place] [address] * PFT COMPLETE PULM FUNCTION (10/25/2017 11:35 AM) Component Value Ref Range FVC-Pre 3.08 L FVC-%Pred-pre 89 % FEV1-Pre 2.45 L FEV1-%Pred-Pre 97 % BPT2984-Etq 2.18 L/sec JYP2372-%Pred-Pre 112 % VCSVC-Pre 3.09 L ICSVC-Pre 2.47 [...] Specimen Performing Laboratory [facility] PFT MAIN [address] [place] [address] from Last 3 Months
--- OUTSIDE RECORDS SUMMARY | 2017-12-07 23:49 | XMS REPORT | Encounter Summary ---
Author Author [facility] Organization [facility] Address Unknown Phone Unavailable Care Team Providers Care Literary Agent Name Role Phone Jos eDe Jesus Rocha MD PCP Dario Pandya MD 21 Reason for Referral * Status Reason Specialty Diagnoses / Referred By Referred To Procedures Contact Contact New Request Procedures Janneth Pratt, REQUEST FOR AIR TABLE OPERATOR-C CARDIOLOGY [address] [place] [address] Reason for Visit * Reason Comments Cardiac Eval Post TAVR, New bradycardia episodes Encounter Details Date Type Department Care Team Description 12/07/2017 Office Visit [facility] Cardiology Janneth Pratt, CONCEPCION Cardiac Eval (Post TAVR, [address] [place] [address] New bradycardia episodes) [address] [place] [address] [place] [address] [phone] Social History Tobacco Use Types Packs/Day Years Used Date Former Smoker Cigarettes 1 25 Quit: 2002 Smokeless Tobacco: Never Used Alcohol Use Drinks/Week oz/Week Comments Yes occasional Sex Assigned at Date Recorded Not on file as of this encounter Last Filed Vital Signs Vital Sign Reading Time Taken Blood Pressure 106/76 12/07/2017 10:23 AM CDT Pulse 150 12/07/2017 10:23 AM CDT Temperature - - Respiratory Rate - - Oxygen Saturation - - Inhaled Oxygen - - Concentration Weight 112.4 kg (247 lb 12.8 oz) 12/07/2017 10:23 AM CDT Height 165.1 cm (5' 5") 12/07/2017 10:23 AM CDT Body Mass Index 41.24 12/07/2017 10:23 AM CDT in this encounter Functional Status Functional Status Response Date of Assessment Does the patient have a hearing impairment: Yes 11/25/2017 as of this encounter Instructions * Patient Instructions - Kiana PrattBRIANA guajardo-Cholo - 12/07/2017 10:30 AM CDT Restart coreg 3.125 mg twice daily. Apply ketoconazole cream to groin area twice daily. Keep it clean and dry. Wear heart monitor as directed. If you feel like you are going to pass out or your heart rate is low and you feel bad, go to your local ER or call 911. Follow up next week. in this encounter Plan of Treatment Name Priority Associated Diagnoses Order Schedule ECG 12-LEAD Routine Ventricular bigeminy Ordered: 12/07/2017 as of this encounter Results * MAGNESIUM (12/07/2017 12:33 PM) Component Value Ref Range Magnesium 2.3 1.6 - 2.6 mg/dL Specimen Performing Laboratory Blood [facility] MAIN LAB [address] [place] [address] * BASIC METABOLIC PANEL (12/07/2017 12:33 PM) Component Value Ref Range Sodium 135 (L) [...] Performing Laboratory Blood [facility] MAIN [facility] [address] [place] [address] in this encounter Visit Diagnoses Diagnosis Ventricular bigeminy - Primary Other specified cardiac dysrhythmias Folliculitis Other specified disease of hair and hair follicles Branch retinal artery occlusion of right eye Arterial branch occlusion of retina Near syncope Syncope and collapse Nonrheumatic aortic valve stenosis Aortic valve disorders S/P TAVR (transcatheter aortic valve replacement) Heart valve replaced by other means
--- OUTSIDE RECORDS SUMMARY | 2017-12-07 23:49 | XMS REPORT | Encounter Summary ---
Author Author [facility] Organization [facility] Address Unknown Phone Unavailable Care Team Providers Care Admissions Director Name Role Phone Jose De Jesus Rocha MD PCP Dario Pandya MD 21 Reason for Visit * Reason Comments Post Procedure Encounter Details Date Type Department Care Team Description 11/28/2017 Telephone [facility] Thoracic & Jessica Vernon RN Post Procedure Cardiovascular Surgeons [address] [place] [address] Social History Tobacco Use Types Packs/Day Years [...] Miscellaneous Notes * Telephone Encounter - Jessica Vernon RN - 11/28/2017 3:44 PM CDT Call received from Dr. Pandya requesting to speak with Dr. Thakkar. Called Dr. Thakkar to inform. Dr Thakkar to call Dr. Pandya at [phone]. in this encounter Plan of Treatment Not on fileas of this encounter Visit Diagnoses Not on filein this encounter
--- OUTSIDE RECORDS SUMMARY | 2017-12-07 23:49 | XMS REPORT | Encounter Summary ---
Author Author [facility] Organization [facility] Address Unknown Phone Unavailable Care Team Providers Care Tub Operator Name Role Phone Jose De Jesus Rocha MD PCP Dario Pandya MD 21 Reason for Visit * Reason Comments Eye Problem Pt. states thate he has a shadow in bottom left corner of right eye. Can see through the shadow. The rest of the vision is clear. The shadow stays right in the corner but is shrinks. Pt. states that it is coming and going today. No pain OD. morning pt. had some floaters but went away later that day. no flashes of light. Left eye is normal no changes. Some light sensitivity today. Pt. states that the eye dr that he said that there is plaque in the eye. They said he had a stroke. Medications Only none Encounter Details Date Type Department Care Team Description 11/29/2017 Office Visit [facility] Vikash Kilgore MD Branch retinal artery Physicians - [address] occlusion [place] [address] (Primary Dx); [address] [place] [phone] Nuclear sclerosis of both [address] [place] [address] Social History Tobacco Use Types Packs/Day Years Used Date Former Smoker Cigarettes 10 13 Quit: 2002 Smokeless Tobacco: Never Used Alcohol Use Drinks/Week oz/Week Comments Yes occasional Sex Assigned at Date Recorded Not on file as of this encounter Last Filed Vital Signs Vital Sign Reading Time Taken Blood Pressure - - Pulse - - Temperature - - Respiratory Rate - - Oxygen Saturation - - Inhaled Oxygen - - Concentration Weight 115.2 kg (254 lb) 11/29/2017 2:37 PM CDT Height 165.1 cm (5' 5") 11/29/2017 2:37 PM CDT Body Mass Index 42.27 11/29/2017 2:37 PM CDT in this encounter Functional Status Functional Status Response Date of Assessment Does the patient have a hearing impairment: Yes 11/25/2017 as of this encounter Progress Notes * Alex Braswell MD - 11/29/2017 2:30 PM CDT Formatting of this note may be different from the original. Body mass index is 42.27 kg/m. 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 most likely from aortic valve replacement Discussed findings with patient No ocular treatment at this time Was seen by digital operations analyst in ER yesterday Rec close follow up with cardiology- recommend Transesophageal Echocardiography to rule out active embolization from valve and full systemic workup to rule out emboli Had normal carotid doppler and echo yesterday CRP mildly elevated c/w surgery Follow up 1 month repeat DFE, monitor for NV Nuclear sclerosis of both eyes Not visually significant Monitor Alex Braswell MD PGY-4, Ophthalmology Pager # [phone] in this encounter Miscellaneous Notes * Assessment & Plan Note - Alex Braswell MD - 11/29/2017 4:52 PM CDT Associated Problem(s): Nuclear sclerosis of both eyes Not visually significant Monitor * Assessment & Plan Note - Alex Braswell MD - 11/29/2017 4:50 PM CDT Associated Problem(s): 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
--- OUTSIDE RECORDS SUMMARY | 2017-12-07 23:49 | XMS REPORT | Encounter Summary ---
Author Author [facility] Organization [facility] Address Unknown Phone Unavailable Care Team Providers Care Automation Qtp Tester Name Role Phone Jose De Jesus Rocha MD PCP Dario Pandya MD 21 Reason for Visit * Reason Comments General Question Encounter Details Date Type Department Care Team Description 12/06/[facility] Gagan Thompson RN General Question Cardiovascular Surgeons [address] [place] [address] Social History Tobacco Use Types [...] encounter Miscellaneous Notes * Telephone Encounter - Gagan Thompson RN - 12/06/2017 4:24 PM CDT Received call from patient's spouse with reports that the patient has had some "dizzy episodes". She states yesterday was the first time he noted this, they did check his vitals and his HR/BP was 124/53, HR 37, they rechecked and his BP 109/47, HR 42, they waited about 45 minutes and his BP 106/58, HR 53. She states today he did feel dizzy however his HR remained in the 70s. She states he currently feels well, requested they check his BP/HR now, currently 125/59, HR 67. She states they noted a rash on his incision, they deny any fevers or chills and state they did have this evaluated by an outside provider. She states they were evaluated at a local ER last week after noting "a new black spot" in his vision, he was evaluated for a stroke and was started on Plavix. Discussed patient status with Dr. Cuenca, recommended we discuss with [facility]. Spoke with Janneth, patient added on for OV with [facility] tomorrow AM. Instructed patient to proceed to a local ER or call 911 if he notes any other episodes of bradycardia or if he feels dizzy/light-headed prior to evaluation. Updated patient's spouse, they are agreeable. in this encounter Plan of Treatment Not on fileas of this encounter Visit Diagnoses Not on filein this encounter
--- OUTSIDE RECORDS SUMMARY | 2017-12-07 23:49 | XMS REPORT | Encounter Summary ---
Author Author [facility] Organization [facility] Address Unknown Phone Unavailable Care Team Providers Care Special Crimes Investigator Name Role Phone Jose De Jesus Rocha MD PCP Dario Pandya MD 21 Reason for Visit * Reason Comments Post-hospital Follow Up Encounter Details Date Type Department Care Team Description 11/28/2017 Telephone [facility] Thoracic & Jessica Vernon RN Post- hospital Follow Up Cardiovascular Surgeons [address] [place] [address] Social History Tobacco Use Types [...] Encounter - Jessica Vernon RN - 11/28/2017 3:53 PM CDT Called patient back to let him know that I faxed operative note and discharge summary to Dr. Rocha's office. Pt verbalized understanding. Stated "oh, by the way, that jain shadow is almost gone now." * Telephone Encounter - Jessica Vernon RN - 11/28/2017 1:21 PM CDT Called Mr. [...]
--- OUTSIDE RECORDS SUMMARY | 2017-12-07 23:49 | XMS REPORT | Encounter Summary ---
Author Author [facility] Organization [facility] Address Unknown Phone Unavailable Care Team Providers Care Wool Fleece Grader Name Role Phone Jose De Jesus Rocha MD PCP Dario Pandya MD 21 Encounter Details Date Type Department Care Team Description 12/07/2017 [facility] Cardiology Janneth Pratt APRN-C Arrived Encounter [address] [place] [address] [address] [place] [address] [phone] Social History Tobacco Use Types Packs/Day Years [...] on fileas of this encounter Results * BASIC METABOLIC PANEL (12/07/2017 12:33 PM) [...] Performing Laboratory Blood [facility] [address] [place] [address] * MAGNESIUM (12/07/2017 12:33 PM) Component Value Ref Range Magnesium 2.3 1.6 - 2.6 mg/dL Specimen Performing Laboratory Blood [facility] [address] [place] [address] in this encounter Visit Diagnoses Diagnosis Ventricular bigeminy Other specified cardiac dysrhythmias
--- OUTSIDE RECORDS SUMMARY | 2017-12-07 23:49 | XMS REPORT | Encounter Summary ---
Author Author [facility] Organization [facility] Address Unknown Phone Unavailable Care Team Providers Care Penetration Tester Name Role Phone Jose De Jesus Rocha MD PCP Dario Pandya MD 21 Reason for Visit * Reason Comments Follow-up Phone Call Encounter Details Date Type Department Care Team Description 11/[facility] Gagan [facility] RN Follow- up Phone Call Cardiovascular Surgeons [address] [place] [address] Social History Tobacco Use Types [...] Telephone Encounter - Gagan Thompson RN - 11/28/2017 4:03 PM CDT Received call from ER staff physician at [facility]. He states that the patient presented to their ER and has been examined by staff. 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 in this encounter Plan of Treatment Not on fileas of this encounter Visit Diagnoses Not on filein this encounter
--- OUTSIDE RECORDS SUMMARY | 2017-12-07 23:49 | XMS REPORT | Encounter Summary ---
Author Author [facility] Organization [facility] Address Unknown Phone Unavailable Care Team Providers Care Progressive Assembler And Fitter Name Role Phone Jose De Jesus Rocha MD PCP Dario Pandya MD 21 Reason for Visit * Reason Comments General Question Encounter Details Date Type Department Care Team Description 12/01/2017 Telephone [facility] Thoracic & Lulu Kamara RN General Question Cardiovascular Surgeons [address] [place] [address] Social History Tobacco Use Types Packs/Day Years [...] Telephone Encounter - Lulu Kamara RN - 12/01/2017 9:30 AM CDT It was recommended by Opthamology that pt get MONTSE to 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 PT does not want to get any further procedures done if Dr Cuenca does not think it is necessary. , Berkley, stated they were informed after the TAVR that there was an extensive amount of plaque build up on the valve. They are questioning whether treatment will defer based on any results of a potential MONTSE. Gustavo is feeling fine otherwise. The vision cloudiness is sometimes better but always there. Informed Berkley that I can review with GM on Tuesday and see if he has any different recommendation. in this encounter Plan of Treatment Not on fileas of this encounter Visit Diagnoses Not on filein this encounter
--- OUTSIDE RECORDS SUMMARY | 2017-12-07 23:50 | XMS REPORT | Encounter Summary ---
Author Author [facility] Organization [facility] Address Unknown Phone Unavailable Care Team Providers Care Hand Or Machine Paster Name Role Phone Jose De Jesus Rocha MD PCP Dario Pandya MD 21 Encounter Details Date Type Department Care Team Description 11/26/2017 Pharmacy Visit [facility] [address] [place] [id number] Social History Tobacco Use Types Packs/Day Years [...]
--- OUTSIDE RECORDS SUMMARY | 2017-12-07 23:51 | XMS REPORT | Encounter Summary ---
Author Author [facility] Organization [facility] Address Unknown Phone Unavailable Care Team Providers Care Forge Heater Name Role Phone Jose De Jesus Rocha MD PCP Dario Pandya MD 21 Reason for Referral * Test Status Reason Specialty Diagnoses / Referred By Referred To Procedures Contact Contact No Auth Needed Cardiology Diagnoses Janneth Pratt, Marcy Card Echopv Nonrheumatic PSYCHIATRIC THERAPIST-C [address] valve [address] [place], [place] [facility] [address] [address] hypertension [place], [place] Phone: P [address] rocedures Phone: 2-D + DOPPLER [phone] ECHOCARDIOGRAM Fax: [place] ECHO [facility] [phone] R-T 2D W/WOM-MODE COMPL SPEC&COLR D Encounter Details Date Type Department Care Team Description 11/25/2017 Orders Only [facility] Janneth Pratt, PSYCHIATRIC THERAPIST-C 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
--- OUTSIDE RECORDS SUMMARY | 2017-12-07 23:51 | XMS REPORT | Encounter Summary ---
Author Author [facility] Organization [facility] Address Unknown Phone Unavailable Care Team Providers Care Physical Therapy Aides Teacher Name Role Phone Jose De Jesus Rocha MD PCP Dario Pandya MD 21 Encounter Details Date Type Department Care Team Description 11/24/2017 Procedure Pass Cardiovascular Operating Room [address] [place], [place] [id number] Social History Tobacco Use Types Packs/Day Years Used Date Former Smoker Cigarettes 1 25 Quit: 2002 Smokeless Tobacco: Never Used Alcohol Use Drinks/Week oz/Week Comments Yes occasional Sex Assigned at Date Recorded Not on file as of this encounter Plan of Treatment Not on fileas of this encounter Visit Diagnoses Not on filein this encounter
--- OUTSIDE RECORDS SUMMARY | 2017-12-07 23:51 | XMS REPORT | Encounter Summary ---
Author Author [facility] Organization [facility] Address Unknown Phone Unavailable Care Team Providers Care Minister Name Role Phone Jose De Jesus Rocha [...] Date Type Department Care Team Description 11/24/2017 [facility] Galindo Thakkar MD S/ P TAVR (transcatheter - Encounter [address] aortic valve replacement) 11/26/2017 [place] [address] [address] [place] [address] [phone] Stephen Ruiz MD [address] [place] [address] [phone] Social History Tobacco Use Types Packs/Day Years Used Date Former Smoker Cigarettes 10 13 Quit: 2002 Smokeless Tobacco: Never Used Alcohol Use Drinks/Week oz/Week Comments Yes occasional Sex Assigned at Date Recorded Not on file as of this encounter Last Filed Vital Signs Vital Sign Reading Time Taken Blood Pressure 124/87 11/26/2017 8:00 AM CONDENSER TUBE TENDER Pulse 66 11/26/2017 8:00 AM CONDENSER TUBE TENDER Temperature 36.7 C (98.1 F) 11/26/2017 8:00 AM CONDENSER TUBE TENDER Respiratory Rate - - Oxygen Saturation 96% 11/26/2017 8:00 AM CONDENSER TUBE TENDER Inhaled Oxygen - - Concentration Weight 115.2 kg (254 lb) 11/26/2017 4:00 AM CONDENSER TUBE TENDER Height 167.6 cm (5' 5.98") 11/25/2017 9:01 AM CONDENSER TUBE TENDER Body Mass Index 41.02 11/26/2017 4:00 AM CONDENSER TUBE TENDER in this encounter Functional Status Functional Status Response Date of Assessment Does the patient have a hearing impairment: Yes 11/25/2017 as of this encounter Discharge Summaries * Lucero Strange PA-C - 11/26/2017 8:23 AM CONDENSER TUBE TENDER Formatting of this note may be different [...] notable for: Aortic Stenosis Brief Hospital Course: Mr. Rios is a 72 year old male with aortic stenosis and acute on chronic diastolic heart failure. The patient was admitted on 11/24/17 and underwent elective transcatheter aortic valve replacemen with Dr. Cuenca. The procedure was completed without complications and he was monitored on the cardiothoracic progressive care unit following surgery. He transferred to the telemetry floor on POD1. He was noted to have a new LBBB post -op and he was not restarted on his VENEER DRIER FEEDER beta-kitty. He increased his activity and oral intake. The patient had normal bowel and bladder function and was stable to be discharged home on POD#*2. Condition at Discharge: Stable Discharge Diagnoses: Hospital Problems Active Problems * (Principal)S/P TAVR (transcatheter aortic valve replacement) Morbid obesity (HCC) Mixed hyperlipidemia HTN (hypertension) Aortic stenosis Acute on chronic diastolic heart failure (HCC) Surgical Procedures: 1. Transvenous pacemaker through right [...] or concerns regarding your hospital stay. Call [phone] Discharging attending physician: GALINDO CUENCA [[id number]] Cardiac Diet Limiting unhealthy fats and cholesterol [...] echo, appt at 11:30 Provider GIOVANI PRATT [[id number]] Location Cardiology Clinic Appointment date: 12/30/2017 Appointment time: 10:30 AM Return Appointment Call to schedule an appointment with your primary care doctor in 1-2 weeks for a check up and medication review. Outside Provider Dr. Rocha Cardiac Rehab Your physician has referred you to outpatient cardiac rehab. Contact [facility] Cardiac Rehab Department at [phone] to schedule an appointment. Current Discharge Medication [...] mg tablet meloxicam (MOBIC) 15 mg tablet Scheduled appointments: Dec 30, 2017 10:30 AM CDT Echo Doppler with [facility] ECHO 3 [facility] ([facility]) [address] [place] [facility] [address] Dec 30, 2017 11:30 AM CDT Return Patient with CONCEPCION Palacios [facility] ([facility]) [address] [place] [address] [facility] [address] Dec 30, 2017 3:00 PM CDT RETURN PT LONG with Vikash Kilgore MD [facility] - [facility]hthalmology ([facility] Ophthalmology) [address] [facility] [phone] Signed: Lucero Strange PA-C 12/02/2017 cc: Primary Care Physician: Jose De Jesus [...] as of this encounter Progress Notes * Marivel Florez RN - 11/26/2017 10:39 AM CONDENSER TUBE TENDER Cardiac Rehab Call Back Note:pt having visual changes, dr cuenca has been notified. Are you tolerating activity?Yes Is pain controlled?Yes Is appetite normal?Yes Are you having symptoms of heart discomfort?No Are you having signs of infection at your incision sites or groin site?No Do you want outpt cardiac rehab?Yes * Shell Fields, CELIA - 11/26/2017 10:30 AM CONDENSER TUBE TENDER Assessments complete and documented per flowsheet, no acute changes noted. Tele on, SR c BBB. Pt denied pain. Groin incisions clean, dry, approximated, and open to air. Pt ambulating laps in hallways independently and without difficulty. UOA, last BM VENEER DRIER FEEDER on 11/24. No complaints voiced. Discharge instructions reviewed with pt and . Pt and asked appropriate questions, verbalized understanding of all instructions, and denied further questions/concerns. Pt declined oxycodone prescription, paper script placed in shred bin. IV and tele removed. Pt left unit via wheelchair with discharge instructions and all personal belongings. * Lucero Strange PA-C - 11/26/2017 5:44 AM CONDENSER TUBE TENDER Formatting of this note may be different from the original. CARDIOTHORACIC SURGERY DAILY PROGRESS NOTE PROCEDURE: 1. Temporary balloon-tipped pacemaker. 2. Ascending aortography. 3. Descending aortography. 4. Transcatheter aortic valve replacement with 29 Medtronic Evolut Pro POD #: 2 SUBJECTIVE: Overnight events: transferred from CTI yesterday. No problems last night ASSESSMENT: Principal Problem: S/P TAVR (transcatheter aortic valve replacement) Active Problems: Morbid obesity (HCC) Mixed hyperlipidemia HTN (hypertension) Aortic stenosis PLAN: Neuro Pain controlled on APAP. Continue PRN oxycodone, Tylenol, VENEER DRIER FEEDER Baclofen. CV SR w/ new LBBB post-TAVR, rates 70. BP 100-120s. Cont ASA 81 mg and statin and enalapril. Hold BB due new BBB. Intra op MONTSE LVEF 60%. Mr. Rios is a 72 year old male with aortic stenosis and acute on chronic diastolic heart failure. Resp SpO2 95% on RA this am, [...] home today No acute issues. Home today. MARICRUZ OBJECTIVE: Vitals: 11/26/17 0000 11/26/17 0051 11/26/17 [...] Shell Fields RN - 11/25/2017 7:00 PM CONDENSER TUBE TENDER Assessments complete and documented per flowsheet, no acute changes noted. Tele on, SR c BBB. Pt reported mild pain that was adequately managed with PRN tylenol. Groin dressings CDI with surrounding area soft to palpation. Pt ambulating in hallways independently and without difficulty. UOA, last BM VENEER DRIER FEEDER on 11/24. No complaints voiced. Call light within reach, will continue to monitor until transferring care to liner man RN. * Randy Carr MD - 11/25/2017 2:40 PM CONDENSER TUBE TENDER Formatting of this note may be different from the original. Critical Care Progress Note Today's Date: 11/25/2017 Name: Jaden Rios Admission Date: 11/24/2017 LOS: 1 day Assessment/Plan: Principal Problem: S/P TAVR (transcatheter aortic valve replacement) Active Problems: Morbid obesity (HCC) Mixed hyperlipidemia HTN (hypertension) Aortic stenosis ATTESTATION This note is associated with the [facility] ICU team note dated today. Date of Service: 11/25/2017 I have seen, personally fully evaluated, and discussed patient with the [facility] ICU team. The patient is critically [...] Pertinent radiology reviewed. Randy Carr MD Pager [phone] * Awais Austin, RT - 11/25/2017 10:31 AM CONDENSER TUBE TENDER Formatting of this note may be different [...] Rx *Higher points indicate higher acuity. Therapist: RT Lizzy Date: 11/25/2017 Zamorano AC=Airway clearance AM=Aerosolized medication BA=[place] aerosol DB&C=Deep breathe & cough FEV1=Forced expiratory volume in first second) IC=Inspiratory capacity LE=Lung expansion MDI=Metered dose inhaler Neb=Nebulizer O2=Oxygen Oxim=Oximetry PEFR=Peak expiratory flow rate FRUIT PITTER=Rapid Response Team * Anatoliy Alonso RN - 11/25/2017 9:36 AM CONDENSER TUBE TENDER Pt transferred to [facility] via wheelchair accompanied by staff in stable condition. Report given to Shell YANG, see transfer flowsheet for details. * Anatoliy Alonso RN - 11/25/2017 8:30 AM CONDENSER TUBE TENDER Pt assessment completed per flowsheet. Lines and [...] Yanira Marcano APRN - 11/25/2017 7:55 AM CONDENSER TUBE TENDER Formatting of this note may be different [...] controlled on APAP. Continue PRN oxycodone, Tylenol, VENEER DRIER FEEDER Baclofen. CV SB/SR w/ new LBBB post-TAVR, [...] and coordination of care. Yanira Marcano APRN [facility] Intensive Care Pager [phone] 11/25/2017 Subjective: HPI: Jaden Rios is a [...] obtained POD1 with plans to transfer to [facility]. REVIEW OF SYSTEMS: Constitutional: negative for fevers, chills and fatigue Respiratory: negative for cough, increased work of breathing or wheezing Cardiovascular: negative for chest pain, chest pressure/discomfort, palpitations Gastrointestinal: negative for nausea, vomiting and abdominal pain Genitourinary:negative for dysuria and hesitancy Cable Reeler Goal: Increased activity level & tolerance Objective: [...] Pain Scale 0-10 (Pain 1): Asleep (11/25/17 0600) Vitals: 11/24/17 0607 Weight: 115 kg (253 [...] Galindo Cuenca MD - 11/25/2017 7:43 AM CONDENSER TUBE TENDER Doing well, SR, good valve tones, incisions ok, to floor, home in another day. 20 minutes spent reviewing labs, echo and seeing pt. GFM * Marisa Hester, PT - 11/25/2017 2:38 AM CONDENSER TUBE TENDER PHYSICAL THERAPY ASSESSMENT/DISCHARGE MOBILITY: Mobility Progressive Mobility [...] Laura Howell RN - 11/25/2017 12:05 AM CONDENSER TUBE TENDER Assessment completed/ Pt resting quietly with eyes closed/ No new needs, complaints or request expressed/ Will cont to monitor. * Laura Howell RN - 11/24/2017 8:00 PM CONDENSER TUBE TENDER Assessment completed/ POC reviewed and updated after discussion with pt/ Pt calm and cooperative/ Voiced no needs, complaints, or request at this time/ Enc pt to call for assistance with needs/ Pt able to demonstrate use of call system without difficultly/ Will cont to monitor pt for needs or changes overnight. * Andrew Celis, CELIA - 11/24/2017 7:13 PM CONDENSER TUBE TENDER I have reviewed the notes, assessment, and/or procedures performed by Kitty ALMARAZ and concur with her documentation unless otherwise noted. * Kitty Farris - 11/24/2017 4:36 PM CONDENSER TUBE TENDER Pt up to chair, no hematoma or new bleeding present at incision sites. * Kitty Farris - 11/24/2017 2:34 PM CONDENSER TUBE TENDER Pt has no new hematoma development, no new drainage at bilateral groin sites. Pt HOB raised to 30 degrees. Pt is tolerating change well. Pt is on RA stating at 98% * Kitty Farris - 11/24/2017 1:30 PM CONDENSER TUBE TENDER Pt arrived to unit at 1245. Pt [...] sounds, abdomen is soft, non-distended, non-tender, BM VENEER DRIER FEEDER. Pt has a correa with light yellow [...] Awais Austin, RT - 11/24/2017 1:07 PM CONDENSER TUBE TENDER Formatting of this note may be different [...] Date: 11/24/2017 Zamorano AC=Airway clearance AM=Aerosolized medication BA=[place] aerosol DB&C=Deep breathe & cough FEV1=Forced expiratory volume in first second) IC=Inspiratory capacity LE=Lung expansion MDI=Metered dose inhaler Neb=Nebulizer O2=Oxygen Oxim=Oximetry PEFR=Peak expiratory flow rate FRUIT PITTER=Rapid Response Team * Karlene Joiner PA-C - 11/24/2017 12:50 PM CONDENSER TUBE TENDER Formatting of this note may be different [...] and coordination of care. Karlene Joiner PA-C [facility] Intensive Care Pager [phone] 11/24/2017 Subjective: HPI: Jaden Rios is a [...] (11/24 1200) Height: 167.6 cm (65.98") (11/24 0607) BP: (104-131)/(62-81) ABP: (116-150)/(60-70) Temp: [36.6 C (97.9 F)-36.8 C (98.2 F)] Pulse: [62-68] Respirations: [13 PER MINUTE-20 PER MINUTE] SpO2: [94 %-100 %] O2 Delivery: CPAP/BiPAP (Pt Owned) Intensity Pain Scale 0-10 (Pain 1): 4 (11/24/17 1204) Vitals: 11/24/17 0607 Weight: 115 kg (253 [...] Diagnostic Procedures Review: Reviewed * Deana Floyd, CELIA - 11/24/2017 11:40 AM CONDENSER TUBE TENDER Portable chest x-ray done. Read by Dr. Carr. No orders at this time. * Lulu Proctor - 11/24/2017 10:37 AM CONDENSER TUBE TENDER Formatting of this note may be different from the original. CARDIOPULMONARY REHABILITATION INPATIENT ASSESSMENT Cardiac Rehabilitation Staff: Lulu Proctor Discharge Date: Demographics Pre-admit Dx: Aortic Stenosis Date of Admission: 11/24/2017 Room: HC3 CV OR /HC3 CV OR BD : 1945 Insurance: Primary: Medicare Secondary: Unknown Address: [address] [place] [address] [place] [id number] Patient (home) Marital Status: Occupation: Unknown ED Contact: Berkley Rios (spouse) ED Phone #: [phone] CTS: [employer] Healthcare Consultant: Halle Cardiac Procedures and Events Valve: 11/24/17 [...] OPCR: Referral Faxed to: Date Faxed: Location: [facility], Sent to Staff: 11/24/2017 * Mariama Carrillo, RN - 11/23/2017 4:06 PM CONDENSER TUBE TENDER Patient aware he is first case tomorrow now 11/24 with an arrival time 0545 and NPO at 2300. in this encounter H&P Notes * Barbara Hickey PA-C - 11/24/2017 7:01 AM CONDENSER TUBE TENDER Formatting of this note may be different [...] Turbidity,UA Latest Ref Range: CLEAR-CLEAR CLEAR Specific [place]-Urine Latest Ref Range: 1.003 - 1.035 1.004 [...] Pertinent radiology reviewed. Barbara Hickey PA-C Pager [phone] in this encounter Consult Notes * Randy Carr MD - 11/24/2017 9:55 PM CONDENSER TUBE TENDER Associated Order(s): CONSULT ANESTHESIOLOGY CRITICAL CARE PHYSICIAN Formatting of this note may be different from the original. Critical Care Progress Note Today's Date: 11/24/2017 Name: Jaden Rios Admission Date: 11/24/2017 LOS: 0 days Assessment/Plan: Principal Problem: S/P TAVR (transcatheter aortic valve replacement) Active Problems: Morbid obesity (HCC) Mixed hyperlipidemia HTN (hypertension) Aortic stenosis ATTESTATION This note is associated with the [facility] ICU team note dated today. Date of Service: 11/24/2017 I have seen, personally fully evaluated, and discussed patient with the [facility] ICU team. The patient is critically [...] at 11/24/172154 Last data filed at 11/24/17 1900 Gross [...] Pertinent radiology reviewed. Randy Carr MD Pager [phone] in this encounter Miscellaneous Notes * Care Plan - Shell Fields RN - 11/26/2017 9:44 AM CONDENSER TUBE TENDER Problem: Infection, Risk of, Central Venous Catheter-Associated [...] - Shell Salgado - 11/25/2017 3:42 PM CONDENSER TUBE TENDER Case Management Admission Assessment NAME:Jaden Rios : [...] will dc home tomorrow w family assistance. Insurance Healthcare Consultant is Dr. Dario Pandya No current CM needs identified at this time. Patient Address/Phone [address] [place] [phone] (home) Emergency Contact Extended Emergency Contact Information Primary Emergency Contact: Berkley Rios [facility] Relation: Spouse Secondary Emergency Contact: Domenico Rios [facility] Relation: Son Healthcare Directive Healthcare Directive: Yes, patient has a healthcare directive Type of Healthcare Directive: Durable power of prosecuting attorney for healthcare, Healthcare directive Location of [...] Insurance: Medicare (A/B) Secondary Insurance: Commercial insurance ([employer]) Additional Coverage: RX ([employer] ) ? Source of Income Source Of Income: Other fdc income ? Financial Assistance Needed? NA Psychosocial Needs ? Mental Health Mental Health History: No ? Substance Use History Substance Use History Screen: No ? Other NA Current/Previous Services ? PCP Jose De Jesus Rocha, , ? Pharmacy [facility] [place], [place] - [facility] [address] [place] [id number] ? Durable Medical Equipment Durable Medical Equipment at home: Marlyner Walker, Single Point Cane (Pt states that [...] and community based services: No ? Chase Zhao Chase White: N/A ? Hospice Hospice: No ? Outpatient Therapy PT: In the past When did patient receive care?: 2009 Name of rehab location/group: [facility] Would patient return for future services?: Yes OT: No RANGE AIDE: No ? Half-Way Facility/Usp SNF: No NH: No ? Inpatient Rehab IPR: No ? [facility] LTACH: No ? Acute Hospital Stay Acute Hospital Stay: Yes Was patient's stay within the last 30 days?: Yes When did patient receive care?: 11/07/17 Name of hospital: [facility] Readmission Code Group: 8. Scheduled Readmission 8. Scheduled Readmission: 8b. Cardiac Related or Unrelated?: Unrelated Shell COPELAND, crusher supervisor Registered Nurse Fingerprint Technician Inpatient Cardiothoracic Surgery O: [phone] P: [phone] C: [phone] * Operative Report (DICTATED ONLY) - Galindo Cuenca MD - 11/25/2017 7: 58 AM CONDENSER TUBE TENDER [facility] [place] [phone] PATIENT NAME: JADEN RIOS MR#/PT#: [id number] OPERATIVE REPORT : 1945 DATE OF OPERATION: 11/25/2017 ROOM #: HC303 OPERATIVE REPORT SURGEON: Galindo Cuenca MD CHILD THERAPIST SURGEON(S): Stephen Sewell MD DICTATING PROVIDER: Galindo Cuenca MD PREOPERATIVE DIAGNOSIS: Aortic stenosis. POSTOPERATIVE DIAGNOSIS: Aortic stenosis. OPERATIVE PROCEDURE: 1. Temporary balloon-tipped pacemaker. 2. Ascending aortography. 3. Descending aortography. 4. Transcatheter aortic valve replacement with 29 Medtronic Evolut Pro, serial number [id number]. DESCRIPTION AND FINDINGS OF OPERATIVE PROCEDURE: Patient [...] passed. This was exchanged for a 20- [place] DrySeal sheath. Wire access was obtained across [...] ICU in stable condition. MD DEE DEE Rubio/MedQ Galindo Cuenca MD / MedQ [id number] cc: - Galindo Cuenca MD * Care Plan - Laura Howell RN - 11/25/2017 6:06 AM CONDENSER TUBE TENDER Problem: Infection, Risk of, Central Venous Catheter-Associated [...] discuss previous, home, and current POC with brief writer Goal: Prepared for discharge Outcome: Goal [...] Stephen Sewell MD - 11/24/2017 10:28 AM CONDENSER TUBE TENDER TAVR (Transcatheter Aortic Valve Replacement) Date of [...] common femoral artery with placement of 5- [place] sheath. Surgical cutdown ccess also obtained in the left common femoral artery with 20F [place] Dryseal. 4. Utilizing an JR4 catheter and [...] conclusion of the case and transported to [facility] in stable condition. 14. The patient's transvenous [...] Cuenca MD - 11/24/2017 9 :59 AM CONDENSER TUBE TENDER Brief Operative Note Name: Jaden Rios is a 72 y.o. male : 1945 MRN# : [id number] DATE OF OPERATION: 11/24/2017 Date: 11/24/2017 Preoperative [...] ICU - stable Galindo Cuenca MD Pager [phone] in this encounter Plan of Treatment Not [...] CDT procedure are in the results section. in this encounter Results * PROCEDURE RECORD-SCAN (11/29/2017 9:02 AM) Narrative Ordered by an unspecified provider. * ECG-SCAN (11/28/2017 11:55 AM) Narrative Ordered by an unspecified provider. * TELEMETRY STRIPS-SCAN (11/28/2017 11:54 AM) Narrative Ordered by an unspecified provider. * ECG-SCAN (11/27/2017 1:50 PM) Narrative Ordered by an unspecified provider. * ECG-SCAN (11/27/2017 1:50 PM) Narrative Ordered by an unspecified provider. * POC GLUCOSE (11/26/2017 8:06 AM) Component Value Ref Range Glucose, POC 126 (H) 70 - 100 MG/DL Specimen Performing Laboratory [facility] [address] [place] [address] * CHEST SINGLE VIEW (11/26/2017 6:23 AM) [...] Interface, Radiant Results - 11/26/2017 12:58 PM CONDENSER TUBE TENDER Single view chest Clinical indications: Transcatheter aortic [...] Pharmacist for questions. Specimen Performing Laboratory Blood [facility] [address] [place] [address] * CBC (11/26/2017 3:46 AM) Component Value [...] - 11 FL Specimen Performing Laboratory Blood [facility] [address] [place], [place] [id number] * POC GLUCOSE (11/26/2017 3:26 AM) Component Value Ref Range Glucose, POC 114 (H) 70 - 100 MG/DL Specimen Performing Laboratory [facility] [address] [place], [place] [id number] * POC GLUCOSE (11/25/2017 8:39 PM) Component Value Ref Range Glucose, POC 146 (H) 70 - 100 MG/DL Specimen Performing Laboratory [facility] [address] [place], [place] [id number] * POC GLUCOSE (11/25/2017 5:23 PM) Component Value Ref Range Glucose, POC 103 (H) 70 - 100 MG/DL Specimen Performing Laboratory [facility] [address] [place], [place] [id number] * POC GLUCOSE (11/25/2017 11:46 AM) Component Value Ref Range Glucose, POC 124 (H) 70 - 100 MG/DL Specimen Performing Laboratory [facility] [address] [place], [place] [id number] * 2-D + DOPPLER ECHOCARDIOGRAM (11/25/2017 9:01 [...] Index 30.98 10 - 32 AV index ([place]) 0.43 LVOT area 3.83 cm2 LVOT stroke volume 88.09 cm3 E/A ratio 0.75 E/E' ratio 9.25 CV ECHO PV LEAD GENERATION SPECIALIST BIBIANA Jeffers Cardiology Ultrasound Siemens [id number] Machine Aortic valve area= 1.87 cm2 TV [...] Specimen Performing Laboratory [facility] [address] [place] [address] * CHEST SINGLE VIEW (11/25/2017 4:18 AM) [...] Interface, Radiant Results - 11/25/2017 10:57 AM CONDENSER TUBE TENDER CHEST SINGLE VIEW Clinical Indication: Male, 72 [...] Pharmacist for questions. Specimen Performing Laboratory Blood [facility] [address] [place] [address] * CBC (11/25/2017 3:52 AM) Component Value [...] - 11 FL Specimen Performing Laboratory Blood [facility] [address] [place] [address] * POC GLUCOSE (11/24/2017 9:14 PM) Component Value Ref Range Glucose, POC 122 (H) 70 - 100 MG/DL Specimen Performing Laboratory [facility] [address] [place] [address] * POTASSIUM (11/24/2017 6:46 PM) Component Value Ref Range Potassium 4.0 3.5 - 5.1 MMOL/L Specimen Performing Laboratory Blood [facility] [address] [place] [address] * MAGNESIUM (11/24/2017 6:46 PM) Component Value Ref Range Magnesium 1.9 1.6 - 2.6 mg/dL Specimen Performing Laboratory Blood [facility] [address] [place] [address] * POC GLUCOSE (11/24/2017 5:01 PM) Component Value Ref Range Glucose, POC 155 (H) 70 - 100 MG/DL Specimen Performing Laboratory [facility] [address] [place] [address] * POC GLUCOSE (11/24/2017 12:36 PM) Component Value Ref Range Glucose, POC 129 (H) 70 - 100 MG/DL Specimen Performing Laboratory [facility] [address] [place] [address] * PTT (APTT) (11/24/2017 10:39 AM) Component Value Ref Range APTT 28.7 21.0 - 39.0 SEC Specimen Performing Laboratory [facility] [address] [place] [address] * PROTIME INR (PT) (11/24/2017 10:39 AM) Component Value Ref Range INR 1.0 0.8 - 1.2 Specimen Performing Laboratory [facility] [address] [place] [address] * BASIC METABOLIC PANEL (11/24/2017 10:39 AM) [...] Specimen Performing Laboratory [facility] [address] [place] [address] * CBC (11/24/2017 10:39 AM) Component Value [...] FL Specimen Performing Laboratory Blood [facility] [address] [place] [address] * LINE PLCMT 1V CXR (11/24/2017 10:38 [...] Interface, Radiant Results - 11/24/2017 12:37 PM CONDENSER TUBE TENDER LINE PLCMT 1V CXR Clinical Indication: Male, [...] 1.3 MMOL/L Specimen Performing Laboratory [facility] [address] [place] [address] * POC SODIUM (11/24/2017 9:52 AM) Component Value Ref Range Sodium-POC 140 137 - 147 MMOL/L Specimen Performing Laboratory [facility] [address] [place] [address] * POC POTASSIUM (11/24/2017 9:52 AM) Component Value Ref Range Potassium-POC 3.5 3.5 - 5.1 MMOL/L Specimen Performing Laboratory MAIN LAB [address] [place] [id number] * POC HEMATOCRIT (11/24/2017 9:52 AM) Component Value Ref Range Hemoglobin POC 12.6 (L) 13.5 - 16.5 GM/DL Hematocrit POC 37.0 (L) 40 - 50 % Specimen Performing Laboratory MAIN LAB [address] [place] [address] [id number] * POC BLOOD GAS ARTERIAL (11/24/2017 9:52 AM) Component Value Ref Range PH-ART-POC 7.30 (L) 7.35 - 7.45 [id number]-PSF 43 35 - 45 MMHG PO2-ART-POC 70 (L) 80 - 100 MMHG Base Def-ART-POC 6.0 MMOL/L O2 Sat-ART-POC 92.0 (L) 95 - 99 % Mdbilfajnxt-GZK-ROY 20.7 (L) 21 - 28 MMOL/L Specimen Performing Laboratory MAIN LAB [address] [place] [address] [id number] * POC GLUCOSE (11/24/2017 9:50 AM) Component Value Ref Range Glucose, POC 138 (H) 70 - 100 MG/DL Specimen Performing Laboratory [facility] [address] [place] [address] [phone] * POC ACTIVATED CLOTTING TIME (11/24/2017 9:49 AM) Component Value Ref Range Activated Clotting Time 162 s Specimen Performing Laboratory MAIN LAB [address] [place] [address] [phone] * POC IONIZED CALCIUM (11/24/2017 8:51 AM) Component Value Ref Range Ionized Calcium-POC 1.14 1.0 - 1.3 MMOL/L Specimen Performing Laboratory [facility] [address] [place] [address] 68623 * POC SODIUM (11/24/2017 8:51 AM) Component Value Ref Range Sodium-POC 140 137 - 147 MMOL/L Specimen Performing Laboratory MAIN LAB [address] [place] [address] 70373 * POC POTASSIUM (11/24/2017 8:51 AM) Component Value Ref Range Potassium-POC 3.7 3.5 - 5.1 MMOL/L Specimen Performing Laboratory MAIN LAB [address] [place] [address] 32557 * POC HEMATOCRIT (11/24/2017 8:51 AM) Component Value Ref Range Hemoglobin POC 13.3 (L) 13.5 - 16.5 GM/DL Hematocrit POC 39.0 (L) 40 - 50 % Specimen Performing Laboratory MAIN LAB [address] [place] [address] 37396 * POC BLOOD GAS ARTERIAL (11/24/2017 8:51 AM) Component Value Ref Range PH-ART-POC 7.27 (L) 7.35 - 7.45 [id number]-[id number]-TYR 50 (H) 35 - 45 MMHG PO2-ART-POC 157 (H) 80 - 100 MMHG Base Def-ART-POC 4.0 MMOL/L O2 Sat-ART-POC 99.0 95 - 99 % Xqernvytbgn-TMU-GIK 22.9 21 - 28 MMOL/L Specimen Performing Laboratory MAIN LAB [address] [place] [address] 37957 * POC ACTIVATED CLOTTING TIME (11/24/2017 8:49 AM) Component Value Ref Range Activated Clotting Time 292 s Specimen Performing Laboratory MAIN LAB [address] [place] [address] [id number] * POC GLUCOSE (11/24/2017 8:49 AM) Component Value Ref Range Glucose, POC 108 (H) 70 - 100 MG/DL Specimen Performing Laboratory MAIN LAB [address] [place] [address] 75527 * BLOOD TYPE CONFIRMATION - ORDER ONLY IF REQUESTED BY LAB (11/24/2017 6:20 AM) Component Value Ref Range ABO/RH(D) O POS Specimen Performing Laboratory MAIN LAB [address] [place] [id number] in this encounter Visit Diagnoses Diagnosis S/P [...] branch block HTN (hypertension) Unspecified essential hypertension Acute on chronic diastolic heart failure (HCC) Acute on chronic diastolic heart failure Admitting Diagnoses Diagnosis 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, etiology of cardiac valve disease unspecified - 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, etiology of cardiac valve disease unspecified [I35.0] Aortic stenosis Administered Medications Medication Order MAR Action Action Date Dose Rate Site acetaminophen (TYLENOL) tablet 650 mg Given 11/24/2017 650 mg 650 mg, Oral, EVERY 6 HOURS PRN, 14:19 [employer] Starting Kalie 11/24/17 at 1231, Until 11/26/17 at 1239, Pain non-opioid: may be used alone or in combination with opioid analgesia, Temp > 38.5 C, TOTAL ACETAMINOPHEN DOSE NOT TO EXCEED 4GM DAILY. Given 11/25/2017 325 mg 17:43 [employer] aspirin EC tablet 81 mg Given 11/24/2017 81 mg 81 mg, Oral, AT BEDTIME DAILY, First 21:11 [employer] dose on Kalie 11/24/17 at 2100, Until Discontinued Given 11/25/2017 81 mg 21:03 [employer] ceFAZolin (ANCEF) IVP 2 g Given 11/24/2017 2 g 2 g, Intravenous, EVERY 8 HOURS, 3 16:22 [employer] doses, First dose on Kalie 11/24/17 at 1600, Last dose on Tue11/25/17 at 0800, IV PUSH -- RECONSTITUTE each 1 g vial by adding 10 mL 0.9% NACL Given 11/25/2017 2 g 01:11 [employer] Given 11/25/2017 2 g 09:17 [employer] enalapril (VASOTEC) tablet 2.5 mg Given 11/25/2017 2.5 mg 2.5 mg, Oral, TWICE DAILY, First dose on 09:18 [employer] 11/25/17 at 0945, Until Discontinued Given 11/25/2017 2.5 mg 21:03 [employer] Given 11/26/2017 2.5 mg 08:12 [employer] FENTANYL CITRATE (PF) 50 MCG/ML IJ SOLN (Cabinet Override) NOW, 1 dose, Kalie 11/24/17 at 1130, Created by mikainet override fentaNYL citrate PF (SUBLIMAZE) Given 11/24/2017 50 mcg injection 25-50 mcg 11:20 [employer] 25-50 mcg, Intravenous, EVERY 1 HOUR PRN, Starting Kalie 11/24/17 at 1159, Until Tue11/25/17 at 0810, Pain Injectable, Give if not tolerating PO, NPO, or vomiting Given 11/24/2017 50 mcg 12:01 [employer] furosemide (LASIX) tablet 40 mg Given 11/26/2017 40 mg 40 mg, Oral, ONCE, 1 dose, 11/26/17 08:11 [employer]ER at 0745 insulin aspart U-100 (NOVOLOG FLEXPEN) Given 11/24/2017 2 Units Arm, Left injection PEN 0-14 Units 17:03 [employer]ER 0-14 Units, Subcutaneous, BEFORE MEALS AND AT BEDTIME, First dose on Kalie 11/24/17 at 1245, Until Discontinued, -POC glucose 140-180mg/dL at , , administer 2 units insulin, at 21, 03* administer 0 units. -POC glucose 181-220mg/dL at , , administer 4 units insulin, at , 03* administer 2 units. -POC glucose 221-260mg/dL at , , administer 6 units insulin, at , 03* administer 4 units. -POC glucose 261-300mg/dL at , , administer 8 units insulin, at , 03* administer 6 units. -POC glucose 301-350mg/dL at , , administer 10 units insulin, at , 03* administer 8 units. -POC glucose 351-400mg/dL at , , administer 12 units insulin, at , 03* administer 10 units. -POC glucose >400mg/dL at , , administer 14 units insulin, at , 03* administer 12 units. *only if ordered 5x's daily For POCT glucose >350mg/dL give correction bolus and recheck POCT glucose in 2 hours. If POCT glucose at 2 hours >300mg/dL call physician for further orders. For patients who are not eating meals, continue to administer the appropriate correction factor. NOTE: This is a HIGH ALERT Medication. LIDOCAINE (PF) 10 MG/ML (1 %) IJ SOLN (Cabinet Override) NOW, 1 dose, Kalie 11/24/17 at 0600, Created by [employer] chelo lidocaine PF 1% (10 mg/mL) injection Given 11/24/2017 2 mL 0.1-2 mL 06:16 [employer] 0.1-2 mL, Injection, NEEDED, Starting Kalie 11/24/17 at 0603, Until Kalie 11/24/17 at 1223, Other..., for IV insertion, Pre-Op perflutren lipid microspheres (DEFINITY) Given 11/25/2017 3 Diluted mL injection 1-20 Diluted mL 09:07 [employer] 1-20 Diluted mL, Intravenous, ONCE, 1 dose, 11/25/17 at 0745, NOTE: This is a HIGH ALERT Medication. potassium chloride SR (K-DUR) tablet 20 Given 11/26/2017 20 mEq mEq 08:11 [employer] 20 mEq, Oral, ONCE, 1 dose, 11/26/17 at 0745, Do NOT break or crush tablet potassium chloride SR (K-DUR) tablet Given 11/24/2017 40 mEq 20-40 mEq 15:10 [employer] 20-40 mEq, Oral, NEEDED, Starting Kalie 11/24/17 [...] if needed. Given 11/25/2017 40 mEq 09:17 [employer] Given 11/26/2017 20 mEq 06:47 [employer] rosuvastatin (CRESTOR) tablet 10 mg Given 11/24/2017 10 mg 10 mg, Oral, AT BEDTIME DAILY, First 21:11 [employer] dose on Kalie 11/24/17 at 2100, Until Discontinued Given 11/25/2017 10 mg 21:03 [employer] senna/docusate (SENOKOT-S) tablet 2 Given 11/25/2017 2 tablets tablet 09:17 [employer]ER 2 tablet, Oral, TWICE DAILY, First dose on Kalie 11/24/17 at 1245, Until Discontinued, Hold for loose stools Given 11/25/2017 2 tablets 21:03 [employer]ER Given 11/26/2017 2 tablets 08:12 [employer] sodium chloride 0.9 % infusion Given - New 11/24/2017 20 mL/hr 1,000 mL, Intravenous, at 20 mL/hr, Bag 06:16 [employer]ER CONTINUOUS, Starting Kalie 11/24/17 at 0615, Until Kalie 11/24/17 at 1231, Pre-Op Given - New Bag 11/24/2017 09:21 [employer] sodium chloride 0.9 % infusion Given - New 11/24/2017 30 mL/hr 1,000 mL, Intravenous, at 30 mL/hr, Bag 11:20 [employer]ER CONTINUOUS, Starting Kalie 11/24/17 at 1015, Until Tue11/25/17 at 0810 SODIUM CHLORIDE 0.9 % IV SOLP (Cabinet Override) NOW, 1 dose, Kalie 11/24/17 at 0600, Created by cabinet override
--- OUTSIDE RECORDS SUMMARY | 2017-12-07 23:51 | XMS REPORT | Encounter Summary ---
Author Author [facility] Organization [facility] Address Unknown Phone Unavailable Care Team Providers Care Portrait Photographer Name Role Phone Jose De Jesus Rocha MD PCP Dario Pandya MD 21 Encounter Details Date Type Department Care Team Description 11/25/2017 Pharmacy Visit [facility] [address] [place] [address] [phone] Social History Tobacco Use Types Packs/Day Years [...]
--- OUTSIDE RECORDS SUMMARY | 2017-12-07 23:52 | XMS REPORT | Encounter Summary ---
Author Author [facility] Organization [facility] Address Unknown Phone Unavailable Care Team Providers Care Operations Support Specialist Name Role Phone Jose De Jesus Rocha [...] Galindo Cuenca MD REPLACEMENT TRANSCATHETER Room [address] AORTIC VALVE-evolut, left [address] [place] [address] [place] [address] approach, 29 pro valve [phone] Social History Tobacco Use Types Packs/Day Years Used Date Former Smoker Cigarettes 1 25 Quit: 2002 Smokeless Tobacco: Never Used Alcohol Use Drinks/Week oz/Week Comments Yes occasional Sex Assigned at Date Recorded Not on file as of this encounter Last Filed Vital Signs Vital Sign Reading Time Taken Blood Pressure 124/87 11/26/2017 8:00 AM WELDER REPAIR Pulse 66 11/26/2017 8:00 AM WELDER REPAIR Temperature 36.7 C (98.1 F) 11/26/2017 8:00 AM WELDER REPAIR Respiratory Rate - - Oxygen Saturation 96% 11/26/2017 8:00 AM WELDER REPAIR Inhaled Oxygen - - Concentration Weight 115.2 kg (254 lb) 11/26/2017 4:00 AM WELDER REPAIR Height 167.6 cm (5' 5.98") 11/25/2017 9:01 AM WELDER REPAIR Body Mass Index 41.02 11/26/2017 4:00 AM WELDER REPAIR in this encounter Functional Status Functional Status Response Date of Assessment Does the patient have a hearing impairment: Yes 11/25/2017 as of this encounter Discharge Summaries * Lucero Strange PA-C - 11/26/2017 8:23 AM WELDER REPAIR Formatting of this note may be different [...] and he was not restarted on his PICKLING SOLUTION MAKER beta-kitty. He increased his activity and oral [...] or concerns regarding your hospital stay. Call [phone] Discharging attending physician: GALINDO CUENCA [[id number]] Cardiac Diet Limiting unhealthy fats and cholesterol [...] echo, appt at 11:30 Provider GIOVANI PRATT [[id number]] Location Cardiology Clinic Appointment date: 12/30/2017 Appointment time: 10:30 AM Return Appointment Call to schedule an appointment with your primary care doctor in 1-2 weeks for a check up and medication review. Outside Provider Dr. Rocha Cardiac Rehab Your physician has referred you to outpatient cardiac rehab. Contact [facility] Cardiac Rehab Department at [phone] to schedule an appointment. Current Discharge Medication [...] 2017 10:30 AM CDT Echo Doppler with [facility] 3 [facility] ([facility]) [address] [facility] [address] Dec 30, 2017 11:30 AM CDT Return Patient with CONCEPCION Palacios [facility] ([facility]) [address] [facility] [address] Dec 30, 2017 3:00 PM CDT RETURN PT LONG with Vikash Kilgore MD [facility] - Ophthalmology ([facility] Ophthalmology) [address] [facility] [phone] Signed: Lucero Strange PA-C 12/02/2017 cc: Primary [...] of this encounter Progress Notes * Marivel Florez, RN - 11/26/2017 10:39 AM WELDER REPAIR Cardiac Rehab Call Back Note:pt having visual changes, dr cuenca has been notified. Are you tolerating activity?Yes Is pain controlled?Yes Is appetite normal?Yes Are you having symptoms of heart discomfort?No Are you having signs of infection at your incision sites or groin site?No Do you want outpt cardiac rehab?Yes * Shell Fields, CELIA - 11/26/2017 10:30 AM WELDER REPAIR Assessments complete and documented per flowsheet, no acute changes noted. Tele on, SR c BBB. Pt denied pain. Groin incisions clean, dry, approximated, and open to air. Pt ambulating laps in hallways independently and without difficulty. UOA, last BM PICKLING SOLUTION MAKER on 11/24. No complaints voiced. Discharge instructions reviewed with pt and . Pt and asked appropriate questions, verbalized understanding of all instructions, and denied further questions/concerns. Pt declined oxycodone prescription, paper script placed in shred bin. IV and tele removed. Pt left unit via wheelchair with discharge instructions and all personal belongings. * Lucero Strange PA-C - 11/26/2017 5:44 AM WELDER REPAIR Formatting of this note may be different from the original. CARDIOTHORACIC SURGERY DAILY PROGRESS NOTE PROCEDURE: 1. Temporary balloon-tipped pacemaker. 2. Ascending aortography. 3. Descending aortography. 4. Transcatheter aortic valve replacement with 29 Medtronic Evolut Pro POD #: 2 SUBJECTIVE: Overnight events: transferred from [facility] yesterday. No problems last night ASSESSMENT: Principal Problem: S/P TAVR (transcatheter aortic valve replacement) Active Problems: Morbid obesity (HCC) Mixed hyperlipidemia HTN (hypertension) Aortic stenosis PLAN: Neuro Pain controlled on APAP. Continue PRN oxycodone, Tylenol, PICKLING SOL[employer] MAKER Baclofen. CV SR w/ new LBBB post-TAVR, [...] Shell Fields RN - 11/25/2017 7:00 PM WELDER REPAIR Assessments complete and documented per flowsheet, no acute changes noted. Tele on, SR c BBB. Pt reported mild pain that was adequately managed with PRN tylenol. Groin dressings CDI with surrounding area soft to palpation. Pt ambulating in hallways independently and without difficulty. UOA, last BM PICKLING SOLUTION MAKER on 11/24. No complaints voiced. Call light within reach, will continue to monitor until transferring care to power and recovery shift engineer RN. * Randy Carr MD - 11/25/2017 2:40 PM WELDER REPAIR Formatting of this note may be different from the original. Critical Care Progress Note Today's Date: 11/25/2017 Name: Jaden Rios Admission Date: 11/24/2017 LOS: 1 day Assessment/Plan: Principal Problem: S/P TAVR (transcatheter aortic valve replacement) Active Problems: Morbid obesity (HCC) Mixed hyperlipidemia HTN (hypertension) Aortic stenosis ATTESTATION This note is associated with the [facility] ICU team note dated today. Date of Service: 11/25/2017 I have seen, personally fully evaluated, and discussed patient with the [facility] ICU team. The patient is critically ill [...] Signs: 24 Hour Range BP: 129/64 (11/25 1146) ABP: 141/62 (11/25 0900) Temp: 36.9 C (98.5 F) (11/25 1145) [...] (Pain 1): (not recorded) Vitals: 11/24/17 0607 11/25/17900 Weight: 115 kg (253 lb 8.5 oz) [...] 0352) POC Glucose (Download): (!) 124 (11/25/17 1495) Radiology and Other Diagnostic Procedures Review: Pertinent radiology reviewed. Randy Carr MD Pager [phone] * Awais Austin, RT - 11/25/2017 10:31 AM WELDER REPAIR Formatting of this note may be different [...] Date: 11/25/2017 Zamorano AC=Airway clearance AM=Aerosolized medication BA=[place] aerosol DB&C=Deep breathe & cough FEV1=Forced expiratory volume in first second) IC=Inspiratory capacity LE=Lung expansion MDI=Metered dose inhaler Neb=Nebulizer O2=Oxygen Oxim=Oximetry PEFR=Peak expiratory flow rate ZONING ENGINEER=Rapid Response Team * Anatoliy Alonso, CELIA - 11/25/2017 9:36 AM WELDER REPAIR Pt transferred to [facility] via wheelchair accompanied by staff in stable condition. Report given to Shell YANG, see transfer flowsheet for details. * Anatoliy Alonso RN - 11/25/2017 8:30 AM WELDER REPAIR Pt assessment completed per flowsheet. Lines and [...] pt's reach, ICU care cont. * Yanira Marcano, BRIANA - 11/25/2017 7:55 AM WELDER REPAIR Formatting of this note may be different [...] controlled on APAP. Continue PRN oxycodone, Tylenol, P[employer]ING [employer]KER Baclofen. CV SB/SR w/ new LBBB post-TAVR, [...] and coordination of care. Yanira Marcano APRN [facility] Intensive Care Pager [phone] 11/25/2017 Subjective: HPI: Jaden Rios is a [...] obtained POD1 with plans to transfer to [facility]. REVIEW OF SYSTEMS: Constitutional: negative for fevers, chills and fatigue Respiratory: negative for cough, increased work of breathing or wheezing Cardiovascular: negative for chest pain, chest pressure/discomfort, palpitations Gastrointestinal: negative for nausea, vomiting and abdominal pain Genitourinary:negative for dysuria and hesitancy Senior Care Goal: Increased activity level & tolerance Objective: [...] Galindo Cuenca MD - 11/25/2017 7:43 AM WELDER REPAIR Doing well, SR, good valve tones, incisions ok, to floor, home in another day. 20 minutes spent reviewing labs, echo and seeing pt. GFM * Marisa Hester, PT - 11/25/2017 2:38 AM WELDER REPAIR PHYSICAL THERAPY ASSESSMENT/DISCHARGE MOBILITY: Mobility Progressive Mobility [...] Recommendations: Home Equipment Recommendations: None Therapist: Marisa Hesetr, PT Date: 11/25/2017 * Laura Howell RN - 11/25/2017 12:05 AM WELDER REPAIR Assessment completed/ Pt resting quietly with eyes closed/ No new needs, complaints or request expressed/ Will cont to monitor. * Laura Howell RN - 11/24/2017 8:00 PM WELDER REPAIR Assessment completed/ POC reviewed and updated after discussion with pt/ Pt calm and cooperative/ Voiced no needs, complaints, or request at this time/ Enc pt to call for assistance with needs/ Pt able to demonstrate use of call system without difficultly/ Will cont to monitor pt for needs or changes overnight. * Andrew Celis, CELIA - 11/24/2017 7:13 PM WELDER REPAIR I have reviewed the notes, assessment, and/or procedures performed by Kitty ALMARAZ and concur with her documentation unless otherwise noted. * Kitty Farris - 11/24/2017 4:36 PM WELDER REPAIR Pt up to chair, no hematoma or new bleeding present at incision sites. * Kitty Farris - 11/24/2017 2:34 PM WELDER REPAIR Pt has no new hematoma development, no new drainage at bilateral groin sites. Pt HOB raised to 30 degrees. Pt is tolerating change well. Pt is on RA stating at 98% * Kitty Farris - 11/24/2017 1:30 PM WELDER REPAIR Pt arrived to unit at 1245. Pt [...] sounds, abdomen is soft, non-distended, non-tender, BM PICKLING SOLUTION MAKER. Pt has a correa with light yellow [...] Awais Austin, RT - 11/24/2017 1:07 PM WELDER REPAIR Formatting of this note may be different [...] Date: 11/24/2017 Zamorano AC=Airway clearance AM=Aerosolized medication BA=[place] aerosol DB&C=Deep breathe & cough FEV1=Forced expiratory volume in first second) IC=Inspiratory capacity LE=Lung expansion MDI=Metered dose inhaler Neb=Nebulizer O2=Oxygen Oxim=Oximetry PEFR=Peak expiratory flow rate ZONING ENGINEER=Rapid Response Team * Karlene Joiner PA-C - 11/24/2017 12:50 PM WELDER REPAIR Formatting of this note may be different [...] Karlene Joiner PA-C CTS Intensive Care Pager [phone] 11/24/2017 Subjective: HPI: Jaden Rios is a [...] C (98.1 F) (11/24 1204) Pulse: 63 (11/25 1199) Respirations: 16 PER MINUTE (11/25 1199) SpO2: [...] Other Diagnostic Procedures Review: Reviewed * Deana Floyd RN - 11/24/2017 11:40 AM WELDER REPAIR Portable chest x-ray done. Read by Dr. Carr. No orders at this time. * Lulu Proctor - 11/24/2017 10:37 AM WELDER REPAIR Formatting of this note may be different from the original. CARDIOPULMONARY REHABILITATION INPATIENT ASSESSMENT Cardiac Rehabilitation Staff: Lulu Proctor Discharge Date: Demographics Pre-admit Dx: Aortic Stenosis Date of Admission: 11/24/2017 Room: HC3 CV OR RM/HC3 CV OR BD : 1945 Insurance: Primary: Medicare Secondary: Unknown [address]: [address] [place] [address] [address] [place] [address] Patient (home) Marital Status: Occupation: Unknown ED Contact: Berkley Rios (spouse) ED Phone #: [phone] CTS: Bang Patient Registration Rep: Halle Cardiac Procedures and Events Valve: 11/24/17 [...] Mariama Carrillo RN - 11/23/2017 4:06 PM WELDER REPAIR Patient aware he is first case tomorrow now 11/24 with an arrival time 0545 and NPO at 2300. in this encounter H&P Notes * Barbara Hickey PA-C - 11/24/2017 7:01 AM WELDER REPAIR Formatting of this note may be different [...] Intensity Pain Scale 0-10 (Pain 1): 2 (11/24/17631) General appearance: alert, cooperative, no distress and [...] Turbidity,UA Latest Ref Range: CLEAR-CLEAR CLEAR Specific [place]-Urine Latest Ref Range: 1.003 - 1.035 1.004 [...] Pertinent radiology reviewed. Barbara Hickey PA-C Pager [phone] in this encounter Consult Notes * Randy Carr MD - 11/24/2017 9:55 PM WELDER REPAIR Associated Order(s): CONSULT ANESTHESIOLOGY CRITICAL CARE PHYSICIAN Formatting of this note may be different from the original. Critical Care Progress Note Today's Date: 11/24/2017 Name: Jaden Rios Admission Date: 11/24/2017 LOS: 0 days Assessment/Plan: Principal Problem: S/P TAVR (transcatheter aortic valve replacement) Active Problems: Morbid obesity (HCC) Mixed hyperlipidemia HTN (hypertension) Aortic stenosis ATTESTATION This note is associated with the [facility] ICU team note dated today. Date of Service: 11/24/2017 I have seen, personally fully evaluated, and discussed patient with the [facility] ICU team. The patient is critically ill [...] BP: 110/62 (11/24 1200) ABP: 134/65 (11/24 1900) Temp: 36.5 C (97.7 F) (11/24 1600) Pulse: 66 (11/24 1900) Respirations: 31 PER MINUTE (11/24 1899) SpO2: [...] hours) at 11/24/172154 Last data filed at 11/24/171899 Gross per 24 hour Intake 1960 ml [...] (11/24/17 1039) POC Glucose (Download): (!) 122 (11/24/172113) Radiology and Other Diagnostic Procedures Review: Pertinent radiology reviewed. Randy Carr MD Pager [phone] in this encounter Miscellaneous Notes * Care Plan - Shell Fields RN - 11/26/2017 9:44 AM WELDER REPAIR Problem: Infection, Risk of, Central Venous Catheter-Associated [...] - Shell Salgado - 11/25/2017 3:42 PM WELDER REPAIR Case Management Admission Assessment NAME:Jaden Rios : [...] will dc home tomorrow w family assistance. Patient Registration Rep is Dr. Dario Pandya No current CM needs identified at this time. Patient Address/Phone [address] [place] [address] (home) Emergency Contact Extended Emergency Contact Information Primary Emergency Contact: Berkley Rios [facility] Relation: Spouse Secondary Emergency Contact: Domenico Rios [facility] Relation: Son Healthcare Directive Healthcare Directive: Yes, patient has a healthcare directive Type of Healthcare Directive: Durable power of real estate associate attorney for healthcare, Healthcare directive Location of [...] Insurance: Medicare (A/B) Secondary Insurance: Commercial insurance ([employer]) Additional Coverage: RX ([employer] ) ? Source of Income Source Of Income: Other shelter income ? Financial Assistance Needed? NA Psychosocial Needs ? Mental Health Mental Health History: No ? Substance Use History Substance Use History Screen: No ? Other NA Current/Previous Services ? PCP Jose De Jesus Rocha, , ? Pharmacy [place] [address] [facility] [place] [address] ? Durable Medical Equipment Durable Medical Equipment [...] care?: 2009 Name of rehab location/group: [facility] Would patient return for future services?: Yes OT: No ENVIRONMENTAL WEB CRAWLER: No ? [facility] Facility[facility] SNF: No NH: No ? Inpatient Rehab IPR: No ? Long-Term Acute Care Hospital LTACH: No ? Acute Hospital Stay Acute Hospital Stay: Yes Was patient's stay within the last 30 days?: Yes When did patient receive care?: 11/07/17 Name of hospital: [facility] Readmission Code Group: 8. Scheduled Readmission 8. Scheduled Readmission: 8b. Cardiac Related or Unrelated?: Unrelated Shell ESCAMILLAN, steel turner Registered Nurse Premium Note Interest Calculator Clerk Inpatient Cardiothoracic Surgery O: [phone] P: [phone] C: [phone] * Operative Report (DICTATED ONLY) - Galindo Cuenca MD - 11/25/2017 7: 58 AM WELDER REPAIR THE [place] [phone] PATIENT NAME: JADEN RIOS MR#/PT#: [id number] OPERATIVE REPORT : 1945 DATE OF OPERATION: 11/25/2017 ROOM #: HC303 OPERATIVE REPORT SURGEON: Galindo Cuenca MD EDUCATION SITE MANAGER SURGEON(S): Stephen Sewell MD DICTATING PROVIDER: Galindo Cuenca MD PREOPERATIVE DIAGNOSIS: Aortic stenosis. POSTOPERATIVE DIAGNOSIS: Aortic stenosis. OPERATIVE PROCEDURE: 1. Temporary balloon-tipped pacemaker. 2. Ascending aortography. 3. Descending aortography. 4. Transcatheter aortic valve replacement with 29 Medtronic Evolut Pro, serial number [id number]. DESCRIPTION AND FINDINGS OF OPERATIVE PROCEDURE: Patient [...] passed. This was exchanged for a 20- Citizen Of [place] DrySeal sheath. Wire access was obtained across [...] to the ICU in stable condition. MD BERNARDO Rubio/MedQ Galindo Cuenca MD / MedQ [id number] cc: - Galindo Cuenca MD * Care Plan - Laura Howell RN - 11/25/2017 6:06 AM WELDER REPAIR Problem: Infection, Risk of, Central Venous Catheter-Associated [...] discuss previous, home, and current POC with auto service writer Goal: Prepared for discharge Outcome: Goal [...] Stephen Sewell MD - 11/24/2017 10:28 AM WELDER REPAIR TAVR (Transcatheter Aortic Valve Replacement) Date of [...] common femoral artery with placement of 5- Citizen [place] sheath. Surgical cutdown ccess also obtained in the left common femoral artery with 20F [place] Dryseal. 4. Utilizing an JR4 catheter and [...] conclusion of the case and transported to [facility] in stable condition. 14. The patient's transvenous [...] Cuenca MD - 11/24/2017 9 :59 AM WELDER REPAIR Brief Operative Note Name: Jaden Rios is a 72 y.o. male : 1945 MRN# : [id number] DATE OF OPERATION: 11/24/2017 Date: 11/24/2017 Preoperative [...] ICU - stable Galindo Cuenca MD Pager [phone] in this encounter Plan of Treatment Not [...] Specimen Performing Laboratory [facility] [address] [place] [address] * CHEST SINGLE VIEW (11/26/2017 6:23 AM) [...] Interface, Radiant Results - 11/26/2017 12:58 PM WELDER REPAIR Single view chest Clinical indications: Transcatheter aortic [...] Performing Laboratory Blood [facility] [address] [place] [address] * CBC (11/26/2017 3:46 AM) Component Value [...] - 11 FL Specimen Performing Laboratory Blood [facility] [address] [place] [address] * POC GLUCOSE (11/26/2017 3:26 AM) Component Value Ref Range Glucose, POC 114 (H) 70 - 100 MG/DL Specimen Performing Laboratory [facility] [address] [place], [place] [id number] * POC GLUCOSE (11/25/2017 8:39 PM) Component Value Ref Range Glucose, POC 146 (H) 70 - 100 MG/DL Specimen Performing Laboratory [facility] [address] [place], [place] [id number] * POC GLUCOSE (11/25/2017 5:23 PM) Component Value Ref Range Glucose, POC 103 (H) 70 - 100 MG/DL Specimen Performing Laboratory [facility] [address] [place], [place] [id number] * POC GLUCOSE (11/25/2017 11:46 AM) Component Value Ref Range Glucose, POC 124 (H) 70 - 100 MG/DL Specimen Performing Laboratory [facility] [address] [place], [place] [id number] * 2-D + DOPPLER ECHOCARDIOGRAM (11/25/2017 9:01 [...] Index 30.98 10 - 32 AV index ([place]) 0.43 LVOT area 3.83 cm2 LVOT stroke volume 88.09 cm3 E/A ratio 0.75 E/E' ratio 9.25 CV ECHO PV TIRE SHOP MECHANIC BIBIANA Jeffers Cardiology Ultrasound Siemens [id number] Machine Aortic valve area= 1.87 cm2 TV [...] Specimen Performing Laboratory [facility] [address] [place] [address] * CHEST SINGLE VIEW (11/25/2017 4:18 AM) [...] Interface, Radiant Results - 11/25/2017 10:57 AM WELDER REPAIR CHEST SINGLE VIEW Clinical Indication: Male, 72 [...] Performing Laboratory Blood [facility] [address] [place] [address] * CBC (11/25/2017 3:52 AM) Component Value [...] - 11 FL Specimen Performing Laboratory Blood [facility] [address] [place] [address] * POC GLUCOSE (11/24/2017 9:14 PM) Component Value Ref Range Glucose, POC 122 (H) 70 - 100 MG/DL Specimen Performing Laboratory [facility] [address] [place] [address] * POTASSIUM (11/24/2017 6:46 PM) Component Value Ref Range Potassium 4.0 3.5 - 5.1 MMOL/L Specimen Performing Laboratory Blood [facility] [address] [place] [address] * MAGNESIUM (11/24/2017 6:46 PM) Component Value Ref Range Magnesium 1.9 1.6 - 2.6 mg/dL Specimen Performing Laboratory Blood [facility] [address] [place] [address] * POC GLUCOSE (11/24/2017 5:01 PM) Component Value Ref Range Glucose, POC 155 (H) 70 - 100 MG/DL Specimen Performing Laboratory [facility] [address] [place] [address] * POC GLUCOSE (11/24/2017 12:36 PM) Component Value Ref Range Glucose, POC 129 (H) 70 - 100 MG/DL Specimen Performing Laboratory [facility] [address] [place] [address] * PTT (APTT) (11/24/2017 10:39 AM) Component Value Ref Range APTT 28.7 21.0 - 39.0 SEC Specimen Performing Laboratory Blood [facility] [address] [place] [address] * PROTIME INR (PT) (11/24/2017 10:39 AM) Component Value Ref Range INR 1.0 0.8 - 1.2 Specimen Performing Laboratory [facility] [address] [place] [address] * BASIC METABOLIC PANEL (11/24/2017 10:39 AM) [...] Performing Laboratory [facility] [address] [place] [address] * CBC (11/24/2017 10:39 AM) Component Value [...] Performing Laboratory [facility] [address] [place] [address] * LINE PLCMT 1V CXR (11/24/2017 10:38 [...] Interface, Radiant Results - 11/24/2017 12:37 PM WELDER REPAIR LINE PLCMT 1V CXR Clinical Indication: Male, [...] MMOL/L Specimen Performing Laboratory [facility] [address] [place] [address] * POC SODIUM (11/24/2017 9:52 AM) Component Value Ref Range Sodium-POC 140 137 - 147 MMOL/L Specimen Performing Laboratory [facility] [address] [place] [address] * POC POTASSIUM (11/24/2017 9:52 AM) Component Value Ref Range Potassium-POC 3.5 3.5 - 5.1 MMOL/L Specimen Performing Laboratory [facility] [address] [place] [address] * POC HEMATOCRIT (11/24/2017 9:52 AM) Component Value Ref Range Hemoglobin POC 12.6 (L) 13.5 - 16.5 GM/DL Hematocrit POC 37.0 (L) 40 - 50 % Specimen Performing Laboratory [facility] [address] [place] [address] * POC BLOOD GAS ARTERIAL (11/24/2017 9:52 AM) Component Value Ref Range PH-ART-POC 7.30 (L) 7.35 - 7.45 [id number] 43 35 - 45 MMHG PO2-ART-POC 70 (L) 80 - 100 MMHG Base Def-ART-POC 6.0 MMOL/L O2 Sat-ART-POC 92.0 (L) 95 - 99 % Fjssjyycnyb-YLW-AIN 20.7 (L) 21 - 28 MMOL/L Specimen Performing Laboratory [facility] [address] [place] [address] * POC GLUCOSE (11/24/2017 9:50 AM) Component Value Ref Range Glucose, POC 138 (H) 70 - 100 MG/DL Specimen Performing Laboratory [facility] [address] [place] [address] * POC ACTIVATED CLOTTING TIME (11/24/2017 9:49 AM) Component Value Ref Range Activated Clotting Time 162 s Specimen Performing Laboratory [facility] [address] [place] [address] * POC IONIZED CALCIUM (11/24/2017 8:51 AM) Component Value Ref Range Ionized Calcium-POC 1.14 1.0 - 1.3 MMOL/L Specimen Performing Laboratory [facility] [address] [place] [address] * POC SODIUM (11/24/2017 8:51 AM) Component Value Ref Range Sodium-POC 140 137 - 147 MMOL/L Specimen Performing Laboratory [facility] [address] [place] [address] * POC POTASSIUM (11/24/2017 8:51 AM) Component Value Ref Range Potassium-POC 3.7 3.5 - 5.1 MMOL/L Specimen Performing Laboratory [facility] [address] [place] [address] * POC HEMATOCRIT (11/24/2017 8:51 AM) Component Value Ref Range Hemoglobin POC 13.3 (L) 13.5 - 16.5 GM/DL Hematocrit POC 39.0 (L) 40 - 50 % Specimen Performing Laboratory [facility] [address] [place] [address] * POC BLOOD GAS ARTERIAL (11/24/2017 8:51 AM) Component Value Ref Range PH-ART-POC 7.27 (L) 7.35 - 7.45 [id number] 50 (H) 35 - 45 MMHG PO2-ART-POC 157 (H) 80 - 100 MMHG Base Def-ART-POC 4.0 MMOL/L O2 Sat-ART-POC 99.0 95 - 99 % Isyxubgvkvw-OMS-GUL 22.9 21 - 28 MMOL/L Specimen Performing Laboratory MAIN LAB [address] [place] [address] * POC ACTIVATED CLOTTING TIME (11/24/2017 8:49 AM) Component Value Ref Range Activated Clotting Time 292 s Specimen Performing Laboratory MAIN LAB [address] [place] [address] * POC GLUCOSE (11/24/2017 8:49 AM) Component Value Ref Range Glucose, POC 108 (H) 70 - 100 MG/DL Specimen Performing Laboratory MAIN LAB [address] [place] [address] * BLOOD TYPE CONFIRMATION - ORDER ONLY IF REQUESTED BY LAB (11/24/2017 6:20 AM) Component Value Ref Range ABO/RH(D) O POS Specimen Performing Laboratory MAIN LAB [address] [place] [address] in this encounter Visit Diagnoses Diagnosis Aortic [...] mL INTRA-PROCEDURE MED(CONT), Starting Kalie Bag 08:00 WELDER REPAIR 11/24/17 at 0800, Until Kalie 11/24/17 at 1223, Intra-op in this encounter
--- OUTSIDE RECORDS SUMMARY | 2017-12-07 23:53 | XMS REPORT | Encounter Summary ---
Author Author [facility] Organization [facility] Address Unknown Phone Unavailable Care Team Providers Care Pack Press Operator Name Role Phone Jose De Jesus [...] Cardiovascular Operating Angela Sales MD [facility] [address] [facility] [address] [facility] [address] [place] [address] [place] [address] [phone] Anesthesia Record Procedure Name Responsible Anesthesia Start [...] non- perfusing PVCs, and device stenting across [place]ann[place] valve. Discussed with interventionalist and agreed to [...] IV 16 G; 1; 11/26/17; 1000 CELIA eLblanc Brianna, RN Indwelling 11/24/17; 0744; 16 FR; [...] Flash Pino MD - 11/24/2017 11:42 AM ASSISTANT CHILD CARE TEACHER Post-Anesthesia Evaluation Name: Jaden Rios : 1945 [...] Flash Pino MD - 11/24/2017 10:23 AM ASSISTANT CHILD CARE TEACHER Associated Order(s): ANESTHESIA TRANSEESOPHAGEAL ECHOCARDIOGRAM Anesthesia Procedure: [...] Physician requesting echo: GALINDO CUENCA CPT codes: 97957 - Guidance of a transcatheter intervention(s) Patient [...] Apical anterior: normal Apical inferior: normal Long [place] Basal anteroseptal: normal Basal inferolateral: normal Mid anteroseptal: normal Mid inferolateral: normal Apical lateral: normal Apical septal: normal Varina: normal Mid Short [place] Mid anteroseptal: normal Mid anterior: normal [...] Flash Pino MD - 11/24/2017 8:42 AM ASSISTANT CHILD CARE TEACHER Associated Order(s): ANESTHESIA CENTRAL LINE INSERTION Anesthesia [...] Flash Pino MD - 11/24/2017 8:31 AM ASSISTANT CHILD CARE TEACHER Associated Order(s): ANESTHESIA ARTERIAL LINE INSERTION Anesthesia [...] Sean Martínez MD - 11/23/2017 10:18 AM ASSISTANT CHILD CARE TEACHER Formatting of this note may be different [...] severe stenosis (MG=53 mmHg, peak velocity=5.1 m/sec, QQ=251 , NEHEMIAH=0.61 cm), no regurgitation. The pulmonary [...] Date/Time ANESTHESIA TRANSEESOPHAGEAL Routine 11/24/2017 10:23 AM ASSISTANT CHILD CARE TEACHER ECHOCARDIOGRAM as of this encounter Results * [...] g INTRA-PROCEDURE MED, Starting Kalie 11/24/17 08:16 ASSISTANT CHILD CARE TEACHER at 0816, Until Kalie 11/24/17 at 1041, Anesthesia Intra-op fentaNYL citrate PF (SUBLIMAZE) Given 11/24/2017 100 mcg injection 07:41 ASSISTANT CHILD CARE TEACHER INTRA-PROCEDURE MED, Starting Kalie 11/24/17 at 0741, Until Kalie 11/24/17 at 1041, Pain Injectable, Anesthesia Intra-op furosemide (LASIX) injection Given 11/24/2017 20 mg INTRA-PROCEDURE MED, Starting Kalie 11/24/17 10:01 ASSISTANT CHILD CARE TEACHER at 1001, Until Kalie 11/24/17 at 1041, Fluid Retention, Anesthesia Intra-op heparin (porcine) injection Given 11/24/2017 7,000 Units Intravenous, INTRA-PROCEDURE MED, 08:44 ASSISTANT CHILD CARE TEACHER Starting Kalie 11/24/17 at 0844, Until Kalie 11/24/17 at 1041, Anesthesia Intra-op Given 11/24/2017 1,000 Units 08:51 ASSISTANT CHILD CARE TEACHER lidocaine (PF) injection Given 11/24/2017 80 mg INTRA-PROCEDURE MED, Starting Kalie 11/24/17 07:42 ASSISTANT CHILD CARE TEACHER at 0742, Until Kalie 11/24/17 at 1041, Anesthesia Intra-op midazolam (VERSED) injection Given 11/24/2017 1 mg Intravenous, INTRA-PROCEDURE MED, 07:21 ASSISTANT CHILD CARE TEACHER Starting Kalie 11/24/17 at 0721, Until Kalie 11/24/17 at 1041, Agitation Injectable, Anxiety Injectable, Anesthesia Intra-op Given 11/24/2017 1 mg 07:27 ASSISTANT CHILD CARE TEACHER norepinephrine (LEVOPHED) 4 mg in Bolus 11/24/2017 12 mcg dextrose 5% (D5W) 250 mL IV drip (std 09:11 ASSISTANT CHILD CARE TEACHER conc) 250 mL, Intravenous, INTRA-PROCEDURE MED(CONT), Starting Kalie 11/24/17 at 0845, Until Discontinued, Anesthesia Intra-op Dose/Rate Change 11/24/2017 0.08 34.5 mL/hr 09:18 ASSISTANT CHILD CARE TEACHER mcg/kg/min Infusion Restarted 11/24/2017 0.08 34.5 mL/hr 09:30 ASSISTANT CHILD CARE TEACHER mcg/kg/min phenylephrine (MONICA-SYNEPHRINE) 10 mg in Given - New 11/24/2017 0.5 86.3 mL/hr sodium chloride 0.9% (NS) 250 mL IV drip Bag 07:28 ASSISTANT CHILD CARE TEACHER mcg/kg/min (std conc) 250 mL, Intravenous, INTRA-PROCEDURE MED(CONT), Starting Kalie 11/24/17 at 0728, Until Discontinued, Anesthesia Intra-op Dose/Rate Change 11/24/2017 0.4 69 mL/hr 08:35 ASSISTANT CHILD CARE TEACHER mcg/kg/min propofol (DIPRIVAN) injection Given 11/24/2017 120 mg INTRA-PROCEDURE MED, Starting Kalie 11/24/17 07:42 ASSISTANT CHILD CARE TEACHER at 0742, Until Kalie 11/24/17 at 1041, Anesthesia Intra-op Given 11/24/2017 80 mg 09:54 ASSISTANT CHILD CARE TEACHER protamine injection Given 11/24/2017 20 mg INTRA-PROCEDURE MED, Starting Kalie 11/24/17 09:44 ASSISTANT CHILD CARE TEACHER at 0944, Until Kalie 11/24/17 at 1041, Anesthesia Intra-op Given 11/24/2017 30 mg 09:46 ASSISTANT CHILD CARE TEACHER rocuronium (ZEMURON) injection Given 11/24/2017 50 mg Intravenous, INTRA-PROCEDURE MED, 07:45 ASSISTANT CHILD CARE TEACHER Starting Kalie 11/24/17 at 0827, Until Kalie 11/24/17 at 1041, Anesthesia Intra-op Given 11/24/2017 20 mg 08:27 ASSISTANT CHILD CARE TEACHER sodium chloride 0.9 % infusion Given - New 11/24/2017 20 mL/hr 1,000 mL, Intravenous, at 20 mL/hr, Bag 06:16 ASSISTANT CHILD CARE TEACHER CONTINUOUS, Starting Kalie 11/24/17 at 0615, Until Kalie 11/24/17 at 1231, Pre-Op Given - New Bag 11/24/2017 09:21 ASSISTANT CHILD CARE TEACHER sodium chloride 0.9 % infusion Given - New 11/24/2017 INTRA-PROCEDURE MED(CONT), Starting Kalie Bag 08:37 ASSISTANT CHILD CARE TEACHER 11/24/17 at 0837, Until Discontinued, Anesthesia Intra-op sugammadex (BRIDION) injection Given 11/24/2017 230 mg INTRA-PROCEDURE MED, Starting Kalie 11/24/17 09:59 ASSISTANT CHILD CARE TEACHER at 0959, Until Kalie 11/24/17 at 1041, Anesthesia Intra-op in this encounter
--- OUTSIDE RECORDS SUMMARY | 2017-12-07 23:53 | XMS REPORT | Encounter Summary ---
Author Author [facility] Organization [facility] Address Unknown Phone Unavailable Care Team Providers Care Service Employee Name Role Phone Jose De Jesus Rocha [...] MD 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, Visit Clinic [address] etiology of cardiac valve [address] [place] [address] [place] [address] [phone] Anesthesia Record Procedure Name Responsible Anesthesia Start [...] non- perfusing PVCs, and device stenting across sho[place] valve. Discussed with interventionalist and agreed to [...] Taken Blood Pressure 104/49 11/23/2017 12:15 PM BROKERAGE COORDINATOR Pulse 68 11/23/2017 12:11 PM BROKERAGE COORDINATOR Temperature 37 C (98.6 F) 11/23/2017 12:11 PM BROKERAGE COORDINATOR Respiratory Rate - - Oxygen Saturation 95% 11/23/2017 12:11 PM BROKERAGE COORDINATOR Inhaled Oxygen - - Concentration Weight 113.4 kg (250 lb) 11/23/2017 12:11 PM BROKERAGE COORDINATOR Height 167.6 cm (5' 6") 11/23/2017 12:11 PM BROKERAGE COORDINATOR Body Mass Index 40.35 11/23/2017 12:11 PM BROKERAGE COORDINATOR in this encounter Instructions * Pre-Anesthesia Medication Instructions - Cole Angelo, PHARMD - 11/23/2017 12 :03 PM BROKERAGE COORDINATOR Formatting of this note may be different [...] with any medicine updates or questions. E-mail: [email or web address] Before going home from the hospital, please ask your doctor when you should re- start your medicines that were stopped before surgery. in this encounter Progress Notes * Thi Skinner RN - 11/23/2017 12:00 PM BROKERAGE COORDINATOR Patient seen in PAC for preop evaluation. Denies rashes, wounds/skin breakdown and dental caries. Patient seen by Dr. Barbara Martínez. Medication reviewed and instructions given by pharmD. Labs and EKG obtained as ordered. Profile updated. Preop instructions given by CTS liaison. * Cole Angelo PHARMD - 11/23/2017 12:00 PM BROKERAGE COORDINATOR PAC Beta Kitty Instructions Note: Jaden Rios [...] LiangD in this encounter Plan of Treatment Not on fileas of this encounter Results * URINALYSIS MICROSCOPIC REFLEX TO CULTURE (11/23/2017 1:23 PM) Component Value Ref Range WBCs,UA 0-2 0 - 2 /HPF RBCs,UA 0-2 0 - 3 /HPF Comment,UA Urine submitted for reflex culture if criteria are met:WBC>10, positive nitrite and/or >=1+ leukocyte esterase. If quantity is not sufficient, an addendum will follow. Specimen Performing Laboratory Urine MAIN LAB [address] [place] [address] * URINALYSIS DIPSTICK REFLEX TO CULTURE (11/23/2017 1:23 PM) Component Value Ref Range Color,UA STRAW Turbidity,UA CLEAR CLEAR-CLEAR Specific [place]-Urine 1.004 1.003 - 1.035 pH,UA 8.0 5.0 - 8.0 Protein,UA NEG NEG-NEG Glucose,UA NEG NEG-NEG Ketones,UA NEG NEG-NEG Bilirubin,UA NEG NEG-NEG Blood,UA NEG NEG-NEG Urobilinogen,UA NORMAL NORM-NORMAL Nitrite,UA NEG NEG-NEG Leukocytes,UA NEG NEG-NEG Urine Ascorbic Acid, UA NEG NEG-NEG Specimen Performing Laboratory Urine MAIN LAB [address] [place] [address] * UA REFLEX CULTURE LABEL (11/23/2017 1:23 PM) Component Value Ref Range UA Reflex Culture LAB LABEL Specimen Performing Laboratory Urine MAIN LAB [address] [place] [address] * TYPE & CROSSMATCH (11/23/2017 12:19 PM) Component Value Ref Range Units Ordered 2 Crossmatch Expires 11/26/2017 Record Check 2ND TYPE REQUIRED ABO/RH(D) O POS Antibody Screen NEG Electronic Crossmatch YES Unit Number [id number] Blood Component Type RBC,ADSOL,LEUKO REDUCED Unit Division 0 Status OF Unit REL FROM ALLOC Transfusion Status OK TO TRANSFUSE Crossmatch Result COMPATIBLE,ELECTRONIC Unit Number [id number] Blood Component Type RBC,ADSOL,LEUKO REDUCED Unit Division 0 Status OF Unit REL FROM ALLOC Transfusion Status OK TO TRANSFUSE Crossmatch Result COMPATIBLE,ELECTRONIC Specimen Performing Laboratory Blood MAIN LAB [address] [place] [address] * PTT (APTT) (11/23/2017 12:19 PM) Component Value Ref Range APTT 31.4 21.0 - 39.0 SEC Specimen Performing Laboratory Blood MAIN LAB [address] [place] [address] * PROTIME INR (PT) (11/23/2017 12:19 PM) Component Value Ref Range INR 1.0 0.8 - 1.2 Specimen Performing Laboratory Blood MAIN LAB [address] [place] [address] * HEMOGLOBIN A1C (11/23/2017 12:19 PM) Component Value Ref Range Hemoglobin A1C 5.9 4.0 - 6.0 % Comment: The ADA recommends that most patients with type 1 and type 2 diabetes maintain an A1c level <7%. Specimen Performing Laboratory Blood MAIN LAB [address] [place] [address] * COMPREHENSIVE METABOLIC PANEL (11/23/2017 12:19 PM) [...] questions. Specimen Performing Laboratory Blood MAIN LAB [address] [place] [address] * CBC (11/23/2017 12:19 PM) Component Value [...] Performing Laboratory Blood [facility]U MAIN LAB [address] [place] [address] * BNP (B-TYPE NATRIURETIC PEPTI) (11/23/2017 12:19 PM) Component Value Ref Range B Type Natriuretic 202.0 (H) 0 - 100 PG/ML Peptide Specimen Performing Laboratory Blood [facility]U MAIN LAB [address] [place] [address] in this encounter Visit Diagnoses Diagnosis 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, etiology of cardiac valve disease unspecified
--- OUTSIDE RECORDS SUMMARY | 2017-12-07 23:53 | XMS REPORT | Encounter Summary ---
Author Author [facility] Organization [facility] Address Unknown Phone Unavailable Care Team Providers Care Tin Recovery Worker Name Role Phone Jose De Jesus Rocha MD PCP Dario Pandya MD 21 Encounter Details Date Type Department Care Team Description 11/21/2017 Pre-Admit [facility] Galindo Cuenca MD 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, Orders Only [facility] [address] etiology of cardiac valve [address] [place] [address] [place] [address] (Primary Dx) [phone] Social History Tobacco Use Types Packs/Day Years Used Date Former Smoker Cigarettes Quit: 2002 Alcohol Use Drinks/Week oz/Week Comments Yes occasional Sex Assigned at Date Recorded Not on file as of this encounter Plan of Treatment Name Priority Associated Diagnoses Order Schedule HOLD RBC'S FOR SURGERY/PROCEDURE STAT 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, Expected: 11/23/2017, etiology of cardiac valve Expires: 11/21/2018 disease unspecified ECG 12-LEAD Routine 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, Expected: 11/23/2017, etiology of cardiac valve Expires: 11/21/2018 disease unspecified as of this encounter Results * UA REFLEX CULTURE LABEL (11/23/2017 1:23 PM) Component Value Ref Range UA Reflex Culture LAB LABEL Specimen Performing Laboratory Urine [facility] MAIN LAB [address] [place] [address] * URINALYSIS MICROSCOPIC REFLEX TO CULTURE (11/23/2017 1:23 PM) Component Value Ref Range WBCs,UA 0-2 0 - 2 /HPF RBCs,UA 0-2 0 - 3 /HPF Comment,UA Urine submitted for reflex culture if criteria are met:WBC>10, positive nitrite and/or >=1+ leukocyte esterase. If quantity is not sufficient, an addendum will follow. Specimen Performing Laboratory Urine MAIN LAB [address] [place] [address] * URINALYSIS DIPSTICK REFLEX TO CULTURE (11/23/2017 1:23 PM) Component Value Ref Range Color,UA STRAW Turbidity,UA CLEAR CLEAR-CLEAR Specific [place]-Urine 1.004 1.003 - 1.035 pH,UA 8.0 5.0 - 8.0 Protein,UA NEG NEG-NEG Glucose,UA NEG NEG-NEG Ketones,UA NEG NEG-NEG Bilirubin,UA NEG NEG-NEG Blood,UA NEG NEG-NEG Urobilinogen,UA NORMAL NORM-NORMAL Nitrite,UA NEG NEG-NEG Leukocytes,UA NEG NEG-NEG Urine Ascorbic Acid, UA NEG NEG-NEG Specimen Performing Laboratory Urine MAIN LAB [address] [place] [address] * TYPE & CROSSMATCH (11/23/2017 12:19 PM) Component Value Ref Range Units Ordered 2 Crossmatch Expires 11/26/2017 Record Check 2ND TYPE REQUIRED ABO/RH(D) O POS Antibody Screen NEG Electronic Crossmatch YES Unit Number [id number] Blood Component Type RBC,ADSOL,LEUKO REDUCED Unit Division 0 Status OF Unit REL FROM ALLOC Transfusion Status OK TO TRANSFUSE Crossmatch Result COMPATIBLE,ELECTRONIC Unit Number [id number] Blood Component Type RBC,ADSOL,LEUKO REDUCED Unit Division 0 Status OF Unit REL FROM ALLOC Transfusion Status OK TO TRANSFUSE Crossmatch Result COMPATIBLE,ELECTRONIC Specimen Performing Laboratory Blood MAIN LAB [address] [place] [address] * BNP (B-TYPE NATRIURETIC PEPTI) (11/23/2017 12:19 PM) Component Value Ref Range B Type Natriuretic 202.0 (H) 0 - 100 PG/ML Peptide Specimen Performing Laboratory Blood MAIN LAB [address] [place] [address] * HEMOGLOBIN A1C (11/23/2017 12:19 PM) Component Value Ref Range Hemoglobin A1C 5.9 4.0 - 6.0 % Comment: The ADA recommends that most patients with type 1 and type 2 diabetes maintain an A1c level <7%. Specimen Performing Laboratory Blood MAIN LAB [address] [place] [address] * PTT (APTT) (11/23/2017 12:19 PM) Component Value Ref Range APTT 31.4 21.0 - 39.0 SEC Specimen Performing Laboratory Blood MAIN LAB [address] [place] [address] * PROTIME INR (PT) (11/23/2017 12:19 PM) Component Value Ref Range INR 1.0 0.8 - 1.2 Specimen Performing Laboratory Blood MAIN LAB [address] [place] [address] * COMPREHENSIVE METABOLIC PANEL (11/23/2017 12:19 PM) [...] Specimen Performing Laboratory Blood MAIN LAB [address] [place] [address] * CBC (11/23/2017 12:19 PM) Component Value [...] Performing Laboratory Blood [facility] MAIN LAB [address] [place] [address] in this encounter Visit Diagnoses Diagnosis 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, etiology of cardiac valve disease unspecified - Primary
--- OUTSIDE RECORDS SUMMARY | 2017-12-07 23:54 | XMS REPORT | Encounter Summary ---
Author Author [facility] Organization [facility] Address Unknown Phone Unavailable Care Team Providers Care Accounts Receivable Assistant Name Role Phone Jose De Jesus Rocha MD PCP Dario Pandya MD 21 Reason for Visit * Reason Comments Provider Discussion About TAVR eval Patient Encounter Details Date Type Department Care Team Description 11/18/2017 Documentation [facility] Janneth Pratt APRN-C Provider Discussion About [address] [place] [address] Patient (TAVR eval) [address] [place] [address] [place] [address] [phone] Social History Tobacco Use Types Packs/Day Years Used Date Former Smoker Cigarettes Quit: 2002 Alcohol Use Drinks/Week oz/Week Comments Yes occasional Sex Assigned at Date Recorded Not on file as of this encounter Progress Notes * Janneth Pratt APRN-C - 11/18/2017 2:50 PM CLASS A [employer] Formatting of this note may be different from the original. TAVR Evaluation Date of initial eval: 10/25/17 Name: Jaden Rios : 1945 Primary provider: Jose De Jesus Rocha Referring internet systems administrator: Dario Pandya MD Initial TAVR eval by: [...] Allergies: No Known Allergies STS: 1.001% Frailty: Head Boys Golf Coach Strength Right (kg) 33.1 kg Head Boys Golf Coach Strength Left (kg) 34.6 kg Gait test [...] stenosis (MG=53 mmHg, peak velocity= 5.1 m/sec, JT=547 , NEHEMIAH=0.61 cm), no regurgitation. The pulmonary [...] iliac artery origin. [employer] report: Plan left CUPOLA MECHANIC with 29 Evolut Pro in this encounter Plan of Treatment Not on fileas of this encounter Visit Diagnoses Not on filein this encounter
--- OUTSIDE RECORDS SUMMARY | 2017-12-07 23:54 | XMS REPORT | Encounter Summary ---
Author Author [facility] Organization [facility] Address Unknown Phone Unavailable Care Team Providers Care Surveying Technician Name Role Phone Jose De Jesus Rocha MD PCP Dario Pandya MD 21 Encounter Details Date Type Department Care Team Description 11/21/2017 Prep for Case [facility] & Shani Madrid APRN 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, [facility] [address] etiology of cardiac valve [address] [place] [address] [place] [address] (Primary Dx) [phone] Social History Tobacco Use Types Packs/Day Years Used Date Former Smoker Cigarettes Quit: 2002 Alcohol Use Drinks/Week oz/Week Comments Yes occasional Sex Assigned at Date Recorded Not on file as of this encounter Plan of Treatment Not on fileas of this encounter Visit Diagnoses Diagnosis 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, etiology of cardiac valve disease unspecified - Primary
--- OUTSIDE RECORDS SUMMARY | 2017-12-07 23:54 | XMS REPORT | Encounter Summary ---
Author Author [facility] Organization [facility] Address Unknown Phone Unavailable Care Team Providers Care Cavalry Scout Name Role Phone Jose De Jesus Rocha MD PCP Dario Pandya MD 21 Encounter Details Date Type Department Care Team Description 11/07/2017 Procedure Pass [facility] Laboratory [address] [place] [address] Social History Tobacco Use Types Packs/Day Years Used Date Former Smoker Cigarettes Quit: 2002 Alcohol Use Drinks/Week oz/Week Comments Yes occasional Sex Assigned at Date Recorded Not on file as of this encounter Plan of Treatment Not on fileas of this encounter Visit Diagnoses Not on filein this encounter
--- OUTSIDE RECORDS SUMMARY | 2017-12-07 23:55 | XMS REPORT | Encounter Summary ---
Author Author [facility] Organization [facility] Address Unknown Phone Unavailable Care Team Providers Care Teacher Tutor Name Role Phone Jose De Jesus Rocha MD PCP Dario Pandya MD 21 Encounter Details Date Type Department Care Team Description 11/07/2017 Procedure Pass Cardiac Catheterization Laboratory [address] [place] [address] Social History Tobacco Use Types Packs/Day Years Used Date Former Smoker Cigarettes Quit: 2002 Alcohol Use Drinks/Week oz/Week Comments Yes occasional Sex Assigned at Date Recorded Not on file as of this encounter Plan of Treatment Not on fileas of this encounter Visit Diagnoses Not on filein this encounter
--- OUTSIDE RECORDS SUMMARY | 2017-12-07 23:56 | XMS REPORT | Encounter Summary ---
Author Author [facility] Organization [facility] Address Unknown Phone Unavailable Care Team Providers Care Weight Shifter Name Role Phone Jose De Jesus Rocha MD PCP Dario Pandya MD 21 Reason for Visit * Reason Comments New Patient - TAVR Encounter Details Date Type Department Care Team Description 10/25/2017 Office Visit [facility] Chase Neri MD New Patient (- TAVR ) [address] [place] [address] [place] [address] [place] [address] [phone] Social History Tobacco Use Types Packs/Day Years Used Date Former Smoker Cigarettes Quit: 2002 Alcohol Use Drinks/Week oz/Week Comments Yes occasional Sex Assigned at Date Recorded Not on file as of this encounter Last Filed Vital Signs Vital Sign Reading Time Taken Blood Pressure 128/78 10/25/2017 12:27 PM POWERSAW SUPERVISOR Pulse 67 10/25/2017 12:27 PM POWERSAW SUPERVISOR Temperature - - Respiratory Rate - - Oxygen Saturation - - Inhaled Oxygen - - Concentration Weight 115.2 kg (254 lb) 10/25/2017 12:27 PM POWERSAW SUPERVISOR Height 165.1 cm (5' 5") 10/25/2017 12:27 PM POWERSAW SUPERVISOR Body Mass Index 42.27 10/25/2017 12:27 PM POWERSAW SUPERVISOR in this encounter Progress Notes * Chase Neri MD - 10/25/2017 1:00 PM POWERSAW SUPERVISOR Formatting of this note may be different from the original. Date of Service: 10/25/2017 Jaden Rios is a 72 y.o. male. HPI We had the pleasure of seeing Mr. Jaden Rios who is a pleasant 72-year- old male who has been referred to [facility] Valve clinic for evaluation of his [...] plan serial echocardiograms surveillance by his primary facility service associate given knowledge of a mildly stenotic valve per invasive hemodynamics years prior on his [facility]. With regards to his previous valvular evaluations, the patient has been receipt of a transthoracic echocardiogram on September 08, 2017 by his primary facility service associate Dr. Pinon where it was observed the [...] proposed TAVR - We will continue patient's [place] baby aspirin 81, Coreg 3.25, enalapril 2.5, and Coreg 10 mg Enoch Dent II MD Fellow, Division of Cardiovascular Medicine [facility] Pager # [phone] Cardiology Staff Attestation I have personally seen, examined, and evaluated this patient. I concur with the above medical documentation including alves parts of the history & physical examination as outlined by the barrel inspector tight and jointly formulated the treatment plan. Worsening dyspnea on exertion likely from aortic stenosis. Volume status currently stable. Updated echocardiogram from today with very severe aortic stenosis: Aortic valve area=0.61 cm2 Aortic valve mean gradient=53 mmHg Aortic valve peak [id number]=621 mmHg Aortic valve peak velocity=: 5.1 m/s [...] Performing Laboratory Blood [facility] MAIN LAB [address] [place] [address] * COMPREHENSIVE METABOLIC PANEL (10/25/2017 2:29 PM) [...] Performing Laboratory Blood [facility] MAIN LAB [address] [place] [address] in this encounter Visit Diagnoses Diagnosis Aortic [...]
--- OUTSIDE RECORDS SUMMARY | 2017-12-07 23:56 | XMS REPORT | Encounter Summary ---
Author Author [facility] Organization [facility] Address Unknown Phone Unavailable Care Team Providers Care Viticulturist Name Role Phone Jose De Jesus Rocha MD PCP Dario Pandya MD 21 Reason for Visit * Auth/Cert Status Reason Specialty Diagnoses / Referred By Referred To Procedures Contact Contact Diagnoses AORTIC STENOSIS P rocedures AR R & L HRT CATH WINJX HRT ART& L VENTR IMG ANGIOGRAPHY CORONARY ARTERY WITH RIGHT AND LEFT HEART CATHETERIZATION WITH VENTRICULOGRAPHY Encounter Details Date Type Department Care Team Description 11/07/2017 Surgery Cardiac Catheterization Eugene Nguyen MD ANGIOGRAPHY CORONARY Laboratory [address] ARTERY POSSIBLE WITH [address] [place] [address] [place] [address] CATHETERIZATION WITH [phone] VENTRICULOGRAPHY Social History Tobacco Use Types Packs/Day Years Used Date Former Smoker Cigarettes Quit: 2002 Alcohol Use Drinks/Week oz/Week Comments Yes occasional Sex Assigned at Date Recorded Not on file as of this encounter Last Filed Vital Signs Vital Sign Reading Time Taken Blood Pressure 98/53 11/08/2017 7:00 AM LIQUID LOADER Pulse 60 11/08/2017 7:00 AM LIQUID LOADER Temperature 36.7 C (98 F) 11/08/2017 7:00 AM LIQUID LOADER Respiratory Rate - - Oxygen Saturation 98% 11/08/2017 7:00 AM LIQUID LOADER Inhaled Oxygen - - Concentration Weight 113 kg (249 lb 1.9 oz) 11/07/2017 9:04 AM LIQUID LOADER Height 165.1 cm (5' 5") 11/07/2017 9:04 AM LIQUID LOADER Body Mass Index 41.46 11/07/2017 9:04 AM LIQUID LOADER in this encounter Discharge Summaries * Megan Stallings PA-C - 11/07/2017 3:59 PM LIQUID LOADER Formatting of this note may be different [...] HOURS (8:00 AM - 4:30 PM): Call [phone] and asked to be transferred to your discharge attending physician. - AFTER BUSINESS HOURS (4:30 PM - 8:00 AM, on weekends, or holidays): Call [phone] and ask the jig grinder set up operator to page the on-call doctor for the discharge attending physician. Discharging attending physician: EUGENE NGUYEN [[id number]] Low Fat / Low Cholesterol Diet Your goal is to limit the amount of saturated and trans fats in your diet. Keep track of how much cholesterol you eat and limit the total amount to 200mg ( milligrams) a day. If you have questions about your diet after you go home, you can call a dietitian at [phone]. Incision Care *Call if there is an increase in pain, swelling, or redness. *DO NOT soak incision in water. *NO tub baths, hot tubs, or swimming. *You may shower after discharge. Return Appointment Heart Valve clinic staff will contact the patient for further instructions. [facility] Provider GIOVANI PRATT [[id number]] Current Discharge Medication List CONTINUE these medications [...] Shell Ramos RN - 11/07/2017 12:39 PM LIQUID LOADER Manual Sheath Removal From A Large Vein [...] to speak with someone? During Business Hours: [facility] Cardiology Office at the [facility]: (Tuesday-Tuesday) [place]: [phone] (Tuesday-Tuesday) [place]: [phone] (Tuesday-Tuesday) [place]: [phone] (Tuesday and ) [place]: [phone] (Tuesday-Tuesday) [place]: [phone] (Tuesday-Tuesday) [place]: [phone] (Tuesday-) [facility]: [phone] (Tuesday, Tuesday and Tuesday) [place]: [phone] (Tuesday, Tuesday and Tuesday) [facility]): [phone] (Tuesday, Tuesday and Tuesday) Nights and Weekends [facility] Cardiology Office at the [facility]: [phone] This education is meant to serve as a resource to you and your family. It is not meant to be all inclusive. The members of the [facility] at [facility] Cardiology, , will be glad [...] Jenny Nguyễn RN - 11/08/2017 8:50 AM LIQUID LOADER Patient discharged to home with all belongings. Discharge instructions, med reconciliation and home wound care instructions given and explained to patient and family both verbally and written. Accompanied by transport. No complaints of pain or discomfort. Right radial puncture site remains clean, dry, and intact with no evidence of a hematoma after ambulation. [facility] escorted [facility] via Transport. Patient to follow up with [facility]iology ([facility]) or on-call physician with any additional questions or concerns. All contact numbers provided. Patient and family acceptant of DC instuctions and report understanding to all information. in this encounter H&P Notes * Shani Palafox PA-C - 11/03/2017 2:45 PM LIQUID LOADER Formatting of this note may be different from the original. Patient presents for TAVR workup. Please see History and Physical copied below from date of service 10/25/17. Shani Palafox, MATILDE ([id number]) Progress Notes Chase Neri MD (Physician) Cardiology 10/25/17 1300 Signed Date of Service: 10/25/2017 Jaden Rios is a 72 y.o. male. HPI We had the pleasure of seeing Mr. Jaden Rios who is a pleasant 72-year- old male who has been referred to [facility] Cardiology Valve clinic for evaluation of [...] plan serial echocardiograms surveillance by his primary commercial decorator given knowledge of a mildly stenotic valve per invasive hemodynamics years prior on his [facility]. With regards to his previous valvular evaluations, the patient has been receipt of a transthoracic echocardiogram on September 08, 2017 by his primary commercial decorator Dr. 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 I concur with the above medical documentation including alves parts of the history & physical examination as outlined by the chiller hand and jointly formulated the treatment plan. Worsening dyspnea on exertion likely from aortic stenosis. Volume status currently stable. Updated echocardiogram from today with very severe aortic stenosis: Aortic valve area=0.61 cm2 Aortic valve mean gradient=53 mmHg Aortic valve peak ohiisypw=770 mmHg Aortic valve peak velocity=: 5.1 m/s Aortic valve velocity ratio=: 0.16 Will need updated cardiac catheterization and coronary angiography and dedicated CTA chest/abd/pelvis. Will be good candidate for Transcatheter Aortic Valve Replacement (TAVR). Chase Neri MD, FACC, FACP in this encounter Procedure Notes * Eugene Nguyen MD - 11/07/2017 11:18 AM LIQUID LOADER Associated Order(s): CARDIAC CATH REPORT Formatting of this note may be different from the original. [facility] at [facility] CARDIAC CATHETERIZATION REPORT Page 2 AJDEN Rwoland : 1945 #: [id number] JOSE MR #/Billing ID #: [id number] / [id number] DATE: 11/07/2017 CLOTHING TRADES WORKERS: Eugene Nguyen MD DICTATING PROVIDER: Eugene Nguyen MD REFERRING PHYSICIAN: GIOVANI PRATT PROCEDURE PERFORMED: Coronary angiography. INDICATION: Severe aortic valve stenosis. Plan for possible TAVR. CONSENT: The patient was consented in the holding area prior to being brought to the cardiac lab asst. Risks of the procedure, including the potential risk of stroke, myocardial infarction and were discussed. He understood and agreed to proceed. PROCEDURE DETAILS: The patient was brought to the cardiac catheterization laboratory in a fasting, nonsedated state. After confirming a normal Barbeau test, the right wrist was prepped and draped in usual fashion. Access was obtained in the radial artery without difficulty. A 6-Citizen Of [place] Slender sheath was placed. The patient was [...] aortic valve stenosis. Eugene Nguyen MD ES/MedCarmen //[id number] cc: - MD Galindo Sauceda MD Dr. Segli in this encounter Consult Notes * Chase Gruber PA-C - 11/07/2017 8:54 AM LIQUID LOADER Formatting of this note may be different from the original. The original H&P below was performed and dictated by Dr. Oumar Hernandez and Dr. Cuenca. Patient presents for TAVR workup and second surgeon opinion. Chase Gruber PA-C Pager [phone] Date of Service: 10/25/2017 Subjective: Jaden Rios [...] Oumar Hernandez MD Fellow, Cardiothoracic Surgery Pager [phone] I had the pleasure of seeing Mr. [...] Chuy Vega MD - 11/07/2017 10:59 AM LIQUID LOADER I reviewed clinical data and examined Mr. [...] E/M visit, discussed case with the physician therapy assistant and concur with the PA documentation of history, physical exam, assessment, and treatment plan unless otherwise noted. MARICRUZ Vega in this encounter Plan of Treatment Not on fileas of this encounter Procedures Procedure Name Priority Date/Time Associated Diagnosis Comments PROCEDURE RECORD-SCAN 11/14/2017 Results for this 11:52 AM LIQUID LOADER procedure are in the results section. TELEMETRY STRIPS-SCAN 11/14/2017 Results for this 11:28 AM LIQUID LOADER procedure are in the results section. ECG-SCAN 11/14/2017 Results for this 11:28 AM LIQUID LOADER procedure are in the results section. in [...] Interface, Radiant Results - 11/08/2017 12:07 PM LIQUID LOADER CTA chest, CTA abdomen and pelvis Indication: [...] Interface, Radiant Results - 11/08/2017 12:07 PM LIQUID LOADER CTA chest, CTA abdomen and pelvis Indication: [...] mg/dL Specimen Performing Laboratory Blood MAIN LAB [address] [place] [id number] * CBC (11/08/2017 5:20 AM) Component Value [...] Specimen Performing Laboratory Blood MAIN LAB [address] [place] [address] * BASIC METABOLIC PANEL (11/08/2017 5:20 AM) [...] Specimen Performing Laboratory Blood MAIN LAB [address] [place] [address] * CARDIAC CATH REPORT (11/07/2017 11:18 AM) Specimen Performing Laboratory OTHER OUTSIDE LAB Procedure Note Eugene Nguyen MD - 11/07/2017 11:18 AM LIQUID LOADER Formatting of this note may be different from the original. [facility] CARDIAC CATHETERIZATION REPORT Page 2 JADEN Rowland : 1945 #: [id number] MR #/Billing ID #: [id number] / [id number] DATE: 11/07/2017 CLOTHING TRADES WORKERS: Eugene Nguyen MD DICTATING PROVIDER: Eugene Nguyen MD REFERRING PHYSICIAN: GIOVANI PRATT PROCEDURE PERFORMED: Coronary angiography. INDICATION: Severe aortic valve stenosis. Plan for possible TAVR. CONSENT: The patient was consented in the holding area prior to being brought to the cardiac lab asst. Risks of the procedure, including the potential risk of stroke, myocardial infarction and were discussed. He understood and agreed to proceed. PROCEDURE DETAILS: The patient was brought to the cardiac catheterization laboratory in a fasting, nonsedated state. After confirming a normal Barbeau test, the right wrist was prepped and draped in usual fashion. Access was obtained in the radial artery without difficulty. A 6-Citizen [place] Slender sheath was placed. The patient was [...] plaque. 2. Severe aortic valve stenosis. MD GAINNI Ag/Rolando //[id number] cc: - MD Galindo Sauceda MD Dr. [...] Performing Laboratory [facility] MAIN [facility] [address] [place] [address] * POC PT/INR (11/07/2017 9:10 AM) Component Value Ref Range INR POC 1.0 0.8 - 1.2 Specimen Performing Laboratory MAIN LAB [address] [place] [address] in this encounter Visit Diagnoses Not on filein this encounter Admitting Diagnoses Diagnosis AORTIC STENOSIS Severe aortic stenosis Administered Medications Medication Order MAR Action Action Date Dose Rate Site aspirin EC tablet 81 mg Given 11/08/2017 81 mg 81 mg, Oral, DAILY, First dose on Tue 07:24 LIQUID LOADER 11/08/17 at 0900, Until Discontinued, Admission/Obs/Extended Recovery carvedilol (COREG) tablet 3.125 mg Given 11/07/2017 3.125 mg 3.125 mg, Oral, TWICE DAILY, First dose 20:07 LIQUID LOADER on Tue11/07/17 at 2100, Until Discontinued, Hold for heart rate < 60 bpm or systolic BP < 90 Given 11/08/2017 3.125 mg 07:24 LIQUID LOADER enalapril (VASOTEC) tablet 2.5 mg Given 11/07/2017 2.5 mg 2.5 mg, Oral, TWICE DAILY, First dose on 20:06 LIQUID LOADER Tue11/07/17 at 2100, Until Discontinued, Admission/Obs/Extended Recovery iopamidol 370 (ISOVUE-370) injection 100 Given 11/08/2017 100 mL mL 06:00 LIQUID LOADER 100 mL, Intravenous, ONCE, 1 dose, Tue11/08/17 at 0600, NOTE: This is a HIGH ALERT Medication. rosuvastatin (CRESTOR) tablet 10 mg Given 11/07/2017 10 mg 10 mg, Oral, AT BEDTIME DAILY, First 20:07 LIQUID LOADER dose on Tue11/07/17 at 2100, Until Discontinued, Admission/Obs/Extended Recovery sodium chloride 0.9 % infusion Given - New 11/07/2017 100 mL/hr 1,000 mL, Intravenous, at 100 mL/hr, Bag 09:10 LIQUID LOADER CONTINUOUS, Starting 11/07/17 at 0900, Until 11/08/17 at 1050, If EF is <40%, contact CCL Charge Nurse [phone] before initiating fluid. sodium chloride PF 0.9% injection 50 mL Given 11/08/2017 50 mL 50 mL, Intravenous, ONCE, 1 dose, Tue 06:00 LIQUID LOADER 11/08/17 at 0600, Intra-procedure (IR) in this encounter
--- OUTSIDE RECORDS SUMMARY | 2017-12-07 23:56 | XMS REPORT | Encounter Summary ---
Author Author [facility] Organization [facility] Address Unknown Phone Unavailable Care Team Providers Care Reflector Driller And Deburrer Name Role Phone Jose De Jesus Rocha MD PCP Dario Pandya MD 21 Reason for Visit * Auth/Cert Status Reason Specialty Diagnoses / Referred By Referred To Procedures Contact Contact Diagnoses AORTIC STENOSIS P rocedures OK R & L HRT CATH WINJX HRT ART& L VENTR IMG ANGIOGRAPHY CORONARY ARTERY WITH RIGHT AND LEFT HEART CATHETERIZATION WITH VENTRICULOGRAPHY Encounter Details Date Type Department Care Team Description 11/07/2017 Hospital Cardiac Catheterization Eugene Nguyen MD Severe aortic stenosis - Encounter Laboratory [address] 11/08/[address] [place] [address] [place] [address] [phone] Social History Tobacco Use Types Packs/Day Years Used Date Former Smoker Cigarettes Quit: 2002 Alcohol Use Drinks/Week oz/Week Comments Yes occasional Sex Assigned at Date Recorded Not on file as of this encounter Last Filed Vital Signs Vital Sign Reading Time Taken Blood Pressure 98/53 11/08/2017 7:00 AM CAR SALES ASSOCIATE Pulse 60 11/08/2017 7:00 AM CAR SALES ASSOCIATE Temperature 36.7 C (98 F) 11/08/2017 7:00 AM CAR SALES ASSOCIATE Respiratory Rate - - Oxygen Saturation 98% 11/08/2017 7:00 AM CAR SALES ASSOCIATE Inhaled Oxygen - - Concentration Weight 113 kg (249 lb 1.9 oz) 11/07/2017 9:04 AM CAR SALES ASSOCIATE Height 165.1 cm (5' 5") 11/07/2017 9:04 AM CAR SALES ASSOCIATE Body Mass Index 41.46 11/07/2017 9:04 AM CAR SALES ASSOCIATE in this encounter Discharge Summaries * Megan Stallings PA-C - 11/07/2017 3:59 PM CAR SALES ASSOCIATE Formatting of this note may be different [...] HOURS (8:00 AM - 4:30 PM): Call [phone] and asked to be transferred to your discharge attending physician. - AFTER BUSINESS HOURS (4:30 PM - 8:00 AM, on weekends, or holidays): Call [phone] and ask the flying shear operator to page the on-call doctor for the discharge attending physician. Discharging attending physician: EUGENE NGUYEN [[id number]] Low Fat / Low Cholesterol Diet Your goal is to limit the amount of saturated and trans fats in your diet. Keep track of how much cholesterol you eat and limit the total amount to 200mg ( milligrams) a day. If you have questions about your diet after you go home, you can call a dietitian at [phone]. Incision Care *Call if there is an increase in pain, swelling, or redness. *DO NOT soak incision in water. *NO tub baths, hot tubs, or swimming. *You may shower after discharge. Return Appointment Heart Valve clinic staff will contact the patient for further instructions. [facility] Provider GIOVANI PRATT [[id number]] Current Discharge Medication List CONTINUE these medications [...] Shell Ramos RN - 11/07/2017 12:39 PM CAR SALES ASSOCIATE Manual Sheath Removal From A Large Vein [...] to speak with someone? During Business Hours: [facility] Cardiology Office at the [facility]: (Tuesday-Tuesday) [place]: [phone] (Tuesday-Tuesday) [place]: [phone] (Tuesday-Tuesday) [place]: [phone] (Tuesday and ) [place]: [phone] (Tuesday-Tuesday) [place]: [phone] (Tuesday-Tuesday) [place]: [phone] (Tuesday-) [facility]: [phone] (Tuesday, Tuesday and Tuesday) [place]: [phone] (Tuesday, Tuesday and Tuesday) [facility]): [phone] (Tuesday, Tuesday and Tuesday) Nights and Weekends [facility] Cardiology Office at the [facility]: This education is meant to serve as a resource to you and your family. It is not meant to be all inclusive. The members of the [facility] at [facility], , will be glad to answer [...] Jenny Nguyễn RN - 11/08/2017 8:50 AM CAR SALES ASSOCIATE Patient discharged to home with all belongings. Discharge instructions, med reconciliation and home wound care instructions given and explained to patient and family both verbally and written. Accompanied by transport. No complaints of pain or discomfort. Right radial puncture site remains clean, dry, and intact with no evidence of a hematoma after ambulation. Patient escorted to [facility] via Transport. Patient to follow up with [facility] Cardiology (MAC) or on-call physician with any additional questions or concerns. All contact numbers provided. Patient and family acceptant of DC instuctions and report understanding to all information. in this encounter H&P Notes * Shani Palafox PA-C - 11/03/2017 2:45 PM CAR SALES ASSOCIATE Formatting of this note may be different from the original. Patient presents for TAVR workup. Please see History and Physical copied below from date of service 10/25/17. Shani Palafox, MATILDE ([phone]) Progress Notes Chase Neri MD (Physician) Cardiology 10/25/17 1300 Signed Date of Service: 10/25/2017 Jaden Rios is a 72 y.o. male. HPI We had the pleasure of seeing Mr. Jaden Rios who is a pleasant 72-year- old male who has been referred to [facility] Cardiology Valve clinic for evaluation of his [...] plan serial echocardiograms surveillance by his primary soil chemist given knowledge of a mildly stenotic valve per invasive hemodynamics years prior on his [facility]. With regards to his previous valvular evaluations, the patient has been receipt of a transthoracic echocardiogram on September 08, 2017 by his primary soil chemist Dr. Pinon where it was observed the [...] proposed TAVR - We will continue patient's RESIDENTIAL LEASING AGENT baby aspirin 81, Coreg 3.25, enalapril 2.5, and Coreg 10 mg Enoch Dent II MD Fellow, Division of Cardiovascular Medicine [facility] Pager # [phone] Cardiology Staff Attestation I have personally seen, examined, and evaluated this patient. I concur with the above medical documentation including alves parts of the history & physical examination as outlined by the major gifts manager and jointly formulated the treatment plan. Worsening dyspnea on exertion likely from aortic stenosis. Volume status currently stable. Updated echocardiogram from today with very severe aortic stenosis: Aortic valve area=0.61 cm2 Aortic valve mean gradient=53 mmHg Aortic valve peak ttpgyovg=047 mmHg Aortic valve peak velocity=: 5.1 m/s Aortic valve velocity ratio=: 0.16 Will need updated cardiac catheterization and coronary angiography and dedicated CTA chest/abd/pelvis. Will be good candidate for Transcatheter Aortic Valve Replacement (TAVR). Chase Neri MD, FACC, FACP in this encounter Procedure Notes * Eugene Nguyen MD - 11/07/2017 11:18 AM CAR SALES ASSOCIATE Associated Order(s): CARDIAC CATH REPORT Formatting of this note may be different from the original. [facility] at [facility] CARDIAC CATHETERIZATION REPORT Page 2 JADEN Rowland : 1945 #: [id number] MR #/Billing ID #: [id number] / [id number] DATE: 11/07/2017 ENGINEER SPECIALIST: Eugene Nguyen MD DICTATING PROVIDER: Eugene Nguyen MD REFERRING PHYSICIAN: GIOVANI PRATT PROCEDURE PERFORMED: Coronary angiography. INDICATION: Severe aortic valve stenosis. Plan for possible TAVR. CONSENT: The patient was consented in the holding area prior to being brought to the cardiac shipyard laborer. Risks of the procedure, including the [...] in the radial artery without difficulty. A 6-Belarusian Slender sheath was placed. The patient was [...] 2. Severe aortic valve stenosis. MD JEREMI Ag/Med[facility] //[id number] cc: - MD Galindo Sauceda MD Dr. Segli in this encounter Consult Notes * Chase Gruber PA-C - 11/07/2017 8:54 AM CAR SALES ASSOCIATE Formatting of this note may be different from the original. The original H&P below was performed and dictated by Dr. Oumar Hernandez and Dr. Cuenca. Patient presents for TAVR workup and second surgeon opinion. Chase Gruber PA-C Pager [phone] Date of Service: 10/25/2017 Subjective: Jaden Rios [...] Oumar Hernandez MD Fellow, Cardiothoracic Surgery Pager [phone] I had the pleasure of seeing Mr. [...] Chuy Vega MD - 11/07/2017 10:59 AM CAR SALES ASSOCIATE I reviewed clinical data and examined Mr. [...] E/M visit, discussed case with the physician spa assistant manager and concur with the PA documentation of history, physical exam, assessment, and treatment plan unless otherwise noted. MARICRUZ Vega in this encounter Plan of Treatment Not on fileas of this encounter Procedures Procedure Name Priority Date/Time Associated Diagnosis Comments PROCEDURE RECORD-SCAN 11/14/2017 Results for this 11:52 AM CAR SALES ASSOCIATE procedure are in the results section. TELEMETRY STRIPS-SCAN 11/14/2017 Results for this 11:28 AM CAR SALES ASSOCIATE procedure are in the results section. ECG-SCAN 11/14/2017 Results for this 11:28 AM CAR SALES ASSOCIATE procedure are in the results section. in [...] Interface, Radiant Results - 11/08/2017 12:07 PM CAR SALES ASSOCIATE CTA chest, CTA abdomen and pelvis Indication: [...] Interface, Radiant Results - 11/08/2017 12:07 PM CAR SALES ASSOCIATE CTA chest, CTA abdomen and pelvis Indication: [...] Specimen Performing Laboratory [facility] [address] [place] [address] * CBC (11/08/2017 5:20 AM) Component Value [...] Specimen Performing Laboratory [facility] MAIN [facility] [address] [place] [address] * BASIC METABOLIC PANEL (11/08/2017 5:20 AM) [...] Specimen Performing Laboratory [facility] [address] [place] [address] * CARDIAC CATH REPORT (11/07/2017 11:18 AM) Specimen Performing Laboratory OTHER OUTSIDE LAB Procedure Note Eugene Nguyen MD - 11/07/2017 11:18 AM CAR SALES ASSOCIATE Formatting of this note may be different from the original. [facility] CARDIAC CATHETERIZATION REPORT Page 2 JADEN Rowland : 1945 #: [id number] MR #/Billing ID #: [id number] / [id number] DATE: 11/07/2017 ENGINEER SPECIALIST: uEgene Nguyen MD DICTATING PROVIDER: Eugene Nguyen MD REFERRING PHYSICIAN: GIOVANI PRATT PROCEDURE PERFORMED: Coronary angiography. INDICATION: Severe aortic valve stenosis. Plan for possible TAVR. CONSENT: The patient was consented in the holding area prior to being brought to the cardiac shipyard laborer. Risks of the procedure, including the [...] in the radial artery without difficulty. A 6-Belarusian Slender sheath was placed. The patient was [...] Severe aortic valve stenosis. Eugene Nguyen MD [facility]/MedQ //[id number] cc: - MD Galindo Sauceda MD Dr. [...] Performing Laboratory [facility] [address] [place] [address] * POC PT/INR (11/07/2017 9:10 AM) Component Value Ref Range INR POC 1.0 0.8 - 1.2 Specimen Performing Laboratory [facility] [address] [place] [address] in this encounter Visit Diagnoses Diagnosis Nonrheumatic [...] Oral, DAILY, First dose on Tue 07:24 CAR SALES ASSOCIATE 11/08/17 at 0900, Until Discontinued, Admission/Obs/Extended Recovery carvedilol (COREG) tablet 3.125 mg Given 11/07/2017 3.125 mg 3.125 mg, Oral, TWICE DAILY, First dose 20:07 CAR SALES ASSOCIATE on Tue11/07/17 at 2100, Until Discontinued, Hold for heart rate < 60 bpm or systolic BP < 90 Given 11/08/2017 3.125 mg 07:24 CAR SALES ASSOCIATE enalapril (VASOTEC) tablet 2.5 mg Given 11/07/2017 2.5 mg 2.5 mg, Oral, TWICE DAILY, First dose on 20:06 CAR SALES ASSOCIATE Tue11/07/17 at 2100, Until Discontinued, Admission/Obs/Extended Recovery iopamidol 370 (ISOVUE-370) injection 100 Given 11/08/2017 100 mL mL 06:00 CAR SALES ASSOCIATE 100 mL, Intravenous, ONCE, 1 dose, Tue11/08/17 at 0600, NOTE: This is a HIGH ALERT Medication. rosuvastatin (CRESTOR) tablet 10 mg Given 11/07/2017 10 mg 10 mg, Oral, AT BEDTIME DAILY, First 20:07 CAR SALES ASSOCIATE dose on Tue11/07/17 at 2100, Until Discontinued, Admission/Obs/Extended Recovery sodium chloride 0.9 % infusion Given - New 11/07/2017 100 mL/hr 1,000 mL, Intravenous, at 100 mL/hr, Bag 09:10 CAR SALES ASSOCIATE CONTINUOUS, Starting 11/07/17 at 0900, Until 11/08/17 at 1050, If EF is <40%, contact CCL Charge Nurse [phone] before initiating fluid. sodium chloride PF 0.9% injection 50 mL Given 11/08/2017 50 mL 50 mL, Intravenous, ONCE, 1 dose, Tue 06:00 CAR SALES ASSOCIATE 11/08/17 at 0600, Intra-procedure (IR) in this encounter
--- OUTSIDE RECORDS SUMMARY | 2017-12-07 23:56 | XMS REPORT | Encounter Summary ---
Author Author [facility] Organization [facility] Address Unknown Phone Unavailable Care Team Providers Care Salesperson Furs Name Role Phone Jose De Jesus Rocha MD PCP Dario Pandya MD 21 Encounter Details Date Type Department Care Team Description 10/25/2017 [facility] Cardiology Chase Neri MD Encounter [address] [address] [address] [place] [address] [phone] Social History Tobacco Use Types Packs/Day Years [...] Performing Laboratory [facility] [address] [place] [address] * CBC (10/25/2017 2:29 PM) Component Value [...] Performing Laboratory [facility] [address] [place] [address] in this encounter Visit Diagnoses Diagnosis 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, etiology of cardiac valve disease unspecified Pre-procedure lab exam Pre-procedural laboratory examination
--- OUTSIDE RECORDS SUMMARY | 2017-12-07 23:56 | XMS REPORT | Encounter Summary ---
Author Author [facility] Organization [facility] Address Unknown Phone Unavailable Care Team Providers Care Water And Fire Technician Name Role Phone Jose De Jesus Rocha MD PCP Dario Pandya MD 21 Encounter Details Date Type Department Care Team Description 10/25/2017 Hospital [facility] Janneth Pratt APRN-C Encounter Hospital Pulmonary [address] [place] [address] [place] [address] [phone] Social History Tobacco Use Types Packs/Day Years [...] % FEV1-Pre 2.45 L FEV1-%Pred-Pre 97 % [id number] 2.18 L/sec FBJ8711-%Pred-Pre 112 % VCSVC-Pre 3.09 L ICSVC-Pre 2.47 [...] Specimen Performing Laboratory [facility] [address] [place] [address] in this encounter Visit Diagnoses Diagnosis 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, etiology of cardiac valve disease unspecified - Primary
--- OUTSIDE RECORDS SUMMARY | 2017-12-07 23:56 | XMS REPORT | Encounter Summary ---
Author Author [facility] Organization [facility] Address Unknown Phone Unavailable Care Team Providers Care Agricultural Equipment Operator Name Role Phone Jose De Jesus Rocha MD PCP Dario Pandya MD 21 Reason for Visit * Reason Comments Precertification Medicare Encounter Details Date Type Department Care Team Description 10/26/2017 Documentation [facility] Rakesh Patton RN Precertification [address] [place] (Medicare) [facility] [address] [place] [address] Social History Tobacco Use Types Packs/Day Years Used Date Former Smoker Cigarettes Quit: 2002 Alcohol Use Drinks/Week oz/Week Comments Yes occasional Sex Assigned at Date Recorded Not on file as of this encounter Progress Notes * Rakesh Patton RN - 10/26/2017 9:35 AM CHANNEL INSTALLER Medicare is listed as patient's primary insurance coverage. Pre-certification is not required for hospitalizations. in this encounter Plan of Treatment Not on fileas of this encounter Visit Diagnoses Not on filein this encounter
--- OUTSIDE RECORDS SUMMARY | 2017-12-07 23:56 | XMS REPORT | Encounter Summary ---
Author Author [facility] Organization [facility] Address Unknown Phone Unavailable Care Team Providers Care Renal Technician Name Role Phone Jose De Jesus Rocha MD PCP Dario Pandya MD 21 Reason for Visit * Reason Comments General Question Encounter Details Date Type Department Care Team Description 10/26/2017 Telephone [facility] Thoracic & Lulu Kamara RN General Question Cardiovascular Surgeons [address] [place] [address] Social History Tobacco Use Types Packs/Day Years Used Date Former Smoker Cigarettes Quit: 2002 Alcohol Use Drinks/Week oz/Week Comments Yes occasional Sex Assigned at Date Recorded Not on file as of this encounter Miscellaneous Notes * Telephone Encounter - Lulu Kamara RN - 10/26/2017 11:30 AM LIGHT INDUSTRIAL SUPERVISOR Pt was able to get in and see PCP. Was diagnosed with Bilateral Hydrocele. Instructed to continue with TAVR work up and get valve fixed before following up with hydrocele. Will put in notation. * Telephone Encounter - Lulu Kamara RN - 10/26/2017 9:47 AM LIGHT INDUSTRIAL SUPERVISOR Pt seen yesterday, did not mention [...]
--- OUTSIDE RECORDS SUMMARY | 2017-12-07 23:56 | XMS REPORT | Encounter Summary ---
Author Author [facility] Organization [facility] Address Unknown Phone Unavailable Care Team Providers Care Bobtail Driver Name Role Phone Jose De Jesus Rocha MD PCP Dario Pandya MD 21 Encounter Details Date Type Department Care Team Description 11/07/2017 Procedure Pass Cardiac Catheterization Laboratory [address] [place] [address] Social History Tobacco Use Types Packs/Day Years Used Date Former Smoker Cigarettes Quit: 2002 Alcohol Use Drinks/Week oz/Week Comments Yes occasional Sex Assigned at Date Recorded Not on file as of this encounter Plan of Treatment Not on fileas of this encounter Visit Diagnoses Not on filein this encounter
--- OUTSIDE RECORDS SUMMARY | 2017-12-07 23:57 | XMS REPORT | Encounter Summary ---
Author Author [facility] Organization [facility] Address Unknown Phone Unavailable Care Team Providers Care Virtual Office Assistant Name Role Phone Jose De Jesus Rocha MD PCP Dario Pandya MD 21 Reason for Referral * Test Status Reason Specialty Diagnoses / Referred By Referred To Procedures Contact Contact No Auth Needed Cardiology Diagnoses Janneth Pratt Bhg Card [place] Aortic valve CULINARY INSTRUCTOR-C [address] stenosis, [address] [place] [address] [place], [place] cardiac valve [address] [address] disease [place], [place] Phone: unspecified [phone] P Phone: rocedures [phone] 2-D + DOPPLER Fax: ECHOCARDIOGRAM [phone] MA ECHO TTHRC R-T 2D W/WOM-MODE COMPL SPEC&COLR D * Test Status Reason Specialty Diagnoses / Referred By Referred To Procedures Contact Contact No Auth Needed Cardiology Diagnoses Janneth Pratt Bhg Card E[place]op[place] Aortic valve CULINARY INSTRUCTOR-C [address] stenosis, [address] [place] cardiac valve [address] [address] disease [place], [place] Phone: unspecified [phone] P Phone: rocedures [phone] 2-D + DOPPLER Fax: ECHOCARDIOGRAM [phone] MA ECHO TTHRC R-T 2D W/WOM-MODE COMPL SPEC&COLR D Reason for Visit * Test Status Reason Specialty Diagnoses / Referred By Referred To Procedures Contact Contact No Auth Needed Cardiology Diagnoses Janneth Pratt, [facility] Card Ech[place] Aortic valve CULINARY INSTRUCTOR-C [address] stenosis, [address] [place] [address] [place] cardiac valve [address] [address] [place], [place] Phone: unspecified [phone] P Phone: rocedures [phone] 2-D + DOPPLER Fax: ECHOCARDIOGRAM [phone] MA ECHO TTHRC R-T 2D W/WOM-MODE COMPL SPEC&COLR D Encounter Details Date Type Department Care Team Description 10/25/2017 [facility] Cardiology Janneth Pratt, CULINARY INSTRUCTOR-C Encounter [address] [place] [address] [address] [place] [address] [phone] Social History Tobacco Use Types Packs/Day Years [...] Niall Alegre RN - 10/25/2017 12:51 PM LOCKSTITCH MACHINE OPERATOR Peripheral IV Insertion Note: Patient Side: left Line Orientation:Forearm IV Catheter Size: 22G Number of Attempts:1. IV capped and flushed with Normal Saline. IV site without redness, swelling, or pain. New dressing placed. IV will be removed after Definity is given by deoiling machine operator. in this encounter Plan of Treatment Not [...] 32 Referring Provider Bob Rocha ECHO PV CERTIFIED FLEX ENDOSCOPE REPROCESSOR CELIA Tierney Ao root annulus 2.0 1.4 - 2.6 cm STJ 3.3 1.7 - 3.4 cm Ascending aorta 3.4 2.0 - 3.6 cm , with a mean gradient of 53 mmHg AV peak velocity 5.1 m/s LVOT diameter 2.2 cm LVOT peak fabiano 0.8 m/s LVOT peak VTI 20.0 cm Ao VTI 124.0 cm and a peak gradient of 105 mmHg AV index ([place]) 0.16 LVOT area 3.80 cm2 LVOT stroke [...] severe stenosis (MG=53 mmHg, peak velocity=5.1 m/sec, ON=437 , NEHEMIAH=0.61 cm), no regurgitation. The pulmonary artery pressure could not be obtained. The sinuses of Valsalva are mildly dilated. in this encounter Visit Diagnoses Diagnosis 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, etiology of cardiac valve disease unspecified Administered Medications Medication Order MAR Action Action Date Dose Rate Site perflutren lipid microspheres (DEFINITY) Given 10/25/2017 2 Diluted mL injection 1-20 Diluted mL 13:09 LOCKSTITCH MACHINE OPERATOR 1-20 Diluted mL, Intravenous, ONCE, 1 dose, 10/25/17 at 1300, NOTE: This is a HIGH ALERT Medication. in this encounter
--- OUTSIDE RECORDS SUMMARY | 2017-12-07 23:57 | XMS REPORT | Encounter Summary ---
Author Author [facility] Organization [facility] Address Unknown Phone Unavailable Care Team Providers Care Store Clerk Checker Name Role Phone Jos eDe Jesus Rocha MD PCP Dario Pandya MD 21 Reason for Visit * Reason Comments Cardiac Eval /AVR vs TAVR, echo today New Patient ref Dr Pandya * Consult, Test & Treat Status Reason Specialty Diagnoses / Referred By Referred To Procedures Contact Contact New Request Specialty Cardiology Diagnoses Dario Pandya, Services Aortic valve Required stenosis, [address] [facility] [address] cardiac [place] disease [address] unspecified Encounter Details Date Type Department Care Team Description 10/25/2017 Office Visit [facility] & Galindo Cuenca MD Nonrheumatic aortic valve Cardi[facility] Surgeons [address] stenosis (Primary Dx) [address] [place] [address] [place] [address] [phone] Social History Tobacco Use Types Packs/Day Years Used Date Former Smoker Cigarettes Quit: 2002 Alcohol Use Drinks/Week oz/Week Comments Yes occasional Sex Assigned at Date Recorded Not on file as of this encounter Last Filed Vital Signs Vital Sign Reading Time Taken Blood Pressure 128/78 10/25/2017 1:09 PM PREMIX CONCRETE BATCHER Pulse 67 10/25/2017 1:09 PM PREMIX CONCRETE BATCHER Temperature - - Respiratory Rate - - Oxygen Saturation 92% 10/25/2017 1:09 PM PREMIX CONCRETE BATCHER Inhaled Oxygen - - Concentration Weight 115.2 kg (254 lb) 10/25/2017 1:09 PM PREMIX CONCRETE BATCHER Height 165.1 cm (5' 5") 10/25/2017 1:09 PM PREMIX CONCRETE BATCHER Body Mass Index 42.27 10/25/2017 1:09 PM PREMIX CONCRETE BATCHER in this encounter Progress Notes * Galindo Cuenca MD - 10/25/2017 1:00 PM PREMIX CONCRETE BATCHER Formatting of this note may be different [...] Oumar Hernandez MD Fellow, Cardiothoracic Surgery Pager [phone] I had the pleasure of seeing Mr. [...] further questions, please feel free to call. (DOC:[id number]) in this encounter Plan of Treatment Not on fileas of this encounter Visit Diagnoses Diagnosis Nonrheumatic aortic valve stenosis - Primary Aortic valve disorders
--- OUTSIDE RECORDS SUMMARY | 2017-12-07 23:57 | XMS REPORT | Encounter Summary ---
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, [address] [place] etiology of [address], [place] cardiac valve [place] [address] [id number] disease [place], [place] Phone: unspecified [phone] P Phone: rocedures [phone] 2-D + DOPPLER Fax: ECHOCARDIOGRAM [phone] [place] ECHO TTHRC R-T 2D W/WOM-MODE COMPL SPEC&COLR D * Consult, Test & Treat Status Reason Specialty Diagnoses / Referred By Referred To Procedures Contact Contact New Request Specialty Cardiology Diagnoses Dario Pandya, Services Aortic valve Required stenosis, [address] [place] [address] cardiac valve [place] disease [address] unspecified Reason for Visit * Reason Comments Navigation Assessment / AVR vs TAVR eval Encounter Details Date Type Department Care Team Description 09/30/[address] [facility] Cardiology Marixa Acharya, CELIA Navigation Assessment [address] [place] (/ AVR vs TAVR eval) [address] [place] [address] Social History Tobacco Use Types Packs/Day Years Used Date Former Smoker Cigarettes Quit: 2002 Alcohol Use Drinks/Week oz/Week Comments Yes occasional Sex Assigned at Date Recorded Not on file as of this encounter Miscellaneous Notes * Telephone Encounter - Marixa Acharya RN - 10/18/2017 1:37 PM SAFETY COUNSELOR Formatting of this note may be different from the original. Cardiac Navigation Intake Assessment Document Patient Name: Jadiel Rios : 1945 Insurance: Payor: MEDICARE / Plan: MEDICARE PART A AND B / Product Type: Medicare / Appointment Info:Future Appointments Date Time Provider Department Center 10/25/2017 11:30 AM [facility] SPECIAL PROC/RESEARCH [facility] 10/25/2017 1:00 PM MD PETER Rubio [facility] 10/25/2017 1:00 PM Chase Neri MD [place] 10/25/2017 3:00 PM CTS/TAVR [id number] None Diagnosis & Reason for Visit: /TAVR eval Physician Info: Referring Physician(Catalogue Maker): Dario Pandya MD Contact Name & Number: [phone] PCP: Jose De Jesus Rocha History of [...] A Jorge 1.100 m/s MV Peak E Joreg PW 0.800 m/s Right Ventricular Mid 2.7 [...] Index 19.13 10 - 32 [facility] ECHO PV PAINTER SUPERVISOR CELIA Tierney Ao root annulus 2.0 1.4 - 2.6 cm STJ 3.3 1.7 - 3.4 cm Ascending aorta 3.4 2.0 - 3.6 cm , with a mean gradient of 53 mmHg AV peak velocity 5.1 m/s LVOT diameter 2.2 cm LVOT peak jorge 0.8 m/s LVOT peak VTI 20.0 cm Ao VTI 124.0 cm and a peak gradient of 105 mmHg AV index (kluti kaah) 0.16 LVOT area 3.80 cm2 LVOT stroke [...] severe stenosis (MG=53 mmHg, peak velocity=5.1 m/sec, SA=960 , NEHEMIAH=0.61 cm), no regurgitation. The pulmonary artery pressure could not be obtained. The sinuses of Valsalva are mildly dilated. in this encounter Visit Diagnoses Diagnosis 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, etiology of cardiac valve disease unspecified
[2017-12-08] VITALS (18 sets, daily range): BP systolic 102–137; BP diastolic 40–93
[2017-12-08 03:39] LABS: BASOPHILS % (AUTO) 0 % (0-10); EOSINOPHILS # (AUTO) 0.3 10^3/uL (0.0-0.3); EOSINOPHILS % (AUTO) 3 % (0-10); HEMATOCRIT 40 % (40-54); HEMOGLOBIN 13.1 G/DL (13.3-17.7); LYMPHOCYTES # (AUTO) 1.7 X 10^3 (1.0-4.0); LYMPHOCYTES % (AUTO) 19 % (12-44); MEAN CORPUSCULAR HEMOGLOBIN 33 PG (25-34); MEAN CORPUSCULAR HGB CONC 33 G/DL (32-36); MEAN CORPUSCULAR VOLUME 99 FL (80-99); MEAN PLATELET VOLUME 11.1 FL (7.4-10.4); MONOCYTES # (AUTO) 0.8 X 10^3 (0.0-1.0); MONOCYTES % (AUTO) 10 % (0-12); NEUTROPHILS # (AUTO) 5.8 X 10^3 (1.8-7.8); NEUTROPHILS % (AUTO) 68 % (42-75); PLATELET COUNT 212 10^3/uL (130-400); RED BLOOD COUNT 4.02 10^6/uL (4.35-5.85); RED CELL DISTRIBUTION WIDTH 13.2 % (10.0-14.5); WHITE BLOOD COUNT 8.5 10^3/uL (4.3-11.0)
[2017-12-08 03:56] LABS: BUN/CREATININE RATIO 20; CARBON DIOXIDE 23 MMOL/L (21-32); CHLORIDE 106 MMOL/L (98-107); CHOLESTEROL 115 MG/DL (< 200); CREATININE SERUM 0.83 MG/DL (0.60-1.30); GFR ESTIMATED > 60; GLUCOSE 104 MG/DL (70-105); HDL CHOLESTEROL 33 MG/DL (40-60); MAGNESIUM 2.1 MG/DL (1.8-2.4); PHOSPHORUS 4.1 MG/DL (2.3-4.7); POTASSIUM 4.2 MMOL/L (3.6-5.0); SODIUM 137 MMOL/L (135-145); TRIGLYCERIDES 98 MG/DL (<150); VLDL CHOLESTEROL 20 MG/DL (5-40)
--- NOTE | 2017-12-08 07:55 | Diagnostic Imaging Report ---
INDICATION: Chest pain. Comparison made with prior examination 12/07/2017. FINDINGS: There is cardiomegaly. There is bibasilar atelectasis and/or pneumonitis. There is no pleural effusion or pneumothorax. Mediastinum is unremarkable. IMPRESSION: Bibasilar atelectasis and/or pneumonitis. Cardiomegaly. Dictated by: Dictated on workstation # [id number]
[2017-12-08] MEDS ORDERED: MULT-35 PO (08:45)
[2017-12-08] MEDS ORDERED: ASPI-983 PO (08:45)
[2017-12-08] MEDS ORDERED: CARV3.122 PO (08:45)
[2017-12-08] MEDS ORDERED: OMEG-160 PO (08:45)
[2017-12-08] MEDS ORDERED: ENAL2.5T PO (08:45)
[2017-12-08] MEDS ORDERED: ROSU10TA26 PO (08:45)
[2017-12-08] MEDS ORDERED: CLOP75TA28 PO (08:45)
--- NOTE | 2017-12-08 09:05 | History & Physical-Hospitalist ---
History of Present Illness HPI/Chief Complaint Pt is a 72CM with a history of recent TAVR on 11/24/17 at [facility] who presented to the ER for bradycardia. He was seen at [facility] yesterday for a follow up and was advised to restart his coreg that he had been off of since surgery. He took his Coreg and then check his pulse around 1 hour later to document it for his speech correction consultant and found his pulse to be 38. He is friends with his PCP Dr Rocha and called him regarding this. Dr Rocha went to his house and check his pulse manually and found it to be 36 so advised him to go to the ER. He denies any symptoms with his bradycardia last night. He states he has been checking his pulse regularly since his operation and it is normally in the 60s but one time a few days ago he noticed it to be in the 30s but it resolved quickly. He informed his speech correction consultant at of this and they were supposed to arrange for a holter monitor. He was admitted for observation of his bradycardia last night. This morning he reports feeling well. Source: patient Date Seen 12/08/17 Time Seen by Provider: 08:40 Attending Physician Betsey Rogers DO PCP Jose De Jesus Rocha MD Referring Physician Date of Admission Dec 07, 2017 at 11:22 pm Home Medications & Allergies Home Medications Reviewed patient Home Medication Reconciliation performed by pharmacy medication reconciliations electromechanical technician and/or nursing. Patients Allergies have been reviewed. Allergies Allergies Coded Allergies No Known Drug Allergies (Unverified02/02/12) Past Vponneb-Gzlqkt-Tedjbs Hx Past Med/Social Hx: Reviewed Nursing Past Med/Soc Hx, Reviewed and Corrections made Patient Social History Marrital Status: Employed/Student: retired Alcohol Use: Occasionally Uses Alcohol Beverage of Choice: Whiskey Recreational Drug Use: No Smoking Status: Former Smoker Physical Abuse Screen: No Sexual Abuse: No Recent Foreign Travel: No Contact w/other who traveled: No Recent Hopitalizations: Yes (aortic valve replacement, retinal blood clot) Recent Infectious Disease Expo: No Immunizations Up To Date Pediatric: No Date of Pneumonia Vaccine: May 20, 2015 Date of Influenza Vaccine: Jul 20, 2017 Seasonal Allergies Seasonal Allergies: Yes Past Medical History Surgeries: Cardiac, Orthopedic, Valve Replacement (TAVR 11/24/17) Currently Using CPAP: No Currently Using BIPAP: Yes Cardiac: Valvular Heart Disease Reproductive: No Musculoskeletal: Arthritis, Scoliosis Are Your Blood Sugars Over 250: No 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) Hearing Impairment: Denies Did You Recieve Any Treatments: No History of Blood Disorders: No Adverse Reaction to Blood [place]: No Family History Reviewed Nursing Family Hx Alzheimer's disease 19 MOTHER, , Onset:Unknown Arthritis Colon cancer G8 BROTHER, , Onset:60 years & older FH: bladder cancer G8 BROTHER, Onset:60 years & older FH: renal failure 19 FATHER, , Onset:Unknown Review of Systems Constitutional: No chills, No fever EENTM: 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), No double vision, No nose congestion, No throat pain Respiratory: No cough, No dyspnea on exertion, No short of breath Cardiovascular: see HPI Gastrointestinal: No abdominal pain, No constipation, No diarrhea, No nausea, No vomiting Genitourinary: No dysuria, No frequency Musculoskeletal: No joint pain, No muscle pain Skin: No lesions, No rash Psychiatric/Neurological: Denies Headache, Denies Numbness, Denies Tingling Physical Exam Physical Exam Vital Signs Vital Signs - First Documented 12/07/17 21:11 Temp 96.4 Pulse 151 Resp 18 B/P (MAP) 126/60 (82) Pulse Ox 97 O2 Delivery Room Air Capillary Refill : Less Than 3 Seconds General Appearance: No Apparent Distress, WD/WN, Obese HEENT: Moist Mucous Membranes, No Scleral Icterus (L), No Scleral Icterus (R) Neck: Non Tender, Supple, No JVD, No Thyromegaly Respiratory: Lungs Clear, No Respiratory Distress Cardiovascular: Regular Rate, Rhythm (rate 61 manually), No Murmur, Normal Peripheral Pulses Gastrointestinal: Normal Bowel Sounds, Non Tender, Soft Extremity: Normal Capillary Refill, No Calf Tenderness, No Pedal Edema Neurologic/Psychiatric: Alert, Oriented x3, Normal Mood/Affect Skin: Normal Color, Warm/Dry Results Results/Procedures Labs Laboratory Tests 12/07/17 21:20 12/08/17 03:00 Patient resulted labs reviewed. Imaging: Reviewed Imaging Report Assessment/Plan Admission Diagnosis bradycardia Admission Status: Observation Diagnosis/Problems Diagnosis/Problems (1) Arrhythmia Status: Acute Assessment & Plan: EKG was sinus rhythm with multiple PVCs Telemetry reveals ectopy Cardiology consulted, appreciate recs Qualifiers: Arrhythmia type: unspecified cardiac arrhythmia Qualified Codes: I49.9 - Cardiac arrhythmia, unspecified (2) Status post transcatheter aortic valve replacement Status: Acute Assessment & Plan: Follows with [facility] (3) Essential (primary) hypertension Status: Chronic Assessment & Plan: On two antihypertensives as an outpatient BP well controlled currently Will monitor and hold enalapril (4) Prophylactic measure Assessment & Plan: Sal[facility] diet Lovenox Clinical Quality Measures AMI/AHF: ASA po Prior to arrival: No DVT/VTE Risk/Contraindication: Risk Factor Score Per Nursin RFS Level Per Nursing on Admit: 3=High Copy Copies To 1: JOSE DE JESUS ROCHA MD, KATELYN M MD Dec 08, 2017 9:05 am
[2017-12-08] MEDS ORDERED: HYDR-700 PO (09:48)
[2017-12-08] MEDS ORDERED: KETO15CR2 TOP (09:48)
[2017-12-08] MEDS ORDERED: MELO15TA39 PO (09:48)
[2017-12-08] MEDS ORDERED: NITR0.4T42 SL (09:48)
[2017-12-08] MEDS ORDERED: OMEG-9 PO (09:48)
[2017-12-08] MEDS ORDERED: BACL10TA PO (09:51)
[2017-12-08] MEDS ORDERED: SENN-1 PO (09:51)
[2017-12-08] MEDS ORDERED: FISH1CAP15 PO (10:10)
[2017-12-08] MEDS ORDERED: MELOXICAM 7.5 MG (MOBIC) TABLET PO PRN (12:00)
[2017-12-08] MEDS ORDERED: hydrOXYzine (VISTARIL) 25 MG CAP PO PRN (12:00)
[2017-12-08] MEDS ORDERED: BACLOFEN 10 MG (LIORESAL) TAB PO PRN ×2 (12:00)
[2017-12-08] MEDS ORDERED: PATIENT MAY USE OWN MEDS, ALL MC SCH (12:00)
[2017-12-08] MEDS ORDERED: CLOPIDOGREL 75 MG (PLAVIX) TABLET PO SCH ×2 (12:00)
[2017-12-08] MEDS ORDERED: meTOprolol TARTRATE 25 MG (LOPRESSOR) TABLET PO NR (12:45)
[2017-12-08] MEDS ORDERED: HYDROXYZINE 25 MG PO PRN (13:15)
[2017-12-08] MEDS ORDERED: MELOXICAM 15 MG TAB PO PRN (13:30)
[2017-12-08] MEDS: NS IV 500 ML 500 ML IV SCH (15:04)
[2017-12-08] MEDS ORDERED: meTOprolol TARTRATE 50 MG (LOPRESSOR) TAB PO NR (15:30)
[2017-12-08] MEDS ORDERED: ENOXAPARIN 40 MG/0.4 ML (LOVENOX) SYR SC SCH (16:00)
--- NOTE | 2017-12-08 16:48 | Consultation-Cardiology ---
HPI-Cardiology Cardiology Consultation: Date of Consultation 12/08/17 Date of Admission Attending Physician Betsey Rogers DO Admitting Physician Jose De Jesus Rocha MD Consulting Physician Kashif GARCIA MD HPI: Time Seen by Provider: 11:00 Chief Complaint: bradycardia This is a 72-year-old gentleman who had recent TAVR at on 11/24/2017 for bicuspid aortic valve. He presented to the ER for bradycardia. Post TAVR patient had TIA and is on Plavix. According to the patient his pulse was 38 and was also taken by his primary care physician manually and was in the late 30s. However the patient was not having any significant symptoms. He specifically denied syncope, near-syncope, dizziness, chest pain, shortness of breath, palpitations. However he's had one previous episode of dizziness which we're not sure was associated with bradycardia. He had spoken with his grain blender 1-2 days ago and a Holter monitor is being shipped to him. Review of Systems-Cardiology Review of Systems Constitutional: No As described under HPI, No no symptoms reported, No chills, No fever, No lightheadedness, No malaise, No tiredness, No weight loss, No weight gain, No other Eyes: No As described under HPI, No no symptoms reported, No blindness, No blurred vision, No contact lenses, No drainage, No decreased acuity, No foreign body sensation, No glasses, No inflammation, No pain, No photophobia, No previous injury, No shadows, No tunnel vision, No other, No vision change Ears/Nose/Throat: No As described under HPI, No no symptoms reported, No chronic hearing loss, No epistaxis, No ear discharge, No ear pain, No loose teeth, No mouth pain, No mouth swelling, No nasal drainage, No nose pain, No recent hearing loss, No throat pain, No throat swelling, No ulcerations, No other Respiratory: No no symptoms reported, No As described under HPI, No cough, No orthopnea, No shortness of breath, No SOB with excertion, No SOB at rest, No stridor, No wheezing, No other Cardiovascular: No no symptoms reported, As described under HPI, No chest pain , No edema, No irregular heart rate, No lightheadedness, No palpitations, No syncope, No other Gastrointestinal: No no symptoms reported, No As described under HPI, No abdomen distended, No abdominal pain, No blood streaked bowels, No constipation , No diarrhea, No difficulty swallowing, No nausea, No poor appetite, No poor fluid intake, No rectal bleeding, No vomiting, No other, No nausea/vomiting/ diarrhea, No stool coloration changes Genitourinary: No no symptoms reported, No As described under HPI, No burning, No dysuria, No discharge, No frequency, No flank pain, No hematuria, No incontinence, No pain, No urgency, No other, No urine frequency changes, No urine coloration changes Musculoskeletal: No no symptoms reported, No As describe under HPI, No back pain, No gout, No joint pain, No joint swelling, No muscle pain, No muscle stiffness, No neck pain, No other Skin: No no symptoms reported, No As described under HPI, No change in color, No change in hair/nails, No dryness, No lesions, No lumps, No rash, No other, No skin related problems, No ulcerations, No rash on exposed areas, No ulcerations on exposed areas Psychiatric/Neurological: No no symptoms reported, No As described under HPI, No anxiety, No depression, No emotional problems, No headache, No numbness, No pre-existing deficit, No seizure, No tingling, No tremors, No weakness, No other , No focal weakness, No syncope Hematologic: No no symptoms reported, No As described under HPI, No anemia, No blood clots, No easy bleeding, No easy bruising, No swollen glands, No other, No bleeding abnormalities PMR-Vdegcw-Tgottj Hx Patient Social History Marrital Status: Employed/Student: retired Alcohol Use: Occasionally Uses Recreational Drug Use: No Smoking Status: Former Smoker Recent Foreign Travel: No Recent Infectious Disease Expo: No Hospitalization with Isolation: Denies Physical Abuse Screen: No Sexual Abuse: No Immunizations Up To Date Date of Pneumonia Vaccine: May 20, 2015 Date of Influenza Vaccine: Jul 20, 2017 Past Medical History PMH As described under Assessment. Family Medical History Family History: Alzheimer's disease 19 MOTHER, , Onset:Unknown Arthritis Colon cancer G8 BROTHER, , Onset:60 years & older FH: bladder cancer G8 BROTHER, Onset:60 years & older FH: renal failure 19 FATHER, , Onset:Unknown Allergies and Home Medications Allergies Coded Allergies: No Known Drug Allergies (Unverified , 02/02/12) Home Medications Aspirin 81 Mg Tablet.dr, 81 MG PO HS, (Reported) Baclofen 10 Mg Tablet, 10 MG PO TID PRN for MUSCLE SPASMS, (Reported) Carvedilol 3.125 Mg Tablet, 3.125 MG PO BID, (Reported) Clopidogrel Bisulfate 75 Mg Tablet, 75 MG PO 1200, (Reported) Enalapril Maleate 2.5 Mg Tablet, 2.5 MG PO BID, (Reported) Fish Oil/Dha/Epa 1 Each Capsule, 1,200 MG PO BID, (Reported) Hydroxyzine HCl 25 Mg Tablet, 25 MG PO TID PRN for ITCHING, (Reported) Ketoconazole 15 Gm Cream..g., TOP BID, (Reported) APPLY TO GROIN RASH Meloxicam 15 Mg Tablet, 15 MG PO DAILY PRN for BACK PAIN, (Reported) Multivitamin 1 Each Tablet, 1 TAB PO DAILY, (Reported) Nitroglycerin 0.4 Mg Tab.subl, 0.4 MG SL UD PRN for CHEST PAIN, (Reported) Rosuvastatin Calcium 10 Mg Tablet, 10 MG PO HS, (Reported) Sennosides/Docusate Sodium 1 Each Tablet, 1 TAB PO DAILY, (Reported) Patient Home Medication List Home Medication List Reviewed: Yes Physical Exam-Cardiology Physical Exam Vital Signs/I&O Vital Sign - Last 12Hours 12/08/17 12/08/17 12/08/17 12/08/17 05:00 06:00 07:00 07:00 Pulse 112 104 108 112 Resp 11 25 19 B/P (MAP) 114/60 (78) 118/61 (80) 108/59 (75) Pulse Ox 98 97 97 O2 Delivery Room Air Room Air Room Air 12/08/17 12/08/17 12/08/17 12/08/17 08:20 08:21 09:00 10:00 Temp 96.9 Pulse 63 118 98 Resp 16 23 15 B/P (MAP) 112/61 (78) 107/82 (90) 119/82 (94) Pulse Ox 97 98 97 O2 Delivery Room Air Room Air Room Air Room Air 12/08/17 12/08/17 12/08/17 12/08/17 11:00 11:45 11:45 12:00 Temp 96.9 Pulse 141 121 Resp 15 21 B/P (MAP) 137/93 (108) 116/72 (87) Pulse Ox 98 97 98 O2 Delivery Room Air Room Air Room Air Room Air 12/08/17 12/08/17 12/08/17 12/08/17 13:00 13:00 14:00 15:00 Pulse 117 116 93 Resp 23 14 B/P (MAP) 106/76 (86) 130/51 (77) Pulse Ox 97 96 97 O2 Delivery Room Air Room Air Room Air 12/08/17 12/08/17 15:00 15:00 Temp 97.7 Pulse 109 Resp 25 B/P (MAP) 123/61 (81) Pulse Ox 96 O2 Delivery Room Air Room Air Intake and Output 12/08/17 00:00 Intake Total 500 ml Balance 500 ml Capillary Refill : Less Than 3 Seconds Constitutional: AAO x 3 HEENT: PERRL, No normal ENT inspection, No TMs normal, No pharynx normal, No scleral icterus (R), No scleral icterus (L), No pale conjunctivae (R), No pale conjunctivae (L), No photophobia, No TM abnormal (R), No TM abnormal (L), No pharyngeal erythema, No tonsillar exudate, No other, No discharge, No EOMI, hearing is well preserved, No hard of hearing, oral hygience is good, No ulceration, No xanthelasmas are seen Neck: No non-tender, No full range of motion, No supple, No normal inspection, No carotid bruit, No limited range of motion, No lymphadenopathy (R), No lymphadenopathy (L), No tender lateral, No tender midline, No thyromegaly, No other, carotid pulses are 2 + bilaterally, No with good upstrokes Respiratory: No accessory muscle use, No respiratory distress, No chest tender , No chest expansion is symmetric, chest is bilaterally symmetric, No lungs clear to percussion, lungs clear to auscultation, No crackles, No rhonchi, No rales, No stridor, No wheezing, No pleural rub, No other Cardiovascular: regular rate-rhythm, No irregularly irregular, No extra beats, No parasternal heave is noted, No JVD, No edema, No bradycardia, No tachycardia , No point of maximal impulse, No cardiac thrills are palpable, S1 and S2, No gallop/S3, No gallop/S4, No diastolic murmur, No systolic murmur, No friction rub, No click, No other Gastrointestinal: No tender, No soft, No round, No distended, No pulsatile mass , No organomegaly, No guarding, No rebound, No tenderness, No hernia, No mass, No audible bowel sounds, No abnormal bowel sounds, No abdominal bruits, No spleenomegaly, No other Rectal: deferred Extremities: No normal range of motion, No non-tender, No normal inspection, No pedal edema, No calf tenderness, No normal capillary refill, No pelvis stable , No calf tenderness, No inflammation, No pedal edema, No slow capillary refill , No swelling, No other, No abrasion, No clubbing, No cyanosis, No ecchymosis, No laceration, No no lower extremity edema bilateral, No significant edema, No tenderness, No wound Neurologic/Psychiatric: No rv mechanic II-XII nml as tested, No no motor/sensory deficits, alert, normal mood/affect, oriented x 3, No abnormal cerebellar tests , No abnormal rv mechanic II-XII, No abnormal gait, No aphasia, No EOM palsy, No facial droop, No motor weakness, No sensory deficit, No depressed affect, No disoriented x 3, No other, No grossly intact, power is 5/5 both on sides Skin: No normal color, No warm/dry, No cyanosis, No cool, No diaphoresis, No damp, No ecchymosis, No jaundice, No mottled, No pallor, No rash, No tattoos/ piercings, No ulcerations, No rash on exposed areas, No ulcerations on exposed areas, No other Data Review Labs Laboratory Tests 12/07/17 21:20: White Blood Count 8.9, Red Blood Count 4.32L, Hemoglobin 14.1, Hematocrit 42, Mean Corpuscular Volume 97, Mean Corpuscular Hemoglobin 33, Mean Corpuscular Hemoglobin Concent 34, Red Cell Distribution Width 13.2, Platelet Count 237, Mean Platelet Volume 10.9H, Neutrophils (%) (Auto) 67, Lymphocytes (%) (Auto) 21 , Monocytes (%) (Auto) 10, Eosinophils (%) (Auto) 3, Basophils (%) (Auto) 0, Neutrophils # (Auto) 5.9, Lymphocytes # (Auto) 1.9, Monocytes # (Auto) 0.8, Eosinophils # (Auto) 0.3, Basophils # (Auto) 0.0, Prothrombin Time 13.1, INR Comment 1.0, Activated Partial Thromboplast Time 31, Sodium Level 137, Potassium Level 4.4, Chloride Level 104, Carbon Dioxide Level 23, Anion Gap 10, Blood Urea Nitrogen 19H, Creatinine 1.09, Estimat Glomerular Filtration Rate > 60, BUN/Creatinine Ratio 17, Glucose Level 123H, Calcium Level 9.5, Magnesium Level 2.3, Total Bilirubin 0.2, Aspartate Amino Transf (AST/SGOT) 39H, Alanine Aminotransferase (ALT/SGPT) 33, Alkaline Phosphatase 107, Myoglobin 34.3, Troponin I < 0.30, B-Type Natriuretic Peptide 216.0H, Total Protein 7.9, Albumin 4.1 12/08/17 03:00: White Blood Count 8.5, Red Blood Count 4.02L, Hemoglobin 13.1L, Hematocrit 40, Mean Corpuscular Volume 99, Mean Corpuscular Hemoglobin 33, Mean Corpuscular Hemoglobin Concent 33, Red Cell Distribution Width 13.2, Platelet Count 212, Mean Platelet Volume 11.1H, Neutrophils (%) (Auto) 68, Lymphocytes (%) (Auto) 19 , Monocytes (%) (Auto) 10, Eosinophils (%) (Auto) 3, Basophils (%) (Auto) 0, Neutrophils # (Auto) 5.8, Lymphocytes # (Auto) 1.7, Monocytes # (Auto) 0.8, Eosinophils # (Auto) 0.3, Basophils # (Auto) 0.0, Sodium Level 137, Potassium Level 4.2, Chloride Level 106, Carbon Dioxide Level 23, Anion Gap 8, Blood Urea Nitrogen 17, Creatinine 0.83, Estimat Glomerular Filtration Rate > 60, BUN/ Creatinine Ratio 20, Glucose Level 104, Calcium Level 9.0, Magnesium Level 2.1, Phosphorus Level 4.1, Triglycerides Level 98, Cholesterol Level 115, LDL Cholesterol Direct 66, VLDL Cholesterol 20, HDL Cholesterol 33L ECG Impression ECG Comment Sinus rhythm with frequent monomorphic PVCs. A/P-Cardiology Assessment/Admission Diagnosis Bradycardia, Left bundle branch block, Post TAVR for bicuspid , Frequent PVCs and Ventricular couplets Plan Patient has sinus rhythm with frequent PVCs. The blood pressure monitor likely does not account for PVCs therefore labels it as bradycardia. Patient denies any symptoms. I will give Lopressor 25 mg by mouth followed by 50 mg by mouth to suppress PVCs and to see if his [place] sinus rhythm can take over. Patient had coronary angiography recently which did not show CAD. Normal LV function. I spoke to his epidemiology internship at Dr. Sewell and discussed the plan. Dr. Sewell would like the patient to be discharged on beta cristhian if he is asymptomatic and follow-up in their office. Also a Holter monitor has been mailed from which the patient should wear. He will keep the patient overnight and monitor his heart rate hopefully there'll be improvement in PVC burden on Lopressor and the patient will be able to be discharged tomorrow morning. Bicuspid aortic stenosis with TAVR ; no issues. LBBB: follow clinically. Evidence of distal conduction disease. Thank you for your consultation. Please call me if you have any questions. Elisa Garcia MD, FACP, FACC, FSCAI, FHRS, CCDS Interventional Cardiology Cardiac Electrophysiology Vascular Medicine and Endovascular Interventions Clinical Quality Measures AMI/AHF: ASA po Prior to arrival: No DVT/VTE Risk/Contraindication: Risk Factor Score Per Nursin RFS Level Per Nursing on Admit: 3=High Kashif GARCIA MD Dec 08, 2017 4:48 pm
[2017-12-08] MEDS ORDERED: ASPIRIN E.C. 81 MG (ECOTRIN) TAB PO SCH (21:00)
[2017-12-08] MEDS ORDERED: ROSUVASTATIN 10 MG (CRESTOR) TABLET PO SCH (21:00)
[2017-12-08] MEDS: meTOprolol TARTRATE 50 MG (LOPRESSOR) TAB PO SCH (21:01)
[2017-12-08] MEDS: KETOCONAZOLE 2% CREAM 15 GM (NIZORAL) TOP SCH (21:05)
[2017-12-09] VITALS: BP 95/78
[2017-12-09 03:53] VITALS: BP 106/73
[2017-12-09 04:14] LABS: BASOPHILS % (AUTO) 1 % (0-10); EOSINOPHILS # (AUTO) 0.3 10^3/uL (0.0-0.3); EOSINOPHILS % (AUTO) 4 % (0-10); HEMATOCRIT 39 % (40-54); HEMOGLOBIN 13.2 G/DL (13.3-17.7); LYMPHOCYTES # (AUTO) 1.7 X 10^3 (1.0-4.0); LYMPHOCYTES % (AUTO) 22 % (12-44); MEAN CORPUSCULAR HEMOGLOBIN 33 PG (25-34); MEAN CORPUSCULAR HGB CONC 34 G/DL (32-36); MEAN CORPUSCULAR VOLUME 96 FL (80-99); MEAN PLATELET VOLUME 10.9 FL (7.4-10.4); MONOCYTES # (AUTO) 0.7 X 10^3 (0.0-1.0); MONOCYTES % (AUTO) 9 % (0-12); NEUTROPHILS # (AUTO) 5.3 X 10^3 (1.8-7.8); NEUTROPHILS % (AUTO) 66 % (42-75); PLATELET COUNT 212 10^3/uL (130-400); RED BLOOD COUNT 4.03 10^6/uL (4.35-5.85); RED CELL DISTRIBUTION WIDTH 13.1 % (10.0-14.5)
[2017-12-09 04:29] LABS: BUN/CREATININE RATIO 17; CALCIUM 9.1 MG/DL (8.5-10.1); CARBON DIOXIDE 21 MMOL/L (21-32); CHLORIDE 106 MMOL/L (98-107); CREATININE SERUM 0.83 MG/DL (0.60-1.30); GFR ESTIMATED > 60; GLUCOSE 102 MG/DL (70-105); MAGNESIUM 2.2 MG/DL (1.8-2.4); POTASSIUM 4.1 MMOL/L (3.6-5.0); SODIUM 137 MMOL/L (135-145)
[2017-12-09 08:00] VITALS: BP 104/67
[2017-12-09] MEDS: meTOprolol TARTRATE 50 MG (LOPRESSOR) TAB PO SCH (08:22)
[2017-12-09] MEDS: KETOCONAZOLE 2% CREAM 15 GM (NIZORAL) TOP SCH (08:23)
[2017-12-09] MEDS ORDERED: METO50TA15 PO (09:26)
--- NOTE | 2017-12-09 09:27 | Discharge Inst-Simple/Standard ---
Discharge Inst-Standard Discharge Medications New, Converted or Re-Newed RX: Call to Patients Pharmacy Patient Instructions/Follow Up Plan of Care/Instructions/FU: Please continue to take your medications as written. Please follow up with your primary care doctor and with your promotions specialist at [facility] as schedule. Should your symptoms return or worsen please return to the ER. Activity as Tolerated: Yes Discharge Diet: Cardiac Diet SIVAKUMAR FRIEND MD Dec 09, 2017 9:27 am
--- NOTE | 2017-12-09 10:19 | Cardiology Progress Note ---
Cardiology SOAP Progress Note Subjective: No cardiac symptoms. Objective: I&O/Vital Signs Vital Sign - Last 12Hours 12/09/17 12/09/17 12/09/17 12/09/17 01:00 03:53 04:00 07:00 Temp 96.6 Pulse 81 60 64 Resp 14 B/P (MAP) 106/73 (84) Pulse Ox 96 97 O2 Delivery NIV CPAP NIV CPAP 12/09/17 12/09/17 12/09/17 08:00 08:00 10:20 Temp 97.4 Pulse 62 62 Resp 16 16 B/P (MAP) 104/67 (79) 104/79 Pulse Ox 97 96 96 O2 Delivery NIV CPAP Room Air Room Air Intake and Output 12/09/17 00:00 Intake Total 680 ml Balance 680 ml Weight (Pounds): 250 Weight (Ounces): 7.0 Weight (Calculated Kilograms): [id number] Constitutional: AAO x 3 Respiratory: No accessory muscle use, No respiratory distress, No chest tender , No chest expansion is symmetric, chest is bilaterally symmetric, No lungs clear to percussion, lungs clear to auscultation, No crackles, No rhonchi, No rales, No stridor, No wheezing, No pleural rub, No other Cardiovascular: regular rate-rhythm, No irregularly irregular, No extra beats, No parasternal heave is noted, No JVD, No edema, No bradycardia, No tachycardia , No point of maximal impulse, No cardiac thrills are palpable, S1 and S2, No gallop/S3, No gallop/S4, No diastolic murmur, No systolic murmur, No friction rub, No click, No other Gastrointestional: No tender, No soft, No round, No distended, No pulsatile mass, No organomegaly, No guarding, No rebound, No tenderness, No hernia, No mass, No audible bowel sounds, No abnormal bowel sounds, No abdominal bruits, No spleenomegaly, No other Extremities: No normal range of motion, No non-tender, No normal inspection, No pedal edema, No calf tenderness, No normal capillary refill, No pelvis stable , No calf tenderness, No inflammation, No pedal edema, No slow capillary refill , No swelling, No other, No abrasion, No clubbing, No cyanosis, No ecchymosis, No laceration, No no lower extremity edema bilateral, No significant edema, No tenderness, No wound Neurologic/Psychiatric: No clock and watch hands painter II-XII nml as tested, No no motor/sensory deficits, alert, normal mood/affect, oriented x 3, No abnormal cerebellar tests , No abnormal clock and watch hands painter II-XII, No abnormal gait, No aphasia, No EOM palsy, No facial droop, No motor weakness, No sensory deficit, No depressed affect, No disoriented x 3, No other, No grossly intact, power is 5/5 both on sides Skin: No normal color, No warm/dry, No cyanosis, No cool, No diaphoresis, No damp, No ecchymosis, No jaundice, No mottled, No pallor, No rash, No tattoos/ piercings, No ulcerations, No rash on exposed areas, No ulcerations on exposed areas, No other Results/Procedures: Labs Laboratory Tests 12/09/17 03:45: White Blood Count 8.0, Red Blood Count 4.03L, Hemoglobin 13.2L, Hematocrit 39L, Mean Corpuscular Volume 96, Mean Corpuscular Hemoglobin 33, Mean Corpuscular Hemoglobin Concent 34, Red Cell Distribution Width 13.1, Platelet Count 212, Mean Platelet Volume 10.9H, Neutrophils (%) (Auto) 66, Lymphocytes (%) (Auto) 22 , Monocytes (%) (Auto) 9, Eosinophils (%) (Auto) 4, Basophils (%) (Auto) 1, Neutrophils # (Auto) 5.3, Lymphocytes # (Auto) 1.7, Monocytes # (Auto) 0.7, Eosinophils # (Auto) 0.3, Basophils # (Auto) 0.0, Sodium Level 137, Potassium Level 4.1, Chloride Level 106, Carbon Dioxide Level 21, Anion Gap 10, Blood Urea Nitrogen 14, Creatinine 0.83, Estimat Glomerular Filtration Rate > 60, BUN/ Creatinine Ratio 17, Glucose Level 102, Calcium Level 9.1, Magnesium Level 2.2 A/P: Assessment/Dx: Bradycardia, Left bundle branch block, Post TAVR for bicuspid , Frequent PVCs and Ventricular couplets Plan: Patient has sinus rhythm with frequent PVCs. The blood pressure monitor likely does not account for PVCs therefore labels it as bradycardia. Patient denies any symptoms. On Lopressor 75 mg twice a day significant reduction in PVCs and ventricular ectopy today. Patient will be discharged today to follow-up with . He will seek immediate medical attention if he develops any cardiac symptoms including syncope, near-syncope or significant dizziness. Patient had coronary angiography recently which did not show CAD. Normal LV function. I spoke to his performance reporter at Dr. Sewell and discussed the plan. Dr. Sewell would like the patient to be discharged on beta cristhian if he is asymptomatic and follow-up in their office. Also a Holter monitor has been mailed from which the patient should wear. He will keep the patient overnight and monitor his heart rate hopefully there'll be improvement in PVC burden on Lopressor and the patient will be able to be discharged tomorrow morning. Bicuspid aortic stenosis with TAVR ; no issues. LBBB: follow clinically. Evidence of distal conduction disease. Thank you for your consultation. Please call me if you have any questions. Elisa Garcia MD, FACP, FACC, FSCAI, FHRS, CCDS Interventional Cardiology Cardiac Electrophysiology Vascular Medicine and Endovascular Interventions Clinical Quality Measures AMI/AHF: ASA po Prior to arrival: Kashif Lee MD Dec 09, 2017 10:19
[2017-12-09 10:20] VITALS: BP 104/79
--- NOTE | 2017-12-09 11:08 | Discharge Summary-Hospitalist ---
Diagnosis/Chief Complaint Date of Admission Dec 07, 2017 at 11:22 pm Date of Discharge Discharge Date: Dec 09, 2017 Admission Diagnosis bradycardia Discharge Diagnosis (1) Arrhythmia Status: Acute Assessment & Plan: EKG was sinus rhythm with multiple PVCs Cardiology consulted, appreciate recs Started on lopressor with improvement but no resolution of frequent PVCs Dr Garcia discussed with his cutting machine operator helper at [facility] who recommended continuing Lopressor and to have him follow up with [facility] Also has holter monitor from [facility] that is arriving at his house today to wear (2) Status post transcatheter aortic valve replacement Status: Acute Assessment & Plan: Follows with [facility] (3) Essential (primary) hypertension Status: Chronic Assessment & Plan: BP low to normotensive trend (4) Prophylactic measure Assessment & Plan: Saline Lock [facility] diet Lovenox Discharge Summary Procedures/Consulations Dr Garcia- Cardiology Discharge Physical Exam Allergies: Coded Allergies: No Known Drug Allergies (Unverified , 02/02/12) Vitals & I&Os Vital Signs Date Time Temp Pulse Resp B/P (MAP) Pulse Ox O2 Delivery O2 Flow Rate FiO2 12/09/17 08:00 97.4 62 16 104/67 (79) 96 Room Air General Appearance: Alert, Oriented X3 Respiratory: Clear to Auscultation Cardiovascular: Regular Rate (rate 63 manually) Psych/Mental Status: Mental Status NL Hospital Course Pt is a 72Cm with aPMH of recent TAVR who presented to the ER with CC of low heart rate. He was asymptomatic but did have a heart rate in the 30s at home as confirmed by his PCP Dr oRcha. He was admitted for observation given recent TAVR. He was found to have multiple PVCs and started on Lopressor with improvement. He is to discharge home and will wear holter monitor from [facility] and follow up with this as scheduled. He was comfortable with plan to discharge and we did discuss return precautions for syncope, LH, or worsening symptoms. Labs (last 24 hrs) Laboratory Tests 12/09/17 03:45: White Blood Count 8.0, Red Blood Count 4.03L, Hemoglobin 13.2L, Hematocrit 39L, Mean Corpuscular Volume 96, Mean Corpuscular Hemoglobin 33, Mean Corpuscular Hemoglobin Concent 34, Red Cell Distribution Width 13.1, Platelet Count 212, Mean Platelet Volume 10.9H, Neutrophils (%) (Auto) 66, Lymphocytes (%) (Auto) 22 , Monocytes (%) (Auto) 9, Eosinophils (%) (Auto) 4, Basophils (%) (Auto) 1, Neutrophils # (Auto) 5.3, Lymphocytes # (Auto) 1.7, Monocytes # (Auto) 0.7, Eosinophils # (Auto) 0.3, Basophils # (Auto) 0.0, Sodium Level 137, Potassium Level 4.1, Chloride Level 106, Carbon Dioxide Level 21, Anion Gap 10, Blood Urea Nitrogen 14, Creatinine 0.83, Estimat Glomerular Filtration Rate > 60, BUN/ Creatinine Ratio 17, Glucose Level 102, Calcium Level 9.1, Magnesium Level 2.2 Patient resulted labs reviewed. Pending Labs Laboratory Tests 12/09/17 03:45: White Blood Count 8.0, Red Blood Count 4.03, Hemoglobin 13.2, Hematocrit 39, Mean Corpuscular Volume 96, Mean Corpuscular Hemoglobin 33, Mean Corpuscular Hemoglobin Concent 34, Red Cell Distribution Width 13.1, Platelet Count 212, Mean Platelet Volume 10.9, Neutrophils (%) (Auto) 66, Lymphocytes (%) (Auto) 22 , Monocytes (%) (Auto) 9, Eosinophils (%) (Auto) 4, Basophils (%) (Auto) 1, Neutrophils # (Auto) 5.3, Lymphocytes # (Auto) 1.7, Monocytes # (Auto) 0.7, Eosinophils # (Auto) 0.3, Basophils # (Auto) 0.0, Sodium Level 137, Potassium Level 4.1, Chloride Level 106, Carbon Dioxide Level 21, Anion Gap 10, Blood Urea Nitrogen 14, Creatinine 0.83, Estimat Glomerular Filtration Rate > 60, BUN/ Creatinine Ratio 17, Glucose Level 102, Calcium Level 9.1, Magnesium Level 2.2 Imaging: Reviewed Imaging Report Discussion & Recommendations Discharge Planning: >30 minutes discharge planning Discharge Home Medications: Active Scripts Active Metoprolol Tartrate 50 Mg Tablet 75 Mg PO BID Reported Fish Oil 1,200 mg Fish Oil (Fish Oil/Dha/Epa) 1 Each Capsule 1,200 Mg PO BID Senna S Tablet (Sennosides/Docusate Sodium) 1 Each Tablet 1 Tab PO DAILY Baclofen 10 Mg Tablet 10 Mg PO TID PRN Nitroglycerin 0.4 Mg Tab.subl 0.4 Mg SL UD PRN Meloxicam 15 Mg Tablet 15 Mg PO DAILY PRN Hydroxyzine HCl 25 Mg Tablet 25 Mg PO TID PRN Ketoconazole 15 Gm Cream..g. TOP BID APPLY TO GROIN RASH Enalapril Maleate 2.5 Mg Tablet 2.5 Mg PO BID Rosuvastatin Calcium 10 Mg Tablet 10 Mg PO HS Clopidogrel (Clopidogrel Bisulfate) 75 Mg Tablet 75 Mg PO 1200 Daily Multiple Vitamin (Multivitamin) 1 Each Tablet 1 Tab PO DAILY Aspirin EC (Aspirin) 81 Mg Tablet.dr 81 Mg PO HS Instructions to patient/family Please see electronic discharge instructions given to patient. Clinical Quality Measures AMI/AHF: ASA po Prior to arrival: No DVT/VTE Risk/Contraindication: Risk Factor Score Per Nursin RFS Level Per Nursing on Admit: 3=High Copy Copies To 1: MAVIS ROCHA MD Problem Qualifiers (1) Arrhythmia: Arrhythmia type: unspecified cardiac arrhythmia Qualified Codes: I49.9 - Cardiac arrhythmia, unspecified SIVAKUMAR FRIEND MD Dec 09, 2017 11:08 am
== END 2017-12-09 10:28 | disposition home or self-care (01) ==
LOC: EDUNIT# 21:05 → ER 21:06 → ICU 23:22 → UNDODISOB 12-09 10:28
PROVIDERS: ADMIT Internal Medicine; ATTEND Internal Medicine
DX: I49.9 Cardiac arrhythmia, unspecified (principal); I44.7 Left bundle-branch block, unspecified; Z95.2 Presence of prosthetic heart valve; I10 Essential (primary) hypertension; Z79.82 Long term (current) use of aspirin; Z79.899 Other long term (current) drug therapy; Z87.891 Personal history of nicotine dependence
CPT/HCPCS: 36415; 71045; 80048; 80053; 80061; 83735; 83874; 83880; 84100; 84484; 85025; 85610; 85730; 87081; 93005; 93041; 94664; 96360; G0378

== ENCOUNTER 2018-04-10 09:24 | Outpatient (RCR) | payer MEDICARE, OTHER ==
[~2018-04-10 09:24] MED LIST changes: +ASPI-983 PO; +BACL10TA PO; +CLOP75TA28 PO; +ENAL2.5T PO; +FISH1CAP15 PO; +HYDR-700 PO; +KETO15CR2 TOP; +MELO15TA39 PO; +METO50TA15 PO; +MULT-35 PO; +NITR0.4T42 SL; +OMEG-160 PO; +OMEG-9 PO; +ROSU10TA27 PO; +SENN-145 PO
== END 2018-04-11 | disposition home or self-care (01) ==
LOC: CR 09:24
PROVIDERS: ATTEND Internal Medicine Cardiovascular Disease
DX: Z48.812 Encounter for surgical aftercare following surgery on the circulatory system (principal); Z95.2 Presence of prosthetic heart valve
CPT/HCPCS: 93798

== ENCOUNTER 2018-05-03 09:21 | Outpatient (RCR) | payer MEDICARE, OTHER | END 2018-07-11 | disposition home or self-care (01) | LOC: CR 09:21 | PROVIDERS: ATTEND Internal Medicine Cardiovascular Disease | DX: Z48.812 Encounter for surgical aftercare following surgery on the circulatory system (principal); Z95.2 Presence of prosthetic heart valve | CPT/HCPCS: 93798 ==

== ENCOUNTER 2018-05-19 10:10 | Outpatient (RCR) | payer MEDICARE, OTHER | END 2018-06-14 | disposition home or self-care (01) | LOC: CR3 10:10 | PROVIDERS: ATTEND Internal Medicine Cardiovascular Disease | DX: Z29.8 Encounter for other specified prophylactic measures (principal) ==

== ENCOUNTER 2018-07-07 09:34 | Outpatient (RCR) | payer MEDICARE, OTHER | END 2018-08-02 | disposition home or self-care (01) | LOC: CR3 09:34 | PROVIDERS: ATTEND Internal Medicine Cardiovascular Disease | DX: Z01.818 Encounter for other preprocedural examination (principal) ==

== ENCOUNTER 2019-06-26 05:38 | Outpatient (CLI) | payer MEDICARE, OTHER ==
[~2019-06-26] VITALS: Ht 165 cm; Wt 113.6 kg
[~2019-06-26 05:38] MED LIST changes: -ROSU10TA27 PO; +ROSU10TA28 PO
[2019-06-26] MEDS ORDERED: MULT-178 PO (14:16)
== END 2019-06-26 14:23 | disposition home or self-care (01) ==
LOC: PREOP 05:38
PROVIDERS: ATTEND Surgery
DX: Z01.818 Encounter for other preprocedural examination (principal)

== ENCOUNTER → 2020-02-04 | Outpatient (CLI) | payer MEDICARE, OTHER ==
[~2020-02-04] MED LIST changes: +MULT-178 PO
== END ==
LOC: CARD 12:36
PROVIDERS: ATTEND Internal Medicine Cardiovascular Disease
DX: E78.2 Mixed hyperlipidemia (principal); I10 Essential (primary) hypertension; R09.89 Other specified symptoms and signs involving the circulatory and respiratory systems; I25.10 Atherosclerotic heart disease of native coronary artery without angina pectoris; I35.0 Nonrheumatic aortic (valve) stenosis; Z95.2 Presence of prosthetic heart valve
CPT/HCPCS: 93306

== ENCOUNTER → 2020-12-10 | Outpatient (CLI) | payer MEDICARE, OTHER ==
[~2020-12-10] MED LIST changes: +ASPI-1238 PO; -ASPI-983 PO; -ENAL2.5T PO
== END ==
LOC: CARD 09:30
PROVIDERS: ATTEND Internal Medicine Cardiovascular Disease
DX: I11.9 Hypertensive heart disease without heart failure (principal); I34.0 Nonrheumatic mitral (valve) insufficiency; Z95.2 Presence of prosthetic heart valve
CPT/HCPCS: 93306

== ENCOUNTER → 2021-12-08 | Outpatient (CLI) | payer MEDICARE, OTHER | LOC: CARD 15:58 | PROVIDERS: ATTEND Physician Assistant | DX: I11.9 Hypertensive heart disease without heart failure (principal) | CPT/HCPCS: 93306 ==

== ENCOUNTER → 2022-08-02 | Outpatient (CLI) | payer MEDICARE, OTHER | LOC: CARD 13:18 | PROVIDERS: ATTEND Internal Medicine Cardiovascular Disease | DX: I11.9 Hypertensive heart disease without heart failure (principal); Z95.2 Presence of prosthetic heart valve | CPT/HCPCS: 93306 ==

== ENCOUNTER 2022-12-02 05:37 | Outpatient (CLI) | payer MEDICARE, OTHER ==
[~2022-12-02] VITALS: Ht 167.7 cm; Wt 104.1 kg
[~2022-12-02 05:37] MED LIST changes: +CLOP-31 PO; -CLOP75TA69 PO
[2022-12-03] MEDS ORDERED: POTA-177 PO (10:10)
[2022-12-03] MEDS ORDERED: HYDR-700 PO (10:10)
[2022-12-03] MEDS ORDERED: CHOL500050 PO (10:10)
[2022-12-03] MEDS ORDERED: METO-333 PO (10:10)
[2022-12-03] MEDS ORDERED: FOLI0.8T4 PO (10:10)
[2022-12-03] MEDS ORDERED: FURO-125 PO (10:10)
== END 2022-12-07 08:53 | disposition home or self-care (01) ==
LOC: PREOP 05:37
PROVIDERS: ATTEND Otolaryngology Otolaryngology/Facial Plastic Surgery
DX: Z01.818 Encounter for other preprocedural examination (principal)

== ENCOUNTER 2022-12-09 06:26 | Day surgery (SDC) | payer MEDICARE, OTHER ==
[~2022-12-09] VITALS: Ht 167 cm; Wt 104.1 kg
[~2022-12-09 06:26] MED LIST changes: +CHOL500050 PO; +FOLI0.8T4 PO; +FURO-125 PO; +METO-333 PO; +POTA-177 PO
[2022-12-09] MEDS ORDERED: LACTATED RINGERS 1,000 ML IV PRN (06:30)
[2022-12-09 06:50] VITALS: BP 150/52
[2022-12-09 06:58] LABS: BASOPHILS # (AUTO) 0.1 10^3/uL (0.0-0.1); BASOPHILS % (AUTO) 1 % (0-10); EOSINOPHILS # (AUTO) 0.2 10^3/uL (0.0-0.3); EOSINOPHILS % (AUTO) 3 % (0-10); HEMATOCRIT 43 % (40-54); HEMOGLOBIN 14.5 g/dL (13.3-17.7); LYMPHOCYTES # (AUTO) 2.1 10^3/uL (1.0-4.0); LYMPHOCYTES % (AUTO) 26 % (12-44); MEAN CORPUSCULAR HEMOGLOBIN 33 pg (25-34); MEAN CORPUSCULAR HGB CONC 34 g/dL (32-36); MEAN CORPUSCULAR VOLUME 98 fL (80-99); MEAN PLATELET VOLUME 11.8 fL (9.0-12.2); MONOCYTES # (AUTO) 0.6 10^3/uL (0.0-1.0); MONOCYTES % (AUTO) 8 % (0-12); NEUTROPHILS # (AUTO) 4.9 10^3/uL (1.8-7.8); NEUTROPHILS % (AUTO) 62 % (42-75); PLATELET COUNT 153 10^3/uL (130-400); WHITE BLOOD COUNT 7.9 10^3/uL (4.3-11.0)
[2022-12-09 07:08] LABS: POTASSIUM 4.3 MMOL/L (3.6-5.0)
[2022-12-09 07:10] LABS: CALCIUM 9.4 MG/DL (8.5-10.1)
[2022-12-09 07:14] LABS: CREATININE SERUM 1.13 MG/DL (0.60-1.30)
[2022-12-09 08:44] VITALS: BP 167/43
--- NOTE | 2022-12-09 09:04 | Progress Note-Pre Operative ---
Pre-Operative Progress Note Date of Available H&P: Dec 09, 2022 Date H&P Reviewed: Dec 09, 2022 Time H&P Reviewed: 06:30 History & Physical: H&P Reviewed, Patient Examed, No changes noted Changes from last HP Patient on admission EKG was in complete heart block-Dr Sanon consulted and has seen patient. Surgery cancelled for today. HE will have pacemaker placed later today and then do the surgery tomorrow. Pre-Operative Diagnosis: Bilateral Serous OM JANET GARCIA MD Dec 09, 2022 09:04
--- NOTE | 2022-12-09 09:38 | Diagnostic Imaging Report ---
INDICATION: Bradycardia. Comparison is made with prior exam of 12/08/2017 FINDINGS: There is cardiomegaly. There is some venous congestion. There is no pleural effusion or pneumothorax. The mediastinum is unremarkable. IMPRESSION: Cardiomegaly and mild central pulmonary venous congestion. Dictated by: Dictated on workstation # [id number]
[2022-12-09 10:02] LABS: INR 1.1 (0.8-1.4); PROTHROMBIN TIME PATIENT 14.3 SEC (12.2-14.7)
--- NOTE | 2022-12-09 10:15 | Consultation-Cardiology ---
HPI-Cardiology Cardiology Consultation Date of Consultation 12/09/22 Date of Admission Time Seen by Provider: 10:11 Indication: Complete heart block HPI 77-year-old gentleman with extensive cardiac history, he was scheduled for a procedure with Dr. Sandra, preoperatively he was noted to be bradycardic with a heart rate in the 30s, EKG showing complete heart block. He is known to have episode of junctional rhythm in the past, for the past few days his heart rate has been in the 30s, complaining of fatigue, hearing is pulsating in his ears. No energy, worsening edema and shortness of breath. I discussed with Dr. Sandra and the need to admit him and proceeding with pacemaker, he is on a very low- dose of beta-blockers which has been held Home Medications & Allergies Allergies: Coded Allergies: No Known Drug Allergies (Unverified , 12/03/22) Home Medication List Reviewed: Yes [id number]-[id number] Hx Patient Social History Marital Status: Employed/Student: retired Recreational Drug Use: No Type Used: Cigarettes 2nd Hand Smoke Exposure: No Recent Hopitalizations: No Immunizations Up To Date Tetanus Booster (TDap): Less than 5yrs Date of Pneumonia Vaccine: Jul 16, 2022 Date of Influenza Vaccine: Jul 16, 2022 Past Medical History Discussed below Family Medical History Family History: Alzheimer's disease 19 MOTHER, , Onset:Unknown Arthritis Colon cancer G8 BROTHER, , Onset:60 years & older FH: bladder cancer G8 BROTHER, Onset:60 years & older FH: renal failure 19 FATHER, , Onset:Unknown Review of Systems-General Review of Systems Constitutional: no symptoms reported, see HPI, dizziness, malaise, weakness EENTM: see HPI, no symptoms reported, hearing loss, ear pain Respiratory: no symptoms reported, see HPI, dyspnea on exertion, short of breath Cardiovascular: see HPI, edema, palpitations Gastrointestinal: no symptoms reported, see HPI Genitourinary: no symptoms reported, see HPI Musculoskeletal: no symptoms reported, see HPI Skin: no symptoms reported, see HPI Psychiatric/Neurological: No Symptoms Reported, See HPI Reviewed Test Results Reviewed Test Results Lab Laboratory Tests Test 12/09/22 06:50 12/09/22 09:36 Range/Units White Blood Count 7.9 4.3-11.0 10^3/uL Red Blood Count 4.39 4.30-5.52 10^6/uL Hemoglobin 14.5 13.3-17.7 g/dL Hematocrit 43 40-54 % Mean Corpuscular Volume 98 80-99 fL Mean Corpuscular Hemoglobin 33 25-34 pg Mean Corpuscular Hemoglobin Concent 34 32-36 g/dL Red Cell Distribution Width 13.6 10.0-14.5 % Platelet Count 153 130-400 10^3/uL Mean Platelet Volume 11.8 9.0-12.2 fL Immature Granulocyte % (Auto) 0 % Neutrophils (%) (Auto) 62 42-75 % Lymphocytes (%) (Auto) 26 12-44 % Monocytes (%) (Auto) 8 0-12 % Eosinophils (%) (Auto) 3 0-10 % Basophils (%) (Auto) 1 0-10 % Neutrophils # (Auto) 4.9 1.8-7.8 10^3/uL Lymphocytes # (Auto) 2.1 1.0-4.0 10^3/uL Monocytes # (Auto) 0.6 0.0-1.0 10^3/uL Eosinophils # (Auto) 0.2 0.0-0.3 10^3/uL Basophils # (Auto) 0.1 0.0-0.1 10^3/uL Immature Granulocyte # (Auto) 0.0 0.0-0.1 10^3/uL Sodium Level 141 135-145 MMOL/L Potassium Level 4.3 3.6-5.0 MMOL/L Chloride Level 108 H 98-107 MMOL/L Carbon Dioxide Level 22 21-32 MMOL/L Anion Gap 11 5-14 MMOL/L Blood Urea Nitrogen 23 H 7-18 MG/DL Creatinine 1.13 0.60-1.30 MG/DL Estimat Glomerular Filtration Rate 68 BUN/Creatinine Ratio 20 Glucose Level 110 H 70-105 MG/DL Calcium Level 9.4 8.5-10.1 MG/DL Prothrombin Time 14.3 12.2-14.7 SEC INR Comment 1.1 0.8-1.4 Activated Partial Thromboplast Time 32 24-35 SEC Physical Exam Physical Exam Vital Signs Vital Signs - First Documented 12/09/22 06:50 Temp 36.5 Pulse 40 Resp 20 B/P (MAP) 150/52 (84) Pulse Ox 94 O2 Delivery Room Air Capillary Refill : Height, Weight, BMI Height: 5'5.00" Weight: 250lbs. 7.0oz. 113.365567sp; 37.32 BMI Method:Stated General Appearance: No Apparent Distress, WD/WN Eyes: Bilateral Eye Normal Inspection, Bilateral Eye PERRL, Bilateral Eye EOMI HEENT: PERRL/EOMI, TMs Normal, Normal ENT Inspection, Pharynx Normal, Moist Mucous Membranes Neck: Full Range of Motion, Normal Inspection, Non Tender, Supple, Carotid Bruit Respiratory: Chest Non Tender, Normal Breath Sounds, No Accessory Muscle Use, No Respiratory Distress Cardiovascular: No Gallop, Normal Peripheral Pulses, Bradycardia, Systolic Murmur, Gallop/S3, JVD Gastrointestinal: Normal Bowel Sounds, No Organomegaly, No Pulsatile Mass, Non Tender, Soft Back: Normal Inspection, No CVA Tenderness, No Vertebral Tenderness Extremity: Normal Capillary Refill, Normal Inspection, Normal Range of Motion, Non Tender, No Calf Tenderness, Other (Peripheral edema) Neurologic/Psychiatric: Alert, Oriented x3, No Motor/Sensory Deficits, Normal Mood/Affect Skin: Normal Color, Warm/Dry Lymphatic: No Adenopathy A/P-Cardiology Admission Diagnosis Complete heart block Symptomatic bradycardia Coronary artery disease Aortic valve replacement Assessment/Plan Complete heart block, severe bradycardia Symptomatic. Has been on a very low-dose beta-blockers which has been on hold and still severely bradycardic. I plan to proceed with dual-chamber pacemaker implantation today Left bundle branch block, frequent PVCs and junctional rhythm. Had an event recorder. Has been bradycardic, advanced conduction disease. Planning for dual-chamber pacemaker today Hypertension, poor control, his medications are on hold today. Mild nonobstructive coronary artery disease per cardiac catheterization 2011, underwent cardiac catheterization prior to his TAVR in 2018, done at . Severe aortic valve stenosis, status post TAVR done on November 25, 2017 using Medtronic Evolute Pro # 29, serial number [id number]. Has been doing well. Most recent 2D Echo done in November 2020 revealing prosthetic valve in aortic position functioning normally. EF 60 percent. 2D echo done on December 08, 2021 showing normal LV size, mild LVH, EF 60 to 65%, prosthetic valve in the aortic position, peak gradient 4.9 mmHg, mean gradient 3.2 mmHg, valve area 2.85 cm. 2D echo was done on August 02, 2022 with moderate LVH, ejection fraction 50 to 55%, grade 2 diastolic dysfunction, biatrial dilation, the prosthetic valve in the aortic position is working well, peak gradient 30 mmHg, mean gradient 15 mmHg, valve area 3.94 cm. Trivial regurgitation. Continue to monitor Congestive heart failure, pulmonary edema. Responded well to diuretics. Has been doing well. 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 Currently on ASA Hypertension, continue to monitor, no changes are recommended Hyperlipidemia, controlled, lipid/LFTs due again in 6 months Obesity, BMI 38-educated on importance of diet and exercise for weight loss Obstructive sleep apnea, uses CPAP machine. Mild nonobstructive carotid artery stenosis per carotid duplex done in November 2020, continue to monitor NAOMIE BAEZA MD Dec 09, 2022 10:15
--- NOTE | 2022-12-09 10:16 | Cardiac Procedure Note-CS/ASA ---
Pre-Procedure Note Pre-Op Procedure Note Date of Available H&P: Dec 09, 2022 Date H&P Reviewed: Dec 09, 2022 Time H&P Reviewed: 10:16 History & Physical: H&P Reviewed, Patient Examed, No changes noted Pre-Operative Diagnosis: Complete heart block Moderate Sedation PreProcedure Time 10:16 ASA Score 3 Airway Lungs Heart ASA score ASA 1: a normal healthy patient ASA 2: a patient with a mild systemic disease (mid diabetes, controlled hypertension, obesity ASA 3: a patient with a severe systemic disease that limits activity (angina, COPD, prior Myocardial infarction) ASA 4: a patient with an incapacitating disease that is a constant threat to life (CHF, renal failure) ASA 5: a moribund patient not expected to survive 24 hrs. (ruptured aneurysm) ASA 6: a declared brain- patient whose organs are being harvested. For emergent operations, add the letter E after the classification Mallampati Classification Grade 3 Sedation Plan Analgesia, Amnesia, Plan communicated to team members, Discussed options with patient/fam, Discussed risks with patient/fam The patient is an appropriate candidate to undergo the planned procedure, sedation, and anesthesia. The patient immediately re-assessed prior to indication. NAOMIE BAEZA MD Dec 09, 2022 10:16
[2022-12-09] MEDS ORDERED: ENOXAPARIN 40 MG/0.4 ML (LOVENOX) SYR SC NR (10:30)
[2022-12-09] MEDS ORDERED: FUROSEMIDE 40 MG/4 ML INJ (LASIX) IVP NR (10:30)
[2022-12-09] MEDS ORDERED: HEParin (CATH LAB) 1,000 ML IV ONE (14:36)
[2022-12-09] MEDS ORDERED: LIDOCAINE 1% INJ 20 ML VIAL ONE (14:36)
[2022-12-09] MEDS ORDERED: NS IV 1000 ML 2,000 ML ONE (14:36)
[2022-12-09] MEDS ORDERED: ceFAZolin INJECTION 1,000 MG ONE (14:49)
[2022-12-09] MEDS ORDERED: fentaNYL INJ 100 MCG/2 ML AMP ONE ×2 (15:44→16:11)
[2022-12-09] MEDS ORDERED: MIDAZOLAM 5 MG/5 ML (VERSED) VIAL ONE (15:44)
[2022-12-09] MEDS ORDERED: MIDAZOLAM 2 MG/2 ML (VERSED) VIAL ONE ×2 (16:11→16:29)
--- NOTE | 2022-12-09 17:11 | Permanent Pacemaker Implant ---
Dual Chamber Pacemaker Implant PROCEDURE PHYSICIAN: Naomie Pandya DUAL CHAMBER PACEMAKER IMPLANTATION: DATE OF PROCEDURE: 12/09/22 INDICATION: Symptomatic bradycardia, complete heart block PREOPERATIVE DIAGNOSIS: Complete heart block POSTOPERATIVE DIAGNOSIS: Complete heart block HISTORY: Dual-chamber permanent pacemaker was recommended. PROCEDURE PERFORMED: 1. Dual-chamber permanent pacemaker implantation. 2. Fluoroscopy. 3. Central venous access. ANESTHESIA: Local anesthesia, conscious sedation. COMPLICATIONS: None. ESTIMATED BLOOD LOSS:20 mL. SPECIMENS: None. ORAL ANTICOAGULATION: None. PROCEDURE DETAILS: The patient is a 77 male was scheduled for ear surgery, was noted to be in complete heart block. Has been complaining of fatigue and loss of energy. Has been off beta-cristhian since last night, he is on short acting metoprolol. He has been having episodes of severe bradycardia with junctional rhythm, cardiac pacemaker implantation was advised. After all of the patients questions were answered, the patient was brought to the EP Lab. The patient's left chest was prepped and draped in sterile fashion. A 2 inch horizontal incision was made 1 cm below the clavicle and dissection carried down to the pectoralis fascia. Using the modified Seldinger technique and under fluoroscopy guidance, the anterior aspect of the left axillary vein was accessed 2 times. The J wires were secured to the drapes with a mosquito clamp. A 7-Turkish sheath was introduced over one of the J-wires. The RV lead was then inserted. The RV lead was directed across the tricuspid valve to the apical septal portion of the right ventricle. The position was checked in SAMMARINESE and SALGADO views. The screw was deployed and the lead connected to the it programmer. Close sensing and pacing thresholds were obtained. Diaphragmatic pacing was ruled out. The lead was secured with 2-0 silk ties to the underlying muscle and fascia. Next, a 7-Turkish sheath was introduced through the remaining J-wire. An atrial lead was then introduced and guided to the level of the right appendage. The screw was deployed and the lead was connected to the interrogator. Good sensing and pacing thresholds were obtained. Diaphragmatic pacing was ruled out. The leads were secured with 2-0 silk ties to the underlying muscle and fascia. The leads were connected to the device in a hermetic fashion. The device was placed in direct patch then and leads were placed in the pocket. Aggressive irrigation with saline solution was done. The device was secured to the underlying muscle and fascia with a 2-0 silk tie. interrogation of the device revealed good integrity of all the leads and good connections. The wound was then closed using 2 layers. The first layer was interrupted 2-0 absorbable Vicryl suture. The last layer was a single subcuticular layer with 4- 0 Vicryl suture. Half inch Steri-Strips and a small dressing were then applied to the wound. The patient tolerated the procedure well and was returned to the recovery room in stable condition with stable vital signs. DEVICE INFORMATION: MAMADOU XT DR MRI [id number] RA LEAD: [id number] RV LEAD: [id number] PER-OPERATIVE DEVICE INTERROGATION: Good sensing and capture activity IMMEDIATE POSTOPERATIVE DEVICE INTERROGATION: Right atrium, threshold 0.4 ms as 0.5 V. Impedance 418 ohms, P wave 1.6 mV Right ventricle, threshold 0.4 ms as 1 V, impedance 608 ohms, R wave 13.1 mV. PLAN: The patient transferred to the ICU. We will continue with two more doses of IV antibiotics. We will check a chest x-ray and interrogate the device in the morning. The patient will continue on oral antibiotics for 5 days. CONCLUSION: Successful implantation of dual-chamber pacemaker with no complication FINAL DIAGNOSIS: Paroxysmal atrial fibrillation Aortic valve replacement Hypertension Hyperlipidemia NAOMIE PANDYA MD Dec 09, 2022 17:11
[2022-12-09] MEDS ORDERED: PATIENT MAY USE OWN MEDS, ALL PO SCH (17:15)
[2022-12-09] MEDS ORDERED: NS IV 1000 ML 1,000 ML IV SCH (17:15)
--- NOTE | 2022-12-09 18:08 | Diagnostic Imaging Report ---
INDICATION: Pacemaker placement. COMPARISONS: 12/09/2022 at 09:10 a.m., this film was obtained at 05:40 p.m. FINDINGS: Single view of chest shows cardiomegaly with moderate congestive heart failure. Again demonstrated are five-lobe alveolar infiltrates superimposed on some chronic parenchymal changes. There is now a dual-lead left subclavian pacemaker. There is no pneumothorax. Soft tissues and bony thorax are normal. IMPRESSION: 1. Cardiomegaly with moderate congestive heart failure with superimposed scattered five-lobe alveolar infiltrates superimposed on some chronic parenchymal changes. 2. Interval placement of a dual-chamber pacer placed via a left subclavian approach. There is no pneumothorax. Dictated by: Dictated on workstation # [id number]
[2022-12-09] MEDS: meTOprolol TARTRATE 25 MG (LOPRESSOR) TABLET PO SCH (20:37)
[2022-12-09] MEDS: ENALAPRIL 2.5 MG (VASOTEC) TAB PO SCH (20:37)
[2022-12-09] MEDS ORDERED: ROSUVASTATIN 10 MG (CRESTOR) TABLET PO SCH (21:00)
[2022-12-09] MEDS: ceFAZolin INJECTION 1,000 MG in NS (IVPB) 50 ML IV SCH (22:44)
[2022-12-10 05:06] LABS: HEMOGLOBIN 13.6 g/dL (13.3-17.7)
[2022-12-10 05:07] LABS: MEAN PLATELET VOLUME 11.7 fL (9.0-12.2); WHITE BLOOD COUNT 7.3 10^3/uL (4.3-11.0)
[2022-12-10 05:36] LABS: ALBUMIN 3.3 GM/DL (3.2-4.5); BILIRUBIN,TOTAL 1.1 MG/DL (0.1-1.0); CREATININE SERUM 0.97 MG/DL (0.60-1.30); POTASSIUM 3.8 MMOL/L (3.6-5.0); TOTAL PROTEIN 6.5 GM/DL (6.4-8.2)
[2022-12-10] MEDS: ceFAZolin INJECTION 1,000 MG in NS (IVPB) 50 ML IV SCH (06:13)
[2022-12-10] MEDS ORDERED: CEFU250T80 PO (06:19)
[2022-12-10] MEDS ORDERED: FUROSEMIDE 40 MG/4 ML INJ (LASIX) IVP ONE (06:30)
[2022-12-10] MEDS ORDERED: LIDOCAINE PF 2% 5 ML (XYLOCAINE) VIAL ONE (07:45)
[2022-12-10] MEDS ORDERED: proPOfol 200 MG/20 ML (DIPRIVAN) VIAL IV ONE (07:45)
[2022-12-10] MEDS ORDERED: fentaNYL INJ 100 MCG/2 ML AMP ONE (07:46)
[2022-12-10] MEDS ORDERED: MIDAZOLAM 2 MG/2 ML (VERSED) VIAL ONE (07:57)
[2022-12-10] MEDS ORDERED: LACTATED RINGERS 1,000 ML IV PRN (08:15)
--- NOTE | 2022-12-10 08:35 | Cardiology Progress Note ---
Subjective Date Seen by Provider: Dec 10, 2022 Time Seen by Provider: 08:33 Subjective/Events-last exam Patient was seen at bedside, laying down comfortably, complaining of mild sore throat Review of Systems General: No Chills, No Night Sweats, No Fatigue, No Malaise, No Appetite, No Other HEENT: No Head Aches, No Visual Changes, No Eye Pain, No Ear Pain, No Dysphas ia, No Sinus Congestion, No Post Nasal Drip, No Sore Throat, No Other Pulmonary: No Dyspnea, No Cough, No Pleuritic Chest Pain, No Other Cardiovascular: No: Chest Pain, Palpitations, Orthopnea, Paroxysmal Noc. Dyspnea, Edema, Lt Headedness, Other Objective-Cardiology Exam Last Set of Vital Signs Vital Signs 12/10/22 12/10/22 12/10/22 07:00 07:37 08:00 Temp 35.2 Pulse 60 Resp 18 B/P (MAP) 133/58 (83) Pulse Ox 95 O2 Delivery Room Air I&O Intake and Output 12/10/22 00:00 Intake Total 2690 ml Output Total 3275 ml Balance -585 ml Intake Oral 1640 ml IV Total 1050 ml Output Urine Total 3275 ml # Voids 1 Daily Weight Change No General: Alert, Oriented X3, Cooperative HEENT: Atraumatic, PERRLA Neck: Supple, No JVD, No Thyromegaly Lungs: Clear to Auscultation, Normal Air Movement Heart: Regular Rate, Normal S1, Normal S2, No Murmurs Abdomen: Normal Bowel Sounds, Soft, No Tenderness, No Hepatosplenomegaly, No Masses Extremities: No Clubbing, No Cyanosis, No Edema, Normal Pulses, No Tenderness/Swelling Skin: No Rashes, No Breakdown, No Significant Lesion Neuro: Normal Gait, Normal Speech, Strength at 5/5 X4 Ext, Normal Tone, Sensation Intact Psych/Mental Status: Mental Status NL, Mood NL Results Lab Laboratory Tests 12/10/22 04:47 A/P-Cardiology Admission Diagnosis Complete heart block Symptomatic bradycardia Coronary artery disease Aortic valve replacement Assessment/Plan Complete heart block, severe bradycardia Status post dual-chamber pacemaker implantation on December 09, 2022 Site is healing well Patient is pacemaker dependent at this point. Last interrogation of the pacemaker was done on 12/10/2022 showing good sensing and capture activity. Left bundle branch block, frequent PVCs and junctional rhythm. Had an event recorder. Starting low-dose beta-blockers Hypertension, better controlled, monitor blood pressure Mild nonobstructive coronary artery disease per cardiac catheterization 2011, underwent cardiac catheterization prior to his TAVR in 2017, done at . Severe aortic valve stenosis, status post TAVR done on November 25, 2017 using [employer]onic Evolute Pro # 29, serial number [id number]. Has been doing well. Most recent 2D Echo done in November 2020 revealing prosthetic valve in aortic position functioning normally. EF 60 percent. 2D echo done on December 08, 2021 showing normal LV size, mild LVH, EF 60 to 65%, prosthetic valve in the aortic position, peak gradient 4.9 mmHg, mean gradient 3.2 mmHg, valve area 2.85 cm. 2D echo was done on August 02, 2022 with moderate LVH, ejection fraction 50 to 55%, grade 2 diastolic dysfunction, biatrial dilation, the prosthetic valve in the aortic position is working well, peak gradient 30 mmHg, mean gradient 15 mmHg, valve area 3.94 cm. Trivial regurgitation. Continue to monitor Congestive heart failure, pulmonary edema. Responded well to diuretics. Has been doing well. 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 Currently on ASA Hypertension, continue to monitor, no changes are recommended Hyperlipidemia, controlled, lipid/LFTs due again in 6 months Obesity, BMI 38-educated on importance of diet and exercise for weight loss Obstructive sleep apnea, uses CPAP machine. Mild nonobstructive carotid artery stenosis per carotid duplex done in November 2020, continue to monitor Preoperative cardiac evaluation, patient is considered at low to intermediate risk for perioperative cardiovascular complication Decision regarding the surgery, risk versus benefit is deferred to the surgeon NAOMIE BAEZA MD Dec 10, 2022 08:35
[2022-12-10 08:39] VITALS: BP 117/44
[2022-12-10 08:50] VITALS: BP 119/79
--- NOTE | 2022-12-10 08:50 | Progress Note-Post Operative ---
Post-Operative Progess Note Surgeon (s)/Transportation Supervisor (s) Surgeon JANET GACRIA MD Transportation Supervisor n/a Pre-Operative Diagnosis Bialt JESSE Post-Operative Diagnosis same Post-Op Procedure Note Date of Procedure: Dec 10, 2022 Name of Procedure Performed: BMT Description & Findings Description and Findings: n/a Anesthesia Type lma Estimated Blood Loss minimal Packing none. Specimen(s) collected/removed none JANET GARCIA MD Dec 10, 2022 08:50
[2022-12-10 09:00] VITALS: BP 126/55
[2022-12-10] MEDS ORDERED: SEVOFLURANE (ULTANE) 15 ML INHAL SOLN ONE (09:04)
[2022-12-10 09:10] VITALS: BP 126/56
[2022-12-10 09:20] VITALS: BP 132/55
[2022-12-10] MEDS: ENALAPRIL 2.5 MG (VASOTEC) TAB PO SCH (10:00)
[2022-12-10] MEDS: meTOprolol TARTRATE 25 MG (LOPRESSOR) TABLET PO SCH (10:00)
[2022-12-10] MEDS ORDERED: FUROSEMIDE 40 MG/4 ML INJ (LASIX) IVP NR (10:00)
--- NOTE | 2022-12-10 10:27 | Anesthesia-General Post-Op ---
General Patient Condition Mental Status/LOC: Same as Preop Cardiovascular: Satisfactory Nausea/Vomiting: Absent Respiratory: Satisfactory Pain: Controlled Complications: Absent Post Op Complications Complications None Follow Up Care/Instructions Patient Instructions None needed. Anesthesia/Patient Condition Patient Condition Patient is doing well, no complaints, stable vital signs, no apparent adverse anesthesia problems. No complications reported per nursing. NESTOR DONOHUE CRNA Dec 10, 2022 10:27
== END 2022-12-10 13:50 | disposition home or self-care (01) ==
LOC: SDC 06:26 → ICU 08:39 → CSD 18:13 → SDC 12-10 13:50
PROVIDERS: ATTEND Otolaryngology Otolaryngology/Facial Plastic Surgery
DX: H65.23 Chronic serous otitis media, bilateral (principal); I44.2 Atrioventricular block, complete; E66.01 Morbid (severe) obesity due to excess calories; G47.33 Obstructive sleep apnea (adult) (pediatric); J44.9 Chronic obstructive pulmonary disease, unspecified; R04.0 Epistaxis; I25.10 Atherosclerotic heart disease of native coronary artery without angina pectoris; I35.0 Nonrheumatic aortic (valve) stenosis; I11.0 Hypertensive heart disease with heart failure; I50.1 Left ventricular failure, unspecified; I44.7 Left bundle-branch block, unspecified; I49.3 Ventricular premature depolarization; E78.5 Hyperlipidemia, unspecified; I65.29 Occlusion and stenosis of unspecified carotid artery; Y83.8 Other surgical procedures as the cause of abnormal reaction of the patient, or of later complication, without mention of misadventure at the time of the procedure; Z68.38 Body mass index [BMI] 38.0-38.9, adult; Z99.81 Dependence on supplemental oxygen; Z87.891 Personal history of nicotine dependence; Z95.2 Presence of prosthetic heart valve; Z79.899 Other long term (current) drug therapy
CPT/HCPCS: 33208; 69436; 71045; 80048; 80053; 85025; 85027; 85610; 85730; 87081; 93005; C1785; C1898 ×2; 36415

== ENCOUNTER 2023-07-01 08:24 | Outpatient (RCR) | payer MEDICARE, OTHER ==
[~2023-07-01 08:24] MED LIST changes: +CEFU250T80 PO; +TRAM50TA3 PO
== END 2023-07-19 | disposition home or self-care (01) ==
PROVIDERS: ATTEND Physician Assistant
DX: M54.50 Low back pain, unspecified (principal)

== ENCOUNTER 2023-08-10 15:30 | Outpatient (RCR) | payer MEDICARE, OTHER | END 2023-08-18 | disposition home or self-care (01) | PROVIDERS: ATTEND Physician Assistant | DX: M54.50 Low back pain, unspecified (principal) ==